=== PATIENT | female | born 1935 | race Caucasian/White ===

== ENCOUNTER 2016-11-30 02:16 | Emergency (ER) | payer MEDICARE, BC ==
--- NOTE | 2016-11-30 02:45 | ER Document Report ---
ED Extremity Problem, Lower - General Chief Complaint: Knee Pain Stated Complaint: KNEE PAIN Notes: The patient is an 81-year-old female, past medical history peripheral neuropathy , IDDM, osteoarthritis, DVT multiple years ago, presents with several days of bilateral lower leg cramping and pain. She did not fall. She says that she has chronic bilateral leg pain and neuropathy, but is worse over the past few days. She has not tried taking her home Flexeril, celecoxib or gabapentin. She denies shortness of breath, chest pain, fevers, open wounds, nausea, vomiting or abdominal pain. TRAVEL OUTSIDE OF THE [place] IN LAST 30 DAYS: No - Related Data Allergies/Adverse Reactions: quinine [Quinine] Allergy (Unknown, Verified 01/02/13 23:29) Sulfa (Sulfonamide Antibiotics) Allergy (Verified 12/09/12 17:20) acetaminophen [From Percocet] Adverse Reaction (Mild, Verified 01/03/13 18:38) Nausea oxycodone HCl [From Percocet] Adverse Reaction (Mild, Verified 01/03/13 18:38) Nausea Past Medical History - General Information source: Patient - Social History Smoking Status: Unknown if Ever Smoked Family History: Reviewed & Not Pertinent - Past Medical History Cardiac Medical History: Reports: Hx Atrial Fibrillation, Hx Coronary Artery Disease, Hx Hypercholesterolemia, Hx Hypertension Endocrine Medical History: Reports: Hx Diabetes Mellitus Type 2 Musculoskeltal Medical History: Reports Hx Musculoskeletal Trauma Past Surgical History: Reports: Hx Appendectomy, Hx Breast Surgery - R mastectomy, Hx Cholecystectomy - Immunizations Hx Pneumococcal Vaccination: 08/18/12 Review of Systems - Review of Systems Notes: REVIEW OF SYSTEMS: CONSTITUTIONAL: -fevers, -chills EENT: -eye pain, -difficulty swallowing, -nasal congestion CARDIOVASCULAR: -chest pain, -syncope. RESPIRATORY: -cough, -SOB GASTROINTESTINAL: -abdominal pain, -nausea, -vomiting, -diarrhea GENITOURINARY: -dysuria, -hematuria MUSCULOSKELETAL: -back pain, -neck pain, +B/L leg pain SKIN: -rash or skin lesions. HEMATOLOGIC: -easy bruising or bleeding. LYMPHATIC: -swollen, enlarged glands. NEUROLOGICAL: -altered mental status or loss of consciousness, -headache, +B/L leg neuropathy PSYCHIATRIC: -anxiety, -depression. ALL OTHER SYSTEMS REVIEWED AND NEGATIVE. Physical Exam - Notes Notes: PHYSICAL EXAMINATION: GENERAL: Well-appearing, well-nourished and in no acute distress. HEAD: Atraumatic, normocephalic. EYES: Pupils equal round and reactive to light, extraocular movements intact, sclera anicteric, conjunctiva are normal. ENT: nares patent, oropharynx clear without exudates. Moist mucous membranes. NECK: Normal range of motion, supple without lymphadenopathy LUNGS: Breath sounds clear to auscultation bilaterally and equal. No wheezes rales or rhonchi. HEART: Regular rate and rhythm without murmurs ABDOMEN: Soft, nontender, normoactive bowel sounds. No guarding, no rebound. No masses appreciated. EXTREMITIES: Strong distal pulses, B/L tenderness over entire leg NEUROLOGICAL: Cranial nerves grossly intact. Normal speech, normal gait. Normal sensory, motor, and reflex exams. PSYCH: Normal mood, normal affect. SKIN: Warm, Dry, normal turgor, no rashes or lesions noted. Course - Re-evaluation Re-evalutation: Bedside ultrasound does not show any evidence of DVT in bilateral extremities. Patient states that she has had this pain for several years and is taking celecoxib and Neurontin, but it did not help over the past 2 days. She has strong distal pulses and no other complaints. No signs of cellulitis. - Laboratory Result Diagrams: 11/30/16 02:42 11/30/16 02:42 Laboratory results interpreted by me: 11/30/16 11/30/16 02:42 02:42 Hct 35.8 L BUN 31 H Est GFR ( Amer) 51 L Est GFR (Non-Af Amer) 42 L Glucose 305 H - Diagnostic Test Radiology reviewed: Image reviewed, Reports reviewed Radiology results interpreted by me: B/L foot x-rays: NAD Procedures - Ultrasound/Bedside Ultrasound/Bedside Time completed: 03:32 - B/L LE DVT US Ultrasound: Normal - No DVTs seen., Other Discharge - Discharge Clinical Impression: Bilateral leg pain Chronic leg pain Qualifiers: Laterality: bilateral Qualified Code(s): M79.604 - Pain in right leg Condition: Stable Disposition: HOME, SELF-CARE Additional Instructions: If you continue to have worsening leg pain, follow-up with your primary care physician to have a repeat ultrasound in 2 weeks performed. Return to the ER if you notice worsening swelling, fevers or any other concerns. Myalagia (Muscle Pain) Myalgia is pain in the muscles. We use the word myalgia to describe muscle pain where there's no history of injury, no known muscle disease, and the muscles are normal to examination. Myalgias can be a symptom of an acute illness , such as influenza, hepatitis, or any viral illness, especially with fever. Sometimes the muscle pain comes before any other symptoms. Myalgia can also be an early symptom of inflammatory muscle disease, such as lupus. If myalgia is accompanied by an acute illness that explains the muscle pain , then no further testing needs to be done. When there's no clear reason for the pain, tests may be done to see if there's an inflammatory or other disease of the muscles. The usual treatment for myalgias is anti-inflammatory medication, such as ibuprofen. Muscle aches may be soothed with a heating pad or hot compress. If muscles remain painful for more than a few days, you'll need testing and followup. Return if a muscle becomes swollen, red, or severely painful. Neuropathy Your symptoms are due to neuropathy. Neuropathy is nerve damage. There are many causes, including diabetes, immune disease, alcohol, blood vessel disease, and vitamin deficiency. The usual symptoms are pain and numbness. Neuropathy can occur anywhere, but it's most likely in the "longest" nerves. That's why the feet are most often affected. Sometimes the nerve damage can heal. But if the symptoms have lasted more than a few months, the damage is permanent. To avoid further damage, treat your underlying health problems carefully. If you have diabetes, keep the blood sugar as normal as possible. Avoid alcohol. Treat high blood pressure and high cholesterol. Treating chronic pain can be a problem. Obviously, you don't want to become addicted to pain medicine. Work closely with your doctor on pain management. Your options include antiinflammatory medicine, anti seizure medicine, antidepressants, and pain clinic management. Contact the doctor if there is a significant change.
[2016-11-30 02:58] LABS: ABSOLUTE EOSINOPHILS # (AUTO) 0.3 10^3/uL (0.0-0.6); ABSOLUTE LYMPHOCYTES (AUTO) 1.5 10^3/uL (0.5-4.7); ABSOLUTE MONOCYTES (AUTO) 0.9 10^3/uL (0.1-1.4); ABSOLUTE NEUT (AUTO) 7.2 10^3/uL (1.7-8.2); BASOPHILS % (AUTO) 0.5 % (0-2); EOSINOPHILS % (AUTO) 2.7 % (0-6); HEMATOCRIT 35.8 % (36.0-47.0); HEMOGLOBIN 12.3 g/dL (12.0-15.5); HGB HCT DIFFERENCE 1.1; LYMPHOCYTES % (AUTO) 14.9 % (13-45); MEAN CORPUSCULAR HGB CONC 34.5 g/dL (32.0-36.0); MEAN CORPUSCULAR VOLUME 87 fl (80-97); MONOCYTES % (AUTO) 8.7 % (3-13); RED BLOOD COUNT 4.11 10^6/uL (3.72-5.28); RED CELL DISTRIBUTION WIDTH 13.1 % (11.5-14.0); SEGMENTED NEUTROPHILS % (AUTO) 73.2 % (42-78); WHITE BLOOD COUNT 9.8 10^3/uL (4.0-10.5)
[2016-11-30] MEDS ORDERED: KETOROLAC TROMETHAMINE INJ/PF 30 MG/1 ML SDV IV ONE (02:58)
[2016-11-30 03:14] LABS: ANION GAP 12 (5-19); BLOOD UREA NITROGEN 31 mg/dL (7-20); CALCIUM 9.5 mg/dL (8.4-10.2); CARBON DIOXIDE 28 mmol/L (22-30); CHLORIDE 100 mmol/L (98-107); CREATINE KINASE 70 U/L (30-135); CREATININE RESULT 1.23 mg/dL (0.52-1.25); GLUCOSE 305 mg/dL (75-110); POTASSIUM 3.7 mmol/L (3.6-5.0); SODIUM 139.5 mmol/L (137-145)
[2016-11-30 04:34] VITALS: BP 143/61
== END 2016-11-30 04:20 | disposition home or self-care (01) ==
LOC: ER 02:16
DX: M79.604 Pain in right leg (principal); M79.605 Pain in left leg; M25.561 Pain in right knee; M25.562 Pain in left knee; E11.9 Type 2 diabetes mellitus without complications; Z79.4 Long term (current) use of insulin
CPT/HCPCS: 99283; 96374; 36415; 82550; 85025; 80048; 83880; J1885

== ENCOUNTER 2017-08-27 19:46 | Inpatient (IN) | payer MEDICARE, BC ==
[2017-08-27] MEDS ORDERED: ASPIRIN 81 MG TABLET, CHEWABLE PO ONE ×2 (20:24→20:29)
--- NOTE | 2017-08-27 20:34 | RADIOLOGY REPORT (SQ) ---
EXAM DESCRIPTION: CHEST SINGLE VIEW COMPLETED DATE/TIME: 08/27/2017 8:27 pm REASON FOR STUDY: Vta COMPARISON: 01/01/2013. EXAM PARAMETERS: NUMBER OF VIEWS: One view. TECHNIQUE: Single frontal radiographic view of the chest acquired. RADIATION DOSE: NA LIMITATIONS: None. FINDINGS: LUNGS AND PLEURA: No opacities, masses or pneumothorax. No pleural effusion. MEDIASTINUM AND HILAR STRUCTURES: No masses. Contour normal. HEART AND VASCULAR STRUCTURES: Heart normal in size. Normal vasculature. BONES: No acute findings. HARDWARE: Surgical clips in the soft tissues on the right. OTHER: No other significant finding. IMPRESSION: NO ACUTE RADIOGRAPHIC FINDING IN THE CHEST. TECHNICAL DOCUMENTATION: JOB ID: [id number] [employer]- All Rights Reserved
--- NOTE | 2017-08-27 20:39 | ER Document Report ---
ED Cardiac - General Mode of Arrival: Medic Information source: Patient TRAVEL OUTSIDE OF THE [place] IN LAST 30 DAYS: No - HPI Patient complains to provider of: Chest pain Cardiac risk factors: Hypertension, Dyslipidemia Associated symptoms: Other - see notes above <TAYLOR VELASCO - Last Filed: 08/28/17 02:26> <ERICKA HAQ - Last Filed: 08/28/17 05:05> - General Chief Complaint: Chest Pain Stated Complaint: CHEST PAIN Time Seen by Provider: 08/27/17 20:16 Notes: 82 year old female with history of dyslipidemia, hypertension, and coronary artery disease presents to the ED via EMS complaining of left chest and neck pain that started this morning. Patient was having difficulty breathing when EMS arrived with pain shooting down her left arm. EMS reports the patient went into Vtach and was cardioverted to a sinus rhythm. Patient denies any chest pain , discomfort, nausea, or abdominal pain at bedside. Patient recently had the flu 1.5 weeks ago. (TAYLOR VELASCO) - Related Data Allergies/Adverse Reactions: quinine [Quinine] Allergy (Unknown, Verified 08/27/17 20:22) Sulfa (Sulfonamide Antibiotics) Allergy (Verified 08/27/17 20:22) oxycodone HCl [From Percocet] Adverse Reaction (Mild, Verified 08/27/17 20:22) Nausea Past Medical History - General Information source: Patient - Social History Smoking Status: Former Smoker Frequency of alcohol use: None Drug Abuse: None Family History: Reviewed & Not Pertinent Patient has suicidal ideation: No Patient has homicidal ideation: No - Past Medical History Cardiac Medical History: Reports: Hx Atrial Fibrillation, Hx Coronary Artery Disease, Hx Hypercholesterolemia, Hx Hypertension Endocrine Medical History: Reports: Hx Diabetes Mellitus Type 2 Renal/ Medical History: Denies: Hx Peritoneal Dialysis Musculoskeltal Medical History: Reports Hx Musculoskeletal Trauma Past Surgical History: Reports: Hx Appendectomy, Hx Breast Surgery - R mastectomy, Hx Cholecystectomy - Immunizations Hx Pneumococcal Vaccination: 08/18/12 <TAYLOR VELASCO - Last Filed: 08/28/17 02:26> Review of Systems - Review of Systems Constitutional: No symptoms reported EENT: No symptoms reported Cardiovascular: See HPI, Chest pain - radiating to left neck and arm Respiratory: See HPI, Short of breath Gastrointestinal: No symptoms reported. denies: Abdominal pain, Nausea Genitourinary: No symptoms reported Female Genitourinary: No symptoms reported Musculoskeletal: No symptoms reported Skin: No symptoms reported Hematologic/Lymphatic: No symptoms reported Neurological/Psychological: No symptoms reported -: Yes All other systems reviewed and negative <TAYLOR VELASCO - Last Filed: 08/28/17 02:26> Physical Exam - Vital signs Interpretation: Tachycardic - General General appearance: Alert In distress: None - HEENT Head: Normocephalic, Atraumatic Eyes: Normal Extraocular movements intact: Yes Pupils: PERRL - Respiratory Respiratory status: No respiratory distress Breath sounds: Normal - Cardiovascular Rhythm: Regular, Tachycardia Heart sounds: Normal auscultation - Abdominal Inspection: Normal - Back Back: Normal - Extremities General upper extremity: Normal inspection, Normal ROM General lower extremity: Normal inspection, Normal ROM - Neurological Neuro grossly intact: Yes Cognition: Normal Orientation: AAOx4 Kala Coma Scale Eye Opening: Spontaneous Una Coma Scale Verbal: Oriented Una Coma Scale Motor: Obeys Commands Kala Coma Scale Total: 15 Speech: Normal - Psychological Associated symptoms: Normal affect, Normal mood - Skin Skin Temperature: Warm Skin Moisture: Dry Skin Color: Normal <TAYLOR VELASCO - Last Filed: 08/28/17 02:26> - Vital signs Vitals: Resp Pulse Ox 18 100 08/27/17 19:51 08/27/17 19:51 Course - Laboratory Result Diagrams: 08/27/17 20:39 08/27/17 20:39 - Consults [facility]I Time consulted: 20:16 [facility] Transfer Line Time consulted: 20:25 Dr. Fernandez Time consulted: 22:42 Dr. Oliveira Time consulted: 23:38 <TAYLOR VELASCO - Last Filed: 08/28/17 02:26> - Laboratory Result Diagrams: 08/27/17 20:39 08/28/17 01:59 - Diagnostic Test Radiology reviewed: Reports reviewed - EKG Interpretation by Ak Hazelton/QRS: LBBB <ERICKA HAQ - Last Filed: 08/28/17 05:05> - Re-evaluation Re-evalutation: 08/27/17 23:38 Patient re-evaluated and informed that she will not be transferred to [facility] because there are no beds, but will be admitted to [facility] here at [facility]. (TAYLOR VELASCO) 08/28/17 Patient is an 82-year-old female who comes in after being cardioverted by EMS for chest pain and trouble breathing with ventricular tachycardia on monitor. Patient states that after she was cardioverted she did not have any further chest pain. She has not had any chest pain in the emergency department. Patient was initially going to be transferred to [facility] for evaluation of elevation of troponin, V. tach prior to arrival, a new left bundle branch block. Patient has been chest pain-free since she has been here and resting comfortably. She has had no complaints. Unfortunately, a more critical patient took the last ICU bed at [facility]. Patient was evaluated by cardiology here who recommended starting the patient on Lipitor, amiodarone load with drip, Ranexa, heparin drip with bolus. Patient 's EKG is now showing a sinus rhythm with no tachycardia and no evidence for left bundle branch block. Patient is agreeable to staying at this hospital and would actually prefer it. She has been discussed with the hospitalist service and will be admitted to the ICU. Stable at time of admission. (ERICKA HAQ) - Vital Signs Vital signs: Temp Pulse Resp BP Pulse Ox 98.5 F 116 H 12 143/72 H 95 08/27/17 21:12 08/27/17 20:05 08/27/17 21:01 08/27/17 21:01 08/27/17 21:01 - Laboratory Laboratory results interpreted by me: 08/27/17 08/27/17 20:39 20:39 WBC 10.6 H Hgb 11.6 L Hct 34.7 L Plt Count 498 H Seg Neutrophils % 79.9 H Lymphocytes % 9.0 L Absolute Neutrophils 8.5 H Sodium 147.5 H Potassium 3.3 L Chloride 108 H BUN 24 H Creatinine 0.46 L Glucose 119 H Creatine Kinase 21 L - Consults [facility] Reason for consultation: 08/27/17 20:16 Patient was discussed with the [facility] STEMI line regarding patient's new left bundle branch block. (TAYLOR VELASCO) [facility] Transfer Line Reason for consultation: 08/27/17 20:25 Patient was discussed with the transfer line and told the subway car repairer will call back. 08/27/17 20:33 Water Pump Installer returns call and says not to lytic the patient and to admit the patient to a hospitalist, unless she develops chest pain again. (TAYLOR VELASCO) Dr. Fernandez Reason for consultation: 08/27/17 22:[address] Fernandez who agrees to come into the ED and see the patient. 08/27/17 23:17 Dr. Fernandez saw the patient and states to admit the patient to IMCU under hospitalist care. (TAYLOR VELASCO) Dr. Oliveira Reason for consultation: 08/27/17 23:[address] Oliveira who agrees to admit the patient IMCU. (TAYLOR VELASOC) Critical Care Note - Critical Care Note Total time excluding time spent on procedures (mins): 60 - Evaluation and management after cardioversion, left bundle branch block, initiation of amiodarone, heparin, consultation with cardiology, consultation with tertiary care facility, coordination of admission to ICU, counseling of patient, multiple re-evaluations <ERICKA HAQ - Last Filed: 08/28/17 05:05> Discharge <TAYLOR VELASCO - Last Filed: 08/28/17 02:26> - Discharge Admitting Provider: Maxx OLIVEIRA Unit Admitted: ICU <ERICKA HAQ - Last Filed: 08/28/17 05:05> - Discharge Clinical Impression: V-tach, LBBB (left bundle branch block), NSTEMI (non-ST elevated myocardial infarction) Condition: Stable Disposition: ADMITTED INPATIENT Scribe Attestation: 08/28/17 05:05 I personally performed the services described in the documentation, reviewed and edited the documentation which was dictated to the scribe in my presence, and it accurately records my words and actions. (ERICKA HAQ) Scribe Documentation - Scribe Written by Nader:: Nader Mendez, 08/27/2017 [id number] acting as scribe for :: Quentin <TAYLOR VELASCO - Last Filed: 08/28/17 02:26>
[2017-08-27 20:58] LABS: ABSOLUTE BASOPHILS # (AUTO) 0.1 10^3/uL (0.0-0.2); ABSOLUTE EOSINOPHILS # (AUTO) 0.2 10^3/uL (0.0-0.6); ABSOLUTE MONOCYTES (AUTO) 0.9 10^3/uL (0.1-1.4); ABSOLUTE NEUT (AUTO) 8.5 10^3/uL (1.7-8.2); BASOPHILS % (AUTO) 0.7 % (0-2); EOSINOPHILS % (AUTO) 2.1 % (0-6); HEMATOCRIT 34.7 % (36.0-47.0); HEMOGLOBIN 11.6 g/dL (12.0-15.5); MEAN CORPUSCULAR HEMOGLOBIN 29.7 pg (27.0-33.4); MEAN CORPUSCULAR HGB CONC 33.4 g/dL (32.0-36.0); MEAN CORPUSCULAR VOLUME 89 fl (80-97); MONOCYTES % (AUTO) 8.3 % (3-13); PLATELET COUNT 498 10^3/uL (150-450); SEGMENTED NEUTROPHILS % (AUTO) 79.9 % (42-78); TOTAL CELLS COUNTED % (AUTO) 100 %; WHITE BLOOD COUNT 10.6 10^3/uL (4.0-10.5)
[2017-08-27 21:14] LABS: ALANINE AMINOTRANSFERASE 13 U/L (9-52); ALBUMIN 3.9 g/dL (3.5-5.0); ALKALINE PHOSPHATASE 66 U/L (38-126); ANION GAP 16 (5-19); ASPARTATE AMINO TRANSFERASE 31 U/L (14-36); BILIRUBIN,DIRECT 0.4 mg/dL (0.0-0.4); BILIRUBIN,TOTAL 0.4 mg/dL (0.2-1.3); BLOOD UREA NITROGEN 24 mg/dL (7-20); CALCIUM 9.4 mg/dL (8.4-10.2); CARBON DIOXIDE 24 mmol/L (22-30); CHLORIDE 108 mmol/L (98-107); CREATINE KINASE 21 U/L (30-135); GLUCOSE 119 mg/dL (75-110); POTASSIUM 3.3 mmol/L (3.6-5.0); SODIUM 147.5 mmol/L (137-145); TOTAL PROTEIN 6.6 g/dL (6.3-8.2)
[2017-08-27 21:46] LABS: CREATINE KINASE MB 3.58 ng/mL (<4.55)
[2017-08-27 21:56] LABS: TROPONIN I 0.366 ng/mL
[2017-08-27] MEDS ORDERED: AMIODARONE HCL 150 MG in DEXTROSE 5%-WATER 100 ML IV ONE (22:44)
[2017-08-27] MEDS ORDERED: RANOLAZINE 500 MG TAB.SR.12H PO ONE (23:00)
[2017-08-27] MEDS ORDERED: ATORVASTATIN CALCIUM 80 MG TABLET PO ONE ×2 (23:15)
[2017-08-27] MEDS ORDERED: ATORVASTATIN CALCIUM 80 MG TABLET PO SCH (23:15)
[2017-08-27] MEDS ORDERED: HEPARIN SOD (PORCINE) 1,000 UNIT/ML 10 ML VIAL IV ONE (23:16)
[2017-08-27] MEDS ORDERED: RANOLAZINE 500 MG TAB.SR.12H PO SCH (23:45)
--- NOTE | 2017-08-27 23:46 | PDOC CONSULTATION ---
Consultation Consult Date: 08/27/17 Attending physician:: RAVINDER HAGEN Consult reason:: Ventricular tachycardia status post cardioversion History of Present Illness Admission Date/PCP: 08/27/2017 Patient complains of: Chest pain and shortness of breath History of Present Illness: LEONARDO SHIN is a 82 year old female with past medical history of hypertension, insulin dependent diabetes mellitus, hyperlipidemia, GERD, peripheral neuropathy, and breast cancer who presents to the emergency department with complaints of chest pain. Patient reports that she laid down at 4 PM she got up later had eggs and a piece of toast. At which time she reports she developed chest pain that went up her neck into her arm. When EMS arrived, patient was found to be in V. tach and was hypotensive. Patient was cardioverted 1 and brought to the emergency department. Patient reports she has had no further chest pain since that time. Attempts were made to transfer this patient outside facilities, but they were unable to accommodate our request as they were full. Multiple institutions were called. Cardiology did see this patient and agreed to help comanage her here at this facility. This history was reviewed and confirmed. Subsequent to cardioversion, she denied any recurrence of chest pain, claims to be feeling well and agreed to stay in this hospital for medical management. Patient denied any prior history of myocardial infarction. Echocardiogram was ordered for risk assessment purposes with the understanding that if echocardiogram showed depressed LVEF, then patient will be shipped out to tertiary care however if echocardiogram showed well-preserved LV EF then we could try to manage her medically here. Patient did agree to this approach. Patient's medications are currently undergoing reconciliation. Current list is automatically generated by [employer] and does not reflect an accurate description of her medications. Due to the urgent/emergent nature of her condition, she is admitted without a full list. Past Medical History Cardiac Medical History: Reports: Atrial Fibrillation, Coronary Artery Disease, Hyperlipidema, Hypertension Endocrine Medical History: Reports: Diabetes Mellitus Type 2 Past Surgical History Past Surgical History: Reports: Appendectomy, Cholecystectomy Social History Information Source: Patient Smoking Status: Former Smoker - Advance Directive Resuscitation Status: Full Code Surrogate healthcare decision maker:: Patient's children at the surrogate decision-maker Family History Family History: Reviewed & Not Pertinent Parental Family History Reviewed: Yes Children Family History Reviewed: Yes Sibling(s) Family History Reviewed.: Yes - No significant family history noted Medication/Allergy Home Medications: Amlodipine Besylate [Norvasc 10 mg Tablet] 10 mg PO DAILY 08/28/17 Ascorbic Acid [Vitamin C with Felicitas Hips] 500 mg PO DAILY 08/28/17 Aspirin [Adult Low Dose Aspirin EC] 81 mg PO DAILY 08/28/17 Celecoxib [Celebrex 200 mg Capsule] 200 mg PO DAILY 08/28/17 Cholecalciferol (Vitamin D3) [Vitamin D3 400 Unit Tablet] 400 unit PO DAILY 07/05 Cyclobenzaprine HCl [Flexeril 10 mg Tablet] 10 mg PO BIDP PRN 08/28/17 Furosemide [Lasix 40 mg Tablet] 40 mg PO DAILY 08/28/17 Gabapentin [Neurontin 300 mg Capsule] 300 mg PO Q12 08/28/17 Insulin Degludec [Tresiba Flextouch U-200] 0 units SQ .PERSLIDINGSCALE 08/28/17 Insulin Degludec [Tresiba Flextouch U-200] 32 units SQ ACBRKFST 08/28/17 Insulin Lispro [Humalog Kwikpen U-100] 0 units SQ .PERSLIDINGSCALE 08/28/17 Levothyroxine Sodium [Synthroid] 175 mcg PO ACBRKFST 08/28/17 Metoprolol Succinate [Toprol Xl 25 mg Tab.sr] 25 mg PO DAILY 08/28/17 Multivit-Min/Iron/Folic/Lutein [Centrum Silver Women Tablet] 1 tab PO DAILY 07/05 Pramipexole Di-HCl [Mirapex 0.5 mg Tablet] 0.5 mg PO HSP PRN 08/28/17 Ranitidine HCl [Zantac 150 mg Tablet] 150 mg PO BID 08/28/17 Simvastatin 10 mg PO QHS 08/28/17 Allergies/Adverse Reactions: quinine [Quinine] Allergy (Unknown, Verified 08/27/17 20:22) Sulfa (Sulfonamide Antibiotics) Allergy (Verified 08/27/17 20:22) oxycodone HCl [From Percocet] Adverse Reaction (Mild, Verified 08/27/17 20:22) Nausea Review of Systems Review of Systems: Please see history of present illness and past medical history as wall. Constitutional: No fever or chills reported. Head : No recent chronic headaches, recent head injury. Eyes: No recent eye pain, diplopia, redness, discharge, acute visual changes. Ears: No recent chronic ear pain, acute hearing loss, ear discharge. Oral cavity: No recent ulcerations, bleeding, oral cavity discomfort. Neck: No recent acute neck pain reported. Hematologic: No recent easy bruising or bleeding or hematologic malignancy reported. Lymphatic: No recent lymphatic malignancy, chronic lymphadenopathy reported yet Cardiovascular system review: See history of present illness. Respiratory system review: No recent chronic cough, hemoptysis, blood clots in the lungs reported. Mild Shortness of breath on exertion Gastrointestinal system review: Negative for any recent acute or chronic abdominal pain, hematemesis, melena, recent change in bowel habits. Genitourinary system review: No recent acute or chronic hematuria, flank pain, UTI etc. reported. Skin system review: Negative for any recent abnormal bruising, no rash, no pruritus reported. Neurologic: No prior history of strokes, mini strokes, seizure disorder. Psychologic: No history of major psychosis or major depression reported. Musculoskeletal: Minor aches and pains reported. No acute joint swelling reported. Endocrine: No recent polyuria, polydipsia, recent heat or cold intolerance. Physical Exam Vital Signs: Temp Pulse Resp BP Pulse Ox 98.5 F 116 H 12 143/72 H 95 08/27/17 21:12 08/27/17 20:05 08/27/17 21:01 08/27/17 21:01 08/27/17 21:01 Intake & Output 08/26/17 08/27/17 08/28/17 06:59 06:59 06:59 Weight 107.2 kg Exam: GENERAL: well-nourished and in no acute distress. Alert and oriented x3 HEAD: Atraumatic, normocephalic. EYES: Pupils equal round and reactive to light, extraocular movements intact, sclera anicteric, conjunctiva are normal. ENT: TMs normal, nares patent, oropharynx clear without exudates. Moist mucous membranes. No oral ulcerations or bleeding gums noted NECK: supple without lymphadenopathy. Trachea is central. No cervical or axillary lymphadenopathy noted. Carotids are 2+, JVD WNL LUNGS: Respiration seems nonlabored, no significant accessory muscle action noted. Breath sounds clear to auscultation bilaterally and equal noted. No wheezes rales or rhonchi noted. No significant dullness noted on percussion. CHEST: Palpation of the chest wall shows no significant chest wall tenderness. No other significant abnormalities noted. 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 ABDOMEN: Soft, no significant tenderness appreciated, normoactive bowel sounds. No guarding, no rebound. No rigidity noted . No masses appreciated. EXTREMITIES: Pedal pulses are 1-2+, no calf tenderness noted. No clubbing or cyanosis.trace to 1+ pedal edema noted NEUROLOGICAL: Focused neurological exam showed no significant neurologic deficit. Normal speech, no focal weakness appreciated. PSYCH: Normal mood, normal affect. Judgment and insight within normal limits. SKIN: No significant ecchymosis, ulcerations or signs of pruritus noted. Mild chronic dermatitis changes noted both lower legs. MUSCULOSKELETAL EXAM: No significant joint swelling noted. Results Laboratory Results: 08/27/17 20:39 08/27/17 20:39 08/27/17 08/27/17 08/27/17 20:39 20:39 20:39 WBC 10.6 H RBC 3.90 Hgb 11.6 L Hct 34.7 L MCV 89 MCH 29.7 MCHC 33.4 RDW 13.0 Plt Count 498 H Seg Neutrophils % 79.9 H Lymphocytes % 9.0 L Monocytes % 8.3 Eosinophils % 2.1 Basophils % 0.7 Absolute Neutrophils 8.5 H Absolute Lymphocytes 1.0 Absolute Monocytes 0.9 Absolute Eosinophils 0.2 Absolute Basophils 0.1 Sodium 147.5 H Potassium 3.3 L Chloride 108 H Carbon Dioxide 24 Anion Gap 16 BUN 24 H Creatinine 0.46 L Est GFR ( Amer) > 60 Est GFR (Non-Af Amer) > 60 Glucose 119 H Calcium 9.4 Total Bilirubin 0.4 AST 31 ALT 13 Alkaline Phosphatase 66 Total Protein 6.6 Albumin 3.9 TSH 4.16 08/27/17 08/27/17 20:39 20:39 Creatine Kinase 21 L CK-MB (CK-2) 3.58 Troponin I 0.366 EKG Comments: Multiple EKGs were obtained. This showed sinus rhythm, no acute ST-T wave changes noted. There was one EKG performed outside by ENT which did show wide- complex tachycardia with left bundle branch block pattern most likely V. tach but could not rule out atrial flutter fibrillation with rapid ventricular response with aberrancy. Impressions: Chest X-Ray 08/27/17 20:03 IMPRESSION: NO ACUTE RADIOGRAPHIC FINDING IN THE CHEST. 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 Non-STEMI: Treat with heparin, aspirin for the time being along with beta- blockers, hypotensive statin. Recommend stat 2D echo. This can be performed first thing in the morning. Atrial fibrillation: Loading with amiodarone will help. Also start patient on Ranexa. Patient has other medical problems which are currently stable and are being addressed. Patient is on transfer list but unfortunately no beds are available. Subsequently decision was made to keep here. With medical management which was agreeable to the patient. - Time Time Spent: 30 to 50 Minutes - CODE STATUS was discussed, patient remains full code. Surrogate decision-maker children. Multiple medical problems were addressed. More than 50% of the time spent coordinating care, discussing management plans with involved caregivers. Management plans discussed with involved personnels. Medical decision making was of moderate to high complexity , patient's has multiple comorbidities. Medications reviewed and adjusted accordingly: Yes
[2017-08-27] MEDS ORDERED: MORPHINE SULFATE 10 MG/ML INJ IV PRN (23:59)
[2017-08-27] MEDS ORDERED: NITROGLYCERIN 0.4 MG/TAB 25 TAB/BOTTLE SL PRN (23:59)
[2017-08-28] MEDS ORDERED: DEXTROSE 40% GEL 15 GM TUBE PO PRN ×2 (00:12)
[2017-08-28] MEDS ORDERED: DEXTROSE 50%-WATER 25 GM/50 ML DISP.SYRIN IV PRN ×2 (00:12)
[2017-08-28] MEDS ORDERED: GLUCAGON,HUMAN RECOMB 1 MG INJ IM PRN (00:12)
[2017-08-28] MEDS ORDERED: AMIODARONE HCL INJ 150 MG/3 ML VIAL IV ONE ×2 (00:36→04:47)
[2017-08-28] MEDS: HEPARIN SODIUM,PORCINE/D5W 25,000 UNIT/250 ML RTUINJ IV PRN (01:10)
[2017-08-28 01:19] LABS: CREATINE KINASE MB 6.13 ng/mL (<4.55)
[2017-08-28 01:29] LABS: TROPONIN I 2.09 ng/mL
[2017-08-28 02:23] LABS: ANION GAP 8 (5-19); BLOOD UREA NITROGEN 23 mg/dL (7-20); CALCIUM 9.2 mg/dL (8.4-10.2); CARBON DIOXIDE 27 mmol/L (22-30); CHLORIDE 105 mmol/L (98-107); GLUCOSE 286 mg/dL (75-110); SODIUM 139.5 mmol/L (137-145)
[2017-08-28 02:35] LABS: POTASSIUM 4.4 mmol/L (3.6-5.0)
[2017-08-28] MEDS: DEXTROSE 5%-WATER 500 ML with AMIODARONE HCL 900 MG IV PRN ×4 (04:56→23:34)
[2017-08-28 06:26] LABS: CREATINE KINASE MB 5.5 ng/mL (<4.55); TROPONIN I 2.25 ng/mL
[2017-08-28 06:29] LABS: CHOLESTEROL 130.18 mg/dL (0-200); TRIGLYCERIDES 95 mg/dL (<150)
[2017-08-28 06:42] LABS: DIRECT LDL 67 mg/dL (<100)
[2017-08-28 07:54] LABS: APPEARANCE,URINE CLEAR; BILIRUBIN,URINE NEGATIVE (NEGATIVE); COLOR,URINE YELLOW; GLUCOSE, URINE >=500 mg/dL (NEGATIVE); KETONES,URINE NEGATIVE (NEGATIVE); LEUKOCYTE ESTERASE,URINE NEGATIVE (NEGATIVE); NITRITE,URINE NEGATIVE (NEGATIVE); PROTEIN,URINE 30 mg/dL (NEGATIVE); URINE SPECIFIC GRAVITY 1.017; UROBILINOGEN,URINE NEGATIVE mg/dL (<2.0)
--- NOTE | 2017-08-28 08:11 | EKG REPORT ---
SEVERITY:- ABNORMAL ECG - SINUS RHYTHM NONSPECIFIC INTRAVENTRICULAR CONDUCTION DELAY BORDERLINE R WAVE PROGRESSION, ANTERIOR LEADS : Confirmed by: Olman Wen MD 28-Aug-2017 08:09:41
--- NOTE | 2017-08-28 08:27 | PDOC H&P ---
History of Present Illness Admission Date/PCP: 08/27/17 23:42 History of Present Illness: LEONARDO SHIN is a 82 year old female with past medical history of hypertension, insulin dependent diabetes mellitus, hyperlipidemia, GERD, peripheral neuropathy, and breast cancer who presents to the emergency department with complaints of chest pain. Patient reports that she laid down at 4 PM she got up later had eggs and a piece of toast. At which time she reports she developed chest pain that went up her neck into her arm. When EMS arrived, patient was found to be in V. tach and was hypotensive. Patient was cardioverted 1 and brought to the emergency department. Patient reports she has had no further chest pain since that time. Attempts were made to transfer this patient outside facilities, but they were unable to accommodate our request as they were full. Multiple institutions were called. Cardiology did see this patient and agreed to help comanage her here at this facility. Patient's medications are currently undergoing reconciliation. Current list is automatically generated by [employer] and does not reflect an accurate description of her medications. Due to the urgent/emergent nature of her condition, she is admitted without a full list. Past Medical History Cardiac Medical History: Reports: Atrial Fibrillation, Coronary Artery Disease, Hyperlipidema, Hypertension Endocrine Medical History: Reports: Diabetes Mellitus Type 2, Obesity Malignancy Medical History: Reports: Breast Cancer GI Medical History: Reports: Gastroesophageal Reflux Disease Past Surgical History Past Surgical History: Reports: Appendectomy, Cholecystectomy, Mastectomy Social History Smoking Status: Former Smoker Frequency of Alcohol Use: None Hx Recreational Drug Use: No Hx Prescription Drug Abuse: No - Advance Directive Resuscitation Status: Do Not Resuscitate Surrogate healthcare decision maker:: Prieto Shin, natty Family History Family History: CAD, Malignancy Parental Family History Reviewed: Yes Children Family History Reviewed: Yes Sibling(s) Family History Reviewed.: Yes Medication/Allergy Allergies/Adverse Reactions: quinine [Quinine] Allergy (Unknown, Verified 08/27/17 20:22) Sulfa (Sulfonamide Antibiotics) Allergy (Verified 08/27/17 20:22) oxycodone HCl [From Percocet] Adverse Reaction (Mild, Verified 08/27/17 20:22) Nausea Review of Systems Constitutional: ABSENT: chills, fever(s), headache(s), weight gain, weight loss Eyes: ABSENT: visual disturbances Ears: ABSENT: hearing changes Cardiovascular: PRESENT: as per HPI, chest pain. ABSENT: dyspnea on exertion, edema, orthropnea, palpitations Respiratory: ABSENT: cough, hemoptysis Gastrointestinal: ABSENT: abdominal pain, constipation, diarrhea, hematemesis, hematochezia, nausea, vomiting Genitourinary: ABSENT: dysuria, hematuria Musculoskeletal: ABSENT: joint swelling Integumentary: ABSENT: rash, wounds Neurological: ABSENT: abnormal gait, abnormal speech, confusion, dizziness, focal weakness, syncope Psychiatric: ABSENT: anxiety, depression, homidical ideation, suicidal ideation Endocrine: ABSENT: cold intolerance, heat intolerance, polydipsia, polyuria Hematologic/Lymphatic: ABSENT: easy bleeding, easy bruising Physical Exam Vital Signs: Temp Pulse Resp BP Pulse Ox 98.5 F 116 H 12 143/72 H 95 08/27/17 21:12 08/27/17 20:05 08/27/17 21:01 08/27/17 21:01 08/27/17 21:01 General appearance: PRESENT: mild distress, obese, well-developed, well- nourished Head exam: PRESENT: atraumatic, normocephalic Eye exam: PRESENT: conjunctiva pink, EOMI, PERRLA. ABSENT: scleral icterus Ear exam: PRESENT: normal external ear exam Mouth exam: PRESENT: moist, tongue midline Neck exam: ABSENT: JVD, lymphadenopathy, thyromegaly, tracheal deviation Respiratory exam: PRESENT: clear to auscultation pinky, unlabored. ABSENT: accessory muscle use, rales, rhonchi, wheezes Cardiovascular exam: PRESENT: RRR, +S1, +S2. ABSENT: diastolic murmur, rubs, systolic murmur Pulses: PRESENT: normal dorsalis pedis pul Vascular exam: PRESENT: normal capillary refill GI/Abdominal exam: PRESENT: hypoactive bowel sounds, soft. ABSENT: distended, guarding, mass, organolmegaly, rebound, tenderness Rectal exam: PRESENT: deferred Extremities exam: PRESENT: full ROM, +2 edema - RLE>LLE. ABSENT: calf tenderness, clubbing Neurological exam: PRESENT: alert, awake, oriented to person, oriented to place , oriented to time, oriented to situation, CN II-XII grossly intact. ABSENT: motor sensory deficit Psychiatric exam: PRESENT: appropriate affect, normal mood. ABSENT: homicidal ideation, suicidal ideation Skin exam: PRESENT: dry, intact, warm, other - Evidence of chronic venous stasis in her lower extremities including hyperkeratosis, hyperpigmentation and mild erythema. ABSENT: cyanosis, rash Results Laboratory Results: 08/28/17 01:59 08/28/17 08/28/17 08/28/17 00:28 01:59 05:44 Sodium 139.5 Potassium 4.4 D Chloride 105 Carbon Dioxide 27 Anion Gap 8 BUN 23 H Creatinine 1.15 Est GFR ( Amer) 55 L Est GFR (Non-Af Amer) 45 L Glucose 286 H Calcium 9.2 Triglycerides 95 Cholesterol 130.18 LDL Cholesterol Direct 67 VLDL Cholesterol 19.0 HDL Cholesterol 48 TSH 6.49 H Urine Color Urine Appearance Urine pH Ur Specific Kila Urine Protein Urine Glucose (UA) Urine Ketones Urine Blood Urine Nitrite Ur Leukocyte Esterase Urine WBC (Auto) Urine RBC (Auto) 08/28/17 06:30 Sodium Potassium Chloride Carbon Dioxide Anion Gap BUN Creatinine Est GFR ( Amer) Est GFR (Non-Af Amer) Glucose Calcium Triglycerides Cholesterol LDL Cholesterol Direct VLDL Cholesterol HDL Cholesterol TSH Urine Color YELLOW Urine Appearance CLEAR Urine pH 6.0 Ur Specific Kila 1.017 Urine Protein 30 H Urine Glucose (UA) >=500 H Urine Ketones NEGATIVE Urine Blood NEGATIVE Urine Nitrite NEGATIVE Ur Leukocyte Esterase NEGATIVE Urine WBC (Auto) 2 Urine RBC (Auto) 1 08/28/17 08/28/17 00:28 05:44 CK-MB (CK-2) 6.13 H 5.50 H Troponin I 2.090 2.250 Impressions: Chest X-Ray 08/27/17 20:03 IMPRESSION: NO ACUTE RADIOGRAPHIC FINDING IN THE CHEST. Assessment & Plan - Diagnosis (1) NSTEMI (non-ST elevated myocardial infarction) Is this a current diagnosis for this admission?: Yes Plan: Have consulted cardiology Patient placed on heparin drip Patient on aspirin, heparin drip, metoprolol, lisinopril, Ranexa Continue to trend troponin (2) V-tach Is this a current diagnosis for this admission?: Yes Plan: Patient was cardioverted out of ventricular tachycardia. On amiodarone drip Continue telemetry monitoring Appreciate cardiology input (3) IDDM (insulin dependent diabetes mellitus) Is this a current diagnosis for this admission?: Yes Plan: Check patient's hemoglobin A1c Place her on sliding scale insulin (4) Hypertension Qualifiers: Hypertension type: essential hypertension Qualified Code(s): I10 - Essential (primary) hypertension Is this a current diagnosis for this admission?: Yes Plan: Patient placed on metoprolol, and lisinopril, (5) Neuropathy Is this a current diagnosis for this admission?: Yes Plan: Gabapentin 3 times daily (6) History of breast cancer Is this a current diagnosis for this admission?: Yes Plan: Arm restrict right-sided (7) Edema of right lower extremity Is this a current diagnosis for this admission?: Yes Plan: Obtain ultrasound of her lower extremities (8) Stasis dermatitis of both legs Is this a current diagnosis for this admission?: Yes (9) LBBB (left bundle branch block) Is this a current diagnosis for this admission?: Yes Plan: New after non-STEMI - Time Time Spent: 50 to 70 Minutes Critical Time spent with patient: 25-34 minutes Anticipated discharge: Home - Inpatient Certification Based on my medical assessment, after consideration of the patient's comorbidities, presenting symptoms, or acuity I expect that the services needed warrant INPATIENT care.: Yes I certify that my determination is in accordance with my understanding of Medicare's requirements for reasonable and necessary INPATIENT services [42 CFR 412.3e].: Yes Medical Necessity: Need For Continuous Telemetry Monitoring Post Hospital Care: D/C Business Change Manager Documentation
[2017-08-28] MEDS ORDERED: ASPIRIN 325 MG TABLET, ENT COATED PO SCH (10:00)
[2017-08-28] MEDS ORDERED: RANOLAZINE 500 MG TAB.SR.12H PO SCH (10:00)
[2017-08-28] MEDS: LISINOPRIL 5 MG TABLET PO SCH (12:14)
[2017-08-28] MEDS: DOCUSATE SODIUM 100 MG CAPSULE PO SCH ×2 (12:17→18:27)
[2017-08-28] MEDS: METOPROLOL SUCCINATE 25 MG TAB.SR.24H PO SCH ×2 (12:18→21:24)
[2017-08-28] MEDS: RANOLAZINE 500 MG TAB.SR.12H PO SCH ×2 (12:18→21:26)
[2017-08-28] MEDS: LANSOPRAZOLE 15 MG TAB.RAP.DR PO SCH (12:18)
[2017-08-28] MEDS: INSULIN LISPRO 100 UNIT/ML 3 ML VIAL SUBCUT PRN ×3 (12:32→21:51)
--- NOTE | 2017-08-28 12:54 | XCELERA REPORT ---
[address] [address] Lower Extremity Venous Evaluation Name: LEONARDO SHIN Age: 82 yrs Gender: Female : 1935 Patient Status: Inpatient Patient Location: [place] [address]^A Study Date: 08/28/2017 09:54 AM Procedure: Color flow and duplex imaging bilaterally of the veins of the lower extremities as well as the Common Femoral veins. Reason For Study: RLE edema greater than left Ordering Physician: RAVINDER HAGEN Performed By: Natalia Lucas Right Sided Venous Evaluation Normal vessel filling wall to wall, compression and augmentation as well as Colour flow down to the infrageniculate veins. Left Sided Venous Evaluation Normal vessel filling wall to wall, compression and augmentation as well as Colour flow down to the infrageniculate veins. Interpretation Summary No duplex evidence of DVT or obstruction in the bilateral lower extremities. : RAVINDER HAGEN [place]
[2017-08-28 13:27] LABS: CREATINE KINASE MB 3.62 ng/mL (<4.55); TROPONIN I 1.51 ng/mL
--- NOTE | 2017-08-28 18:19 | PROGRESS NOTE E ---
Progress Note NAME: LEONARDO SHIN : 1935 AGE: 82Y DATE: 08/28/2017 ROOM: ED60 SUBJECTIVE: The patient was seen earlier today on rounds. The patient is lying in bed. She states that she does feel better than when she came in. She denies any further chest pain. She denies any nausea, vomiting or diarrhea. She does admit to some shortness of breath. The patient does complain of nasal congestion and feels that this is the reason she is so sick, stating that if she could breathe out of her nose, she feels that she would be much better. The patient denies any dizziness. The patient denies any heart palpitations and does not voice any other concerns at this time. REVIEW OF SYSTEMS: Rest of review of systems is negative. MEDICATIONS: Medications have been reviewed. OBJECTIVE: GENERAL: The patient is an 82-year-old female who is awake and alert. She is oriented to person, place, time and situation. She is verbal and conversational, ambulatory and does not appear to be in any acute distress. VITAL SIGNS ARE FOLLOWS: Temperature is 98.5, pulse 77, respirations 17, blood pressure 165/70, oxygen saturation is 98% on room air. SKIN: Warm and dry. No rashes. She is not diaphoretic. HEENT: Pupils are equal, round, reactive to light and accommodation. Conjunctivae pink. There is no evidence of JVP. CVS: Heart is regular. There is no murmur or rub. CHEST: Clear, symmetrical and unlabored. ABDOMEN: Soft, nontender and nondistended. BACK: No CVA tenderness or sacral edema. EXTREMITIES: No clubbing, cyanosis or edema. PSYCHIATRIC: Appropriate affect, pleasant mood. DIAGNOSTIC DATA: Lab values are as follows: Hematology obtained on 08/27/2017: WBC is 10.6, hemoglobin 11.6, hematocrit 34.7, and platelet count is 498,000. Chemistry obtained on 08/28/2017: Glucose is 364, CK-MB is 3.62, troponin is 0.510, T4 is 1.73, triglycerides 95, cholesterol 130, LDL 67, VLDL 19, HDL 48. IMPRESSION AND PLAN: 1. VENTRICULAR TACHYCARDIA. The patient was cardioverted out of V-tach. She is currently in sinus rhythm. The patient is on amiodarone drip. Do appreciate cardiology input on this. 2. NON-ST ELEVATION [place]. Uncertain if this V-tach is the source of this or if this was a source of V-tach. Do appreciate cardiology's input on this. Will continue heparin drip as well as aspirin, metoprolol and lisinopril and will continue to trend troponin which is on a downward trend. 3. INSULIN-DEPENDENT DIABETES MELLITUS. The patient's blood sugars have been slightly elevated but will continue sliding-scale coverage. 4. HYPERTENSION. Continue the patient's home medications. 5. PERIPHERAL NEUROPATHY. Will continue gabapentin. 6. HISTORY OF BREAST CANCER. The patient's right arm is restricted. 7. RIGHT LOWER EXTREMITY EDEMA. The patient's Doppler is unremarkable. 8. STASIS DERMATITIS OF THE LOWER EXTREMITIES. The patient overall feels much improved. DISPOSITION: The patient is a DO NOT RESUSCITATE/DO NOT INTUBATE. Pending the patient's symptomatology and diagnostic findings, will reevaluate as needed. Do appreciate cardiology's input. TIME SPENT: On this followup including assessment, plan, physical examination, patient education, review of records and specialty collaboration is 25 minutes. DICTATING PHYSICIAN: RAN BLOCK NP [id number] PHY#: [id number] ID: [id number] JOB#: [id number] ACCT: [id number] cc: >
[2017-08-28] MEDS ORDERED: FLUTICASONE NASAL SPRAY 50 MCG/SPRY 120 SPRAY/16 GM NASL ONE (18:30)
--- NOTE | 2017-08-28 19:06 | EKG REPORT ---
SEVERITY:- ABNORMAL ECG - SINUS RHYTHM NONSPECIFIC INTRAVENTRICULAR CONDUCTION DELAY BORDERLINE R WAVE PROGRESSION, ANTERIOR LEADS : Confirmed by: Olman Wen MD 28-Aug-2017 19:05:50
--- NOTE | 2017-08-28 19:06 | EKG REPORT ---
SEVERITY:- ABNORMAL ECG - SINUS RHYTHM ABNRM R PROG, CONSIDER ASMI OR LEAD PLACEMENT BORDERLINE PROLONGED QT INTERVAL : Confirmed by: Olman Wen MD 28-Aug-2017 19:06:08
--- NOTE | 2017-08-28 20:22 | XCELERA REPORT ---
[address] [address] Transthoracic Echocardiogram Report Name: LEONARDO SHIN Age: 82 yrs Gender: Female : 1935 Patient Status: Inpatient Patient Location: [place] [address]^A Study Date: 08/28/2017 09:40 AM Height: 60 in Weight: 236 lb BSA: 2.0 m2 Procedure: A complete two-dimensional transthoracic echocardiogram was performed (2D, M-mode, spectral and color flow Doppler). The study was technically difficult with many images being suboptimal in quality. Reason For Study: vtach, stat, do in am Ordering Physician: ERICKA HAQ Performed By: Natalia Lucas Interpretation Summary The left ventricular ejection fraction is normal. There is mild concentric left ventricular hypertrophy. Doppler measurements suggest pseudonormalized left ventricular relaxation, which is associated with grade II/IV or mild to moderate diastolic dysfunction The left ventricle is grossly normal size. Regional wall motion abnormalities cannot be excluded due to limited visualization. The right ventricular systolic function is normal. The left atrial size is normal. The right atrium is normal in size There is a trace to mild amount of mitral regurgitation There is no mitral valve stenosis. There is a trace amount of aortic regurgitation There is no aortic valve stenosis There is a trace or physiologic amount of tricuspid regurgitation Tricuspid regurgitation jet envelope not well defined to measure RV systolic pressure accurately. The aortic root is not well visualized. The inferior vena cava appeared normal and decreased > 50% with respiration (RAP 5-10 mmHg) There is no pericardial effusion. MMode/2D Measurements & Calculations RVDd: 2.7 cm LVIDd: 4.8 cmFS: 38.5 % Ao root diam: 3.2 cm IVSd: 0.81 cm LVIDs: 2.9 cmEDV(Teich): 106.5 ml LVPWd: 1.1 cmESV(Teich): 33.3 ml Ao root area: 8.0 cm2 EF(Teich): 68.7 % LA dimension: 3.4 cm LVOT diam: 2.3 cm LVOT area: 4.0 cm2 Doppler Measurements & Calculations MV E max fadi: MV P1/2t max fadi: Ao V2 max: LV V1 max P.2 cm/sec 103.7 cm/sec 154.4 cm/sec 4.2 mmHg MV A max fadi: MV P1/2t: 60.8 msec Ao max PG: LV V1 max: 131.8 cm/sec MVA(P1/2t): 3.6 cm2 9.5 mmHg 102.7 cm/sec MV E/A: 0.78 MV dec slope: MARGO(V,D): 2.7 cm2 499.0 cm/sec2 PA V2 max: TR max fadi: 65.5 cm/sec 235.6 cm/sec PA max PG: TR max P.2 mmHg 1.7 mmHg Left Ventricle The left ventricle is grossly normal size. There is mild concentric left ventricular hypertrophy. The left ventricular ejection fraction is normal. Doppler measurements suggest pseudonormalized left ventricular relaxation, which is associated with grade II/IV or mild to moderate diastolic dysfunction. Regional wall motion abnormalities cannot be excluded due to limited visualization. Right Ventricle The right ventricle is grossly normal size. There is normal right ventricular wall thickness. The right ventricular systolic function is normal. Atria The right atrium is normal in size. The left atrial size is normal. Interarterial septum not well visualized and not well dopplered. Cannot comment on ASD/PFO presence. Mitral Valve There is mild to moderate mitral annular calcification. There is no mitral valve stenosis. There is a trace to mild amount of mitral regurgitation. Aortic Valve The aortic valve is not well visualized secondary to technical limitations. There is no aortic valve stenosis. There is a trace amount of aortic regurgitation. Tricuspid Valve The tricuspid valve is not well visualized secondary to technical limitations. There is no tricuspid stenosis. There is a trace or physiologic amount of tricuspid regurgitation. Tricuspid regurgitation jet envelope not well defined to measure RV systolic pressure accurately. Pulmonic Valve The pulmonic valve is not well visualized. Great Vessels The aortic root is not well visualized. The inferior vena cava appeared normal and decreased > 50% with respiration (RAP 5-10 mmHg). Effusions There is no pericardial effusion. : ERICKA HAQ > Be Fernandez
[2017-08-28] MEDS: ATORVASTATIN CALCIUM 80 MG TABLET PO SCH (21:24)
[2017-08-28] MEDS: INSULIN GLARGINE,HUM.REC.ANLOG 1,000 UNIT/10 ML UNIT SUBCUT SCH (21:24)
[2017-08-28] MEDS: DOXYCYCLINE HYCLATE 100 MG TABLET PO SCH (21:24)
[2017-08-28] MEDS: FLUTICASONE NASAL SPRAY 50 MCG/SPRY 120 SPRAY/16 GM NASL SCH (21:26)
[2017-08-28] MEDS ORDERED: ATORVASTATIN CALCIUM 80 MG TABLET PO SCH (22:00)
[2017-08-28] MEDS ORDERED: INSULIN GLARGINE,HUM.REC.ANLOG 1,000 UNIT/10 ML UNIT SUBCUT SCH (22:00)
[2017-08-29] MEDS ORDERED: DIPHENHYDRAMINE HCL 25 MG CAPSULE PO PRN (00:11)
[2017-08-29] MEDS: HEPARIN SODIUM,PORCINE/D5W 25,000 UNIT/250 ML RTUINJ IV PRN (01:28)
[2017-08-29 07:09] LABS: ABSOLUTE BASOPHILS # (AUTO) 0.1 10^3/uL (0.0-0.2); ABSOLUTE EOSINOPHILS # (AUTO) 0.5 10^3/uL (0.0-0.6); ABSOLUTE LYMPHOCYTES (AUTO) 1.4 10^3/uL (0.5-4.7); ABSOLUTE MONOCYTES (AUTO) 1.2 10^3/uL (0.1-1.4); ABSOLUTE NEUT (AUTO) 10.8 10^3/uL (1.7-8.2); BASOPHILS % (AUTO) 0.5 % (0-2); EOSINOPHILS % (AUTO) 3.3 % (0-6); HEMATOCRIT 35.6 % (36.0-47.0); HEMOGLOBIN 11.9 g/dL (12.0-15.5); LYMPHOCYTES % (AUTO) 10.1 % (13-45); MEAN CORPUSCULAR HEMOGLOBIN 29.4 pg (27.0-33.4); MEAN CORPUSCULAR HGB CONC 33.5 g/dL (32.0-36.0); MEAN CORPUSCULAR VOLUME 88 fl (80-97); MONOCYTES % (AUTO) 8.8 % (3-13); PLATELET COUNT 484 10^3/uL (150-450); RED BLOOD COUNT 4.05 10^6/uL (3.72-5.28); RED CELL DISTRIBUTION WIDTH 13.1 % (11.5-14.0); SEGMENTED NEUTROPHILS % (AUTO) 77.3 % (42-78); TOTAL CELLS COUNTED % (AUTO) 100 %; WHITE BLOOD COUNT 13.9 10^3/uL (4.0-10.5)
[2017-08-29 07:32] LABS: ANION GAP 9 (5-19); BLOOD UREA NITROGEN 20 mg/dL (7-20); CALCIUM 9.6 mg/dL (8.4-10.2); CARBON DIOXIDE 24 mmol/L (22-30); CHLORIDE 109 mmol/L (98-107); CREATINE KINASE 75 U/L (30-135); GLUCOSE 66 mg/dL (75-110); POTASSIUM 4.3 mmol/L (3.6-5.0); SODIUM 141.8 mmol/L (137-145)
[2017-08-29] MEDS ORDERED: CYCLOBENZAPRINE HCL 10 MG TABLET PO PRN (09:05)
[2017-08-29] MEDS ORDERED: (PENDING PHARMACY ID) (Levothyroxine Sodium [Synthroid] 175 MCG) PO SCH (09:15)
[2017-08-29] MEDS ORDERED: (PENDING PHARMACY ID) (Ranitidine Hcl [Zantac 150 Mg Tablet] 150 MG) PO SCH (10:00)
--- NOTE | 2017-08-29 10:03 | PROGRESS NOTE E ---
Progress Note NAME: LEONARDO SHIN : 1935 AGE: 82Y DATE: 08/29/2017 ROOM: ED60 SUBJECTIVE: The patient is currently lying on a stretcher. The patient has had no reported episodes of vomiting nor diarrhea. The patient states that she felt some heart flutters but denies any specific actual palpitations. The patient denies any nausea, vomiting, or diarrhea. No shortness of breath or dizziness. No fevers or chills. The patient has been afebrile. Her blood pressures have been slightly elevated. Heart rate has been sinus. The patient does not voice any other concerns at that this time. REVIEW OF SYSTEMS: Rest of the review of systems negative. MEDICATIONS: Have been reviewed. OBJECTIVE: GENERAL: The patient is an 82-year-old female who is awake, alert, and oriented to person, place, time, and situation. She is verbal, conversational, and does not appear to be in any acute distress. VITAL SIGNS: Temperature 97.5, pulse 63, respirations 16, blood pressure 147/60, oxygen saturation is 97% on 2 L nasal cannula. SKIN: Warm and dry. No rash. She is not diaphoretic. HEENT: Pupils equal, round, reactive to light and accommodation. Conjunctivae are pink. There is no evidence of JVP. CARDIOVASCULAR: Heart is regular. There is no rub. CHEST: Clear, symmetrical, unlabored. ABDOMEN: Soft, nontender, nondistended. BACK: No CVA tenderness or sacral edema. EXTREMITIES: No clubbing, cyanosis, or edema. PSYCHIATRIC: Appropriate affect. Pleasant mood. DIAGNOSTICS: Lab values are as follows: Hematology obtained on 08/29/2017: WBCs are 13.9, hemoglobin is 11.9, hematocrit is 35.6, and platelet count is 484,000. Chemistry obtained on 08/29/2017: Sodium is 141, potassium 4.3, chloride is 109, carbon dioxide is 24, BUN 20, creatinine is 1.13, glucose 77, calcium 9.6, CK 75. IMPRESSION AND PLAN: 1. VENTRICULAR TACHYCARDIA. The patient was cardioverted back to sinus. The patient remains on amiodarone drip. Do appreciate Cardiology's input with this. 2. NON-ST ELEVATION [place]. Uncertain if the V-tach is the source of this or if this was the source of the V-tach. Do appreciate Cardiology's input on this. Will continue heparin drip as well as aspirin, metoprolol and lisinopril and troponins are on a downward trend. 3. INSULIN DEPENDENT DIABETES MELLITUS TYPE 2. Blood sugars overall have been slightly on the low side. Will follow. 4. HYPERTENSION. Will continue home medications. 5. PERIPHERAL NEUROPATHY. Will continue gabapentin. 6. HISTORY OF BREAST CANCER. The patient's right arm is restricted. 7. RIGHT LOWER EXTREMITY EDEMA. Doppler was unremarkable. 8. STASIS DERMATITIS OF THE LOWER EXTREMITIES. Overall feels much improved. DISPOSITION: The patient is a DO NOT RESUSCITATE/DO NOT INTUBATE. Pending the patient's symptomatology and diagnostic findings, will reevaluate as needed. Patient can be downgraded to IMCU. Time spent on this followup including assessment, plan, physical examination, patient education, review of records is 35 minutes. DICTATING PHYSICIAN: RAN BLOCK NP [id number] PHY#: [id number] ID: [id number] JOB#: [id number] ACCT: [id number] cc: >
[2017-08-29] MEDS: DOXYCYCLINE HYCLATE 100 MG TABLET PO SCH (11:19)
[2017-08-29] MEDS: LISINOPRIL 5 MG TABLET PO SCH (11:19)
[2017-08-29] MEDS: DOCUSATE SODIUM 100 MG CAPSULE PO SCH ×2 (11:19→19:12)
[2017-08-29] MEDS: RANOLAZINE 500 MG TAB.SR.12H PO SCH (11:19)
[2017-08-29] MEDS: FLUTICASONE NASAL SPRAY 50 MCG/SPRY 120 SPRAY/16 GM NASL SCH (13:09)
[2017-08-29] MEDS: ASCORBIC ACID 500 MG TABLET PO SCH (13:11)
[2017-08-29] MEDS: METOPROLOL SUCCINATE 25 MG TAB.SR.24H PO SCH (13:12)
[2017-08-29] MEDS: CHOLECALCIFEROL (D3) 400 UNIT TABLET PO SCH (13:12)
[2017-08-29] MEDS: ASPIRIN 81 MG TABLET, ENT COATED PO SCH (13:12)
[2017-08-29] MEDS: LANSOPRAZOLE 15 MG TAB.RAP.DR PO SCH (13:14)
[2017-08-29] MEDS: AMIODARONE HCL 200 MG TABLET PO SCH ×2 (15:09→19:11)
[2017-08-29] MEDS ORDERED: HEPARIN SOD (PORCINE) 1,000 UNIT/ML 10 ML VIAL ONE (15:57)
[2017-08-29] MEDS ORDERED: HEPARIN SOD (PORCINE) 1,000 UNIT/ML 10 ML VIAL IV ONE (16:15)
--- NOTE | 2017-08-29 18:20 | EKG REPORT ---
SEVERITY:- ABNORMAL ECG - SINUS ARRHYTHMIA, RATE 61-83 NONSPECIFIC INTRAVENTRICULAR CONDUCTION DELAY BORDERLINE R WAVE PROGRESSION, ANTERIOR LEADS : Confirmed by: Olman Wen MD 29-Aug-2017 18:19:58
[2017-08-29] MEDS ORDERED: LANSOPRAZOLE 30 MG TAB.RAP.DR PO ONE (19:00)
[2017-08-29] MEDS: INSULIN LISPRO 100 UNIT/ML 3 ML VIAL SUBCUT PRN (19:10)
[2017-08-29] MEDS: GABAPENTIN 300 MG CAPSULE PO SCH (19:11)
[2017-08-29] MEDS: FAMOTIDINE 20 MG TABLET PO SCH (19:12)
[2017-08-29] MEDS ORDERED: SIMVASTATIN 10 MG TABLET PO SCH (22:00)
[2017-08-29] MEDS ORDERED: PRAMIPEXOLE DI-HCL 0.5 MG TABLET PO PRN (22:00)
[2017-08-29 23:28] LABS: INTERNATIONAL RATION (INR) 0.96; PROTHROMBIN TIME 13.5 SEC (11.4-15.4)
[2017-08-30] MEDS: HEPARIN SODIUM,PORCINE/D5W 25,000 UNIT/250 ML RTUINJ IV PRN (00:01)
[2017-08-30] MEDS: RANOLAZINE 500 MG TAB.SR.12H PO SCH ×2 (00:05→11:41)
[2017-08-30] MEDS: ATORVASTATIN CALCIUM 80 MG TABLET PO SCH (00:06)
[2017-08-30] MEDS: DOXYCYCLINE HYCLATE 100 MG TABLET PO SCH ×2 (00:06→11:45)
[2017-08-30] MEDS: INSULIN GLARGINE,HUM.REC.ANLOG 1,000 UNIT/10 ML UNIT SUBCUT SCH (00:09)
[2017-08-30] MEDS: FLUTICASONE NASAL SPRAY 50 MCG/SPRY 120 SPRAY/16 GM NASL SCH ×2 (00:09→11:43)
[2017-08-30 04:29] LABS: HEMATOCRIT 36.3 % (36.0-47.0); MEAN CORPUSCULAR HEMOGLOBIN 29.4 pg (27.0-33.4); MEAN CORPUSCULAR HGB CONC 33.1 g/dL (32.0-36.0); MEAN CORPUSCULAR VOLUME 89 fl (80-97); PLATELET COUNT 500 10^3/uL (150-450); RED BLOOD COUNT 4.08 10^6/uL (3.72-5.28); RED CELL DISTRIBUTION WIDTH 13.2 % (11.5-14.0); WHITE BLOOD COUNT 14.4 10^3/uL (4.0-10.5)
[2017-08-30 05:01] LABS: ANION GAP 12 (5-19); BLOOD UREA NITROGEN 19 mg/dL (7-20); CALCIUM 9.8 mg/dL (8.4-10.2); CARBON DIOXIDE 21 mmol/L (22-30); CHLORIDE 107 mmol/L (98-107); GLUCOSE 149 mg/dL (75-110); POTASSIUM 4.6 mmol/L (3.6-5.0); SODIUM 139.5 mmol/L (137-145)
[2017-08-30 05:46] LABS: INTERNATIONAL RATION (INR) 0.98; PROTHROMBIN TIME 13.7 SEC (11.4-15.4)
[2017-08-30 05:48] LABS: PARTIAL THROMBOPLASTIN TIME 87.3 SEC (23.5-35.8)
[2017-08-30] MEDS ORDERED: LANSOPRAZOLE 30 MG TAB.RAP.DR PO SCH (06:00)
[2017-08-30] MEDS ORDERED: LEVOTHYROXINE SODIUM 0.1 MG TABLET PO SCH ×2 (06:00)
[2017-08-30] MEDS ORDERED: LEVOTHYROXINE SODIUM 0.075 MG TABLET PO SCH (06:00)
[2017-08-30] MEDS: GABAPENTIN 300 MG CAPSULE PO SCH (06:56)
[2017-08-30] MEDS ORDERED: MULTIVITAMIN TABLET PO SCH (10:00)
[2017-08-30] MEDS: METOPROLOL SUCCINATE 25 MG TAB.SR.24H PO SCH (11:38)
[2017-08-30] MEDS: AMIODARONE HCL 200 MG TABLET PO SCH ×2 (11:39→14:35)
[2017-08-30] MEDS: CHOLECALCIFEROL (D3) 400 UNIT TABLET PO SCH (11:39)
[2017-08-30] MEDS: DOCUSATE SODIUM 100 MG CAPSULE PO SCH (11:40)
[2017-08-30] MEDS: ASPIRIN 81 MG TABLET, ENT COATED PO SCH (11:40)
[2017-08-30] MEDS: ASCORBIC ACID 500 MG TABLET PO SCH (11:41)
[2017-08-30] MEDS: FAMOTIDINE 20 MG TABLET PO SCH (11:41)
[2017-08-30] MEDS: LISINOPRIL 5 MG TABLET PO SCH (11:42)
[2017-08-30] MEDS ORDERED: AMINOPHYLLINE INJ/PF 250 MG/10 ML SDV IV ONE (12:17)
[2017-08-30] MEDS ORDERED: REGADENOSON INJ 0.4 MG/5 ML DISP.SYRIN IV ONE (12:17)
--- NOTE | 2017-08-30 12:46 | DRAGON STRESS TEST REPORT ---
INTRAVENOUS LEXISCAN CARDIOLITE STRESS TEST USING SINGLE PHOTON EMMISION COMPUTERIZED TOMOGRAPHIC. DATE OF PROCEDURE: August 30, 2017 INDICATION : Chest pain and V. tach CARDIAC RISK FACTORS: Diabetes, hypertension, dyslipidemia RESTING EKG: Sinus rhythm, no baseline ST segment changes noted. Minor nonspecific IVCD noted. STRESS EKG: No significant changes noted with LexiScan bolus REASON FOR TERMINATION: Protocol. PROCEDURE REPORT: Baseline heart rate 68 beats per minute with blood pressure of 130/58. Patient had no significant complaints. Heart rate at 2 minutes post bolus 75 with a blood pressure of 131/70. 3 minutes post bolus heart rate 71 with blood pressure of 110/34. No significant EKG changes were noted. Patient had no significant complaints during the procedure or postprocedure. Patient injected with Aminophyllin 75 mg at 3 minutes or later after Lexiscan bolus. CONCLUSIONS: Normal EKG and hemodynamic response to IV LexiScan. NUCLEAR DATA: At rest the patient was given 14.81 millicuries of technetium 99 sestamibi injected intravenously. As per protocol rest gated SPECT images were obtained. Subsequently the patient was given intravenous LexiScan at a dose of 0.4 mg in 5 mL intravenously, followed by flush with normal saline. Subsequently the stress dose of 43.1 millicuries of technetium 99 sestamibi was injected intravenously. As per protocol stress gated images were obtained. NUCLEAR INTERPRETATION: Both raw and processed data were used for interpretation. Visual, qualitative, computer-generated quantitative data was used. There was good myocardial uptake of technetium compound. Motion artifact and soft tissue attenuations were noted. Increased visceral uptake was noted. No definitive areas of transient perfusion defect noted, except for a small area of decreased uptake noted in the LV apex, however there were no corresponding regional wall motion abnormalities raising suspicion whether this is a true transient perfusion defect on not. No definitive areas of fixed perfusion defect or scars noted. EKG gated imaging showed LV EF at 64%, rest and stress gated EF similar visually. T. I D. ratio was 1.08. Lung heart ratio noted to be within normal limits 0.26. No significant extracardiac and abnormal radiotracer activities were noted. RV free wall uptake was noted to be WNL. IMPRESSION: Also refer to comments under nuclear interpretation. Also test results needs to be interpreted in the context of pretest probability. 1. Probable mild ischemia in a small part of the LV apex. There were however no corresponding wall motion normality is noted. 2. There is no definitive scintigraphic evidence of myocardial infarction/scar. 3. EKG gated imaging shows left ventricular ejection fraction of approximately 64%. 4. Clinical correlation requested as occasionally single vessel disease or balanced ischemia could be missed. In approximately 10% of the cases Lexiscan may not cause adequate vasodilatory stress. RECOMMENDATIONS: Aggressive risk factor modification, medical therapy. Due to history of V. tach , low threshold for heart catheterization. Clinical correlation with echocardiogram derived ejection fraction. Inability to exercise by itself can lead to increased cardiovascular event risks. Consider cardiology consultation and or follow-up if clinically indicated. I AM AVAILABLE FOR CARDIOLOGY CONSULTATION AND FOLLOWUP IF REQUESTED BY PMD Be Fernandez M.D., [employer] material distributor, Board certified in cardiovascular diseases, Nuclear cardiology, Echocardiography Cardiac CT and cardiac MRI Ph. [phone] [facility]am
[2017-08-30 13:02] VITALS: BP 136/52
--- NOTE | 2017-08-30 13:02 | PDOC PROGRESS REPORT ---
Subjective Progress Note for:: 08/28/17 Subjective:: Patient seems to be doing better with gradual improvement. Pt is denying any chest arm or neck discomfort. Patient denying any PND, orthopnea. Patient denied any sustained palpitations, dizziness, syncope, near syncope. Patient denying any fever chills. Patient denying any other significant discomfort. Patient is maintaining sinus rhythm. Review of systems: Rest review of systems negative. Medications: Medications have been reviewed. Reason For Visit: NSTEMI,V-TACH S/P CARDIOVERSION Physical Exam Vital Signs: Temp Pulse Resp BP Pulse Ox 98.5 F 116 H 16 149/60 H 96 08/27/17 21:12 08/27/17 20:05 08/28/17 20:01 08/28/17 20:01 08/28/17 20:01 Exam: GENERAL: well-nourished and in no acute distress. Alert and oriented x3 HEAD: Atraumatic, normocephalic. EYES: Pupils equal round and reactive to light, extraocular movements intact, sclera anicteric, conjunctiva are normal. ENT: TMs normal, nares patent, oropharynx clear without exudates. Moist mucous membranes. No oral ulcerations or bleeding gums noted NECK: supple without lymphadenopathy. Trachea is central. No cervical or axillary lymphadenopathy noted. Carotids are 2+, JVD WNL LUNGS: Respiration seems nonlabored, no significant accessory muscle action noted. Breath sounds clear to auscultation bilaterally and equal noted. No wheezes rales or rhonchi noted. No significant dullness noted on percussion. CHEST: Palpation of the chest wall shows no significant chest wall tenderness. No other significant abnormalities noted. 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 ABDOMEN: Soft, no significant tenderness appreciated, normoactive bowel sounds. No guarding, no rebound. No rigidity noted . No masses appreciated. EXTREMITIES: Pedal pulses are 1-2+, no calf tenderness noted. No clubbing or cyanosis.trace to 1+ pedal edema noted NEUROLOGICAL: Focused neurological exam showed no significant neurologic deficit. Normal speech, no focal weakness appreciated. PSYCH: Normal mood, normal affect. Judgment and insight within normal limits. SKIN: No significant ecchymosis, rash, ulcerations or signs of pruritus noted. MUSCULOSKELETAL EXAM: No significant joint swelling noted. Results Laboratory Results: 08/28/17 01:59 08/28/17 08/28/17 08/28/17 00:28 01:59 05:44 Sodium 139.5 Potassium 4.4 D Chloride 105 Carbon Dioxide 27 Anion Gap 8 BUN 23 H Creatinine 1.15 Est GFR ( Amer) 55 L Est GFR (Non-Af Amer) 45 L Glucose 286 H Calcium 9.2 Triglycerides 95 Cholesterol 130.18 LDL Cholesterol Direct 67 VLDL Cholesterol 19.0 HDL Cholesterol 48 TSH 6.49 H Free T4 Urine Color Urine Appearance Urine pH Ur Specific [place] Urine Protein Urine Glucose (UA) Urine Ketones Urine Blood Urine Nitrite Ur Leukocyte Esterase Urine WBC (Auto) Urine RBC (Auto) 08/28/17 08/28/17 05:44 06:30 Sodium Potassium Chloride Carbon Dioxide Anion Gap BUN Creatinine Est GFR ( Amer) Est GFR (Non-Af Amer) Glucose Calcium Triglycerides Cholesterol LDL Cholesterol Direct VLDL Cholesterol HDL Cholesterol TSH Free T4 1.73 Urine Color YELLOW Urine Appearance CLEAR Urine pH 6.0 Ur Specific [place] 1.017 Urine Protein 30 H Urine Glucose (UA) >=500 H Urine Ketones NEGATIVE Urine Blood NEGATIVE Urine Nitrite NEGATIVE Ur Leukocyte Esterase NEGATIVE Urine WBC (Auto) 2 Urine RBC (Auto) 1 08/28/17 08/28/17 08/28/17 00:28 05:44 12:37 CK-MB (CK-2) 6.13 H 5.50 H 3.62 Troponin I 2.090 2.250 1.510 EKG Comments: Showed sinus rhythm without any sustained tacky or bradycardia arrhythmias. Impressions: Chest X-Ray 08/27/17 20:03 IMPRESSION: NO ACUTE RADIOGRAPHIC FINDING IN THE CHEST. Assessment & Plan - Diagnosis (1) LBBB (left bundle branch block) Is this a current diagnosis for this admission?: Yes (2) NSTEMI (non-ST elevated myocardial infarction) Is this a current diagnosis for this admission?: Yes (3) V-tach Is this a current diagnosis for this admission?: Yes (4) Diabetes Qualifiers: Diabetes mellitus type: type 2 Diabetes mellitus complication status: with unspecified complications Diabetes mellitus terminal operations manager insulin use: unspecified chcf insulin use status Qualified Code(s): E11.8 - Type 2 diabetes mellitus with unspecified complications Is this a current diagnosis for this admission?: Yes (5) Hypertension Qualifiers: Hypertension type: essential hypertension Qualified Code(s): I10 - Essential (primary) hypertension Is this a current diagnosis for this admission?: Yes - Notes Notes: Patient initially was full code but subsequently agreed to as per her wishes, CODE STATUS was changed to DNR. Patient now prefers medical management. Left bundle branch block was transient and seems like most likely rate related rather than ischemia as no significant wall motion abnormalities were noted on echocardiogram. Non-STEMI: So far stable on medical management. Ventricular tachycardia: Continue with amiodarone load for another 24 hours and then switch to p.o. Diabetes: Currently stable and is being managed adequately by hospitalist. Hypertension: Reasonably well-controlled. Patient's medical regimen is reviewed and is noted to be satisfactory. Will add ZULY inhibitors and gradually increase beta-niles dose as tolerated. - Time Time with patient: Greater than 35 minutes - CODE STATUS : was discussed, patient remains DO NOT RESUSCITATE. Surrogate decision-maker unchanged. Multiple medical problems were addressed. More than 50% of the time spent coordinating care, discussing management plans with involved caregivers. Management plans discussed with involved personnels. Medical decision making was of moderate to high complexity, patient's has multiple comorbidities. Medications reviewed and adjusted accordingly: Yes
--- NOTE | 2017-08-30 13:07 | PDOC PROGRESS REPORT ---
Subjective Progress Note for:: 08/29/17 Subjective:: Patient was seen yesterday in the morning but somehow the note got missed. In the afternoon at around 2 PM, I was called by the nurse that patient had some chest pain. This happened after patient was given 400 mg of amiodarone p.o. with food. A subsequent cardiac enzymes were obtained and showed no continued downward trend. I had ordered the nurse to give her sublingual nitro and also increased the proton pump inhibitor dose. It seems subsequently had chest pain resolved quickly and there has been no further recurrences.. Patient denying any PND, orthopnea. Patient denied any sustained palpitations, dizziness, syncope, near syncope. Patient denying any fever chills. Patient denying any other significant discomfort. Patient is maintaining sinus rhythm. Review of systems: Rest review of systems negative. Medications: Medications have been reviewed. Reason For Visit: NSTEMI,V-TACH S/P CARDIOVERSION Physical Exam Vital Signs: Temp Pulse Resp BP Pulse Ox 98.2 F 67 18 136/52 H 99 08/30/17 12:15 08/30/17 12:15 08/30/17 12:15 08/30/17 12:15 08/30/17 12:15 Intake & Output 08/29/17 08/30/17 08/31/17 06:59 06:59 06:59 Intake Total 950 175 Output Total 1000 600 Balance -50 -425 Weight 106.6 kg 106.6 kg Exam: GENERAL: well-nourished and in no acute distress. Alert and oriented x3 HEAD: Atraumatic, normocephalic. EYES: Pupils equal round and reactive to light, extraocular movements intact, sclera anicteric, conjunctiva are normal. ENT: TMs normal, nares patent, oropharynx clear without exudates. Moist mucous membranes. No oral ulcerations or bleeding gums noted NECK: supple without lymphadenopathy. Trachea is central. No cervical or axillary lymphadenopathy noted. Carotids are 2+, JVD WNL LUNGS: Respiration seems nonlabored, no significant accessory muscle action noted. Breath sounds clear to auscultation bilaterally and equal noted. No wheezes rales or rhonchi noted. No significant dullness noted on percussion. CHEST: Palpation of the chest wall shows no significant chest wall tenderness. No other significant abnormalities noted. 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 ABDOMEN: Soft, no significant tenderness appreciated, normoactive bowel sounds. No guarding, no rebound. No rigidity noted . No masses appreciated. EXTREMITIES: Pedal pulses are 1-2+, no calf tenderness noted. No clubbing or cyanosis.trace to 1+ pedal edema noted NEUROLOGICAL: Focused neurological exam showed no significant neurologic deficit. Normal speech, no focal weakness appreciated. PSYCH: Normal mood, normal affect. Judgment and insight within normal limits. SKIN: No significant ecchymosis, rash, ulcerations or signs of pruritus noted. MUSCULOSKELETAL EXAM: No significant joint swelling noted. Results Laboratory Results: 08/30/17 04:05 08/30/17 04:05 08/30/17 08/30/17 04:05 04:05 WBC 14.4 H RBC 4.08 Hgb 12.0 Hct 36.3 MCV 89 MCH 29.4 MCHC 33.1 RDW 13.2 Plt Count 500 H Sodium 139.5 Potassium 4.6 Chloride 107 Carbon Dioxide 21 L Anion Gap 12 BUN 19 Creatinine 1.10 Est GFR ( Amer) 57 L Est GFR (Non-Af Amer) 47 L Glucose 149 H Calcium 9.8 Magnesium 2.0 08/28/17 08/28/17 08/28/17 00:28 05:44 12:37 Creatine Kinase CK-MB (CK-2) 6.13 H 5.50 H 3.62 Troponin I 2.090 2.250 1.510 08/29/17 08/29/17 06:53 15:07 Creatine Kinase 75 CK-MB (CK-2) Troponin I 0.615 EKG Comments: Telemetry strips shows sinus rhythm without any sustained tacky or bradycardia arrhythmias. Impressions: Chest X-Ray 08/27/17 20:03 IMPRESSION: NO ACUTE RADIOGRAPHIC FINDING IN THE CHEST. 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 The chest pain which was noted is probably GI related and could have been related to amiodarone. Anyway patient has been scheduled for a nuclear stress test. 2D echo results were reviewed with the patient. Patient's medical regimen was optimized with increasing proton pump inhibitor dose. Will also place patient on long-acting nitrates and escalate beta-niles dose as tolerated. Patient has multiple severe diagnosis and more than 35 minutes spent. - Time Time with patient: Greater than 35 minutes - CODE STATUS : was discussed, patient remains DO NOT RESUSCITATE. Surrogate decision-maker unchanged. Multiple medical problems were addressed. More than 50% of the time spent coordinating care, discussing management plans with involved caregivers. Management plans discussed with involved personnels. Medical decision making was of high complexity, patient's has multiple comorbidities. Medications reviewed and adjusted accordingly: Yes
--- NOTE | 2017-08-30 13:16 | PDOC PROGRESS REPORT ---
Subjective Progress Note for:: 08/30/17 Subjective:: Patient doing well without any recurrence of chest pain. She denied any other discomfort and looks comfortable. Patient denying any PND, orthopnea. Patient denied any sustained palpitations, dizziness, syncope, near syncope. Patient denying any fever chills. Patient denying any other significant discomfort. Patient is maintaining sinus rhythm. Nuclear stress test procedures were discussed. Risk benefit discussed. Patient in fact underwent nuclear stress test without any complications. Review of systems: Rest review of systems negative. Medications: Medications have been reviewed. Reason For Visit: NSTEMI,V-TACH S/P CARDIOVERSION Physical Exam Vital Signs: Temp Pulse Resp BP Pulse Ox 98.2 F 67 18 136/52 H 99 08/30/17 12:15 08/30/17 12:15 08/30/17 12:15 08/30/17 12:15 08/30/17 12:15 Intake & Output 08/29/17 08/30/17 08/31/17 06:59 06:59 06:59 Intake Total 950 175 Output Total 1000 600 Balance -50 -425 Weight 106.6 kg 106.6 kg Exam: GENERAL: well-nourished and in no acute distress. Alert and oriented x3 HEAD: Atraumatic, normocephalic. EYES: Pupils equal round and reactive to light, extraocular movements intact, sclera anicteric, conjunctiva are normal. ENT: TMs normal, nares patent, oropharynx clear without exudates. Moist mucous membranes. No oral ulcerations or bleeding gums noted NECK: supple without lymphadenopathy. Trachea is central. No cervical or axillary lymphadenopathy noted. Carotids are 2+, JVD WNL LUNGS: Respiration seems nonlabored, no significant accessory muscle action noted. Breath sounds clear to auscultation bilaterally and equal noted. No wheezes rales or rhonchi noted. No significant dullness noted on percussion. CHEST: Palpation of the chest wall shows no significant chest wall tenderness. No other significant abnormalities noted. 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 ABDOMEN: Soft, no significant tenderness appreciated, normoactive bowel sounds. No guarding, no rebound. No rigidity noted . No masses appreciated. EXTREMITIES: Pedal pulses are 1-2+, no calf tenderness noted. No clubbing or cyanosis.trace to 1+ pedal edema noted NEUROLOGICAL: Focused neurological exam showed no significant neurologic deficit. Normal speech, no focal weakness appreciated. PSYCH: Normal mood, normal affect. Judgment and insight within normal limits. SKIN: No significant ecchymosis, rash, ulcerations or signs of pruritus noted. MUSCULOSKELETAL EXAM: No significant joint swelling noted. Results Laboratory Results: 08/30/17 04:05 08/30/17 04:05 08/30/17 08/30/17 04:05 04:05 WBC 14.4 H RBC 4.08 Hgb 12.0 Hct 36.3 MCV 89 MCH 29.4 MCHC 33.1 RDW 13.2 Plt Count 500 H Sodium 139.5 Potassium 4.6 Chloride 107 Carbon Dioxide 21 L Anion Gap 12 BUN 19 Creatinine 1.10 Est GFR ( Amer) 57 L Est GFR (Non-Af Amer) 47 L Glucose 149 H Calcium 9.8 Magnesium 2.0 08/28/17 08/28/17 08/28/17 00:28 05:44 12:37 Creatine Kinase CK-MB (CK-2) 6.13 H 5.50 H 3.62 Troponin I 2.090 2.250 1.510 08/29/17 08/29/17 06:53 15:07 Creatine Kinase 75 CK-MB (CK-2) Troponin I 0.615 EKG Comments: Telemetry shows sinus rhythm without any sustained tachycardia or bradycardia arrhythmias. Impressions: Chest X-Ray 08/27/17 20:03 IMPRESSION: NO ACUTE RADIOGRAPHIC FINDING IN THE CHEST. 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 No definitive areas of significant ischemia noted except for a small area in the apex of possible borderline ischemia. There were no corresponding wall motion abnormalities. In view of patient's significant presentation with V. tach/A. fib with RVR, non-STEMI, have opted to optimize medical regimen further. In this regard patient was placed on metoprolol succinate 25 mg p.o. twice daily. Continue amiodarone but on discharge consider reducing dose of amiodarone to 200 mg p.o. twice daily. I believe that patient most likely had a atrial tachyarrhythmia with aberrant conduction rather than left bundle branch block pattern which is usually noted after large anterior WA and no such evidence was noted based on echocardiogram. Anyway patient has opted for medical management and currently continues with DNR status. Have also placed patient on Imdur 30 mg p.o. nightly. Recommend discontinuing heparin. Continue with aspirin and Plavix. Plavix would need to be continued at least for a month if not indefinitely. Patient will benefit from close cardiology follow-up. Patient probably should stay overnight and if doing well could be discharged home tomorrow thereafter. Patient other medical problems are relatively stable. 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 Surrogate decision-maker unchanged. Multiple medical problems were addressed. More than 50% of the time spent coordinating care, discussing management plans with involved caregivers. Management plans discussed with involved personnels. Medical decision making was of high complexity, patient's has multiple comorbidities. Medications reviewed and adjusted accordingly: Yes
[2017-08-30] MEDS ORDERED: METOPROLOL SUCCINATE 25 MG TAB.SR.24H PO SCH (22:00)
[2017-08-31] MEDS ORDERED: ISOSORBIDE MONONITRATE 30 MG TAB.ER.24H PO SCH (10:00)
--- NOTE | 2017-08-31 13:08 | DISCHARGE SUMMARY E ---
Discharge Summary NAME: LEONARDO SHIN : 1935 AGE: 82Y ADMITTED: 08/27/2017 DISCHARGED: 08/30/2017 CODE STATUS: Do not resuscitate/do not intubate. CONSULTING PIGMENT PUSHER: Dr. Fernandez. FINAL DIAGNOSES: 1. Ventricular tachycardia. 2. Btj-HN-tbefnihop [place]. 3. Insulin-dependent diabetes mellitus type 2. 4. Hypertension. 5. Peripheral neuropathy. 6. History of breast cancer. 7. Hypothyroidism. DISCHARGE MEDICATIONS: Include 1. Ranexa 500 mg p.o. q.12h. 2. Nitrostat 0.4 mg sublingually as directed. 3. Toprol XL 25 mg p.o. q.12h. 4. Lisinopril 5 mg p.o. daily. 5. Imdur 30 mg p.o. daily. 6. Flonase 2 sprays nasally q.12h. 7. Doxy 100 mg p.o. q.12h. 8. Lipitor 80 mg p.o. at bedtime. 9. Amiodarone 200 mg p.o. b.i.d. 10. Zantac 150 mg p.o. b.i.d. 11. Mirapex 0.5 mg p.o. at bedtime p.r.n. 12. Centrum Silver 1 tablet p.o. daily. 13. Synthroid 175 mcg p.o. daily. 14. Humalog with meals as directed. 15. Tresiba 32 units subcu with breakfast. 16. Neurontin 300 mg p.o. q.12h. 17. Lasix 40 mg p.o. daily. 18. Flexeril 10 mg p.o. b.i.d. p.r.n. 19. Vitamin D3 400 units p.o. daily. 20. Aspirin 81 mg p.o. daily. 21. Vitamin C 500 mg p.o. daily. DIET: Heart healthy. ACTIVITY: As tolerated. DIAGNOSTIC/LABORATORY VALUES: Hematology done 08/30/2017: WBC 14.4, hemoglobin 12.0, hematocrit 36.3, platelet count 500,000. Coagulation done on 08/30/2017: PT is 13.7, INR is 0.98. Chemistry obtained on 08/30/2017: Sodium is 139, potassium 4.6, chloride 107, carbon dioxide 21, BUN 19, creatinine 2.1, glucose 149, A1c is 11. Calcium is 9.8, magnesium is 2, troponin 0.615. Bilirubin 0.4. AST 31. ALT 13. Alk phos 66. CK 21. CK-MB 3.58. Total protein 6.6. Albumin 3.9. TSH is 4.16. Urinalysis obtained on 08/28/2017: Color yellow, appearance clear, pH is 6.0, specific gravity 1.017. Protein 30, glucose 400, ketones negative, occult blood negative, nitrate negative, bilirubin negative, urobilinogen negative, leukocyte esterase is negative. WBCs 2, RBCs 1. Casts for epithelial squamous cells less than 1. Mucous rare. Ascorbic acid is negative. Chest x-ray obtained on 08/27/2017: Reveals no acute radiographic finding of the chest. Venous Doppler obtained on 08/28/2017: Reveals no evidence of DVT or SVT in bilateral lower extremities. Cardiolite stress test obtained on 08/29/2017: Reveals probable mild ischemia but no corresponding wall motion abnormality. EKG obtained on 08/27/2017: Reveals sinus rhythm. EKG obtained on 08/29/2017: Reveals sinus arrhythmia. HISTORY OF PRESENT ILLNESS: The patient is an 82-year-old female with past medical history of hypertension and hyperlipidemia. The patient presented to the emergency department with a chief complaint of chest pain. The patient apparently lay down approximately 1600 on the day of presentation and later got up to have eggs and a piece of toast. The patient stated that she developed chest pain which went up to her neck and to her arm. When EMS arrived, the patient was found to be in VTach and was hypotensive. The patient was cardioverted x2 and was brought to the emergency department. The patient reports that she has had no further chest pain since that time. Attempts were made to transfer the patient to an outside facility, since it was clear the patient had a non-STEMI as well; however, it was unable to be accommodated due to, in spite of multiple institutions being called, due to overcrowding. Therefore, Cardiology on site agreed to see the patient and manage the patient within this facility. HOSPITAL COURSE: The patient was admitted to ICU. The patient was started on heparin drip as well as an amiodarone drip. The patient did remain in sinus rhythm. The patient's troponin peaked at 2.5, it trended down to 0.6. The patient had no further evidence of chest pain, did admit to some bronchial symptoms, did admit to some upper respiratory symptoms, and the patient got much relief with Flonase. The patient remained afebrile, blood pressure is at a steady rate. The patient was seen by Dr. Fernandez of Cardiology, and the patient underwent Cardiolite stress test. Findings were consistent of one area of ischemia. This was discussed with the patient, and the patient has elected to proceed with medical management, as she does not wish to pursue cardiac catheterization. The patient's medications were maximized for this and the patient had no recurrence of arrhythmia. The patient was quite eager for discharge. PHYSICAL EXAMINATION: GENERAL APPEARANCE: On examination, the patient is a well-developed, well nourished 82-year-old female, awake, alert, and oriented to person, place, time, situation. She is verbal, conversational, does not appear to be in any acute distress. VITAL SIGNS: Temperature is 98.2, pulse 67, respirations 18, blood pressure 136/89 oxygen saturation 99% on room air. SKIN: Warm and dry. No rash. She is not diaphoretic. HEENT: Pupils equal, round, reactive to light and accommodation. Conjunctivae was pink. There is no evidence of JVD. CARDIOVASCULAR SYSTEM: Heart is regular. There is no murmur or rub. CHEST: Clear, symmetrical, unlabored. ABDOMEN: Soft, nontender, nondistended. BACK: No CVA tenderness or sacral edema. EXTREMITIES: No clubbing, cyanosis, or edema. PSYCHIATRIC: Appropriate affect. Pleasant mood. DISCHARGE PLANNING: The patient is to followup with Dr. Fernandez of Cardiology within 2-4 weeks for hospital followup. Time spent on this discharge, including assessment, plan, physical examination, patient education, review of records is 35 minutes. DICTATING PHYSICIAN: RAN BLOCK NP [id number] PHY#: [id number] ID: [id number] JOB#: [id number] ACCT: [id number] cc:Zan LOJA NP > [facility]
== END 2017-08-30 15:53 | disposition home or self-care (01) | DRG 281 ==
LOC: ER 19:46 → EH 23:42 → 3W 08-29 21:31
PROVIDERS: ADMIT Family Medicine; ATTEND Family Medicine
DX: I21.4 Non-ST elevation (NSTEMI) myocardial infarction (principal); I47.2 Ventricular tachycardia; E11.9 Type 2 diabetes mellitus without complications; I10 Essential (primary) hypertension; K21.9 Gastro-esophageal reflux disease without esophagitis; I48.91 Unspecified atrial fibrillation; I25.10 Atherosclerotic heart disease of native coronary artery without angina pectoris; E78.5 Hyperlipidemia, unspecified; E03.9 Hypothyroidism, unspecified; G62.9 Polyneuropathy, unspecified; Z85.3 Personal history of malignant neoplasm of breast; Z79.82 Long term (current) use of aspirin; Z79.899 Other long term (current) drug therapy; Z90.49 Acquired absence of other specified parts of digestive tract; Z87.891 Personal history of nicotine dependence; Z88.2 Allergy status to sulfonamides; Z88.8 Allergy status to other drugs, medicaments and biological substances
CPT/HCPCS: 36415; 71045; 78452; 80048; 80053; 80061; 81001; 82550; 82553; 82962; 83036; 83735; 84439; 84443; 84484; 85025; 85027; 85610; 85730; 93005; 93010; 93017; 93306; 93970; 99291; A9500; J0280; J0282; J1644; J1815; J2785; J3490; J7060; Q9969

== ENCOUNTER 2017-11-26 17:00 | Inpatient (IN) | payer MEDICARE, BC ==
--- NOTE | 2017-11-26 17:31 | ER Document Report ---
ED General - General Chief Complaint: Altered Mental Status Stated Complaint: ALTERED MENTAL STATUS Time Seen by Provider: 11/26/17 17:30 Mode of Arrival: Medic Information source: Emergency Med Personnel Cannot obtain history due to: Altered mental status TRAVEL OUTSIDE OF THE [place] IN LAST 30 DAYS: No - HPI Onset: This morning Onset/Duration: Gradual Quality of pain: No pain - DENIES Associated symptoms: Other - URINARY INCONTINENCE, POOR APPETITE Similar symptoms previously: No Recently seen / treated by doctor: No - Related Data Allergies/Adverse Reactions: quinine [Quinine] Allergy (Unknown, Verified 08/27/17 20:22) Sulfa (Sulfonamide Antibiotics) Allergy (Verified 08/27/17 20:22) oxycodone HCl [From Percocet] Adverse Reaction (Mild, Verified 08/27/17 20:22) Nausea Past Medical History - General Information source: Patient, Relative, Emergency Med Personnel - Social History Smoking Status: Unknown if Ever Smoked Frequency of alcohol use: None Drug Abuse: None Lives with: Spouse/Significant other Family History: Reviewed & Not Pertinent Patient has suicidal ideation: No Patient has homicidal ideation: No - Past Medical History Cardiac Medical History: Reports: Hx Atrial Fibrillation, Hx Coronary Artery Disease, Hx Hypercholesterolemia, Hx Hypertension Pulmonary Medical History: Reports: None EENT Medical History: Reports: None Neurological Medical History: Reports: None Endocrine Medical History: Reports: Hx Diabetes Mellitus Type 2 Renal/ Medical History: Reports: None. Denies: Hx Peritoneal Dialysis Malignancy Medical History: Reports: Hx Breast Cancer GI Medical History: Reports: Hx Gastroesophageal Reflux Disease Musculoskeltal Medical History: Reports Hx Musculoskeletal Trauma Psychiatric Medical History: Reports: None Past Surgical History: Reports: Hx Appendectomy, Hx Breast Surgery - R mastectomy, Hx Cholecystectomy, Hx Mastectomy - Immunizations Hx Pneumococcal Vaccination: 05/18/17 Review of Systems - Review of Systems -: Yes ROS unobtainable due to patient's medical condition Physical Exam - Vital signs Vitals: Resp Pulse Ox 19 100 11/26/17 17:19 11/26/17 17:19 Interpretation: Tachycardic, Tachypneic. No: Hypotensive, Hypoxic, Febrile - General General appearance: Lethargic - EASILY AROUSABLE In distress: None - HEENT Head: Normocephalic Eyes: Normal Conjunctiva: Injected - MILD Ears: Normal Nasal: Normal Mouth/Lips: Normal Mucous membranes: Dry - Respiratory Respiratory status: No respiratory distress Breath sounds: Normal, Other - OCCASIONAL LOOSE COUGH - Cardiovascular Rhythm: Regular Heart sounds: Normal auscultation Murmur: No - Abdominal Inspection: Obese Distension: No distension Bowel sounds: Hypoactive Tenderness: Nontender - Extremities General upper extremity: Normal inspection General lower extremity: Normal inspection - Neurological Neuro grossly intact: No Cognition: Confused Orientation: Disoriented to place, Disoriented to time, Disoriented to events Speech: Dysarthria - Skin Skin Temperature: Warm Skin Moisture: Dry Skin Color: Normal Skin Turgor: Elastic Course - Vital Signs Vital signs: Temp Pulse Resp BP Pulse Ox 22 H 115/49 L 99 11/26/17 19:00 11/26/17 18:41 11/26/17 19:00 - Laboratory Result Diagrams: 11/26/17 18:03 11/26/17 18:03 Laboratory results interpreted by me: 11/26/17 11/26/17 11/26/17 17:36 17:36 18:03 WBC 13.6 H RDW 14.4 H Seg Neutrophils % 81.3 H Lymphocytes % 9.8 L Absolute Neutrophils 11.1 H BUN Est GFR ( Amer) Est GFR (Non-Af Amer) Glucose POC Glucose 377 H Lactic Acid Alkaline Phosphatase Urine Protein 30 H Urine Glucose (UA) >=500 H 11/26/17 11/26/17 11/26/17 18:03 18:03 21:04 WBC RDW Seg Neutrophils % Lymphocytes % Absolute Neutrophils BUN 42 H Est GFR ( Amer) 50 L Est GFR (Non-Af Amer) 42 L Glucose 425 H* POC Glucose 281 H Lactic Acid 2.4 H Alkaline Phosphatase 139 H Urine Protein Urine Glucose (UA) - Diagnostic Test Radiology reviewed: Image reviewed, Reports reviewed - EKG Interpretation by Me EKG shows normal: Sinus rhythm Rate: Normal Rhythm: NSR, PVC's - INTERCALATED?? [place]/QRS: IVCD - Consults DR. DONOVAN Time consulted: 21:10 Consulted provider: will come to ER Discharge - Discharge Clinical Impression: Hyperglycemia without ketosis Condition: Good Disposition: ADMITTED OBSERVATION Admitting Provider: Hospitalist Unit Admitted: Telemetry Forms: Return to School
[2017-11-26] MEDS ORDERED: INSULIN REG, HUMAN 100 UNIT/ML 3 ML VIAL (PYX) IV ONE (17:44)
[2017-11-26 17:58] LABS: APPEARANCE,URINE CLEAR; BILIRUBIN,URINE NEGATIVE (NEGATIVE); COLOR,URINE YELLOW; GLUCOSE, URINE >=500 mg/dL (NEGATIVE); KETONES,URINE NEGATIVE (NEGATIVE); LEUKOCYTE ESTERASE,URINE NEGATIVE (NEGATIVE); NITRITE,URINE NEGATIVE (NEGATIVE); PROTEIN,URINE 30 mg/dL (NEGATIVE); URINE SPECIFIC GRAVITY 1.024; UROBILINOGEN,URINE NEGATIVE mg/dL (<2.0)
[2017-11-26 18:27] LABS: ABSOLUTE EOSINOPHILS # (AUTO) 0.1 10^3/uL (0.0-0.6); ABSOLUTE LYMPHOCYTES (AUTO) 1.3 10^3/uL (0.5-4.7); ABSOLUTE MONOCYTES (AUTO) 1.1 10^3/uL (0.1-1.4); ABSOLUTE NEUT (AUTO) 11.1 10^3/uL (1.7-8.2); BASOPHILS % (AUTO) 0.3 % (0-2); EOSINOPHILS % (AUTO) 0.9 % (0-6); HEMATOCRIT 38.5 % (36.0-47.0); HEMOGLOBIN 12.8 g/dL (12.0-15.5); LYMPHOCYTES % (AUTO) 9.8 % (13-45); MEAN CORPUSCULAR HEMOGLOBIN 29.6 pg (27.0-33.4); MEAN CORPUSCULAR HGB CONC 33.2 g/dL (32.0-36.0); MEAN CORPUSCULAR VOLUME 89 fl (80-97); MONOCYTES % (AUTO) 7.7 % (3-13); PLATELET COUNT 448 10^3/uL (150-450); RED BLOOD COUNT 4.32 10^6/uL (3.72-5.28); RED CELL DISTRIBUTION WIDTH 14.4 % (11.5-14.0); SEGMENTED NEUTROPHILS % (AUTO) 81.3 % (42-78); TOTAL CELLS COUNTED % (AUTO) 100 %; WHITE BLOOD COUNT 13.6 10^3/uL (4.0-10.5)
[2017-11-26] MEDS ORDERED: NORMAL SALINE 1000 ML 1,000 ML IV PRN (18:29)
[2017-11-26 18:31] LABS: VENOUS BLOOD BASE EXCESS 0.3 mmol/L; VENOUS BLOOD HCO3 25.2 mmol/L (20-32); VENOUS BLOOD PCO2 41.8 mmHg (35-63); VENOUS BLOOD PH 7.4 (7.30-7.42)
[2017-11-26 18:45] LABS: ALANINE AMINOTRANSFERASE 33 U/L (9-52); ALKALINE PHOSPHATASE 139 U/L (38-126); ANION GAP 14 (5-19); ASPARTATE AMINO TRANSFERASE 20 U/L (14-36); BILIRUBIN,DIRECT 0.4 mg/dL (0.0-0.4); BILIRUBIN,TOTAL 0.5 mg/dL (0.2-1.3); BLOOD UREA NITROGEN 42 mg/dL (7-20); CALCIUM 10.1 mg/dL (8.4-10.2); CARBON DIOXIDE 24 mmol/L (22-30); CHLORIDE 100 mmol/L (98-107); POTASSIUM 4.8 mmol/L (3.6-5.0); SODIUM 138.1 mmol/L (137-145); TOTAL PROTEIN 7.1 g/dL (6.3-8.2)
--- NOTE | 2017-11-26 19:06 | RADIOLOGY REPORT (SQ) ---
EXAM DESCRIPTION: CHEST SINGLE VIEW COMPLETED DATE/TIME: 11/26/2017 6:56 pm REASON FOR STUDY: septic protocal COMPARISON: 08/27/2017 EXAM PARAMETERS: NUMBER OF VIEWS: One view. TECHNIQUE: Single frontal radiographic view of the chest acquired. RADIATION DOSE: NA LIMITATIONS: None. FINDINGS: LUNGS AND PLEURA: No opacities, masses or pneumothorax. No pleural effusion. MEDIASTINUM AND HILAR STRUCTURES: No masses. Contour normal. HEART AND VASCULAR STRUCTURES: Heart normal in size. Normal vasculature. BONES: No acute findings. HARDWARE: Axillary clips. OTHER: No other significant finding. IMPRESSION: NO ACUTE RADIOGRAPHIC FINDING IN THE CHEST. TECHNICAL DOCUMENTATION: JOB ID: [id number] [employer]- All Rights Reserved Reading location - IP/workstation name: [email or web address]
[2017-11-26 19:09] LABS: GLUCOSE 425 mg/dL (75-110)
[2017-11-26] MEDS ORDERED: NORMAL SALINE 100 ML with INSULIN REGULAR, HUMAN 100 UNIT IV PRN ×2 (19:22)
[2017-11-26] MEDS ORDERED: CEFTRIAXONE 1 GM/D5W RTU 1 GM/50 ML RTUPB IV ONE (19:24)
[2017-11-26 19:25] LABS: INTERNATIONAL RATION (INR) 0.92; PROTHROMBIN TIME 12.8 SEC (11.4-15.4)
[2017-11-26] MEDS ORDERED: CEFTRIAXONE SODIUM 1,000 MG in NORMAL SALINE 100 ML IV ONE (20:00)
[2017-11-26] MEDS ORDERED: INSULIN REG, HUMAN 100 UNIT/ML 3 ML VIAL (PYX) ONE (20:00)
[2017-11-26] MEDS ORDERED: ONDANSETRON HCL INJ/PF 4 MG/2 ML SDV IV PRN (21:56)
[2017-11-26] MEDS ORDERED: ACETAMINOPHEN 325 MG TABLET PO PRN (21:56)
[2017-11-26] MEDS ORDERED: IPRATROPIUM/ALBUTEROL 0.5-2.5 MG/3 ML AMPUL NEB PRN (21:56)
[2017-11-26] MEDS: METOPROLOL SUCCINATE 25 MG TAB.SR.24H PO SCH (22:00)
[2017-11-26] MEDS ORDERED: CIPROFLOXACIN 400 MG/D5W RTU 400 MG/200 ML RTUPB IV SCH (22:00)
[2017-11-26] MEDS: HEPARIN SOD (PORCINE) 5,000 UNIT/ML 1 ML SYRINGE SUBCUT SCH (22:00)
[2017-11-26] MEDS: METRONIDAZOLE 500 MG TABLET PO SCH (22:00)
[2017-11-26] MEDS ORDERED: DEXTROSE 40% GEL 15 GM TUBE PO PRN ×2 (22:01)
[2017-11-26] MEDS ORDERED: DEXTROSE 50%-WATER 25 GM/50 ML DISP.SYRIN IV PRN ×2 (22:01)
[2017-11-26] MEDS ORDERED: GLUCAGON,HUMAN RECOMB 1 MG INJ IM PRN (22:01)
[2017-11-26] MEDS ORDERED: MAGNESIUM HYDROXIDE SUSP 30 ML UDCUP PO ONE (22:30)
--- NOTE | 2017-11-26 22:55 | EKG REPORT ---
SEVERITY:- ABNORMAL ECG - SINUS RHYTHM NONSPECIFIC INTRAVENTRICULAR CONDUCTION DELAY BORDERLINE R WAVE PROGRESSION, ANTERIOR LEADS : Confirmed by: Olman Wen MD 26-Nov-2017 22:55:02
[2017-11-26] MEDS: NORMAL SALINE 1000 ML 1,000 ML IV SCH (23:03)
[2017-11-27] MEDS: NORMAL SALINE 1000 ML 1,000 ML IV SCH (02:00)
--- NOTE | 2017-11-27 02:18 | RADIOLOGY REPORT (SQ) ---
EXAM DESCRIPTION: CT ABD/PELVIS ORAL ONLY CLINICAL HISTORY: 82 years Female, LLQ pain Hx Divertic COMPARISON: None. TECHNIQUE: No IV contrast. Oral contrast only. Coronal and sagittal reformat. This exam was performed according to our departmental dose-optimization program, which includes automated exposure control, adjustment of the mA and/or kV according to patient size and/or use of iterative reconstruction technique. Limitation: Arm position. FINDINGS: No evidence of diverticulitis, as queried. Normal appendix. No free fluid. Bilateral total hip arthroplasty. 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 Cholecystectomy clips. Coronary arterial calcification. 2.6 cm likely benign right renal cyst and 1.3 cm likely benign left renal cyst not definitively characterized. Atherosclerosis. 1 cm umbilical fat only hernia. Orellana catheter with mild bladder wall tenting. Grade 1 L4 anterolisthesis, moderate bony demineralization, mild T12 anterior vertebral wedging, and moderate lumbar spondylosis. Unenhanced inferior chest, abdominopelvic structures, and musculoskeleton appear otherwise grossly unremarkable. IMPRESSION: 1. 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 2. No acute intra-abdominal findings.
[2017-11-27] MEDS: METRONIDAZOLE 500 MG TABLET PO SCH (03:45)
[2017-11-27] MEDS: HEPARIN SOD (PORCINE) 5,000 UNIT/ML 1 ML SYRINGE SUBCUT SCH ×3 (05:00→22:25)
--- NOTE | 2017-11-27 05:57 | PDOC H&P ---
History of Present Illness Admission Date/PCP: 11/26/17 23:13 SIMRAN HESS MD Patient complains of: Altered mental status History of Present Illness: LEONARDO SHIN is a 82 year old female with a past medical history of diabetes , obesity, chronic pain, GERD, hypertension, dyslipidemia and breast cancer. She presents with 12 hours of disorientation of time in place. She is a poor historian but her son at bedside is no better. She denies pain, fever, nausea or vomiting. Admits some urinary incontinence. Labs reveal prerenal azotemia and hyperglycemia. She receives an IV fluid challenge, insulin and empiric antibiotics and referred to the hospitalist for admission. Patient is interviewed and persistently confused doing no acute distress whatsoever. Her son states she is secretive about her medications the patient states she has run out of several medications but will not elaborate. Yet another son is contacted in an unsuccessful attempt to discover these medications. Past Medical History Cardiac Medical History: Reports: Atrial Fibrillation, Coronary Artery Disease, Hyperlipidema, Hypertension Pulmonary Medical History: Reports: None EENT Medical History: Reports: None Neurological Medical History: Reports: None Endocrine Medical History: Reports: Diabetes Mellitus Type 2 Renal/ Medical History: Reports: None Malignancy Medical History: Reports: Breast Cancer GI Medical History: Reports: Gastroesophageal Reflux Disease Psychiatric Medical History: Reports: None Past Surgical History Past Surgical History: Reports: Appendectomy, Cholecystectomy, Mastectomy Social History Information Source: Patient Lives with: Spouse/Significant other Smoking Status: Unknown if Ever Smoked Frequency of Alcohol Use: None Hx Recreational Drug Use: No Hx Prescription Drug Abuse: No - Advance Directive Resuscitation Status: Full Code Family History Family History: Reviewed & Not Pertinent Parental Family History Reviewed: Yes Children Family History Reviewed: Yes Sibling(s) Family History Reviewed.: Yes Medication/Allergy Home Medications: Aspirin [Adult Low Dose Aspirin EC] 81 mg PO DAILY 08/28/17 Cholecalciferol (Vitamin D3) [Vitamin D3 400 Unit Tablet] 400 unit PO DAILY 07/05 Furosemide [Lasix 40 mg Tablet] 40 mg PO DAILY 08/28/17 Gabapentin [Neurontin 300 mg Capsule] 300 mg PO Q12 08/28/17 Levothyroxine Sodium [Synthroid] 175 mcg PO ACBRKFST 08/28/17 Metoprolol Succinate [Toprol Xl 25 mg Tab.sr] 25 mg PO Q12 #60 tab.sr.24h Lisinopril [Prinivil 5 mg Tablet] 10 mg PO DAILY 11/27/17 Multivitamin [Multivitamins] 1 each PO DAILY 11/27/17 Ranitidine HCl [Acid Tin Plater] 150 mg PO QAMPM 11/27/17 Allergies/Adverse Reactions: quinine [Quinine] Allergy (Unknown, Verified 08/27/17 20:22) Sulfa (Sulfonamide Antibiotics) Allergy (Verified 08/27/17 20:22) oxycodone HCl [From Percocet] Adverse Reaction (Mild, Verified 08/27/17 20:22) Nausea Review of Systems ROS unobtainable: Due to mental status Physical Exam Vital Signs: Temp Pulse Resp BP Pulse Ox 18 115/49 L 95 11/27/17 03:00 11/26/17 18:41 11/27/17 03:00 Intake & Output 11/25/17 11/26/17 11/27/17 11:59 11:59 11:59 Output Total 50 Balance -50 General appearance: PRESENT: no acute distress, cooperative, obese. ABSENT: disheveled Head exam: PRESENT: atraumatic, normocephalic Ear exam: PRESENT: normal external ear exam Mouth exam: PRESENT: moist, tongue midline Neck exam: ABSENT: carotid bruit, JVD, lymphadenopathy, thyromegaly Respiratory exam: PRESENT: clear to auscultation pinky. ABSENT: rales, rhonchi, wheezes Cardiovascular exam: PRESENT: RRR. ABSENT: diastolic murmur, rubs, systolic murmur Pulses: PRESENT: normal dorsalis pedis pul Vascular exam: PRESENT: normal capillary refill GI/Abdominal exam: PRESENT: normal bowel sounds, tenderness - Left lower quadrant. ABSENT: ascites, diminished bowel sounds, distended, firm, guarding, hernia, hyperactive bowel sounds, hypoactive bowel sounds Rectal exam: PRESENT: deferred Extremities exam: PRESENT: full ROM. ABSENT: calf tenderness, clubbing, pedal edema Neurological exam: PRESENT: alert, awake, oriented to person, oriented to place , oriented to situation, CN II-XII grossly intact. ABSENT: motor sensory deficit Psychiatric exam: PRESENT: appropriate affect, normal mood. ABSENT: homicidal ideation, suicidal ideation Skin exam: PRESENT: dry, intact, warm. ABSENT: cyanosis, rash Results Impressions: Chest X-Ray 11/26/17 17:17 IMPRESSION: NO ACUTE RADIOGRAPHIC FINDING IN THE CHEST. Abdomen/Pelvis CT 11/27/17 00:00 IMPRESSION: 1. 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 2. No acute intra-abdominal findings. Assessment & Plan - Diagnosis (1) Encephalopathy acute Is this a current diagnosis for this admission?: Yes Plan: Unclear cause most likely hyperglycemia versus medication. Insulin and supportive care (2) Left lower quadrant pain Is this a current diagnosis for this admission?: Yes Plan: Evaluate CT given left lower quadrant pain and history of diverticulitis. Empiric Flagyl and Cipro initiated. (3) Hyperglycemia without ketosis Is this a current diagnosis for this admission?: Yes Plan: Unclear compliance with diabetic regiment. Evaluate A1c. 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
[2017-11-27 06:50] LABS: ABSOLUTE BASOPHILS # (AUTO) 0.1 10^3/uL (0.0-0.2); ABSOLUTE EOSINOPHILS # (AUTO) 0.3 10^3/uL (0.0-0.6); ABSOLUTE LYMPHOCYTES (AUTO) 1.4 10^3/uL (0.5-4.7); ABSOLUTE MONOCYTES (AUTO) 0.9 10^3/uL (0.1-1.4); ABSOLUTE NEUT (AUTO) 8.2 10^3/uL (1.7-8.2); BASOPHILS % (AUTO) 0.7 % (0-2); HEMATOCRIT 34.7 % (36.0-47.0); HEMOGLOBIN 11.7 g/dL (12.0-15.5); LYMPHOCYTES % (AUTO) 12.5 % (13-45); MEAN CORPUSCULAR HGB CONC 33.8 g/dL (32.0-36.0); MEAN CORPUSCULAR VOLUME 89 fl (80-97); MONOCYTES % (AUTO) 8.2 % (3-13); PLATELET COUNT 407 10^3/uL (150-450); RED BLOOD COUNT 3.91 10^6/uL (3.72-5.28); RED CELL DISTRIBUTION WIDTH 14.4 % (11.5-14.0); SEGMENTED NEUTROPHILS % (AUTO) 75.6 % (42-78); TOTAL CELLS COUNTED % (AUTO) 100 %; WHITE BLOOD COUNT 10.8 10^3/uL (4.0-10.5)
[2017-11-27 07:00] LABS: ANION GAP 9 (5-19); BLOOD UREA NITROGEN 38 mg/dL (7-20); CALCIUM 8.9 mg/dL (8.4-10.2); CARBON DIOXIDE 26 mmol/L (22-30); CHLORIDE 106 mmol/L (98-107); GLUCOSE 174 mg/dL (75-110); POTASSIUM 4.3 mmol/L (3.6-5.0); SODIUM 141.4 mmol/L (137-145)
[2017-11-27] MEDS: INSULIN LISPRO 100 UNIT/ML 3 ML VIAL SUBCUT PRN ×4 (10:08→23:42)
[2017-11-27] MEDS: METOPROLOL SUCCINATE 25 MG TAB.SR.24H PO SCH ×2 (10:08→22:25)
[2017-11-27] MEDS: ISOSORBIDE MONONITRATE 30 MG TAB.ER.24H PO SCH (10:09)
[2017-11-27] MEDS: DOCUSATE SODIUM 100 MG CAPSULE PO SCH ×2 (15:36→18:07)
[2017-11-27] MEDS ORDERED: INSULIN LISPRO 100 UNIT/ML 3 ML VIAL SUBCUT ONE (19:00)
[2017-11-27] MEDS ORDERED: NYSTATIN TOPICAL POWDER 15 GM TP PRN (19:49)
--- NOTE | 2017-11-27 19:56 | PDOC PROGRESS REPORT ---
Subjective Progress Note for:: 11/27/17 Subjective:: I seen patient resting in bed comfortably. She complains of itchiness of both eyes. Reason For Visit: ENCEPHALOPATHY, HYPERGLYCEMIA, LLQ PAIN, DM Physical Exam Vital Signs: Temp Pulse Resp BP Pulse Ox 98.4 F 75 19 142/74 H 99 11/27/17 16:22 11/27/17 16:22 11/27/17 16:22 11/27/17 16:22 11/27/17 16:22 Intake & Output 11/26/17 11/27/17 11/28/17 06:59 06:59 06:59 Intake Total 606 Balance 606 Weight 105.2 kg General appearance: PRESENT: no acute distress, well-developed, well-nourished Eye exam: PRESENT: conjunctival injection, other - gumming of the eye lids Cardiovascular exam: PRESENT: RRR. ABSENT: diastolic murmur, rubs, systolic murmur GI/Abdominal exam: PRESENT: other - Obese Neurological exam: PRESENT: alert, awake, other Results Impressions: Chest X-Ray 11/26/17 17:17 IMPRESSION: NO ACUTE RADIOGRAPHIC FINDING IN THE CHEST. Abdomen/Pelvis CT 11/27/17 00:00 IMPRESSION: 1. 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 2. No acute intra-abdominal findings. Assessment & Plan - Diagnosis (1) Encephalopathy acute Is this a current diagnosis for this admission?: Yes Plan: Probably patient has metabolic encephalopathy she is running also hyperglycemia for which she has been on sliding scale. (2) Hyperglycemia without ketosis Is this a current diagnosis for this admission?: Yes Plan: She has been on sliding scale and I will put her on Levemir 30 units subcu nightly (3) Left lower quadrant pain Is this a current diagnosis for this admission?: Yes Plan: Insert (4) Diabetes Qualifiers: Diabetes mellitus type: type 2 Diabetes mellitus jail insulin use: unspecified jail insulin use status Diabetes mellitus complication status : with unspecified complications Qualified Code(s): E11.8 - Type 2 diabetes mellitus with unspecified complications Is this a current diagnosis for this admission?: Yes Plan: Her diabetes is not well controlled and her latest hemoglobin A1c is 11.2. Element of medical noncompliance. - Time Time Spent with patient: 15-24 minutes - Inpatient Certification Medical Necessity: Need For IV Fluids
[2017-11-27] MEDS ORDERED: CIPROFLOXACIN-HC OTIC SUSP 10 ML AU SCH (22:00)
[2017-11-27] MEDS: AMIODARONE HCL 200 MG TABLET PO SCH (22:25)
[2017-11-27] MEDS ORDERED: CIPROFLOXACIN HCL 0.3% OPH SOLN 2.5 ML OU SCH (22:45)
[2017-11-28] MEDS: HEPARIN SOD (PORCINE) 5,000 UNIT/ML 1 ML SYRINGE SUBCUT SCH ×3 (06:12→23:01)
[2017-11-28] MEDS: DOCUSATE SODIUM 100 MG CAPSULE PO SCH ×2 (09:06→17:46)
[2017-11-28] MEDS: INSULIN LISPRO 100 UNIT/ML 3 ML VIAL SUBCUT PRN ×4 (09:08→23:30)
[2017-11-28] MEDS: AMIODARONE HCL 200 MG TABLET PO SCH ×2 (09:10→23:01)
[2017-11-28] MEDS: METOPROLOL SUCCINATE 25 MG TAB.SR.24H PO SCH ×2 (09:11→22:59)
[2017-11-28] MEDS: ISOSORBIDE MONONITRATE 30 MG TAB.ER.24H PO SCH (09:11)
[2017-11-28] MEDS: CIPROFLOXACIN HCL 0.3% OPH SOLN 2.5 ML OU SCH ×2 (09:12→22:59)
--- NOTE | 2017-11-28 14:44 | PDOC PROGRESS REPORT ---
Subjective Progress Note for:: 11/28/17 Subjective:: I seen patient resting in bed comfortably. She complains of itchiness of both eyes. She has been on ciprofloxacin ophthalmic solution. Reason For Visit: ENCEPHALOPATHY, HYPERGLYCEMIA, LLQ PAIN, DM Physical Exam Vital Signs: Temp Pulse Resp BP Pulse Ox 98.2 F 75 16 145/51 H 96 11/28/17 11:48 11/28/17 13:40 11/28/17 13:40 11/28/17 11:48 11/28/17 13:40 Intake & Output 11/27/17 11/28/17 11/29/17 06:59 06:59 06:59 Intake Total 926 Output Total 700 Balance 226 Weight 105 kg General appearance: PRESENT: no acute distress, well-developed, well-nourished Head exam: PRESENT: atraumatic, normocephalic Eye exam: PRESENT: conjunctival injection Respiratory exam: PRESENT: clear to auscultation pinky. ABSENT: rales, rhonchi, wheezes Cardiovascular exam: PRESENT: RRR. ABSENT: diastolic murmur, rubs, systolic murmur GI/Abdominal exam: PRESENT: other - Obese Results Impressions: Chest X-Ray 11/26/17 17:17 IMPRESSION: NO ACUTE RADIOGRAPHIC FINDING IN THE CHEST. Abdomen/Pelvis CT 11/27/17 00:00 IMPRESSION: 1. 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 2. No acute intra-abdominal findings. Assessment & Plan - Diagnosis (1) Encephalopathy acute Is this a current diagnosis for this admission?: Yes Plan: Probably patient has metabolic encephalopathy she is running also hyperglycemia for which she has been on sliding scale. Today need for her Lantus 15 units subcu nightly. Her encephalopathy is improving. 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 Element of medical noncompliance. Now she is on sliding scale and Lantus 15 units subcu nightly. (5) Morbid obesity Plan: Lifestyle modification as it - Time Time Spent with patient: 25-34 minutes - In the coming 1 or 2 days patient is a potential discharge.
[2017-11-28 15:14] LABS: HEMATOCRIT 35.9 % (36.0-47.0); HEMOGLOBIN 12.1 g/dL (12.0-15.5); MEAN CORPUSCULAR HEMOGLOBIN 30.2 pg (27.0-33.4); MEAN CORPUSCULAR HGB CONC 33.8 g/dL (32.0-36.0); MEAN CORPUSCULAR VOLUME 89 fl (80-97); PLATELET COUNT 400 10^3/uL (150-450); RED BLOOD COUNT 4.02 10^6/uL (3.72-5.28); RED CELL DISTRIBUTION WIDTH 14.2 % (11.5-14.0); WHITE BLOOD COUNT 10.5 10^3/uL (4.0-10.5)
[2017-11-28] MEDS ORDERED: INSULIN GLARGINE,HUM.REC.ANLOG 1,000 UNIT/10 ML UNIT SUBCUT SCH ×2 (18:00)
[2017-11-29 05:42] LABS: ABSOLUTE BASOPHILS # (AUTO) 0.1 10^3/uL (0.0-0.2); ABSOLUTE EOSINOPHILS # (AUTO) 0.2 10^3/uL (0.0-0.6); ABSOLUTE LYMPHOCYTES (AUTO) 1.3 10^3/uL (0.5-4.7); ABSOLUTE MONOCYTES (AUTO) 1.1 10^3/uL (0.1-1.4); ABSOLUTE NEUT (AUTO) 9.7 10^3/uL (1.7-8.2); BASOPHILS % (AUTO) 0.6 % (0-2); HEMATOCRIT 38.3 % (36.0-47.0); HEMOGLOBIN 12.8 g/dL (12.0-15.5); LYMPHOCYTES % (AUTO) 10.3 % (13-45); MEAN CORPUSCULAR HEMOGLOBIN 29.5 pg (27.0-33.4); MEAN CORPUSCULAR HGB CONC 33.3 g/dL (32.0-36.0); MEAN CORPUSCULAR VOLUME 89 fl (80-97); MONOCYTES % (AUTO) 9.1 % (3-13); PLATELET COUNT 408 10^3/uL (150-450); RED BLOOD COUNT 4.32 10^6/uL (3.72-5.28); RED CELL DISTRIBUTION WIDTH 14.6 % (11.5-14.0); TOTAL CELLS COUNTED % (AUTO) 100 %; WHITE BLOOD COUNT 12.4 10^3/uL (4.0-10.5)
[2017-11-29] MEDS: HEPARIN SOD (PORCINE) 5,000 UNIT/ML 1 ML SYRINGE SUBCUT SCH ×3 (05:47→22:42)
[2017-11-29 07:08] LABS: ANION GAP 9 (5-19); BLOOD UREA NITROGEN 19 mg/dL (7-20); CALCIUM 9.2 mg/dL (8.4-10.2); CARBON DIOXIDE 26 mmol/L (22-30); CHLORIDE 105 mmol/L (98-107); GLUCOSE 263 mg/dL (75-110); POTASSIUM 4.1 mmol/L (3.6-5.0); SODIUM 140.3 mmol/L (137-145)
[2017-11-29] MEDS: DOCUSATE SODIUM 100 MG CAPSULE PO SCH ×2 (11:24→18:25)
[2017-11-29] MEDS: ISOSORBIDE MONONITRATE 30 MG TAB.ER.24H PO SCH (11:25)
[2017-11-29] MEDS: AMIODARONE HCL 200 MG TABLET PO SCH ×2 (11:25→22:42)
[2017-11-29] MEDS: METOPROLOL SUCCINATE 25 MG TAB.SR.24H PO SCH ×2 (11:25→22:42)
[2017-11-29] MEDS: CIPROFLOXACIN HCL 0.3% OPH SOLN 2.5 ML OU SCH (11:26)
--- NOTE | 2017-11-29 12:57 | PDOC PROGRESS REPORT ---
Subjective Progress Note for:: 11/29/17 Subjective:: I seen patient resting in bed comfortably. Today patient's more awake alert and oriented. She asks if he can go home. Otherwise no significant change overnight. Reason For Visit: ENCEPHALOPATHY, HYPERGLYCEMIA, LLQ PAIN, DM Physical Exam Vital Signs: Temp Pulse Resp BP Pulse Ox 97.4 F 66 22 H 151/80 H 96 11/29/17 07:22 11/29/17 07:22 11/29/17 07:22 11/29/17 07:22 11/29/17 07:22 Intake & Output 11/28/17 11/29/17 11/30/17 06:59 06:59 06:59 Intake Total 926 1992 Output Total 700 1900 Balance 226 92 Weight 105 kg 105 kg General appearance: PRESENT: no acute distress, well-developed, well-nourished Respiratory exam: PRESENT: clear to auscultation pinky. ABSENT: rales, rhonchi, wheezes Cardiovascular exam: PRESENT: RRR. ABSENT: diastolic murmur, rubs, systolic murmur GI/Abdominal exam: PRESENT: other - Morbidly obese abdomen Results Laboratory Results: 11/29/17 04:20 11/29/17 06:30 11/28/17 11/29/17 11/29/17 15:00 04:20 04:20 WBC 10.5 12.4 H RBC 4.02 4.32 Hgb 12.1 12.8 Hct 35.9 L 38.3 MCV 89 89 MCH 30.2 29.5 MCHC 33.8 33.3 RDW 14.2 H 14.6 H Plt Count 400 408 Seg Neutrophils % 78.0 Lymphocytes % 10.3 L Monocytes % 9.1 Eosinophils % 2.0 Basophils % 0.6 Absolute Neutrophils 9.7 H Absolute Lymphocytes 1.3 Absolute Monocytes 1.1 Absolute Eosinophils 0.2 Absolute Basophils 0.1 Sodium Cancelled Potassium Cancelled Chloride Cancelled Carbon Dioxide Cancelled Anion Gap Cancelled BUN Cancelled Creatinine Cancelled Est GFR ( Amer) Cancelled Est GFR (Non-Af Amer) Cancelled Glucose Cancelled Calcium Cancelled 11/29/17 06:30 WBC RBC Hgb Hct MCV MCH MCHC RDW Plt Count Seg Neutrophils % Lymphocytes % Monocytes % Eosinophils % Basophils % Absolute Neutrophils Absolute Lymphocytes Absolute Monocytes Absolute Eosinophils Absolute Basophils Sodium 140.3 Potassium 4.1 Chloride 105 Carbon Dioxide 26 Anion Gap 9 BUN 19 Creatinine 0.96 Est GFR ( Amer) > 60 Est GFR (Non-Af Amer) 56 L Glucose 263 H Calcium 9.2 Impressions: Chest X-Ray 11/26/17 17:17 IMPRESSION: NO ACUTE RADIOGRAPHIC FINDING IN THE CHEST. Abdomen/Pelvis CT 11/27/17 00:00 IMPRESSION: 1. 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 2. No acute intra-abdominal findings. Assessment & Plan - Diagnosis (1) Encephalopathy acute Is this a current diagnosis for this admission?: Yes Plan: . Has been resolving (2) Hyperglycemia without ketosis Is this a current diagnosis for this admission?: Yes Plan: Still patient has intermittent hyperglycemia. I will increase her prandial Lantus to 20 units subcu nightly. (3) Left lower quadrant pain Is this a current diagnosis for this admission?: Yes Plan: Has resolved (4) Diabetes Qualifiers: Diabetes mellitus type: type 2 Diabetes mellitus patient care provider insulin use: unspecified patient care provider insulin use status Diabetes mellitus complication status : with unspecified complications Qualified Code(s): E11.8 - Type 2 diabetes mellitus with unspecified complications Is this a current diagnosis for this admission?: Yes Plan: Her diabetes is not well controlled and her latest hemoglobin A1c is 11.2. Element of medical noncompliance. Now she is on sliding scale and Lantus 15 units subcu nightly. (5) Morbid obesity Is this a current diagnosis for this admission?: Yes Plan: Lifestyle modification as it - Time Time Spent with patient: 25-34 minutes
[2017-11-29] MEDS: INSULIN LISPRO 100 UNIT/ML 3 ML VIAL SUBCUT PRN ×3 (14:31→23:18)
[2017-11-29] MEDS ORDERED: INSULIN GLARGINE,HUM.REC.ANLOG 1,000 UNIT/10 ML UNIT SUBCUT SCH (18:00)
[2017-11-29] MEDS ORDERED: CIPROFLOXACIN HCL 0.3% OPH SOLN 2.5 ML OU ONE (20:00)
[2017-11-30] MEDS: CIPROFLOXACIN HCL 0.3% OPH SOLN 2.5 ML OU SCH ×2 (00:22→06:39)
[2017-11-30] MEDS: HEPARIN SOD (PORCINE) 5,000 UNIT/ML 1 ML SYRINGE SUBCUT SCH (06:39)
[2017-11-30] MEDS: METOPROLOL SUCCINATE 25 MG TAB.SR.24H PO SCH (10:45)
[2017-11-30] MEDS: INSULIN LISPRO 100 UNIT/ML 3 ML VIAL SUBCUT PRN (10:45)
[2017-11-30] MEDS: AMIODARONE HCL 200 MG TABLET PO SCH (10:46)
[2017-11-30] MEDS: DOCUSATE SODIUM 100 MG CAPSULE PO SCH (10:46)
[2017-11-30] MEDS: ISOSORBIDE MONONITRATE 30 MG TAB.ER.24H PO SCH (10:46)
[2017-11-30 10:59] VITALS: BP 146/77
--- NOTE | 2017-11-30 10:59 | PDOC DISCHARGE SUMMARY ---
General - Admit/Disc Date/PCP Admission Date/Primary Care Provider: 11/27/17 14:01 SIMRAN HESS MD Discharge Date: 11/30/17 - Discharge Diagnosis (1) Encephalopathy acute Is this a current diagnosis for this admission?: Yes (2) Hyperglycemia without ketosis Is this a current diagnosis for this admission?: Yes (3) Left lower quadrant pain Is this a current diagnosis for this admission?: Yes (4) Diabetes Is this a current diagnosis for this admission?: Yes (5) Morbid obesity Is this a current diagnosis for this admission?: Yes (6) Conjunctivitis Is this a current diagnosis for this admission?: Yes - Additional Information Resuscitation Status: Full Code Discharge Activity: Other - wheel chair bound Home Medications: Aspirin [Adult Low Dose Aspirin EC] 81 mg PO DAILY 08/28/17 Cholecalciferol (Vitamin D3) [Vitamin D3 400 Unit Tablet] 400 unit PO DAILY 07/05 Furosemide [Lasix 40 mg Tablet] 40 mg PO DAILY 08/28/17 Gabapentin [Neurontin 300 mg Capsule] 300 mg PO Q12 08/28/17 Levothyroxine Sodium [Synthroid] 175 mcg PO ACBRKFST 08/28/17 Lisinopril [Prinivil 5 mg Tablet] 10 mg PO DAILY 11/27/17 Metoprolol Succinate [Toprol Xl 25 mg Tab.sr] 25 mg PO DAILY 11/27/17 Multivitamin [Multivitamins] 1 each PO DAILY 11/27/17 Ranitidine HCl [Acid Patrol Inspector] 150 mg PO QAMPM 11/27/17 History of Present Illness History of Present Illness: LEONARDO SHIN is a 82 year old female with a past medical history of diabetes, obesity, A. fib, CAD, chronic pain, GERD, hypertension, dyslipidemia and breast cancer. She presents with 12 hours of disorientation of time in place. She is a poor historian but her son at bedside is no better. She denies pain, fever, nausea or vomiting. Admits some urinary incontinence. Labs reveal prerenal azotemia and hyperglycemia. She receives an IV fluid challenge, insulin and empiric antibiotics and referred to the hospitalist for admission. Patient is interviewed and persistently confused doing no acute distress whatsoever. Her son states she is secretive about her medications the patient states she has run out of several medications but will not elaborate. Yet another son is contacted in an unsuccessful attempt to discover these medications. Hospital Course Hospital Course: Patient has been managed with IV fluids and with antibiotics empirically. She has had intermittent hyperglycemia and after I started her with Lantus 30 units subcu daily along with sliding scale her blood glucose is relatively controlled. Currently patient's at her baseline. Her metabolic encephalopathy is probably due to dehydration and hyperglycemia. Today on the day of discharge on physical examination patient is resting in bed comfortably and showing good sleep awakened her and she is alert oriented. Her vital signs are within normal limits and she is going to be discharged in stable condition. Physical Exam Vital Signs: Temp Pulse Resp BP Pulse Ox 97.8 F 69 16 185/70 H 99 11/30/17 08:09 11/30/17 08:09 11/30/17 08:09 11/30/17 08:09 11/30/17 08:09 Intake & Output 11/29/17 11/30/17 12/01/17 06:59 06:59 06:59 Intake Total 1992 598 Output Total 1900 1540 Balance 92 -942 Weight 105 kg 105 kg General appearance: PRESENT: no acute distress, well-developed, well-nourished Head exam: PRESENT: atraumatic, normocephalic Eye exam: PRESENT: conjunctiva pink, EOMI, PERRLA. ABSENT: scleral icterus Ear exam: PRESENT: normal external ear exam Mouth exam: PRESENT: moist, tongue midline Neck exam: ABSENT: carotid bruit, JVD, lymphadenopathy, thyromegaly Respiratory exam: PRESENT: clear to auscultation pinky. ABSENT: rales, rhonchi, wheezes Cardiovascular exam: PRESENT: RRR. ABSENT: diastolic murmur, rubs, systolic murmur Pulses: PRESENT: normal dorsalis pedis pul Vascular exam: PRESENT: normal capillary refill GI/Abdominal exam: PRESENT: normal bowel sounds, soft. ABSENT: distended, guarding, mass, organolmegaly, rebound, tenderness Rectal exam: PRESENT: deferred Extremities exam: PRESENT: full ROM. ABSENT: calf tenderness, clubbing, pedal edema Neurological exam: PRESENT: alert, awake, oriented to person, oriented to place , oriented to time, oriented to situation, CN II-XII grossly intact. ABSENT: motor sensory deficit Psychiatric exam: PRESENT: appropriate affect, normal mood. ABSENT: homicidal ideation, suicidal ideation Skin exam: PRESENT: dry, intact, warm. ABSENT: cyanosis, rash Results Laboratory Results: 11/29/17 04:20 11/29/17 06:30 Impressions: Chest X-Ray 11/26/17 17:17 IMPRESSION: NO ACUTE RADIOGRAPHIC FINDING IN THE CHEST. Abdomen/Pelvis CT 11/27/17 00:00 IMPRESSION: 1. 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 2. No acute intra-abdominal findings. Qualifiers - * PATEINT BEING DISCHARGED WITH ANY OF THE FOLLOWING DIAGNOSIS?: No
== END 2017-11-30 12:35 | disposition home or self-care (01) | DRG 637 ==
LOC: ER 17:00 → EH 23:13 → OBSVTOIN 11-27 14:01 → 4N 11-27 14:36
PROVIDERS: ADMIT Internal Medicine; ATTEND Internal Medicine
PROC: 3E0F73Z Introduction of Anti-inflammatory into Respiratory Tract, Via Natural or Artificial Opening (ICD-10-PCS; principal; 2017-11-27)
DX: E11.65 Type 2 diabetes mellitus with hyperglycemia (principal); G93.40 Encephalopathy, unspecified; E66.01 Morbid (severe) obesity due to excess calories; Z68.37 Body mass index [BMI] 37.0-37.9, adult; H10.9 Unspecified conjunctivitis; I48.91 Unspecified atrial fibrillation; I25.10 Atherosclerotic heart disease of native coronary artery without angina pectoris; K21.9 Gastro-esophageal reflux disease without esophagitis; I10 Essential (primary) hypertension; E78.00 Pure hypercholesterolemia, unspecified; G89.29 Other chronic pain; R10.32 Left lower quadrant pain; I49.3 Ventricular premature depolarization; Z85.3 Personal history of malignant neoplasm of breast; Z79.899 Other long term (current) drug therapy; Z90.49 Acquired absence of other specified parts of digestive tract; Z90.11 Acquired absence of right breast and nipple; Z88.6 Allergy status to analgesic agent; Z88.2 Allergy status to sulfonamides; Z88.8 Allergy status to other drugs, medicaments and biological substances; Z79.82 Long term (current) use of aspirin
CPT/HCPCS: 36415; 71045; 74176; 80048; 80053; 81001; 82803; 82962; 83036; 83605; 84443; 85025; 85027; 85610; 87040; 87077; 87086; 87186; 93005; 93010; 96361; 96365; 96372; 99285; G0378; J0696; J0744; J1644; J1815; J3490; J7030

== ENCOUNTER 2018-06-07 22:32 | Emergency (ER) | payer MEDICARE, BC ==
--- NOTE | 2018-06-07 23:42 | ER Document Report ---
ED General - General Chief Complaint: High Blood Pressure Stated Complaint: BLOOD PRESSURE PROBLEM Time Seen by Provider: 06/07/18 23:41 Notes: Patient is a pleasant 82-year-old female who presents with complaint of blood pressure. She says usually takes lisinopril in the morning. She forgot to take it this morning. She noticed that she was having some flushing and then felt slight chest pressure. She checked her blood pressure last it was high and then took her medication tonight a p.m. Since then those symptoms have resolved. She does have edema in her lower extremities. He said for last 3-4 months the right lower extremity is always a bit more edematous than the left. She said this is her baseline. She denies any history of DVT. No chest pain. No actual pain in her legs. She also missed her Lasix today. She says she does not want take the Lasix until tomorrow morning because she will be up all night going back and forth to the bathroom if she does take it tonight. She denies any difficulty breathing. No other complaints at this time. TRAVEL OUTSIDE OF THE [place] IN LAST 30 DAYS: No - Related Data Allergies/Adverse Reactions: quinine [Quinine] Allergy (Unknown, Verified 08/27/17 20:22) Sulfa (Sulfonamide Antibiotics) Allergy (Verified 08/27/17 20:22) oxycodone HCl [From Percocet] Adverse Reaction (Mild, Verified 08/27/17 20:22) Nausea Past Medical History - Social History Smoking Status: Former Smoker Chew tobacco use (# tins/day): No Frequency of alcohol use: None Drug Abuse: None Family History: Reviewed & Not Pertinent Patient has suicidal ideation: No Patient has homicidal ideation: No - Past Medical History Cardiac Medical History: Reports: Hx Atrial Fibrillation, Hx Coronary Artery Disease, Hx Hypercholesterolemia, Hx Hypertension Endocrine Medical History: Reports: Hx Diabetes Mellitus Type 2 Renal/ Medical History: Denies: Hx Peritoneal Dialysis Malignancy Medical History: Reports: Hx Breast Cancer GI Medical History: Reports: Hx Gastroesophageal Reflux Disease Musculoskeletal Medical History: Reports Hx Musculoskeletal Trauma Psychiatric Medical History: Denies: Hx Depression Past Surgical History: Reports: Hx Appendectomy, Hx Breast Surgery - R mastectomy, Hx Cholecystectomy, Hx Mastectomy - Immunizations Hx Pneumococcal Vaccination: 05/18/17 Review of Systems - Review of Systems Notes: My Normal Review Basic REVIEW OF SYSTEMS: CONSTITUTIONAL : Denies fever, chills, or sweats. Denies recent illness. Well-appearing. EENT: Denies eye, ear, throat, or mouth pain or symptoms. Denies nasal or sinus congestion. CARDIOVASCULAR: Brief episode of chest pressure which has resolved. RESPIRATORY: Denies cough, cold, or chest congestion. Denies shortness of breath, difficulty breathing, or wheezing. GASTROINTESTINAL: Denies abdominal pain. Denies nausea, vomiting, or diarrhea. GENITOURINARY: Denies difficulty urinating, painful urination, burning, frequency, or blood in urine. MUSCULOSKELETAL: Denies neck or back pain or joint pain or swelling. SKIN: Denies rash or skin lesions. HEMATOLOGIC : Denies easy bruising or bleeding. LYMPHATIC: Chronic leg edema. Right-sided mastectomy in the past causing edema into the right upper extremity. NEUROLOGICAL: Denies altered mental status or loss of consciousness. ALL OTHER SYSTEMS REVIEWED AND NEGATIVE. Physical Exam - Vital signs Vitals: Temp Pulse Resp BP Pulse Ox 98.3 F 84 17 156/86 H 99 06/07/18 22:53 06/07/18 22:53 06/07/18 22:53 06/07/18 22:53 06/07/18 22:53 - Notes Notes: General Appearance: Well nourished, alert, cooperative, no acute distress, no obvious discomfort. Well-appearing. Vitals: reviewed, See vital signs table. Eyes: PERRL, EOMI, Conjuctiva clear Mouth: No decreasd moisture Lungs: No wheezing, No rales, No rhonci, No accessory muscle use, good air exchange bilaterally. Heart: Normal rate, Regular rythm, No murmur, no rub Abdomen: Normal BS, soft, No rigidity, No abdominal tenderness, No guarding, no rebound, no abdominal masses, no organomegaly Extremities: strength 5/5 in all extremities, good pulses in all extremities, no swelling or tenderness in the extremities, 3+ bilateral lower extremity edema slightly worse than the right leg comparison to the left leg. Good pulses in both feet. Skin: warm, dry, appropriate color, no rash Neuro: speech clear, oriented x 3, normal affect, responds appropriately to questions. Course - Re-evaluation Re-evalutation: 06/08/18 05:56 Patient's blood pressure continues to improve. She looks well. She is asymptomatic. Her troponin is negative. I feel she is safe to be discharged home. I informed her she can start her normal regimen with medication starting at 10 AM tomorrow. I encouraged her return to ER if she has any recurrent symptoms or feels unwell. Patient agrees with plan will be discharged home. Dictation of this chart was performed using voice recognition software; therefore, there may be some unintended grammatical errors. - Vital Signs Vital signs: Temp Pulse Resp BP Pulse Ox 97.8 F 72 20 129/90 H 97 06/08/18 01:45 06/08/18 01:45 06/08/18 01:45 06/08/18 01:45 06/08/18 01:45 - EKG Interpretation by Me Additional EKG results interpreted by me: 06/07/18 23:41 EKG is reviewed and interpreted by me. EKG shows irregular sinus rhythm with a rate of [address] segment elevation or depression. No ischemic T wave inversions. Portable, QRS duration is within normal range. QT interval is borderline. Old EKG for comparison is from November 26, 2017. Discharge - Discharge Clinical Impression: Hypertension Qualifiers: Hypertension type: unspecified Qualified Code(s): I10 - Essential (primary) hypertension Condition: Good Disposition: HOME, SELF-CARE Additional Instructions: Please wait to take your blood pressure medication until around 10 AM tomorrow. Please return to the ER immediately if you have worsening swelling, recurrent chest pain, difficulty breathing, or recurrent elevation of your blood pressure.
[2018-06-07] MEDS ORDERED: HYDROCHLOROTHIAZIDE 12.5 MG TABLET PO ONE (23:53)
[2018-06-08 01:46] VITALS: BP 129/90
--- NOTE | 2018-06-08 06:15 | EKG REPORT ---
SEVERITY:- BORDERLINE ECG - SINUS RHYTHM BORDERLINE R WAVE PROGRESSION, ANTERIOR LEADS : Confirmed by: Olman Wen MD 08-Jun-2018 06:14:36
== END 2018-06-08 01:45 | disposition home or self-care (01) ==
LOC: ER 22:32
DX: I10 Essential (primary) hypertension (principal); R23.2 Flushing; R60.0 Localized edema; R07.9 Chest pain, unspecified; Z79.899 Other long term (current) drug therapy; Z87.891 Personal history of nicotine dependence; I25.10 Atherosclerotic heart disease of native coronary artery without angina pectoris; E11.9 Type 2 diabetes mellitus without complications
CPT/HCPCS: 93005; 99284; 36415; 84484; 93010; A9270

== ENCOUNTER 2018-08-20 23:53 | Emergency (ER) | payer MEDICARE, BC ==
[2018-08-21] MEDS ORDERED: ACETAMINOPHEN 325 MG TABLET PO ONE (00:48)
[2018-08-21] MEDS ORDERED: MORPHINE SULFATE IR 15 MG TABLET PO ONE (00:48)
--- NOTE | 2018-08-21 00:50 | ER Document Report ---
ED General - General Chief Complaint: Leg Pain Stated Complaint: LEG PAIN Time Seen by Provider: 08/21/18 00:03 Notes: Patient is an 83-year-old female who presents with 1 week of pain to her left mid thigh. The patient states that this pain started relatively abruptly when she was trying to get in bed 1 week ago. She states that the pain has been relatively constant since that time although was feeling somewhat better earlier today prompting her to get up and try to walk around in the leg. She states however tonight the pain has become much worse and is a constant, dull, throbbing, severe pain to her mid left thigh. She has not trying to improve the pain. Any attempt at bearing weight or moving worsens the pain. She has not seen her general physician regarding today's concerns. She denies associated fever, erythema or constitutional symptoms. TRAVEL OUTSIDE OF THE [place] IN LAST 30 DAYS: No - Related Data Allergies/Adverse Reactions: quinine [Quinine] Allergy (Unknown, Verified 08/27/17 20:22) Sulfa (Sulfonamide Antibiotics) Allergy (Verified 08/27/17 20:22) oxycodone HCl [From Percocet] Adverse Reaction (Mild, Verified 08/27/17 20:22) Nausea Past Medical History - General Information source: Patient - Social History Smoking Status: Never Smoker Frequency of alcohol use: None Drug Abuse: None Lives with: Family Family History: Reviewed & Not Pertinent Patient has suicidal ideation: No Patient has homicidal ideation: No - Past Medical History Cardiac Medical History: Reports: Hx Atrial Fibrillation, Hx Congestive Heart Failure, Hx Coronary Artery Disease, Hx Hypercholesterolemia, Hx Hypertension Pulmonary Medical History: Reports: Hx COPD Endocrine Medical History: Reports: Hx Diabetes Mellitus Type 2 Renal/ Medical History: Denies: Hx Peritoneal Dialysis Malignancy Medical History: Reports: Hx Breast Cancer GI Medical History: Reports: Hx Gastroesophageal Reflux Disease Musculoskeletal Medical History: Reports Hx Musculoskeletal Trauma Psychiatric Medical History: Denies: Hx Depression Past Surgical History: Reports: Hx Appendectomy, Hx Breast Surgery - R mastectomy, Hx Cholecystectomy, Hx Mastectomy - Immunizations Hx Pneumococcal Vaccination: 05/18/17 Review of Systems - Review of Systems Notes: Constitutional: Negative for fever. HENT: Negative for sore throat. Eyes: Negative for visual changes. Cardiovascular: Negative for chest pain. Respiratory: Negative for shortness of breath. Gastrointestinal: Negative for abdominal pain, vomiting or diarrhea. Genitourinary: Negative for dysuria. Musculoskeletal: Positive for left leg pain Skin: Negative for rash. Neurological: Negative for headaches, weakness or numbness. 10 point ROS negative except as marked above and in HPI. Physical Exam - Vital signs Vitals: Temp Pulse Resp BP Pulse Ox 97.6 F 80 18 126/64 H 97 08/20/18 23:58 08/20/18 23:58 08/20/18 23:58 08/20/18 23:58 08/20/18 23:58 Interpretation: Normal Notes: PHYSICAL EXAMINATION: GENERAL: Sleeping on initial assessment, appears in no significant distress HEAD: Atraumatic, normocephalic. EYES: Pupils equal round and reactive to light, extraocular movements intact, sclera anicteric, conjunctiva are normal. ENT: nares patent, oropharynx clear without exudates. Mild dry mucous membranes. NECK: Normal range of motion, supple without lymphadenopathy LUNGS: Breath sounds clear to auscultation bilaterally and equal. No wheezes rales or rhonchi. HEART: Regular rate and rhythm without murmurs, 2+ DP pulses bilaterally ABDOMEN: Soft, nontender, normoactive bowel sounds. No guarding, no rebound. No masses appreciated. EXTREMITIES: Exquisite pain on palpation of the left mid thigh although no appreciable swelling, erythema or deformity. No shortening of the left leg relative to the right. 3+ pitting edema in the bilateral lower extremities below the level of the knee that is equal and symmetric. NEUROLOGICAL: No focal neurological deficits. Moves all extremities spontaneously and on command. PSYCH: Normal mood, normal affect. SKIN: Warm, Dry, normal turgor, no rashes or lesions noted. Course - Re-evaluation Re-evalutation: 08/21/18 00:49 Patient presents with 1 week of left hip, femur and knee pain that has been ongoing since to try to get into bed and felt like something popped or pulled. Patient does have significant bilateral lower extremity is equal and symmetric and at his baseline. He does not however appear that this is the primary cause of the patient's pain. Concern for possible occult fracture, much less likely an acute DVT as patient does report the pain to be most focal to the mid thigh region. No pain of the popliteal fossa, no increased edema to the left leg versus the right. Will obtain x-rays and reassess 08/21/18 01:41 X-rays are completely unremarkable. Patient's pain is improved. I have advised outpatient follow-up including consideration of venous Doppler should pain not resolve although I do think the likelihood of an acute DVT causing the patient's pain is low at this point. At this time will discharge with return precautions and follow-up recommendations. Verbal discharge instructions given a the bedside and opportunity for questions given. Medication warnings reviewed. Patient is in agreement with this plan and has verbalized understanding of return precautions and the need for primary care follow-up in the next 24-72 hours. - Vital Signs Vital signs: Temp Pulse Resp BP Pulse Ox 97.6 F 80 18 126/64 H 97 08/20/18 23:58 08/20/18 23:58 08/20/18 23:58 08/20/18 23:58 08/20/18 23:58 - Diagnostic Test Radiology reviewed: Image reviewed, Reports reviewed Radiology results interpreted by me: 08/21/18 01:41 Left femur x-ray: No acute fracture or dislocation Left knee x-ray: No acute fracture or dislocation Discharge - Discharge Clinical Impression: Left leg pain, Stasis dermatitis of both legs, Bilateral lower extremity edema Condition: Good Disposition: HOME, SELF-CARE Additional Instructions: The exact cause of your left leg is uncertain although your x-rays are normal. It may be due to your neuropathy, possibly due to edema in the leg, much less likely due to DVT. I strongly advised that you follow-up with your primary care doctor within the next 24-48 hours particular if your pain does persist. Additional test that could be considered include an ultrasound of the leg to look for DVT. Please return if you have worsening of your pain, fever of greater than 101 F, increased swelling to the area, redness from the area or any other symptoms that are worrisome to you. Referrals: JM SANCHEZ MD [Primary Care Provider] - Follow up as needed
--- NOTE | 2018-08-21 01:30 | RADIOLOGY REPORT (SQ) ---
2 VIEWS OF LEFT HIP 2 VIEWS OF LEFT FEMUR 3 VIEWS OF LEFT KNEE HISTORY: Pain. COMPARISON: None. FINDINGS: Generalized osteopenia is present. There has been prior bilateral total hip arthroplasties without evidence of hardware loosening or periprosthetic fracture. There are mild tricompartmental degenerative changes of the knee joint. No knee joint effusion is seen. There is mild soft tissue swelling of the left lower extremity. Vascular calcifications are present. IMPRESSION: 1. Prior total left hip arthroplasty, which appears intact. 2. No acute fracture seen.
[2018-08-21 01:50] VITALS: BP 104/84
== END 2018-08-21 02:07 | disposition home or self-care (01) ==
LOC: ER 23:53
DX: M79.605 Pain in left leg (principal); I87.2 Venous insufficiency (chronic) (peripheral); R60.9 Edema, unspecified; I48.91 Unspecified atrial fibrillation; I50.9 Heart failure, unspecified; I25.10 Atherosclerotic heart disease of native coronary artery without angina pectoris; E78.00 Pure hypercholesterolemia, unspecified; I11.0 Hypertensive heart disease with heart failure; E11.9 Type 2 diabetes mellitus without complications; Z88.2 Allergy status to sulfonamides; Z88.6 Allergy status to analgesic agent; Z85.3 Personal history of malignant neoplasm of breast
CPT/HCPCS: 99283; 73552; 73502; 73562; A9270

== ENCOUNTER 2018-08-24 11:37 | Emergency (ER) | payer MEDICARE, BC ==
[2018-08-24] MEDS ORDERED: FENTANYL CITRATE INJ/PF 100 MCG/2 ML AMPUL IV ONE ×2 (13:20→17:29)
--- NOTE | 2018-08-24 13:23 | ER Document Report ---
ED General - General Chief Complaint: Hip Pain Stated Complaint: ABDOMINAL PAIN, LEG AND HIP PAIN Time Seen by Provider: 08/24/18 12:53 Mode of Arrival: Wheelchair Information source: Patient, Relative Notes: Patient reports a 10-day history of left hip and leg pain that has persisted. Patient reports left lower quadrant abdominal pain that started 4 days ago. Patient denies any fever, vomiting or diarrhea. Patient denies any urinary symptoms. Patient denies any problems with bowel movements. Patient states that she has difficulty getting up from sitting to standing but when she is standing she is able to bear weight normally TRAVEL OUTSIDE OF THE [place] IN LAST 30 DAYS: No - HPI Onset: Other - Leg pain times 10 days, abdominal pain times 4 days Onset/Duration: Persistent, Worse Quality of pain: Sharp Pain Level: 5 Associated symptoms: denies: Chest pain, Nonproductive cough, Productive cough, Fever, Nausea, Vomiting, Weakness Exacerbated by: Movement Relieved by: Denies Similar symptoms previously: No Recently seen / treated by doctor: Yes - Related Data Allergies/Adverse Reactions: quinine [Quinine] Allergy (Unknown, Verified 08/24/18 11:43) Sulfa (Sulfonamide Antibiotics) Allergy (Verified 08/24/18 11:43) oxycodone HCl [From Percocet] Adverse Reaction (Mild, Verified 08/24/18 11:43) Nausea Past Medical History - General Information source: Patient - Social History Smoking Status: Former Smoker Chew tobacco use (# tins/day): No Frequency of alcohol use: None Drug Abuse: None Lives with: Family Family History: Reviewed & Not Pertinent Patient has suicidal ideation: No Patient has homicidal ideation: No - Past Medical History Cardiac Medical History: Reports: Hx Atrial Fibrillation, Hx Congestive Heart Failure, Hx Coronary Artery Disease, Hx Hypercholesterolemia, Hx Hypertension Pulmonary Medical History: Reports: Hx COPD Endocrine Medical History: Reports: Hx Diabetes Mellitus Type 2 Renal/ Medical History: Denies: Hx Peritoneal Dialysis Malignancy Medical History: Reports: Hx Breast Cancer GI Medical History: Reports: Hx Gastroesophageal Reflux Disease Musculoskeletal Medical History: Reports Hx Musculoskeletal Trauma Psychiatric Medical History: Denies: Hx Depression Past Surgical History: Reports: Hx Appendectomy, Hx Breast Surgery - R mastectomy, Hx Cholecystectomy, Hx Mastectomy - Immunizations Hx Pneumococcal Vaccination: 05/18/17 Review of Systems - Review of Systems Constitutional: No symptoms reported. denies: Fever EENT: No symptoms reported Cardiovascular: No symptoms reported. denies: Chest pain, Palpitations Respiratory: No symptoms reported. denies: Cough Gastrointestinal: Abdominal pain. denies: Diarrhea, Nausea, Vomiting Genitourinary: No symptoms reported. denies: Dysuria, Flank pain Female Genitourinary: No symptoms reported Musculoskeletal: Joint pain - Left hip, left proximal thigh tenderness. denies: Back pain Skin: No symptoms reported Hematologic/Lymphatic: No symptoms reported Neurological/Psychological: No symptoms reported Physical Exam - Vital signs Vitals: Temp Pulse Resp BP Pulse Ox 98.1 F 72 18 143/49 H 97 08/24/18 11:46 08/24/18 11:46 08/24/18 11:46 08/24/18 11:46 08/24/18 11:46 - General General appearance: Appears well, Alert In distress: None - HEENT Head: Normocephalic, Atraumatic Eyes: Normal Nasal: Normal Mouth/Lips: Normal Mucous membranes: Normal Neck: Normal - Respiratory Respiratory status: No respiratory distress Chest status: Nontender Breath sounds: Normal. No: Rales, Rhonchi, Stridor Chest palpation: Normal - Cardiovascular Rhythm: Regular Heart sounds: S1 appreciated, S2 appreciated - Abdominal Inspection: Morbidly Obese Distension: No distension Bowel sounds: Hypoactive Tenderness: Tender - LLQ Organomegaly: No organomegaly - Back Back: Normal, Nontender. No: CVA tenderness, Vertebra tenderness - Extremities General upper extremity: Normal inspection, Normal strength General lower extremity: Tender - Left hip, L proximal thigh tenderness, Edema - bilat LE, Normal strength, Normal temperature Hip: Tender - Left hip, Pain with ROM. No: Deformity, Dislocation, Unable to bear weight Thigh: Tender - L proximal femure. No: Deformity, Dislocation, Ecchymosis Knee: Normal, Nontender Ankle: Nontender, Edema Foot: Nontender, Edema - Neurological Neuro grossly intact: Yes [place]ford Coma Scale Eye Opening: Spontaneous [place]ford Coma Scale Verbal: Oriented [place]ford Coma Scale Motor: Obeys Commands Sanford Coma Scale Total: 15 - Psychological Associated symptoms: Normal affect, Normal mood - Skin Skin Temperature: Warm Skin Moisture: Dry Skin Color: Normal Course - Re-evaluation Re-evalutation: 08/24/18 15:30 RN at bedside attempting blood draw. Patient's Doppler chest performed, no concern for DVT. 08/24/18 17:38 Patient reports pain is worsening and would like an additional dose of medication at this time. RN encouraged to obtain consent so that patient may go to CT for imaging. 08/24/18 19:[address] report reviewed, no concern for occult fracture to the hip or thigh. Patient without any acute findings noted on CT of the abdomen and pelvis. No concern for diverticulitis, bowel obstruction, or free air. No concern for obstructive uropathy. Patient with mild elevation of her BUN and creatinine although she has had elevations such as this in the past. Laboratory evaluation otherwise unremarkable. Review of patient's previous visits does demonstrate an admission last year with a complaint of left lower quadrant abdominal tenderness without any acute findings noted after her hospitalization. Patient does have pain medication at home and does have good follow-up. Patient will be advised to follow-up with her primary care provider for a reche ck of her renal function test as well as further evaluation of her hip and abdominal tenderness at this time. 08/24/18 19:[address] Fernandez who agrees with this plan of care. - Vital Signs Vital signs: Temp Pulse Resp BP Pulse Ox 98.1 F 72 20 141/67 H 94 08/24/18 11:46 08/24/18 11:46 08/24/18 17:53 08/24/18 17:53 08/24/18 17:53 - Laboratory Result Diagrams: 08/24/18 15:55 08/24/18 15:55 Laboratory results interpreted by me: 08/24/18 08/24/18 08/24/18 15:46 15:55 15:55 Hct 35.4 L Seg Neutrophils % 82.6 H Lymphocytes % 7.3 L Absolute Neutrophils 8.6 H BUN 41 H Creatinine 1.38 H Est GFR ( Amer) 44 L Est GFR (Non-Af Amer) 36 L Urine Protein 30 H Ur Leukocyte Esterase SMALL H Urine Ascorbic Acid 40 H Labs- Entire Visit 08/24/18 08/24/18 08/24/18 15:46 15:55 15:55 WBC 10.4 RBC 3.89 Hgb 12.0 Hct 35.4 L MCV 91 MCH 30.8 MCHC 33.9 RDW 13.8 Plt Count 381 Seg Neutrophils % 82.6 H Lymphocytes % 7.3 L Monocytes % 8.4 Eosinophils % 1.3 Basophils % 0.4 Absolute Neutrophils 8.6 H Absolute Lymphocytes 0.8 Absolute Monocytes 0.9 Absolute Eosinophils 0.1 Absolute Basophils 0.0 Sodium 144.5 Potassium 4.9 Chloride 107 Carbon Dioxide 28 Anion Gap 10 BUN 41 H Creatinine 1.38 H Est GFR ( Amer) 44 L Est GFR (Non-Af Amer) 36 L Glucose 75 Calcium 9.9 Total Bilirubin 0.6 Direct Bilirubin 0.3 Neonat Total Bilirubin Not Reportable Neonat Direct Bilirubin Not Reportable Neonat Indirect Bili Not Reportable AST 27 ALT 21 Alkaline Phosphatase 119 Total Protein 7.3 Albumin 4.1 Urine Color YELLOW Urine Appearance CLEAR Urine pH 8.0 Ur Specific [place] 1.012 Urine Protein 30 H Urine Glucose (UA) NEGATIVE Urine Ketones NEGATIVE Urine Blood NEGATIVE Urine Nitrite NEGATIVE Urine Bilirubin NEGATIVE Urine Urobilinogen NEGATIVE Ur Leukocyte Esterase SMALL H Urine WBC (Auto) 11 Urine RBC (Auto) 1 Squamous Epi Cells Auto <1 Urine Ascorbic Acid 40 H - Diagnostic Test Radiology reviewed: Image reviewed, Reports reviewed Discharge - Discharge Clinical Impression: Left leg pain, Bilateral lower extremity edema, Neuropathy Abdominal pain Qualifiers: Abdominal location: left lower quadrant Qualified Code(s): R10.32 - Left lower quadrant pain Condition: Stable Disposition: HOME, SELF-CARE Instructions: Abdominal Pain ([facility]), Arthritis ([facility]), Neuropathy ([facility]) Additional Instructions: Return immediately for any new or worsening symptoms Followup with your primary care provider, call tomorrow to make a followup appointment Referrals: SIMRAN HESS MD [NO LOCAL MD] - Follow up tomorrow
--- NOTE | 2018-08-24 15:10 | RADIOLOGY REPORT (SQ) ---
EXAM DESCRIPTION: VENOUS UNILATERAL LOWER COMPLETED DATE/TIME: 08/24/2018 2:58 pm REASON FOR STUDY: LLE pain COMPARISON: None. TECHNIQUE: Dynamic and static govea scale and color images acquired of the left leg venous system. Se lected spectral images acquired with additional compression and augmentation maneuvers. The contralat eral common femoral vein and saphenofemoral junction were also imaged. Images stored on PACS. LIMITATIONS: None. FINDINGS: COMMON FEMORAL: Normal phasicity, compression and augmentation. No visualized echogenic ma terial on govea scale. No defects on color images. FEMORAL: Normal compression and augmentation. No visualized echogenic material on govea scale. No defe cts on color images. POPLITEAL: Normal compression, augmentation. No visualized echogenic material on govea scale. No defec ts on color images. CALF VESSELS: Normal compression, augmentation. No visualized echogenic material on govea scale. No de fects on color images. Posterior tibial veins could not be seen. GSV and SSV: Normal compression, augmentation. No visualized echogenic material on govea scale. No def ects on color images. ANY DEEP VENOUS INSUFFICIENCY: Not evaluated. ANY EVIDENCE OF POPLITEAL CYST: No. OTHER: No other significant finding. CONTRALATERAL COMMON FEMORAL VEIN AND SAPHENOFEMORAL JUNCTION: Normal phasicity, compression and augmentation. No visualized echogenic material on govea scale. No de fects on color images. IMPRESSION: NO EVIDENCE OF DVT OR SVT IN THE LEFT LEG. TECHNICAL DOCUMENTATION: JOB ID: [id number] [employer]- All Rights Reserved Reading location - IP/workstation name: [email or web address]
[2018-08-24] MEDS ORDERED: FENTANYL CITRATE INJ/PF 100 MCG/2 ML AMPUL ONE (15:49)
[2018-08-24 16:10] LABS: ABSOLUTE EOSINOPHILS # (AUTO) 0.1 10^3/uL (0.0-0.6); ABSOLUTE LYMPHOCYTES (AUTO) 0.8 10^3/uL (0.5-4.7); ABSOLUTE MONOCYTES (AUTO) 0.9 10^3/uL (0.1-1.4); ABSOLUTE NEUT (AUTO) 8.6 10^3/uL (1.7-8.2); BASOPHILS % (AUTO) 0.4 % (0-2); EOSINOPHILS % (AUTO) 1.3 % (0-6); HEMATOCRIT 35.4 % (36.0-47.0); LYMPHOCYTES % (AUTO) 7.3 % (13-45); MEAN CORPUSCULAR HEMOGLOBIN 30.8 pg (27.0-33.4); MEAN CORPUSCULAR HGB CONC 33.9 g/dL (32.0-36.0); MEAN CORPUSCULAR VOLUME 91 fl (80-97); MONOCYTES % (AUTO) 8.4 % (3-13); PLATELET COUNT 381 10^3/uL (150-450); RED BLOOD COUNT 3.89 10^6/uL (3.72-5.28); RED CELL DISTRIBUTION WIDTH 13.8 % (11.5-14.0); SEGMENTED NEUTROPHILS % (AUTO) 82.6 % (42-78); TOTAL CELLS COUNTED % (AUTO) 100 %; WHITE BLOOD COUNT 10.4 10^3/uL (4.0-10.5)
[2018-08-24 16:12] LABS: APPEARANCE,URINE CLEAR; BILIRUBIN,URINE NEGATIVE (NEGATIVE); COLOR,URINE YELLOW; GLUCOSE, URINE NEGATIVE (NEGATIVE); KETONES,URINE NEGATIVE (NEGATIVE); LEUKOCYTE ESTERASE,URINE SMALL (NEGATIVE); NITRITE,URINE NEGATIVE (NEGATIVE); PROTEIN,URINE 30 mg/dL (NEGATIVE); URINE SPECIFIC GRAVITY 1.012; UROBILINOGEN,URINE NEGATIVE mg/dL (<2.0)
[2018-08-24 16:30] LABS: ALANINE AMINOTRANSFERASE 21 U/L (9-52); ALBUMIN 4.1 g/dL (3.5-5.0); ALKALINE PHOSPHATASE 119 U/L (38-126); ANION GAP 10 (5-19); ASPARTATE AMINO TRANSFERASE 27 U/L (14-36); BILIRUBIN,DIRECT 0.3 mg/dL (0.0-0.4); BILIRUBIN,TOTAL 0.6 mg/dL (0.2-1.3); BLOOD UREA NITROGEN 41 mg/dL (7-20); CALCIUM 9.9 mg/dL (8.4-10.2); CARBON DIOXIDE 28 mmol/L (22-30); CHLORIDE 107 mmol/L (98-107); GLUCOSE 75 mg/dL (75-110); POTASSIUM 4.9 mmol/L (3.6-5.0); SODIUM 144.5 mmol/L (137-145); TOTAL PROTEIN 7.3 g/dL (6.3-8.2)
[2018-08-24] MEDS ORDERED: NORMAL SALINE 250 ML IV ONE (17:27)
--- NOTE | 2018-08-24 18:57 | RADIOLOGY REPORT (SQ) ---
EXAM DESCRIPTION: CT LT LOWER EXTREMITY WITHOUT COMPLETED DATE/TIME: 08/24/2018 6:47 pm REASON FOR STUDY: L hip, L prox femur pain COMPARISON: None. TECHNIQUE: Axial imaging performed through the left femur with reformatted coronal and sagittal imag ing windowed for bone and soft tissues. Images saved to PACS. 3D IMAGING: Were 3D images as MIP, SSD, or volume rendering performed at the work station? No. All CT scanners at this facility use dose modulation, iterative reconstruction, and/or weight based d osing when appropriate to reduce radiation dose to as low as reasonably achievable (ALARA). [facility]: Dose Right [facility]: CareDose [facility]: Dose Right [facility]: Teradose 4D [facility]: [employer] LIMITATIONS: Metal artifact from hip arthroplasty. RADIATION DOSE: CT Rad equipment meets quality standard of care and radiation dose reduction techniq ues were employed. CTDIvol: 4.1 mGy. DLP: 225 mGy-cm. mGy. FINDINGS: SOFT TISSUES: No obvious swelling or foreign body. BONES: Limited evaluation. No fracture identified. MINERALIZATION: Normal. OTHER: No other significant finding. IMPRESSION: NO ACUTE OR SIGNIFICANT FINDING. TECHNICAL DOCUMENTATION: JOB ID: [id number] Quality ID # [id number]: Final reports with documentation of one or more dose reduction techniques (e.g., Au tomated exposure control, adjustment of the mA and/or kV according to patient size, use of iterative reconstruction technique) 2010 [employer]- All Rights Reserved Reading location - IP/workstation name: [email or web address]
--- NOTE | 2018-08-24 19:16 | RADIOLOGY REPORT (SQ) ---
EXAM DESCRIPTION: CT ABD/PELVIS WITH IV ONLY COMPLETED DATE/TIME: 08/24/2018 6:55 pm REASON FOR STUDY: LLQ pain COMPARISON: 11/27/2017 TECHNIQUE: CT scan of the abdomen and pelvis performed using helical scanning technique with dynamic intravenous contrast injection. No oral contrast. Images reviewed with lung, soft tissue, and bone windows. Reconstructed coronal and sagittal MPR images reviewed. Delayed images for evaluation of the urinary system also acquired. All images stored on PACS. All CT scanners at this facility use dose modulation, iterative reconstruction, and/or weight based d osing when appropriate to reduce radiation dose to as low as reasonably achievable (ALARA). [facility]: Dose Right [facility]: CareDose [facility]: Dose Right [facility]: Teradose 4D [facility]: [employer] CONTRAST TYPE AND DOSE: contrast/concentration: Isovue 350.00 mg/ml; Total Contrast Delivered: 99.0 ml; Total Saline Delivered: 62.0 ml RENAL FUNCTION: BUN 31 creatinine 1.4 RADIATION DOSE: CT Rad equipment meets quality standard of care and radiation dose reduction techniq ues were employed. CTDIvol: 21.1 - 29.1 mGy. DLP: 2686 mGy-cm.. LIMITATIONS: Artifact from bilateral hip arthroplasty. FINDINGS: LOWER CHEST: Nothing acute. LIVER: Normal size. No masses. No dilated ducts. SPLEEN: Normal size. No focal lesions. PANCREAS: No masses. No significant calcifications. No adjacent inflammation or peripancreatic fluid collections. Pancreatic duct not dilated. GALLBLADDER: Surgically absent. ADRENAL GLANDS: No significant masses or asymmetry. RIGHT KIDNEY AND URETER: No solid masses. No significant calcifications. No hydronephrosis or hyd roureter. LEFT KIDNEY AND URETER: Cysts. No solid masses. No significant calcifications. No hydronephrosis or hydroureter. AORTA AND VESSELS: No aneurysm. RETROPERITONEUM: No retroperitoneal adenopathy, hemorrhage or masses. BOWEL AND PERITONEAL CAVITY: Diffuse diverticulosis. No masses or inflammatory changes. No free flui d or peritoneal masses. APPENDIX: Not visualized. PELVIS: Evaluation due to metal artifact. ABDOMINAL WALL: Fat containing umbilical hernia. BONES: Nothing acute. OTHER: No other significant finding. IMPRESSION: No acute findings. TECHNICAL DOCUMENTATION: JOB ID: [id number] Quality ID # [id number]: Final reports with documentation of one or more dose reduction techniques (e.g., Au tomated exposure control, adjustment of the mA and/or kV according to patient size, use of iterative reconstruction technique) 2010 [employer]- All Rights Reserved Reading location - IP/workstation name: [email or web address]
[2018-08-24 20:24] VITALS: BP 131/45
== END 2018-08-24 20:25 | disposition home or self-care (01) ==
LOC: ER 11:37
DX: M25.552 Pain in left hip (principal); M79.605 Pain in left leg; R60.9 Edema, unspecified; E11.40 Type 2 diabetes mellitus with diabetic neuropathy, unspecified; R10.32 Left lower quadrant pain; I48.91 Unspecified atrial fibrillation; E66.01 Morbid (severe) obesity due to excess calories; I50.9 Heart failure, unspecified; I25.10 Atherosclerotic heart disease of native coronary artery without angina pectoris; E78.00 Pure hypercholesterolemia, unspecified; I11.0 Hypertensive heart disease with heart failure; J44.9 Chronic obstructive pulmonary disease, unspecified; Z85.3 Personal history of malignant neoplasm of breast; Z90.49 Acquired absence of other specified parts of digestive tract; Z88.2 Allergy status to sulfonamides; Z88.6 Allergy status to analgesic agent
CPT/HCPCS: 96376; 99284; 96374; 36415; 85025; 80053; 81001; 93971; 74177; 73700; J3010; J7050

== ENCOUNTER → 2020-02-10 | Outpatient (CLI) | payer MEDICARE, BC ==
--- NOTE | 2020-02-10 13:27 | RADIOLOGY REPORT (SQ) ---
EXAM DESCRIPTION: BARIUM SWALLOW ESOPHAGUS IMAGES COMPLETED DATE/TIME: 02/10/2020 10:03 am REASON FOR STUDY: DYSPHAGIA (R13.12) R13.12 DYSPHAGIA, OROPHARYNGEAL PHASE COMPARISON: None. TECHNIQUE: Under fluoroscopic guidance, patient ingested thin barium. Fluoroscopic spot images and r outine radiographic images acquired and stored on PACS. 12 MM BARIUM TABLET GIVEN: Yes. Slight delay in passage at the GE junction LIMITATIONS: None. FLUOROSCOPY TIME: 2.3 minutes of fluoroscopy was used. 10 images saved to PACS. FINDINGS: NEUROMUSCULAR COORDINATION OF SWALLOW: Normal. No aspiration. ESOPHAGEAL MOTILITY: Slow primary peristalsis with stasis of barium throughout the esophagus. Tertia ry contractions seen throughout. ESOPHAGEAL MUCOSA: Normal mucosa without masses or ulceration. Mild narrowing at the GE junction. GASTRO-ESOPHAGEAL JUNCTION: Small sliding hiatal hernia with early Schatzki's ring formation. Modera te free-flowing gastroesophageal reflux seen. There is delay in passage of the 12 mm barium tablet a t the GE junction for approximately 3 minutes. NON-GI TRACT STRUCTURES: No significant finding. OTHER: No other significant finding. IMPRESSION: 1. ESOPHAGEAL DYSMOTILITY WITH STASIS AND TERTIARY CONTRACTIONS. 2. MILD NARROWING OF THE GE JUNCTION BY A IN EARLY SCHATZKI'S RING FORMATION CAUSING 3 MINUTES DELAY IN PASSAGE OF THE 12 MM BARIUM TABLET. SMALL HIATAL HERNIA AND FREE-FLOWING GASTROESOPHAGEAL REFLUX NOTED COMMENT: Quality ID 145: Final reports for procedures using fluoroscopy that document radiation exp osure indices, or exposure time and number of fluorographic images (if radiation exposure indices are not available) TECHNICAL DOCUMENTATION: JOB ID: [id number] 2010 [employer]- All Rights Reserved Reading location - IP/workstation name: [email or web address]
== END ==
LOC: RAD 09:06
PROVIDERS: ATTEND Internal Medicine Gastroenterology
DX: R13.12 Dysphagia, oropharyngeal phase (principal)
CPT/HCPCS: 74220

== ENCOUNTER 2020-08-07 00:27 | Inpatient (IN) | payer MEDICARE, BC ==
[2020-08-07] MEDS ORDERED: FUROSEMIDE INJ/PF 40 MG/4 ML SDV ONE (00:30)
[2020-08-07] MEDS ORDERED: FUROSEMIDE INJ/PF 40 MG/4 ML SDV IV ONE (00:34)
--- NOTE | 2020-08-07 00:53 | ER Document Report ---
ED General - General Chief Complaint: Respiratory Distress Stated Complaint: RESPIRATORY DISTRESS Time Seen by Provider: 08/07/20 00:33 TRAVEL OUTSIDE OF THE [place] IN LAST 30 DAYS: No - HPI Context: Chief Complaint: [Acute respiratory failure] [85-year-old female with a history of congestive heart failure presents via EMS after the patient's son called stating the patient was having difficulty breathi ng. When EMS arrived at the scene, patient's O2 sats on room air were 40%. EMS placed the patient on CPAP with minimal improvement in the patient's oxygenation status. Patient continued to be in acute respiratory distress with hypoxia and was intubated using RSI technique with improvement of oxygen saturations into the 90s. EMS rapid Covid screen is positive. ] History obtained from [patient's son and EMS] Symptoms began:[Approximately an hour prior to arrival] Onset: [Sudden] Timing: [Sudden] Quality: [Severe per son's report] Intensity: [Severe per son's report] Location: [Respiratory] Radiation: [Unknown] [The pain does not migrate to a new location.] Aggravating factors: History of pulmonary disease Relieving factors: [none] Positive SOB [Denies] nausea [Denies] vomiting [Denies] sweats [Denies] fever [Denies] cough - Related Data Allergies/Adverse Reactions: quinine [Quinine] Allergy (Unknown, Verified 08/24/18 11:43) Sulfa (Sulfonamide Antibiotics) Allergy (Verified 08/24/18 11:43) oxycodone HCl [From Percocet] Adverse Reaction (Mild, Verified 08/24/18 11:43) Nausea Past Medical History - General Information source: Relative, Emergency Med Personnel - Social History Smoking Status: Unknown if Ever Smoked Lives with: Family Family History: Reviewed & Not Pertinent - Past Medical History Cardiac Medical History: Reports: Hx Atrial Fibrillation, Hx Congestive Heart Failure, Hx Coronary Artery Disease, Hx Hypercholesterolemia, Hx Hypertension Pulmonary Medical History: Reports: Hx COPD Endocrine Medical History: Reports: Hx Diabetes Mellitus Type 2 Renal/ Medical History: Denies: Hx Peritoneal Dialysis Malignancy Medical History: Reports: Hx Breast Cancer GI Medical History: Reports: Hx Gastroesophageal Reflux Disease Musculoskeletal Medical History: Reports Hx Musculoskeletal Trauma Psychiatric Medical History: Denies: Hx Depression Past Surgical History: Reports: Hx Appendectomy, Hx Breast Surgery - R mastectomy, Hx Cholecystectomy, Hx Mastectomy - Immunizations Hx Pneumococcal Vaccination: 05/18/17 Review of Systems - Review of Systems Notes: Review of systems obtained by EMS from patient's son who is reportedly a poor historian -: Yes ROS unobtainable due to patient's medical condition Constitutional: No symptoms reported EENT: No symptoms reported Cardiovascular: No symptoms reported Respiratory: Short of breath Gastrointestinal: No symptoms reported Genitourinary: No symptoms reported Female Genitourinary: No symptoms reported Musculoskeletal: No symptoms reported Skin: No symptoms reported Hematologic/Lymphatic: No symptoms reported Neurological/Psychological: No symptoms reported -: Yes All other systems reviewed and negative Physical Exam - Vital signs Vitals: Temp 97.4 F 08/07/20 00:28 - Notes Notes: CONSTITUTIONAL [Vital signs reviewed, patient is intubated and is being bagged. GCS is 3. Patient is morbidly obese HEAD [Atraumatic, Normocephalic.] EYES Eyes are closed. No discharge is noted ENT [External ears normal to inspection, Nose examination normal, Mouth normal to inspection.] NECK No jugular venous distention, No meningeal signs, ] RESPIRATORY CHEST [Chest is nontender, breath sounds are audible bilaterally on auscultation. No wheezing or crackles are appreciated CARDIOVASCULAR [RRR, No murmurs, Normal S1 S2, No rub, No gallop.] ABDOMEN [Abdomen is nontender, No pulsatile masses, No other masses, Bowel sounds normal, No distension, No peritoneal signs, No hernias.] UPPER EXTREMITY [Inspection normal, No cyanosis, No clubbing, No edema, LOWER EXTREMITY Lower extremities are significant for skin changes consistent with chronic venous stasis, there is also +1 pitting edema on bilateral lower extremities NEURO Patient is currently nonverbal, is showing no spontaneous movement and has no response to painful stimuli SKIN General pallor is present. Chronic skin changes in bilateral lower extremities as noted above] PSYCHIATRIC Patient is intubated with a GCS of 3. Unable to assess patient from a psychiatric standpoint] Course - Vital Signs Vital signs: Temp Pulse Resp BP Pulse Ox 97.4 F 18 192/66 H 99 08/07/20 00:28 08/07/20 03:31 08/07/20 03:31 08/07/20 03:31 - Laboratory Results Result Diagrams: 08/07/20 00:35 08/07/20 00:35 Laboratory Results Interpreted: 08/07/20 08/07/20 08/07/20 00:34 00:34 00:35 RBC 3.55 L Hgb 10.6 L Hct 32.5 L RDW 15.0 H Seg Neuts % (Manual) 83 H Lymphocytes % (Manual) 6 L Carbonic Acid ABG pH ABG pCO2 ABG pO2 ABG Total CO2 BUN Creatinine Est GFR ( Amer) Est GFR (MDRD) Non-Af Glucose POC Glucose 226 H Calcium Alkaline Phosphatase NT-Pro-B Natriuret Pep 2780 H Urine Protein Urine Blood Leukocyte Esterase Rfl 08/07/20 08/07/20 08/07/20 00:35 00:35 01:00 RBC Hgb Hct RDW Seg Neuts % (Manual) Lymphocytes % (Manual) Carbonic Acid 1.49 H ABG pH 7.30 L ABG pCO2 49.5 H ABG pO2 77.6 L ABG Total CO2 25.4 H BUN 45 H Creatinine 1.73 H Est GFR ( Amer) 34 L Est GFR (MDRD) Non-Af 28 L Glucose 219 H POC Glucose Calcium 8.2 L Alkaline Phosphatase 134 H NT-Pro-B Natriuret Pep Urine Protein 100 H Urine Blood SMALL H Leukocyte Esterase Rfl LARGE H Critical Laboratory Results Reviewed: Yes - Patient's laboratory findings significant for a ABG showing a pH of 7.3 a PCO2 of 49, PO2 of 77. Patient's chemistries are significant for BUN 45 creatinine of 1.73. Glucose is noted to be 219 patient's troponin is 0.390 and the patient's BNP is 2790. Patient's urine is positive for LE and WBCs Attending or Supervising Physician who Reviewed Labs: DANIEL SAUCEDA IV - Radiology Results Critical Radiology Results Reviewed: Yes - Patient's initial portable chest x- ray was significant for the ET tube being approximately 2 cm in the right mainstem. This MD instructed the RT to withdrawal the tube approximately 4 cm. Repeat chest x-ray shows the ET tube terminating about 2 cm above the janay Attending or Supervising Physician who Reviewed Radiology: DANIEL SAUCEDA IV - EKG Interpretation by Me Additional EKG results interpreted by me: 08/07/20 00:55 EKG obtained on 08/07/2020 at 00 29 hours was interpreted by this MD. Findings: Sinus rhythm, rate 66, DE interval appears to be within normal limits, P waves preceding QRS complexes left bundle branch block is present and is not seen on prior EKG dated 06/07/2018. QTC is 453. Impression sinus rhythm with left bundle branch block not seen on EKG from approximately 2 years ago. Age of left bundle branch block is unknown. Impression abnormal EKG - Consults KIM Waters, ordering box operator service Time consulted: 03:40 - agreed to admit pt to ICU Reason for consultation: 08/07/20 04:35 Intubated patient and respiratory failure with CHF exacerbation as well as Covid Critical Care Note - Critical Care Note Total time excluding time spent on procedures (mins): 120 - Management of intubated patient with acute respiratory failure, hypoxia, CHF, COVID-19 Discharge - Discharge Clinical Impression: Acute respiratory failure with hypoxia, COVID-19 virus detected, Left bundle branch block UTI (urinary tract infection) Qualifiers: Urinary tract infection type: site unspecified Hematuria presence: with hematuria Qualified Code(s): N39.0 - Urinary tract infection, site not spe cified; R31.9 - Hematuria, unspecified Condition: Critical Disposition: ADMITTED INPATIENT Admitting Provider: Shabbir (Cloth Covered Helmet Puller) Unit Admitted: ICU
[2020-08-07 01:06] LABS: HEMATOCRIT 32.5 % (36.0-47.0); HEMOGLOBIN 10.6 g/dL (12.0-15.5); MEAN CORPUSCULAR HEMOGLOBIN 29.8 pg (27.0-33.4); MEAN CORPUSCULAR HGB CONC 32.6 g/dL (32.0-36.0); MEAN CORPUSCULAR VOLUME 92 fl (80-97); PLATELET COUNT 226 10^3/uL (150-450); RED BLOOD COUNT 3.55 10^6/uL (3.72-5.28); WHITE BLOOD COUNT 7.9 10^3/uL (4.0-10.5)
[2020-08-07 01:19] LABS: INTERNATIONAL RATION (INR) 1.03; PROTHROMBIN TIME 13.7 SEC (11.4-15.4)
[2020-08-07 01:26] LABS: ALBUMIN 3.5 g/dL (3.5-5.0); ALKALINE PHOSPHATASE 134 U/L (38-126); ANION GAP 11 (5-19); ASPARTATE AMINO TRANSFERASE 26 U/L (14-36); BILIRUBIN,DIRECT 0.2 mg/dL (0.0-0.4); BILIRUBIN,TOTAL 0.4 mg/dL (0.2-1.3); BLOOD UREA NITROGEN 45 mg/dL (7-20); CALCIUM 8.2 mg/dL (8.4-10.2); CARBON DIOXIDE 24 mmol/L (22-30); CHLORIDE 105 mmol/L (98-107); GLUCOSE 219 mg/dL (75-110); POTASSIUM 4.9 mmol/L (3.6-5.0); TOTAL PROTEIN 6.4 g/dL (6.3-8.2)
--- NOTE | 2020-08-07 01:26 | RADIOLOGY REPORT (SQ) ---
CHEST X-RAY 1 VIEW on 08/07/2020 at 12:48 AM CLINICAL INDICATION: Intubated COMPARISON: 02/23/2019 FINDINGS: New ET tube tip is in the midthoracic trachea approximately 3.1 cm above the level of the janay. NG tube extends below the diaphragm and below the level of this film. Heart is within normal limits for size. There has been worsening of bilateral interstitial and airspace opacities consistent with edema and/or pneumonia and differential diagnosis would include viral infections. 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 Vascular calcification is noted in the aorta. IMPRESSION: Worsening bilateral opacities consistent with edema and/or pneumonia, differential diagnosis would include viral infections.
[2020-08-07 01:40] LABS: APPEARANCE,URINE SLIGHTLY-CLOUDY; BILIRUBIN,URINE NEGATIVE (NEGATIVE); COLOR,URINE STRAW; GLUCOSE, URINE NEGATIVE (NEGATIVE); KETONES,URINE NEGATIVE (NEGATIVE); PROTEIN,URINE 100 mg/dL (NEGATIVE); UROBILINOGEN,URINE NEGATIVE mg/dL (<2.0)
[2020-08-07 01:42] LABS: ABSOLUTE LYMPHOCYTES# (MANUAL) 0.5 10^3/uL (0.5-4.7); ABSOLUTE MONOCYTES # (MANUAL) 0.9 10^3/uL (0.1-1.4); BASOPHILS % (MANUAL) 0 % (0-2); EOSINOPHILS % (MANUAL) 0 % (0-6); LYMPHOCYTES % (MANUAL) 6 % (13-45); MONOCYTES % (MANUAL) 11 % (3-13); SEGMENTED NEUTROPHILS % (MAN) 83 % (42-78); TOTAL CELLS COUNTED 100
[2020-08-07 01:43] LABS: ANISOCYTOSIS SLIGHT; PLATELET COMMENT ADEQUATE
[2020-08-07 01:45] LABS: BURR CELLS SLIGHT; OVALOCYTES SLIGHT
[2020-08-07 01:48] LABS: ARTERIAL BLOOD BASE EXCESS -2.7 mmol/L; ARTERIAL BLOOD H2CO3 1.49 mmol/L (1.05-1.35); ARTERIAL BLOOD HCO3 23.9 mmol/L (20-24); ARTERIAL BLOOD O2 SATURATION 94.1 % (94-98); ARTERIAL BLOOD PCO2 49.5 mmHg (35-45); ARTERIAL BLOOD PO2 77.6 mmHg (80-100); ARTERIAL BLOOD TOTAL CO2 25.4 mmol/L (21-25)
[2020-08-07 01:49] LABS: ARTERIAL BLOOD FIO2 100%
[2020-08-07] MEDS: PROPOFOL 1,000 MG/100 ML INFUS..BTL IV PRN ×2 (03:23→13:15)
[2020-08-07] MEDS: NORMAL SALINE 1000 ML 1,000 ML IV PRN ×2 (04:21→18:23)
[2020-08-07] MEDS ORDERED: GLUCAGON,HUMAN RECOMB 1 MG INJ IM PRN (04:41)
[2020-08-07] MEDS ORDERED: DEXTROSE 50%-WATER 25 GM/50 ML DISP.SYRIN IV PRN ×2 (04:41)
[2020-08-07] MEDS ORDERED: DEXTROSE 40% GEL 15 GM TUBE PO PRN ×2 (04:41)
--- NOTE | 2020-08-07 04:41 | CRITICAL CARE ADMISSION REPORT ---
HPI Date:: 08/07/20 Time:: 04:25 Reason for ICU Reason:: Respiratory failure secondary to COVID-19 pneumonia. Admission Date/Time & PCP: Admission Date/Time: Primary Care Provider: MENDOZA MARRERO MD HPI: 85-year-old female history of CHF, COPD, DM 2 and remote history of breast cancer. Patient presented to the emergency department via EMS who was initiated by the patient's son due to shortness of breath. She was found to have an SPO2 in the 40s and was intubated in the field. EMS rapid Covid screen was positive. I was called to evaluate the patient in the emergency department for her COVID- 19 related respiratory failure. Patient was stable on ventilatory support. EKG in ED showed left bundle branch block. Patient to be transferred to the intensive care unit. History obtained from:: Medical record - Diagnosis/Plan (1) Acute respiratory failure with hypoxia Is this a current diagnosis for this admission?: Yes Plan: Respiratory failure secondary to Covid related pneumonia. Initiate vent settings: PRVC, VT: 500, RR: 16, FiO2 100%. Obtain ABG 30 minutes after arrival in the intensive care unit. Adjust respiratory rate according to CO2 and pH level. Titrate FiO2 to maintain SPO2 90 to 95%. Repeat CXR in AM. (2) COVID-19 virus detected Is this a current diagnosis for this admission?: Yes Plan: Start dexamethasone Continue ventilatory support Monitor for signs of DVT Follow D-dimer levels as well as C-reactive protein. (3) Diabetes Qualifiers: Diabetes mellitus type: type 2 Diabetes mellitus terminal system operator insulin use: unspecified terminal system operator insulin use status Diabetes mellitus complication status: with kidney complications Is this a current diagnosis for this admission?: Yes Plan: BUN and creatinine are elevated upon admission possibly secondary to diabetes. Follow renal panel and begin adequate hydration. Begin regular insulin sliding scale. Past Medical History Cardiac Medical History: Reports: Atrial Fibrillation, Congestive Heart Failure, Coronary Artery Disease, Hyperlipidema, Hypertension Pulmonary Medical History: Reports: Chronic Obstructive Pulmonary Disease (COPD) Endocrine Medical History: Reports: Diabetes Mellitus Type 2 Malignancy Medical History: Reports: Breast Cancer GI Medical History: Reports: Gastroesophageal Reflux Disease Psychiatric Medical History: Denies: Depression Past Surgical History Past Surgical History: Reports: Appendectomy, Cholecystectomy, Mastectomy Social/Family History - Social History Lives with: Family Smoking Status: Unknown if Ever Smoked Frequency of Alcohol Use: None Hx Recreational Drug Use: No Drugs: None Hx Prescription Drug Abuse: No - Medication/Allergies Home Medications: Aspirin [Adult Low Dose Aspirin EC] 81 mg PO DAILY 08/28/17 Cholecalciferol (Vitamin D3) [Vitamin D3 400 Unit Tablet] 400 unit PO DAILY 08/28/17 Furosemide [Lasix 40 mg Tablet] 40 mg PO DAILY 08/28/17 Gabapentin [Neurontin 300 mg Capsule] 300 mg PO Q12 08/28/17 Levothyroxine Sodium [Synthroid] 175 mcg PO [id number] 08/28/17 Lisinopril [Prinivil 5 mg Tablet] 10 mg PO DAILY 11/27/17 Metoprolol Succinate [Toprol Xl 25 mg Tab.sr] 25 mg PO DAILY 11/27/17 Multivitamin [Multivitamins] 1 each PO DAILY 11/27/17 Ranitidine HCl [Acid Engineering Operations Leader] 150 mg PO QAMPM 11/27/17 Allergies/Adverse Reactions: quinine [Quinine] Allergy (Unknown, Verified 08/24/18 11:43) Sulfa (Sulfonamide Antibiotics) Allergy (Verified 08/24/18 11:43) oxycodone HCl [From Percocet] Adverse Reaction (Mild, Verified 08/24/18 11:43) Nausea Review of Systems ROS unobtainable: Due to endotracheal tube Physical Exam Vital Signs: Temp Pulse Resp BP Pulse Ox 97.4 F 18 192/66 H 99 08/07/20 00:28 08/07/20 03:31 08/07/20 03:31 08/07/20 03:31 Intake & Output 08/05/20 08/06/20 08/07/20 06:59 06:59 06:59 Intake Total 4 Balance 4 Weight 129 kg Weight/Height Weight 129 kg Height 5 ft 7 in General appearance: PRESENT: morbidly obese Head exam: PRESENT: atraumatic, normocephalic Eye exam: PRESENT: EOMI, PERRLA Ear exam: PRESENT: normal external ear exam Mouth exam: PRESENT: moist Neck exam: PRESENT: full ROM. ABSENT: JVD Respiratory exam: PRESENT: decreased breath sounds, unlabored. ABSENT: wheezes Cardiovascular exam: PRESENT: irregular rhythm, +S1, +S2 Pulses: PRESENT: +1 pedal pulses bilateral Vascular exam: PRESENT: normal capillary refill GI/Abdominal exam: PRESENT: diminished bowel sounds Musculoskeletal exam: PRESENT: normal inspection Neurological exam: PRESENT: CN II-XII grossly intact, other - Sedated Skin exam: PRESENT: normal color Tubes/Lines: PRESENT: Endotracheal Tube Laboratory/Radiographs Laboratory Results: 08/07/20 00:35 08/07/20 00:35 08/07/20 08/07/20 12 00:35 00:35 00:35 WBC 7.9 RBC 3.55 L Hgb 10.6 L Hct 32.5 L MCV 92 MCH 29.8 MCHC 32.6 RDW 15.0 H Plt Count 226 Seg Neutrophils % Not Reportable Carbonic Acid HCO3/H2CO3 Ratio ABG pH ABG pCO2 ABG pO2 ABG HCO3 ABG O2 Saturation ABG Base Excess FiO2 Sodium 139.9 Potassium 4.9 Chloride 105 Carbon Dioxide 24 Anion Gap 11 BUN 45 H Creatinine 1.73 H Est GFR ( Amer) 34 L Glucose 219 H Lactic Acid 0.7 Calcium 8.2 L Total Bilirubin 0.4 AST 26 Alkaline Phosphatase 134 H Total Protein 6.4 Albumin 3.5 Urine Color Urine Appearance Urine pH Ur Specific [place] Urine Protein Urine Glucose (UA) Urine Ketones Urine Blood Urine RBC (Auto) 08/07/20 08/07/20 00:35 01:00 WBC RBC Hgb Hct MCV MCH MCHC RDW Plt Count Seg Neutrophils % Carbonic Acid 1.49 H HCO3/H2CO3 Ratio 16:1 ABG pH 7.30 L ABG pCO2 49.5 H ABG pO2 77.6 L ABG HCO3 23.9 ABG O2 Saturation 94.1 ABG Base Excess -2.7 FiO2 100% Sodium Potassium Chloride Carbon Dioxide Anion Gap BUN Creatinine Est GFR ( Amer) Glucose Lactic Acid Calcium Total Bilirubin AST Alkaline Phosphatase Total Protein Albumin Urine Color STRAW Urine Appearance SLIGHTLY-CLOUDY Urine pH 6.0 Ur Specific [place] 1.010 Urine Protein 100 H Urine Glucose (UA) NEGATIVE Urine Ketones NEGATIVE Urine Blood SMALL H Urine RBC (Auto) 1 08/07/20 08/07/20 00:34 00:35 Troponin I 0.390 NT-Pro-B Natriuret Pep 2780 H Impressions: Chest X-Ray 08/07/20 00:35 IMPRESSION: Worsening bilateral opacities consistent with edema and/or pneumonia, differential diagnosis would include viral infections. All labs, radiographs, diagnostic studies and EKGs were personally reviewed: Yes In addition, reports of radiographic and diagnostic studies were read: Yes Critical Time Critical Time (minutes): 65 -: The care of a critically ill patient is dynamic. This note represents a static moment in the admission process. Orders and treatments may be given simultaneously and urgently, and time is not customer relations representative of the treatment process. This patient requires Critical Care secondary to life threatening organ or limb dysfunction. Without Critical Care services, the patient is at risk for increased mortality and morbidity.
[2020-08-07 06:38] LABS: ARTERIAL BLOOD BASE EXCESS -2.7 mmol/L; ARTERIAL BLOOD H2CO3 1.07 mmol/L (1.05-1.35); ARTERIAL BLOOD HCO3 21.5 mmol/L (20-24); ARTERIAL BLOOD O2 SATURATION 98.6 % (94-98); ARTERIAL BLOOD PCO2 35.4 mmHg (35-45); ARTERIAL BLOOD PO2 129.8 mmHg (80-100); ARTERIAL BLOOD TOTAL CO2 22.6 mmol/L (21-25)
[2020-08-07 06:39] LABS: ARTERIAL BLOOD FIO2 80%
[2020-08-07 06:42] LABS: HEMATOCRIT 34.3 % (36.0-47.0); HEMOGLOBIN 11.4 g/dL (12.0-15.5); MEAN CORPUSCULAR HEMOGLOBIN 30.1 pg (27.0-33.4); MEAN CORPUSCULAR HGB CONC 33.3 g/dL (32.0-36.0); MEAN CORPUSCULAR VOLUME 90 fl (80-97); PLATELET COUNT 235 10^3/uL (150-450); RED CELL DISTRIBUTION WIDTH 14.6 % (11.5-14.0); WHITE BLOOD COUNT 6.7 10^3/uL (4.0-10.5)
[2020-08-07] MEDS: IPRATROPIUM/ALBUTEROL 0.5-2.5 MG/3 ML AMPUL NEB SCH ×5 (07:02→20:29)
[2020-08-07 07:07] LABS: ANION GAP 11 (5-19); BLOOD UREA NITROGEN 44 mg/dL (7-20); CALCIUM 8.8 mg/dL (8.4-10.2); CARBON DIOXIDE 23 mmol/L (22-30); CHLORIDE 104 mmol/L (98-107); GLUCOSE 198 mg/dL (75-110); POTASSIUM 4.7 mmol/L (3.6-5.0)
[2020-08-07] MEDS: INSULIN REG, HUMAN 100 UNIT/ML 3 ML VIAL (PYX) SUBCUT SCH ×3 (08:18→18:24)
[2020-08-07] MEDS: HEPARIN SOD (PORCINE) 5,000 UNIT/ML 1 ML VIAL SUBCUT SCH ×3 (08:18→21:38)
--- NOTE | 2020-08-07 09:35 | Progress Note ---
Provider Note Provider Note: Patient seen shortly after Wes Umana at about 8:30 AM. Pt is responded and comunicating. VS remain stable. No change in plan per Wes Umana.
[2020-08-07] MEDS: DEXAMETHASONE SOD PHOS INJ 10 MG/1 ML VIAL IV SCH (10:08)
[2020-08-07] MEDS: FAMOTIDINE INJ/PF 20 MG/2 ML SDV IV SCH (10:09)
[2020-08-07] MEDS: TORSEMIDE 20 MG TABLET PO SCH (18:26)
[2020-08-08] MEDS: INSULIN REG, HUMAN 100 UNIT/ML 3 ML VIAL (PYX) SUBCUT SCH ×5 (00:52→23:39)
[2020-08-08] MEDS: IPRATROPIUM/ALBUTEROL 0.5-2.5 MG/3 ML AMPUL NEB SCH ×6 (02:08→19:37)
[2020-08-08] MEDS: PROPOFOL 1,000 MG/100 ML INFUS..BTL IV PRN ×4 (03:00→21:33)
[2020-08-08 04:29] LABS: HEMATOCRIT 31.6 % (36.0-47.0); HEMOGLOBIN 10.5 g/dL (12.0-15.5); MEAN CORPUSCULAR HGB CONC 33.3 g/dL (32.0-36.0); MEAN CORPUSCULAR VOLUME 90 fl (80-97); PLATELET COUNT 231 10^3/uL (150-450); RED BLOOD COUNT 3.51 10^6/uL (3.72-5.28); RED CELL DISTRIBUTION WIDTH 14.4 % (11.5-14.0)
[2020-08-08 04:51] LABS: ANION GAP 12 (5-19); BLOOD UREA NITROGEN 40 mg/dL (7-20); C-REACTIVE PROTEIN 44.4 mg/L (<10.0); CALCIUM 8.8 mg/dL (8.4-10.2); CARBON DIOXIDE 19 mmol/L (22-30); CHLORIDE 106 mmol/L (98-107); GLUCOSE 373 mg/dL (75-110); POTASSIUM 4.5 mmol/L (3.6-5.0)
[2020-08-08] MEDS: HEPARIN SOD (PORCINE) 5,000 UNIT/ML 1 ML VIAL SUBCUT SCH ×2 (06:49→13:03)
[2020-08-08] MEDS: LEVOTHYROXINE SODIUM 0.15 MG TABLET PO SCH (06:50)
--- NOTE | 2020-08-08 08:44 | RADIOLOGY REPORT (SQ) ---
EXAM DESCRIPTION: CHEST SINGLE VIEW IMAGES COMPLETED DATE/TIME: 08/08/2020 6:22 am REASON FOR STUDY: Respiratory Failure COMPARISON: 08/07/2020. EXAM PARAMETERS: NUMBER OF VIEWS: One view. TECHNIQUE: Single frontal radiographic view of the chest acquired. RADIATION DOSE: NA LIMITATIONS: None. FINDINGS: LUNGS AND PLEURA: Diffuse airspace disease and pleural effusions unchanged. MEDIASTINUM AND HILAR STRUCTURES: No masses. Contour normal. HEART AND VASCULAR STRUCTURES: Heart normal in size. Normal vasculature. BONES: No acute findings. HARDWARE: Stable endotracheal tube and nasogastric tube. Surgical clips. OTHER: No other significant finding. IMPRESSION: NO SIGNIFICANT CHANGE IN APPEARANCE OF THE CHEST. TECHNICAL DOCUMENTATION: JOB ID: [id number] 2010 [employer]- All Rights Reserved Reading location - IP/workstation name: [email or web address]
[2020-08-08] MEDS: FAMOTIDINE INJ/PF 20 MG/2 ML SDV IV SCH (09:12)
[2020-08-08] MEDS: DEXAMETHASONE SOD PHOS INJ 10 MG/1 ML VIAL IV SCH (09:12)
[2020-08-08] MEDS ORDERED: INSULIN GLARGINE,HUM.REC.ANLOG 1,000 UNIT/10 ML VIAL SUBCUT SCH (10:00)
--- NOTE | 2020-08-08 12:49 | PDOC CRITICAL CARE PROG REPORT ---
General Date:: 08/08/20 ICU Day:: 2 Ventilator Day:: 2 Hospital Day:: 2 Resuscitation Status: Full Code Events in the past 12 to 24 Hours:: Still intubated and not able to make significant changes. Review of systems relevant to events:: Pulmonary. Reason for ICU Addmission:: Respiratory failure secondary to COVID-19 pneumonia. - Medications: Medications reviewed and adjusted accordingly: Yes Vasopressors:: None Sedation:: Propofol Physical Exam Vital Signs: Temp Pulse Resp BP Pulse Ox 99.5 F 86 18 150/55 H 98 08/08/20 10:00 08/08/20 08:55 08/08/20 12:00 08/08/20 11:33 08/08/20 12:00 Intake & Output 08/07/20 08/08/20 08/09/20 06:59 06:59 06:59 Intake Total 4 2077 Output Total 3820 475 Balance 4 -6575 -475 Weight 98.7 kg 122.5 kg Weight/Height Weight 122.5 kg Height 5 ft 7 in General appearance: PRESENT: no acute distress, morbidly obese Head exam: PRESENT: atraumatic, normocephalic Eye exam: PRESENT: conjunctiva pink, EOMI, PERRLA. ABSENT: scleral icterus Ear exam: PRESENT: normal external ear exam Mouth exam: PRESENT: moist, tongue midline Respiratory exam: PRESENT: clear to auscultation pinky. ABSENT: rales, rhonchi, wheezes Cardiovascular exam: PRESENT: RRR. ABSENT: diastolic murmur, rubs, systolic murmur GI/Abdominal exam: PRESENT: normal bowel sounds, soft. ABSENT: distended, guarding, mass, organolmegaly, rebound, tenderness Rectal exam: PRESENT: deferred Gentrourinary exam: PRESENT: indwelling catheter Extremities exam: PRESENT: full ROM, +1 edema. ABSENT: calf tenderness, clubbing, pedal edema Musculoskeletal exam: PRESENT: normal inspection Neurological exam: PRESENT: altered, other - Sedated. Skin exam: PRESENT: dry, intact, warm. ABSENT: cyanosis, rash Tubes/Lines: PRESENT: Endotracheal Tube, Nasogastic Tube Laboratory/Radiographs Laboratory Results: 08/08/20 04:03 08/08/20 04:03 08/08/20 08/08/20 04:03 04:03 WBC 7.0 RBC 3.51 L Hgb 10.5 L Hct 31.6 L MCV 90 MCH 30.0 MCHC 33.3 RDW 14.4 H Plt Count 231 Sodium 136.6 L Potassium 4.5 Chloride 106 Carbon Dioxide 19 L Anion Gap 12 BUN 40 H Creatinine 1.43 H Est GFR ( Amer) 42 L Glucose 373 H Calcium 8.8 Magnesium 1.8 C-Reactive Protein 44.4 H 08/07/20 08/07/20 08/07/20 00:34 00:35 06:31 Troponin I 0.390 NT-Pro-B Natriuret Pep 2780 H 3520 H 08/08/20 04:03 Troponin I NT-Pro-B Natriuret Pep 3740 H Impressions: Chest X-Ray 08/08/20 06:00 IMPRESSION: NO SIGNIFICANT CHANGE IN APPEARANCE OF THE CHEST. EKG: SR, LBBB. All labs, radiographs, diagnostic studies and EKGs were personally reviewed: Yes In addition, reports of radiographic and diagnostic studies were read: Yes Assessment and Plan - Diagnosis (1) Acute respiratory failure with hypoxia Is this a current diagnosis for this admission?: Yes Plan: Not able to make significant progress on vent. (2) COVID-19 virus detected Is this a current diagnosis for this admission?: Yes Plan: At the age of 85, this is a worrisome sign for mortality. (3) LBBB (left bundle branch block) Is this a current diagnosis for this admission?: Yes Plan: Not present in 2019. (4) Diabetes Qualifiers: Diabetes mellitus type: type 2 Diabetes mellitus care home insulin use: unspecified care home insulin use status Diabetes mellitus complication status: with kidney complications Is this a current diagnosis for this admission?: Yes Plan: Not well controlled. Increased lantus and will be starting tube feeds. (5) NSTEMI (non-ST elevated myocardial infarction) Is this a current diagnosis for this admission?: Yes Plan: Rechack troponin and echo. Plan Summary: Start TF, increase lantus, wean vent as tolerated. Check troponin and echoc ardiogram. Critical Time Critical Time (minutes): 40 Level of Care: ICU Anticipated discharge: SNF Anticipated DC Timeframe: Other -: 1. The care of a critical patient is a dynamic process. 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 The timeframe for treatments given in order is not necessarily the actual time these treatments may have been done. 2. This patient requires critical care secondary to ongoing requirements for therapy not offered or safe outside the critical care environment. Transfer to a lower level of care will result in altered life or limb morbidity and mortality. 3. Multidisciplinary rounds completed. 4. ABCDE bundle addressed.
--- NOTE | 2020-08-08 14:47 | RADIOLOGY REPORT (SQ) ---
EXAM DESCRIPTION: KUB/ABDOMEN (SINGLE VIEW) IMAGES COMPLETED DATE/TIME: 08/08/2020 1:51 pm REASON FOR STUDY: OGT Placed COMPARISON: 01/01/2013. NUMBER OF VIEWS: One view. TECHNIQUE: Supine radiographic image of the upper abdomen acquired. LIMITATIONS: None. FINDINGS: BOWEL GAS PATTERN: Normal bowel gas pattern. No dilated loops. CALCIFICATIONS: No suspicious calcifications. SOFT TISSUES: No gross mass or suggestion of organomegaly. HARDWARE: Nasogastric tube, tip in the stomach. Surgical clips. BONES: No acute fracture. No worrisome bone lesions. OTHER: No other significant finding. IMPRESSION: TIP OF THE NASOGASTRIC TUBE IS IN THE STOMACH. TECHNICAL DOCUMENTATION: JOB ID: [id number] 2010 [employer]- All Rights Reserved Reading location - IP/workstation name: [email or web address]
[2020-08-08] MEDS: TORSEMIDE 20 MG TABLET PO SCH (17:57)
[2020-08-08 21:15] LABS: HEMATOCRIT 33.3 % (36.0-47.0); HEMOGLOBIN 11.2 g/dL (12.0-15.5); MEAN CORPUSCULAR HEMOGLOBIN 29.7 pg (27.0-33.4); MEAN CORPUSCULAR HGB CONC 33.5 g/dL (32.0-36.0); MEAN CORPUSCULAR VOLUME 89 fl (80-97); PLATELET COUNT 261 10^3/uL (150-450); RED BLOOD COUNT 3.76 10^6/uL (3.72-5.28); RED CELL DISTRIBUTION WIDTH 14.6 % (11.5-14.0); WHITE BLOOD COUNT 9.6 10^3/uL (4.0-10.5)
[2020-08-08 21:29] LABS: INTERNATIONAL RATION (INR) 1.01; PROTHROMBIN TIME 13.5 SEC (11.4-15.4)
[2020-08-08 21:30] LABS: PARTIAL THROMBOPLASTIN TIME 29.6 SEC (23.5-35.8)
[2020-08-08 21:31] LABS: ABSOLUTE LYMPHOCYTES# (MANUAL) 0.2 10^3/uL (0.5-4.7); ABSOLUTE MONOCYTES # (MANUAL) 0.3 10^3/uL (0.1-1.4); BASOPHILS % (MANUAL) 0 % (0-2); EOSINOPHILS % (MANUAL) 0 % (0-6); LYMPHOCYTES % (MANUAL) 2 % (13-45); MONOCYTES % (MANUAL) 3 % (3-13); SEGMENTED NEUTROPHILS % (MAN) 95 % (42-78); TOTAL CELLS COUNTED 100
[2020-08-08] MEDS: INSULIN GLARGINE,HUM.REC.ANLOG 1,000 UNIT/10 ML VIAL SUBCUT SCH (21:33)
[2020-08-08 21:35] LABS: PLATELET COMMENT ADEQUATE
[2020-08-09] MEDS: IPRATROPIUM/ALBUTEROL 0.5-2.5 MG/3 ML AMPUL NEB SCH ×6 (00:40→20:24)
[2020-08-09 00:48] LABS: APPEARANCE,URINE CLEAR; BILIRUBIN,URINE NEGATIVE (NEGATIVE); COLOR,URINE STRAW; GLUCOSE, URINE NEGATIVE (NEGATIVE); KETONES,URINE NEGATIVE (NEGATIVE); LEUKOCYTE ESTERASE,URINE SMALL (NEGATIVE); NITRITE,URINE NEGATIVE (NEGATIVE); PROTEIN,URINE NEGATIVE (NEGATIVE); URINE SPECIFIC GRAVITY 1.008; UROBILINOGEN,URINE NEGATIVE mg/dL (<2.0)
[2020-08-09] MEDS: PROPOFOL 1,000 MG/100 ML INFUS..BTL IV PRN ×6 (02:17→21:18)
[2020-08-09 03:36] LABS: HEMOGLOBIN 10.9 g/dL (12.0-15.5); MEAN CORPUSCULAR HEMOGLOBIN 29.6 pg (27.0-33.4); MEAN CORPUSCULAR VOLUME 90 fl (80-97); PLATELET COUNT 230 10^3/uL (150-450); RED BLOOD COUNT 3.67 10^6/uL (3.72-5.28); RED CELL DISTRIBUTION WIDTH 14.8 % (11.5-14.0); WHITE BLOOD COUNT 9.8 10^3/uL (4.0-10.5)
[2020-08-09 03:50] LABS: ANION GAP 13 (5-19); BLOOD UREA NITROGEN 39 mg/dL (7-20); C-REACTIVE PROTEIN 37.5 mg/L (<10.0); CALCIUM 8.9 mg/dL (8.4-10.2); CARBON DIOXIDE 17 mmol/L (22-30); CHLORIDE 108 mmol/L (98-107); GLUCOSE 224 mg/dL (75-110)
[2020-08-09 03:56] LABS: ABSOLUTE MONOCYTES # (MANUAL) 0.6 10^3/uL (0.1-1.4); BASOPHILS % (MANUAL) 0 % (0-2); EOSINOPHILS % (MANUAL) 0 % (0-6); LYMPHOCYTES % (MANUAL) 0 % (13-45); MONOCYTES % (MANUAL) 6 % (3-13); SEGMENTED NEUTROPHILS % (MAN) 94 % (42-78); TOTAL CELLS COUNTED 100
[2020-08-09 03:57] LABS: ANISOCYTOSIS SLIGHT; OVALOCYTES SLIGHT; PLATELET COMMENT ADEQUATE; POIKILOCYTOSIS SLIGHT
[2020-08-09] MEDS: LEVOTHYROXINE SODIUM 0.15 MG TABLET PO SCH (05:21)
[2020-08-09] MEDS: INSULIN REG, HUMAN 100 UNIT/ML 3 ML VIAL (PYX) SUBCUT SCH ×3 (05:26→18:03)
[2020-08-09] MEDS: INSULIN GLARGINE,HUM.REC.ANLOG 1,000 UNIT/10 ML VIAL SUBCUT SCH ×2 (09:21→21:02)
[2020-08-09] MEDS: FAMOTIDINE INJ/PF 20 MG/2 ML SDV IV SCH (09:22)
[2020-08-09] MEDS: DEXAMETHASONE SOD PHOS INJ 10 MG/1 ML VIAL IV SCH (09:22)
--- NOTE | 2020-08-09 09:31 | XCELERA REPORT ---
[address] [address] Transthoracic Echocardiogram Report Name: LEONARDO SHIN Age: 85 yrs Gender: Female : 1935 Patient Status: Inpatient Patient Location: ICU^606^A Study Date: 08/08/2020 01:48 PM Height: 67 in Weight: 270 lb BSA: 2.3 m2 Procedure: A complete two-dimensional transthoracic echocardiogram was performed (2D, M-mode, spectral and color flow Doppler). The study was technically difficult with many images being suboptimal in quality. Reason For Study: Elevated troponin with LBBB, AMI Ordering Physician: HARSHIL MAYA Performed By: Evelyn Titus Interpretation Summary Technically limited study as the patient is intubated. The left ventricle is grossly normal size. Left ventricular systolic function is normal. The Ejection Fraction estimate is 55-60%. Doppler measurements suggest pseudonormalized left ventricular relaxation, which is associated with grade II/IV or mild to moderate diastolic dysfunction. Regional wall motion abnormalities cannot be excluded due to limited visualization. Valvular structures are not well visualized therefore cannot comment on structural abnormalities. Trace MR, mild TR. Small, posterior, hemodynamically insignificant pericardial effusion. MMode/2D Measurements & Calculations RVDd: 2.3 cm LVIDd: 5.3 cm FS: 27.2 % Ao root diam: IVSd: 1.1 cm LVIDs: 3.9 cm EDV(Teich): 2.6 cm 135.6 ml Ao root area: LVPWd: 1.1 cm ESV(Teich): 5.3 cm2 64.5 ml LA dimension: EF(Teich): 52.5 % 3.2 cm LVLd ap4: 8.0 cm SV(MOD-sp4): EDV(MOD-sp4): 88.0 ml 160.0 ml LVLs ap4: 6.5 cm ESV(MOD-sp4): 72.0 ml EF(MOD-sp4): 55.0 % Doppler Measurements & Calculations MV E max fadi: MV P1/2t max fadi: Ao V2 max: LV V1 max P.3 cm/sec 127.0 cm/sec 197.8 cm/sec 4.4 mmHg MV A max fadi: MV P1/2t: 64.9 msec Ao max PG: LV V1 mean P.2 cm/sec MVA(P1/2t): 3.4 cm2 15.6 mmHg 1.8 mmHg MV E/A: 0.67 MV dec slope: Ao V2 mean: LV V1 max: 142.5 cm/sec 104.9 cm/sec 572.9 cm/sec2 Ao mean PG: LV V1 mean: MV dec time: 0.16 sec 8.9 mmHg 58.3 cm/sec Ao V2 VTI: 47.7 cm LV V1 VTI: 22.8 cm PA V2 max: TR max fadi: MV P1/2t-pr_phl: 150.7 cm/sec 229.2 cm/sec 64.9 msec PA max P.1 mmHgTR max P.0 mmHg Left Ventricle The left ventricle is grossly normal size. Left ventricular systolic function is normal. The Ejection Fraction estimate is 55-60%. Doppler measurements suggest pseudonormalized left ventricular relaxation, which is associated with grade II/IV or mild to moderate diastolic dysfunction. Regional wall motion abnormalities cannot be excluded due to limited visualization. Right Ventricle The right ventricle is grossly normal size. The right ventricular systolic function is normal. Atria The right atrium is normal. The left atrial size is normal. Mitral Valve The mitral valve is not well visualized. There is no evidence of mitral valve prolapse. There is no mitral valve stenosis. There is a trace amount of mitral regurgitation. Aortic Valve The aortic valve is not well visualized secondary to technical limitations. The aortic valve is calcified. There is no aortic valve stenosis. No aortic regurgitation is present. Tricuspid Valve The tricuspid valve is not well visualized secondary to technical limitations. There is no tricuspid stenosis. There is a mild amount of tricuspid regurgitation. Pulmonic Valve The pulmonic valve is not well visualized. There is no vegetation on the pulmonic valve. There is no pulmonic valvular stenosis. There is no pulmonic valvular regurgitation. Great Vessels The aortic root is normal size. The inferior vena cava appeared normal. Effusions Small, posterior, hemodynamically insignificant pericardial effusion. : HARSHIL MAYA, Geraldo
[2020-08-09] MEDS: TORSEMIDE 20 MG TABLET PO SCH (18:04)
--- NOTE | 2020-08-09 19:37 | PDOC CRITICAL CARE PROG REPORT ---
General Date:: 08/09/20 ICU Day:: 3 Hospital Day:: 3 Resuscitation Status: Full Code Events in the past 12 to 24 Hours:: 08/08/2020: Still intubated and not able to make significant changes. 08/09/2020: No significant changes over the past 24 hours. Patient remains intubated. Starting tube feeds with Nepro today. Review of systems relevant to events:: Neuro: Propofol decreased today to facilitate vent weaning. Pulmonary: Patient began the day on PRVC 500, RR 18, PEEP 5, FiO2 45%. She was weaned to spontaneous mode and has been tolerating it well. Cardiovascular: Patient has been hemodynamically stable. Heme: H/H 10.9/33. No signs of bleeding. DVT prophylaxis: Continue subcu heparin. Renal: Significant metabolic acidosis seen on renal panel. Continue IV fluids. Creatinine remains elevated. Follow-up renal panel in a.m. Gastrointestinal: Start tube feeds with Nepro at [address] nutrition consult. Continue Pepcid for GI prophylaxis. ID: Covid positive. No other signs of systemic infection. Urine culture positive for Proteus. Barriers to discharge from ICU: Patient is requiring ventilatory support to maintain oxygenation. She is showing some improvement but will need at least a few more days with ventilatory support. We will continue daily weaning trials. Reason for ICU Addmission:: Respiratory failure secondary to COVID-19 pneumonia. - Medications: Medications reviewed and adjusted accordingly: Yes Physical Exam Vital Signs: Temp Pulse Resp BP Pulse Ox 99.3 F 85 21 H 180/167 H 92 08/09/20 18:00 08/09/20 18:00 08/09/20 18:33 08/09/20 18:00 08/09/20 18:33 Intake & Output 08/08/20 08/09/20 08/10/20 06:59 06:59 06:59 Intake Total 5498 426 300 Output Total 2509 9878 8767 Balance -4503 -2079 -825 Weight 122.5 kg 119.9 kg 119.9 kg Weight/Height Weight 119.9 kg Height 5 ft 7 in General appearance: PRESENT: no acute distress, obese Head exam: PRESENT: atraumatic, normocephalic Eye exam: PRESENT: EOMI, PERRLA Ear exam: PRESENT: normal external ear exam Mouth exam: PRESENT: neck supple Neck exam: PRESENT: full ROM. ABSENT: JVD Respiratory exam: PRESENT: decreased breath sounds, rhonchi. ABSENT: rales, wheezes Cardiovascular exam: PRESENT: RRR, +S1, +S2 Pulses: PRESENT: normal carotid pulses, normal radial pulses GI/Abdominal exam: PRESENT: normal bowel sounds, soft Extremities exam: PRESENT: full ROM Musculoskeletal exam: PRESENT: full ROM, normal inspection Neurological exam: PRESENT: CN II-XII grossly intact, other - Responsive to discomfort but not following commands. Skin exam: PRESENT: intact, pallor Tubes/Lines: PRESENT: Endotracheal Tube Laboratory/Radiographs Laboratory Results: 08/09/20 02:59 08/09/20 02:59 08/08/20 08/08/20 08/09/20 21:04 23:45 02:59 WBC 9.6 RBC 3.76 Hgb 11.2 L Hct 33.3 L MCV 89 MCH 29.7 MCHC 33.5 RDW 14.6 H Plt Count 261 Seg Neutrophils % Not Reportable Sodium 137.5 Potassium 4.0 Chloride 108 H Carbon Dioxide 17 L Anion Gap 13 BUN 39 H Creatinine 1.34 H Est GFR ( Amer) 45 L Glucose 224 H Calcium 8.9 C-Reactive Protein 37.5 H Urine Color STRAW Urine Appearance CLEAR Urine pH 6.0 Ur Specific [place] 1.008 Urine Protein NEGATIVE Urine Glucose (UA) NEGATIVE Urine Ketones NEGATIVE Urine Blood NEGATIVE Urine Nitrite NEGATIVE Ur Leukocyte Esterase SMALL H Urine WBC (Auto) 7 Urine RBC (Auto) 1 08/09/20 02:59 WBC 9.8 RBC 3.67 L Hgb 10.9 L Hct 33.0 L MCV 90 MCH 29.6 MCHC 33.0 RDW 14.8 H Plt Count 230 Seg Neutrophils % Not Reportable Sodium Potassium Chloride Carbon Dioxide Anion Gap BUN Creatinine Est GFR ( Amer) Glucose Calcium C-Reactive Protein Urine Color Urine Appearance Urine pH Ur Specific [place] Urine Protein Urine Glucose (UA) Urine Ketones Urine Blood Urine Nitrite Ur Leukocyte Esterase Urine WBC (Auto) Urine RBC (Auto) 08/07/20 01:00 Catheterized Urine Urine Culture - Final Proteus Mirabilis 08/07/20 08/07/20 08/07/20 00:34 00:35 06:31 Troponin I 0.390 NT-Pro-B Natriuret Pep 2780 H 3520 H 08/08/20 08/08/20 04:03 14:56 Troponin I 0.185 NT-Pro-B Natriuret Pep 3740 H Impressions: Chest X-Ray 08/08/20 06:00 IMPRESSION: NO SIGNIFICANT CHANGE IN APPEARANCE OF THE CHEST. KUB X-Ray 08/08/20 13:14 IMPRESSION: TIP OF THE NASOGASTRIC TUBE IS IN THE STOMACH. All labs, radiographs, diagnostic studies and EKGs were personally reviewed: Yes In addition, reports of radiographic and diagnostic studies were read: Yes Assessment and Plan - Diagnosis (1) Acute respiratory failure with hypoxia Is this a current diagnosis for this admission?: Yes Plan: Able to tolerate several hours on spontaneous mode today. Continue attempts to wean pressure support. Follow-up CXR in AM. (2) COVID-19 virus detected Is this a current diagnosis for this admission?: Yes Plan: Continue dexamethasone. Continue mechanical ventilation and supportive care. 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 Blood glucose expected to be elevated due to both infection as well as dexamethasone administration. Critical Time Critical Time (minutes): 60 Level of Care: ICU Anticipated discharge: Acute Rehab Anticipated DC Timeframe: within 72 hours -: 1. The care of a critical patient is a dynamic process. This note is a sales donor recruitment representative synopsis but static in nature. The timeframe for treatments given in order is not necessarily the actual time these treatments may have been done. 2. This patient requires critical care secondary to ongoing requirements for therapy not offered or safe outside the critical care environment. Transfer to a lower level of care will result in altered life or limb morbidity and mortality. 3. Multidisciplinary rounds completed. 4. ABCDE bundle addressed.
[2020-08-10] MEDS: INSULIN REG, HUMAN 100 UNIT/ML 3 ML VIAL (PYX) SUBCUT SCH ×4 (00:13→17:41)
[2020-08-10] MEDS: IPRATROPIUM/ALBUTEROL 0.5-2.5 MG/3 ML AMPUL NEB SCH ×6 (00:23→22:05)
[2020-08-10] MEDS: PROPOFOL 1,000 MG/100 ML INFUS..BTL IV PRN ×5 (01:30→16:10)
[2020-08-10 04:30] LABS: HEMATOCRIT 32.6 % (36.0-47.0); HEMOGLOBIN 10.9 g/dL (12.0-15.5); MEAN CORPUSCULAR HEMOGLOBIN 29.5 pg (27.0-33.4); MEAN CORPUSCULAR HGB CONC 33.5 g/dL (32.0-36.0); MEAN CORPUSCULAR VOLUME 88 fl (80-97); PLATELET COUNT 259 10^3/uL (150-450); WHITE BLOOD COUNT 12.5 10^3/uL (4.0-10.5)
[2020-08-10 04:43] LABS: ANION GAP 8 (5-19); BLOOD UREA NITROGEN 37 mg/dL (7-20); CALCIUM 8.5 mg/dL (8.4-10.2); CARBON DIOXIDE 25 mmol/L (22-30); CHLORIDE 106 mmol/L (98-107); GLUCOSE 191 mg/dL (75-110); POTASSIUM 3.9 mmol/L (3.6-5.0)
[2020-08-10 04:58] LABS: ABSOLUTE LYMPHOCYTES# (MANUAL) 0.3 10^3/uL (0.5-4.7); ABSOLUTE MONOCYTES # (MANUAL) 0.4 10^3/uL (0.1-1.4); BASOPHILS % (MANUAL) 0 % (0-2); EOSINOPHILS % (MANUAL) 0 % (0-6); LYMPHOCYTES % (MANUAL) 2 % (13-45); MONOCYTES % (MANUAL) 3 % (3-13); SEGMENTED NEUTROPHILS % (MAN) 95 % (42-78); TOTAL CELLS COUNTED 100
[2020-08-10 04:59] LABS: ANISOCYTOSIS SLIGHT; OVALOCYTES SLIGHT; PLATELET COMMENT ADEQUATE; POIKILOCYTOSIS SLIGHT; TEAR DROP CELLS SLIGHT; TOXIC GRANULATION 1+
[2020-08-10] MEDS: LEVOTHYROXINE SODIUM 0.15 MG TABLET PO SCH (05:50)
--- NOTE | 2020-08-10 09:23 | RADIOLOGY REPORT (SQ) ---
EXAM DESCRIPTION: CHEST SINGLE VIEW IMAGES COMPLETED DATE/TIME: 08/10/2020 6:00 am REASON FOR STUDY: Respiratory Failure COMPARISON: 08/08/2020 EXAM PARAMETERS: NUMBER OF VIEWS: One view. TECHNIQUE: Single frontal radiographic view of the chest acquired. RADIATION DOSE: NA LIMITATIONS: None. FINDINGS: LUNGS AND PLEURA: Low lung volumes with resultant bronchovascular crowding. Apparent dimi nished volume of a right-sided pleural effusion. Persistent left-sided pleural effusion. Stable pul monary exam demonstrating diffuse airspace opacities. MEDIASTINUM AND HILAR STRUCTURES: No masses. Contour normal. HEART AND VASCULAR STRUCTURES: Heart normal in size. Normal vasculature. BONES: No acute findings. HARDWARE: Endotracheal and enteric tubes are stable in position. Right axillary surgical clips. OTHER: No other significant finding. IMPRESSION: The appearance of diminished right-sided pleural effusion may be due in part to patient positioning. Otherwise stable radiographic appearance of the chest. TECHNICAL DOCUMENTATION: JOB ID: [id number] 2010 [employer]- All Rights Reserved Reading location - IP/workstation name: [email or web address]
[2020-08-10] MEDS: INSULIN GLARGINE,HUM.REC.ANLOG 1,000 UNIT/10 ML VIAL SUBCUT SCH ×2 (10:03→22:08)
[2020-08-10] MEDS: FAMOTIDINE INJ/PF 20 MG/2 ML SDV IV SCH (10:04)
[2020-08-10] MEDS: DEXAMETHASONE SOD PHOS INJ 10 MG/1 ML VIAL IV SCH (10:06)
[2020-08-10] MEDS: NORMAL SALINE 1000 ML 1,000 ML IV PRN (11:16)
[2020-08-10] MEDS: HEPARIN SODIUM,PORCINE/D5W 25,000 UNIT/250 ML RTUINJ IV PRN (12:35)
[2020-08-10 14:06] LABS: ARTERIAL BLOOD BASE EXCESS -0.4 mmol/L; ARTERIAL BLOOD O2 SATURATION 90.3 % (94-98); ARTERIAL BLOOD PCO2 33.3 mmHg (35-45); ARTERIAL BLOOD PH 7.46 (7.35-7.45); ARTERIAL BLOOD PO2 54.6 mmHg (80-100)
[2020-08-10 14:08] LABS: ARTERIAL BLOOD FIO2 40%
--- NOTE | 2020-08-10 17:58 | PDOC CRITICAL CARE PROG REPORT ---
General Date:: 08/10/20 ICU Day:: 4 Ventilator Day:: 4 Hospital Day:: 4 Resuscitation Status: Full Code Events in the past 12 to 24 Hours:: 08/08/2020: Still intubated and not able to make significant changes. 08/09/2020: No significant changes over the past 24 hours. Patient remains intubated. Starting tube feeds with Nepro today. 08/10/2020: Patient remains intubated. No significant changes today. Review of systems relevant to events:: Neuro: Propofol was at 40 this morning. It is being weaned to facilitate vent weaning. Pulmonary: Patient tenuous to tolerate spontaneous mode well. PSV: 16, PEEP: 5, FiO2 is 45%. SPO2 95%. Cardiovascular: Patient has been hemodynamically stable. Heme: H/H 10.9/33. No signs of bleeding. DVT prophylaxis: Continue subcu heparin. Renal: Metabolic acidosis is improving. She continues on IV fluids. BUN and creatinine levels remain elevated. proBNP levels are elevated today. We will obtain a proBNP in the a.m. and follow chest x-rays as well as renal panel to assess fluid status. Gastrointestinal: Nepro tube feeds increased to 30 mL an hour today. No significant residuals. Place nutrition consult. Continue Pepcid for GI prophylaxis. ID: Covid positive. No other signs of systemic infection. Urine culture positive for Proteus. Barriers to discharge from ICU: Patient is requiring ventilatory support to maintain oxygenation. She is showing some improvement and I am hopeful that we will be able to extubate her in the next 24 to 48 hours. We will continue daily weaning trials. Reason for ICU Addmission:: Respiratory failure secondary to COVID-19 pneumonia. - Medications: Medications reviewed and adjusted accordingly: Yes Physical Exam Vital Signs: Temp Pulse Resp BP Pulse Ox 99.0 F 86 28 H 147/50 H 96 08/10/20 10:00 08/10/20 15:37 08/10/20 16:34 08/10/20 16:34 08/10/20 16:34 Intake & Output 08/09/20 08/10/20 08/11/20 06:59 06:59 06:59 Intake Total 426 598 300 Output Total 2505 3200 415 Balance -8274 -9504 -338 Weight 119.9 kg 116.3 kg Weight/Height Weight 116.3 kg Height 5 ft 7 in General appearance: PRESENT: no acute distress Head exam: PRESENT: atraumatic, normocephalic Eye exam: PRESENT: EOMI, PERRLA Ear exam: PRESENT: normal external ear exam Mouth exam: PRESENT: dry mucosa Neck exam: PRESENT: full ROM. ABSENT: JVD, lymphadenopathy Respiratory exam: PRESENT: clear to auscultation pinky, symmetrical. ABSENT: accessory muscle use, rhonchi, wheezes Cardiovascular exam: PRESENT: RRR, +S1, +S2 Pulses: PRESENT: normal carotid pulses, normal radial pulses Vascular exam: PRESENT: normal capillary refill GI/Abdominal exam: PRESENT: soft. ABSENT: distended, tenderness Extremities exam: PRESENT: full ROM, +1 edema Musculoskeletal exam: PRESENT: normal inspection Neurological exam: PRESENT: CN II-XII grossly intact Skin exam: PRESENT: normal color Tubes/Lines: PRESENT: Endotracheal Tube Laboratory/Radiographs Laboratory Results: 08/10/20 04:08 08/10/20 04:08 08/10/20 08/10/20 08/10/20 04:08 04:08 13:50 WBC 12.5 H RBC 3.70 L Hgb 10.9 L Hct 32.6 L MCV 88 MCH 29.5 MCHC 33.5 RDW 15.0 H Plt Count 259 Seg Neutrophils % Not Reportable Carbonic Acid 1.00 L HCO3/H2CO3 Ratio 23:1 ABG pH 7.46 H ABG pCO2 33.3 L ABG pO2 54.6 L ABG HCO3 23.0 ABG O2 Saturation 90.3 L ABG Base Excess -0.4 FiO2 40% Sodium 138.7 Potassium 3.9 Chloride 106 Carbon Dioxide 25 Anion Gap 8 BUN 37 H Creatinine 1.26 H Est GFR ( Amer) 49 L Glucose 191 H Calcium 8.5 08/07/20 08/07/20 08/07/20 00:34 00:35 06:31 Troponin I 0.390 NT-Pro-B Natriuret Pep 2780 H 3520 H 08/08/20 08/08/20 08/10/20 04:03 14:56 04:08 Troponin I 0.185 NT-Pro-B Natriuret Pep 3740 H 4510 H Impressions: KUB X-Ray 08/08/20 13:14 IMPRESSION: TIP OF THE NASOGASTRIC TUBE IS IN THE STOMACH. Chest X-Ray 08/10/20 06:00 IMPRESSION: The appearance of diminished right-sided pleural effusion may be due in part to patient positioning. Otherwise stable radiographic appearance of the chest. All labs, radiographs, diagnostic studies and EKGs were personally reviewed: Yes In addition, reports of radiographic and diagnostic studies were read: Yes Assessment and Plan - Diagnosis (1) Acute respiratory failure with hypoxia Is this a current diagnosis for this admission?: Yes Plan: Overall progressing well on ventilator support.. Continue attempts to wean. I am hopeful that we could extubate in the next 24 to 48 hours. Follow-up CXR in AM. (2) COVID-19 virus detected Is this a current diagnosis for this admission?: Yes Plan: Continue dexamethasone. Continue mechanical ventilation and supportive care. 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 Blood glucose expected to be elevated due to both infection as well as dexamethasone administration. We have started Lantus which has shown some improvement. We will continue to titrate dose over the next day. Critical Time Critical Time (minutes): 65 Level of Care: ICU Anticipated discharge: Home with Homehealth Anticipated DC Timeframe: within 72 hours -: 1. The care of a critical patient is a dynamic process. This note is a specialty sales representative synopsis but static in nature. The timeframe for treatments given in order is not necessarily the actual time these treatments may have been done. 2. This patient requires critical care secondary to ongoing requirements for therapy not offered or safe outside the critical care environment. Transfer to a lower level of care will result in altered life or limb morbidity and mortality. 3. Multidisciplinary rounds completed. 4. ABCDE bundle addressed.
[2020-08-10] MEDS: TORSEMIDE 20 MG TABLET PO SCH (18:55)
[2020-08-11] MEDS: INSULIN REG, HUMAN 100 UNIT/ML 3 ML VIAL (PYX) SUBCUT SCH ×4 (00:30→18:00)
[2020-08-11] MEDS: PROPOFOL 1,000 MG/100 ML INFUS..BTL IV PRN ×4 (00:36→18:05)
[2020-08-11] MEDS: NORMAL SALINE 1000 ML 1,000 ML IV PRN ×2 (00:40→12:59)
[2020-08-11] MEDS: IPRATROPIUM/ALBUTEROL 0.5-2.5 MG/3 ML AMPUL NEB SCH ×6 (00:53→20:54)
[2020-08-11] MEDS: HEPARIN SODIUM,PORCINE/D5W 25,000 UNIT/250 ML RTUINJ IV PRN ×2 (02:00→22:50)
--- NOTE | 2020-08-11 02:51 | RADIOLOGY REPORT (SQ) ---
EXAM DESCRIPTION: XR CHEST 1 VIEW COMPLETED DATE/TME: 08/11/2020 02:23 CLINICAL HISTORY: 85 years, Female, NGT placement COMPARISON: 08/10/2020 chest NUMBER OF VIEWS: 1 TECHNIQUE: Portable chest LIMITATIONS: None. FINDINGS: Lung apices not entirely included on the exam. Endotracheal and enteric tubes are in place. Heart size is stable. Surgical clips right axilla. Osteopenia. Bibasilar interstitial and airspace opacities IMPRESSION: Allowing for differences in technique, little interval change copyright 2011 [employer]- All Rights Reserved
[2020-08-11] MEDS: ACETAMINOPHEN SOLN 325 MG/10.15 ML UDCUP NG PRN ×2 (02:53→10:05)
[2020-08-11] MEDS: LEVOTHYROXINE SODIUM 0.15 MG TABLET PO SCH (06:20)
[2020-08-11 07:24] LABS: RED CELL DISTRIBUTION WIDTH 14.8 % (11.5-14.0)
[2020-08-11 07:26] LABS: HEMATOCRIT 36.1 % (36.0-47.0); MEAN CORPUSCULAR HGB CONC 33.2 g/dL (32.0-36.0); MEAN CORPUSCULAR VOLUME 88 fl (80-97); PLATELET COUNT 283 10^3/uL (150-450); RED BLOOD COUNT 4.13 10^6/uL (3.72-5.28); WHITE BLOOD COUNT 16.6 10^3/uL (4.0-10.5)
[2020-08-11 07:42] LABS: ABSOLUTE LYMPHOCYTES# (MANUAL) 0.5 10^3/uL (0.5-4.7); ABSOLUTE MONOCYTES # (MANUAL) 1.2 10^3/uL (0.1-1.4); ANISOCYTOSIS SLIGHT; BASOPHILS % (MANUAL) 0 % (0-2); EOSINOPHILS % (MANUAL) 0 % (0-6); LYMPHOCYTES % (MANUAL) 3 % (13-45); MONOCYTES % (MANUAL) 7 % (3-13); OVALOCYTES 1+; PLATELET COMMENT ADEQUATE; POIKILOCYTOSIS 1+; SEGMENTED NEUTROPHILS % (MAN) 90 % (42-78); TEAR DROP CELLS 1+; TOTAL CELLS COUNTED 100
[2020-08-11 07:58] LABS: ANION GAP 8 (5-19); BLOOD UREA NITROGEN 40 mg/dL (7-20); CALCIUM 8.4 mg/dL (8.4-10.2); CARBON DIOXIDE 25 mmol/L (22-30); CHLORIDE 106 mmol/L (98-107); GLUCOSE 274 mg/dL (75-110); POTASSIUM 3.7 mmol/L (3.6-5.0)
[2020-08-11] MEDS: INSULIN GLARGINE,HUM.REC.ANLOG 1,000 UNIT/10 ML VIAL SUBCUT SCH (09:11)
[2020-08-11] MEDS: DEXAMETHASONE SOD PHOS INJ 10 MG/1 ML VIAL IV SCH (10:03)
[2020-08-11] MEDS: FAMOTIDINE INJ/PF 20 MG/2 ML SDV IV SCH (10:04)
--- NOTE | 2020-08-11 12:00 | PDOC CRITICAL CARE PROG REPORT ---
General Date:: 08/11/20 ICU Day:: 5 Ventilator Day:: 5 Hospital Day:: 5 Resuscitation Status: Full Code Events in the past 12 to 24 Hours:: 08/08/2020: Still intubated and not able to make significant changes. 08/09/2020: No significant changes over the past 24 hours. Patient remains intubated. Starting tube feeds with Nepro today. 08/10/2020: Patient remains intubated. No significant changes today. 08/11/2020: Patient remains intubated. Her pressure support remains at 16. We are actively weaning her sedation and ventilator. Review of systems relevant to events:: Neuro: Patient continues to be sedated. We are actively weaning her propofol to allow for vent weaning. Pulmonary: PSV: 16, PEEP: 5, FiO2 is 40%. SPO2 95%. We will begin more aggressive weaning today as she wakes up from her sedation. Cardiovascular: Patient has been hemodynamically stable. Heme: H/H . This slight increase likely reflects hemoconcentration. DVT prophylaxis: Continue subcu heparin. Renal: Metabolic acidosis is improving. She continues on IV fluids. BUN and creatinine levels remain elevated. proBNP levels are elevated yesterday. We will need to be very conservative with our volume resuscitation given her level of CHF and poor oxygenation. We will obtain a proBNP in the a.m. and follow chest x-rays as well as renal panel to assess fluid status. Gastrointestinal: Nepro tube feeds increased to 30 mL an hour. No significant residuals. Place nutrition consult. Continue Pepcid for GI prophylaxis. ID: Covid positive. No other signs of systemic infection. Urine culture positive for Proteus. Barriers to discharge from ICU: Patient is requiring ventilatory support to [facility]. She is showing some improvement and I am hopeful that we will be able to extubate her in the next 24 to 48 hours. We will continue daily weaning trials. Reason for ICU Addmission:: Respiratory failure secondary to COVID-19 pneumonia. - Medications: Medications reviewed and adjusted accordingly: Yes Physical Exam Vital Signs: Temp Pulse Resp BP Pulse Ox 101.5 F H 79 24 H 133/55 H 92 08/11/20 08:00 08/11/20 10:00 08/11/20 10:00 08/11/20 10:00 08/11/20 10:00 Intake & Output 08/10/20 08/11/20 08/12/20 06:59 06:59 06:59 Intake Total 598 2389 77 Output Total 8590 0371 230 Balance -2602 444 -153 Weight 116.3 kg 117.2 kg Weight/Height Weight 117.2 kg Height 5 ft 7 in General appearance: PRESENT: no acute distress, obese Head exam: PRESENT: atraumatic, normocephalic Eye exam: PRESENT: EOMI, PERRLA Ear exam: PRESENT: normal external ear exam Mouth exam: PRESENT: moist Neck exam: PRESENT: full ROM. ABSENT: JVD, lymphadenopathy Respiratory exam: PRESENT: decreased breath sounds Cardiovascular exam: PRESENT: RRR, +S1, +S2 Pulses: PRESENT: normal carotid pulses, normal radial pulses Vascular exam: PRESENT: normal capillary refill GI/Abdominal exam: PRESENT: normal bowel sounds Musculoskeletal exam: PRESENT: full ROM, normal inspection Neurological exam: PRESENT: altered, CN II-XII grossly intact, other - Sedated Skin exam: PRESENT: normal color Tubes/Lines: PRESENT: Endotracheal Tube, Central Line Laboratory/Radiographs Laboratory Results: 08/11/20 06:49 08/11/20 06:49 08/10/20 08/11/20 08/11/20 13:50 06:49 06:49 WBC 16.6 H RBC 4.13 Hgb 12.0 Hct 36.1 MCV 88 MCH 29.0 MCHC 33.2 RDW 14.8 H Plt Count 283 Seg Neutrophils % Not Reportable Carbonic Acid 1.00 L HCO3/H2CO3 Ratio 23:1 ABG pH 7.46 H ABG pCO2 33.3 L ABG pO2 54.6 L ABG HCO3 23.0 ABG O2 Saturation 90.3 L ABG Base Excess -0.4 FiO2 40% Sodium 139.4 Potassium 3.7 Chloride 106 Carbon Dioxide 25 Anion Gap 8 BUN 40 H Creatinine 1.38 H Est GFR ( Amer) 44 L Glucose 274 H Calcium 8.4 Triglycerides 08/11/20 06:49 WBC RBC Hgb Hct MCV MCH MCHC RDW Plt Count Seg Neutrophils % Carbonic Acid HCO3/H2CO3 Ratio ABG pH ABG pCO2 ABG pO2 ABG HCO3 ABG O2 Saturation ABG Base Excess FiO2 Sodium Potassium Chloride Carbon Dioxide Anion Gap BUN Creatinine Est GFR ( Amer) Glucose Calcium Triglycerides 170 H 08/07/20 08/07/20 08/07/20 00:34 00:35 06:31 Troponin I 0.390 NT-Pro-B Natriuret Pep 2780 H 3520 H 08/08/20 08/08/20 08/10/20 04:03 14:56 04:08 Troponin I 0.185 NT-Pro-B Natriuret Pep 3740 H 4510 H Impressions: KUB X-Ray 08/08/20 13:14 IMPRESSION: TIP OF THE NASOGASTRIC TUBE IS IN THE STOMACH. Chest X-Ray 08/11/20 01:50 IMPRESSION: Allowing for differences in technique, little interval change copyright 2011 [employer]- All Rights Reserved All labs, radiographs, diagnostic studies and EKGs were personally reviewed: Yes In addition, reports of radiographic and diagnostic studies were read: Yes Assessment and Plan - Diagnosis (1) Acute respiratory failure with hypoxia Is this a current diagnosis for this admission?: Yes Plan: Overall progressing well on ventilator support.. Continue attempts to wean. I am hopeful that we could extubate in the next 24 to 48 hours. Follow-up CXR in AM. (2) COVID-19 virus detected Is this a current diagnosis for this admission?: Yes Plan: Continue dexamethasone. Continue mechanical ventilation and supportive care. 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 Blood glucose expected to be elevated due to both infection as well as dexamethasone administration. Continue Lantus. Critical Time Critical Time (minutes): 45 Level of Care: ICU Anticipated discharge: Acute Rehab Anticipated DC Timeframe: within 72 hours -: 1. The care of a critical patient is a dynamic process. This note is a computer help desk representative synopsis but static in nature. The timeframe for treatments given in order is not necessarily the actual time these treatments may have been done. 2. This patient requires critical care secondary to ongoing requirements for therapy not offered or safe outside the critical care environment. Transfer to a lower level of care will result in altered life or limb morbidity and mortality. 3. Multidisciplinary rounds completed. 4. ABCDE bundle addressed.
[2020-08-11] MEDS: POTASSI CL 20 MEQ/50 ML RIDER 20 MEQ/50 ML RTUPB IV SCH ×2 (12:56→15:23)
[2020-08-11] MEDS: TORSEMIDE 20 MG TABLET PO SCH (18:00)
[2020-08-12] MEDS: INSULIN REG, HUMAN 100 UNIT/ML 3 ML VIAL (PYX) SUBCUT SCH ×5 (00:04→23:30)
[2020-08-12] MEDS: INSULIN GLARGINE,HUM.REC.ANLOG 1,000 UNIT/10 ML VIAL SUBCUT SCH ×3 (00:04→22:33)
[2020-08-12] MEDS: IPRATROPIUM/ALBUTEROL 0.5-2.5 MG/3 ML AMPUL NEB SCH ×6 (00:34→19:58)
[2020-08-12] MEDS: LEVOTHYROXINE SODIUM 0.15 MG TABLET PO SCH (06:17)
[2020-08-12] MEDS: NORMAL SALINE 1000 ML 1,000 ML IV PRN (08:57)
[2020-08-12] MEDS: FAMOTIDINE INJ/PF 20 MG/2 ML SDV IV SCH (09:00)
[2020-08-12] MEDS: DEXAMETHASONE SOD PHOS INJ 10 MG/1 ML VIAL IV SCH (09:00)
[2020-08-12] MEDS ORDERED: RINGERS SOLUTION,LACTATED 1,000 ML IV ONE (10:45)
--- NOTE | 2020-08-12 14:38 | RADIOLOGY REPORT (SQ) ---
EXAM DESCRIPTION: CHEST SINGLE VIEW IMAGES COMPLETED DATE/TIME: 08/12/2020 12:57 pm REASON FOR STUDY: Respiratory failure COMPARISON: 08/11/2020 EXAM PARAMETERS: NUMBER OF VIEWS: One view. TECHNIQUE: Single frontal radiographic view of the chest acquired. RADIATION DOSE: NA LIMITATIONS: None. FINDINGS: LUNGS AND PLEURA: Increasing bilateral basilar opacities. Probable small left effusion. MEDIASTINUM AND HILAR STRUCTURES: No masses. Contour normal. HEART AND VASCULAR STRUCTURES: Heart normal in size. Normal vasculature. BONES: No acute findings. HARDWARE: Endotracheal tube and esophagogastric tube remain in place. OTHER: No other significant finding. IMPRESSION: Increasing consolidation at the left lung base suspicious for increasing pneumonia. TECHNICAL DOCUMENTATION: JOB ID: [id number] 2010 [employer]- All Rights Reserved Reading location - IP/workstation name: [email or web address]
[2020-08-12] MEDS: HEPARIN SOD (PORCINE) 1,000 UNIT/ML 10 ML VIAL ONE ×2 (14:48→15:06)
[2020-08-12 14:55] LABS: HEMATOCRIT 33.9 % (36.0-47.0); HEMOGLOBIN 11.3 g/dL (12.0-15.5); MEAN CORPUSCULAR HEMOGLOBIN 29.5 pg (27.0-33.4); MEAN CORPUSCULAR HGB CONC 33.4 g/dL (32.0-36.0); MEAN CORPUSCULAR VOLUME 88 fl (80-97); PLATELET COUNT 289 10^3/uL (150-450); RED BLOOD COUNT 3.84 10^6/uL (3.72-5.28); RED CELL DISTRIBUTION WIDTH 14.8 % (11.5-14.0); WHITE BLOOD COUNT 15.4 10^3/uL (4.0-10.5)
[2020-08-12 15:17] LABS: ANION GAP 5 (5-19); BLOOD UREA NITROGEN 43 mg/dL (7-20); CALCIUM 8.3 mg/dL (8.4-10.2); CARBON DIOXIDE 23 mmol/L (22-30); CHLORIDE 109 mmol/L (98-107); GLUCOSE 192 mg/dL (75-110); POTASSIUM 4.1 mmol/L (3.6-5.0)
[2020-08-12] MEDS: TORSEMIDE 20 MG TABLET PO SCH (18:04)
[2020-08-12] MEDS: HEPARIN SODIUM,PORCINE/D5W 25,000 UNIT/250 ML RTUINJ IV PRN ×2 (18:05→22:44)
--- NOTE | 2020-08-12 19:17 | PDOC CRITICAL CARE PROG REPORT ---
General Date:: 08/12/20 ICU Day:: 6 Ventilator Day:: 6 Hospital Day:: 6 Resuscitation Status: Full Code Events in the past 12 to 24 Hours:: 08/08/2020: Still intubated and not able to make significant changes. 08/09/2020: No significant changes over the past 24 hours. Patient remains intubated. Starting tube feeds with Nepro today. 08/10/2020: Patient remains intubated. No significant changes today. 08/11/2020: Patient remains intubated. Her pressure support remains at 16. We are actively weaning her sedation and ventilator. 08/12/2020: Pressure support was weaned down to 12 today. Attempt to do this ye was unsuccessful. I am hopeful that we will be able to continue progress of the next 24 hours. Review of systems relevant to events:: Neuro: Propofol was weaned off today in order to facilitate vent weaning. Pulmonary: PSV: 12, PEEP: 5, FiO2 is 40%. SPO2 95%. Plan is to continue weaning over the next 24 to 48 hours.. Cardiovascular: Patient has been hemodynamically stable. Heme: H/H 11.3/33.9. DVT prophylaxis: Continue subcu heparin. Renal: Bicarbonate level has returned to baseline. She continues on IV fluids. BUN and creatinine levels remain mildly elevated. We will need to be very conservative with our volume resuscitation given her level of CHF, poor oxygenation and elevated proBNP levels. Follow chest x-rays as well as renal panel to assess fluid status. Gastrointestinal: Nepro tube feeds increased to 30 mL an hour. No significant residuals. Place nutrition consult. Continue Pepcid for GI prophylaxis. ID: Covid positive. No other signs of systemic infection. Urine culture positive for Proteus. Barriers to discharge from ICU: Patient is requiring ventilatory support to maintain oxygenation. She is showing some improvement and I am hopeful that we will be able to extubate her in the next 24 to 48 hours. We will continue daily weaning trials. Reason for ICU Addmission:: Respiratory failure secondary to COVID-19 pneumonia. - Medications: Medications reviewed and adjusted accordingly: Yes Physical Exam Vital Signs: Temp Pulse Resp BP Pulse Ox 99.9 F 93 29 H 124/49 L 92 08/12/20 16:00 08/12/20 16:00 08/12/20 16:00 08/12/20 16:00 08/12/20 16:00 Intake & Output 08/11/20 08/12/20 08/13/20 06:59 06:59 06:59 Intake Total 8738 5600 6193 Output Total 8286 35539 875 Balance 296 -03126 331 Weight 117.2 kg 118.4 kg Weight/Height Weight 118.4 kg Height 5 ft 7 in General appearance: PRESENT: no acute distress, morbidly obese Head exam: PRESENT: atraumatic, normocephalic Eye exam: PRESENT: EOMI, PERRLA Ear exam: PRESENT: normal external ear exam Mouth exam: PRESENT: moist Neck exam: PRESENT: full ROM. ABSENT: JVD Respiratory exam: PRESENT: decreased breath sounds, rhonchi Cardiovascular exam: PRESENT: RRR Pulses: PRESENT: normal carotid pulses, normal radial pulses GI/Abdominal exam: PRESENT: normal bowel sounds Extremities exam: PRESENT: joint swelling Musculoskeletal exam: PRESENT: full ROM, normal inspection Neurological exam: PRESENT: alert, awake, CN II-XII grossly intact Psychiatric exam: PRESENT: appropriate affect Skin exam: PRESENT: normal color, warm Tubes/Lines: PRESENT: Endotracheal Tube, Central Line Laboratory/Radiographs Laboratory Results: 08/12/20 14:30 08/12/20 14:30 08/12/20 08/12/20 14:30 14:30 WBC 15.4 H RBC 3.84 Hgb 11.3 L Hct 33.9 L MCV 88 MCH 29.5 MCHC 33.4 RDW 14.8 H Plt Count 289 Sodium 136.5 L Potassium 4.1 Chloride 109 H Carbon Dioxide 23 Anion Gap 5 BUN 43 H Creatinine 1.32 H Est GFR ( Amer) 46 L Glucose 192 H Calcium 8.3 L 08/07/20 01:42 Blood Blood Culture - Final NO GROWTH IN 5 DAYS 08/07/20 00:35 Blood Blood Culture - Final NO GROWTH IN 5 DAYS 08/07/20 08/07/20 08/07/20 00:34 00:35 06:31 Troponin I 0.390 NT-Pro-B Natriuret Pep 2780 H 3520 H 08/08/20 08/08/20 08/10/20 04:03 14:56 04:08 Troponin I 0.185 NT-Pro-B Natriuret Pep 3740 H 4510 H Impressions: KUB X-Ray 08/08/20 13:14 IMPRESSION: TIP OF THE NASOGASTRIC TUBE IS IN THE STOMACH. Chest X-Ray 08/12/20 00:00 IMPRESSION: Increasing consolidation at the left lung base suspicious for increasing pneumonia. All labs, radiographs, diagnostic studies and EKGs were personally reviewed: Yes In addition, reports of radiographic and diagnostic studies were read: Yes Assessment and Plan - Diagnosis (1) Acute respiratory failure with hypoxia Is this a current diagnosis for this admission?: Yes Plan: Overall progressing well on ventilator support.. Continue attempts to wean. I am hopeful that we could extubate in the next 24 to 48 hours. Follow-up CXR in AM. (2) COVID-19 virus detected Is this a current diagnosis for this admission?: Yes Plan: Continue dexamethasone. Continue mechanical ventilation and supportive care. 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 Blood glucose expected to be elevated due to both infection as well as dexamethasone administration. Continue Lantus. Critical Time Critical Time (minutes): 55 Level of Care: ICU Anticipated discharge: Acute Rehab Anticipated DC Timeframe: within 72 hours -: 1. The care of a critical patient is a dynamic process. This note is a inbound sales representative synopsis but static in nature. The timeframe for treatments given in order is not necessarily the actual time these treatments may have been done. 2. This patient requires critical care secondary to ongoing requirements for therapy not offered or safe outside the critical care environment. Transfer to a lower level of care will result in altered life or limb morbidity and mortality. 3. Multidisciplinary rounds completed. 4. ABCDE bundle addressed.
[2020-08-12] MEDS ORDERED: HEPARIN SOD (PORCINE) 5,000 UNIT/ML 1 ML VIAL IV ONE (22:30)
[2020-08-12] MEDS: CEFTRIAXONE SODIUM 1,500 MG in DEXTROSE 5%-WATER 100 ML IV SCH (22:34)
[2020-08-12] MEDS ORDERED: HEPARIN SOD (PORCINE) 1,000 UNIT/ML 10 ML VIAL ONE (22:39)
[2020-08-13] MEDS: IPRATROPIUM/ALBUTEROL 0.5-2.5 MG/3 ML AMPUL NEB SCH ×6 (00:13→20:24)
[2020-08-13] MEDS ORDERED: METOPROLOL TARTRATE PF/INJ 5 MG/5 ML SDV IV PRN (02:23)
[2020-08-13] MEDS: ACETAMINOPHEN SOLN 325 MG/10.15 ML UDCUP NG PRN ×3 (03:20→12:45)
[2020-08-13] MEDS: INSULIN REG, HUMAN 100 UNIT/ML 3 ML VIAL (PYX) SUBCUT SCH ×3 (05:40→17:44)
[2020-08-13] MEDS: LEVOTHYROXINE SODIUM 0.15 MG TABLET PO SCH (05:41)
[2020-08-13] MEDS: METOPROLOL TARTRATE PF/INJ 5 MG/5 ML SDV IV PRN ×3 (07:48→18:56)
[2020-08-13] MEDS: DEXAMETHASONE SOD PHOS INJ 10 MG/1 ML VIAL IV SCH (09:39)
[2020-08-13] MEDS: INSULIN GLARGINE,HUM.REC.ANLOG 1,000 UNIT/10 ML VIAL SUBCUT SCH ×2 (09:39→22:56)
[2020-08-13] MEDS: FAMOTIDINE INJ/PF 20 MG/2 ML SDV IV SCH (09:39)
[2020-08-13] MEDS: HEPARIN SODIUM,PORCINE/D5W 25,000 UNIT/250 ML RTUINJ IV PRN (11:31)
[2020-08-13] MEDS: TORSEMIDE 20 MG TABLET PO SCH (17:44)
[2020-08-13] MEDS: CEFTRIAXONE SODIUM 1,500 MG in DEXTROSE 5%-WATER 100 ML IV SCH (22:57)
[2020-08-14] MEDS: IPRATROPIUM/ALBUTEROL 0.5-2.5 MG/3 ML AMPUL NEB SCH ×6 (00:13→20:12)
[2020-08-14] MEDS: INSULIN REG, HUMAN 100 UNIT/ML 3 ML VIAL (PYX) SUBCUT SCH ×5 (00:35→18:12)
[2020-08-14] MEDS: HEPARIN SODIUM,PORCINE/D5W 25,000 UNIT/250 ML RTUINJ IV PRN ×2 (01:33→17:30)
[2020-08-14] MEDS: METOPROLOL TARTRATE PF/INJ 5 MG/5 ML SDV IV PRN ×3 (01:40→14:41)
[2020-08-14] MEDS: LEVOTHYROXINE SODIUM 0.15 MG TABLET PO SCH (06:35)
[2020-08-14] MEDS: FAMOTIDINE INJ/PF 20 MG/2 ML SDV IV SCH (10:04)
[2020-08-14] MEDS: DEXAMETHASONE SOD PHOS INJ 10 MG/1 ML VIAL IV SCH (10:05)
[2020-08-14] MEDS: INSULIN GLARGINE,HUM.REC.ANLOG 1,000 UNIT/10 ML VIAL SUBCUT SCH ×2 (10:24→21:57)
--- NOTE | 2020-08-14 11:56 | PDOC CRITICAL CARE PROG REPORT ---
General Date:: 08/14/20 ICU Day:: 7 Ventilator Day:: 7 Hospital Day:: 7 Resuscitation Status: Full Code Events in the past 12 to 24 Hours:: 08/14: Able to tolerate PSV on 45%. Now weaning PS from 20. Review of systems relevant to events:: Pulmonary Reason for ICU Addmission:: Respiratory failure secondary to COVID-19 pneumonia. - Medications: Medications reviewed and adjusted accordingly: Yes Vasopressors:: None Sedation:: Propofol Physical Exam Vital Signs: Temp Pulse Resp BP Pulse Ox 99.9 F 89 25 H 154/71 H 94 08/14/20 10:00 08/14/20 08:20 08/14/20 10:23 08/14/20 10:23 08/14/20 10:23 Intake & Output 08/13/20 08/14/20 08/15/20 06:59 06:59 06:59 Intake Total 1560 1600 Output Total 4075 2650 395 Balance -2515 -1050 -395 Weight 119.6 kg 118.2 kg Weight/Height Weight 118.2 kg Height 5 ft 7 in General appearance: PRESENT: no acute distress, morbidly obese Head exam: PRESENT: atraumatic, normocephalic Eye exam: PRESENT: conjunctiva pink, EOMI, PERRLA. ABSENT: scleral icterus Ear exam: PRESENT: normal external ear exam Mouth exam: PRESENT: moist, tongue midline Respiratory exam: PRESENT: clear to auscultation pinky, rhonchi - Slight. ABSENT: rales, wheezes Cardiovascular exam: PRESENT: RRR. ABSENT: diastolic murmur, rubs, systolic murmur GI/Abdominal exam: PRESENT: normal bowel sounds, soft. ABSENT: distended, guarding, mass, organolmegaly, rebound, tenderness Rectal exam: PRESENT: deferred Gentrourinary exam: PRESENT: indwelling catheter Extremities exam: PRESENT: full ROM, +1 edema. ABSENT: calf tenderness, clubbing, pedal edema Musculoskeletal exam: PRESENT: normal inspection Neurological exam: PRESENT: alert, altered, awake, CN II-XII grossly intact Psychiatric exam: PRESENT: agitated - At times. Skin exam: PRESENT: dry, intact, warm. ABSENT: cyanosis, rash Tubes/Lines: PRESENT: Endotracheal Tube, Nasogastic Tube Laboratory/Radiographs Laboratory Results: 08/12/20 14:30 08/12/20 14:30 08/12/20 13:20 Tracheal Aspirate Gram Stain - Final 08/12/20 13:20 Tracheal Aspirate Sputum Culture - Final Mrsa (Meth Resis Staph Aureus) Normal Mei Absent 08/07/20 08/07/20 08/07/20 00:34 00:35 06:31 Troponin I 0.390 NT-Pro-B Natriuret Pep 2780 H 3520 H 08/08/20 08/08/20 08/10/20 04:03 14:56 04:08 Troponin I 0.185 NT-Pro-B Natriuret Pep 3740 H 4510 H Impressions: KUB X-Ray 08/08/20 13:14 IMPRESSION: TIP OF THE NASOGASTRIC TUBE IS IN THE STOMACH. Chest X-Ray 08/12/20 00:00 IMPRESSION: Increasing consolidation at the left lung base suspicious for increasing pneumonia. All labs, radiographs, diagnostic studies and EKGs were personally reviewed: Yes In addition, reports of radiographic and diagnostic studies were read: Yes Assessment and Plan - Diagnosis (1) COVID-19 virus detected Is this a current diagnosis for this admission?: Yes Plan: The cause of her acute hypoxic respiratory failure. Risk of is high at her age. Nonetheless she is on PSV which we are starting to wean from 20. (2) LBBB (left bundle branch block) Is this a current diagnosis for this admission?: Yes Plan: No sequelae, does not seem to be AMI. (3) Diabetes Qualifiers: Diabetes mellitus type: type 2 Diabetes mellitus correction insulin use: unspecified correction insulin use status Diabetes mellitus complication st atus: with kidney complications Is this a current diagnosis for this admission?: Yes Plan: Needs better insulin control. (4) NSTEMI (non-ST elevated myocardial infarction) Is this a current diagnosis for this admission?: Yes Plan: Troponins downtrending. Echo shows no wall motion abnormalities that are obvious. Plan Summary: Better control of sugar. Wean PSV as tolerated. Critical Time Critical Time (minutes): 35 Level of Care: ICU Anticipated discharge: SNF Anticipated DC Timeframe: Other -: 1. The care of a critical patient is a dynamic process. This note is a account development representative synopsis but static in nature. The timeframe for treatments given in order is not necessarily the actual time these treatments may have been done. 2. This patient requires critical care secondary to ongoing requirements for therapy not offered or safe outside the critical care environment. Transfer to a lower level of care will result in altered life or limb morbidity and mortality. 3. Multidisciplinary rounds completed. 4. ABCDE bundle addressed.
--- NOTE | 2020-08-14 12:16 | PDOC CRITICAL CARE PROG REPORT ---
General Date:: 08/13/20 ICU Day:: 6 Ventilator Day:: 6 Hospital Day:: 6 Resuscitation Status: Full Code Events in the past 12 to 24 Hours:: Not able to make meaningful changes to vent. Awake. Review of systems relevant to events:: Pulmonary Reason for ICU Addmission:: Respiratory failure secondary to COVID-19 pneumonia. - Medications: Medications reviewed and adjusted accordingly: Yes Vasopressors:: None Sedation:: Diprivan. Physical Exam Vital Signs: Temp Pulse Resp BP Pulse Ox 99.9 F 89 25 H 154/71 H 94 08/14/20 10:00 08/14/20 08:20 08/14/20 10:23 08/14/20 10:23 08/14/20 10:23 Intake & Output 08/13/20 08/14/20 08/15/20 06:59 06:59 06:59 Intake Total 1560 1600 Output Total 4075 2650 395 Balance -2515 -1050 -395 Weight 119.6 kg 118.2 kg Weight/Height Weight 118.2 kg Height 5 ft 7 in General appearance: PRESENT: no acute distress Head exam: PRESENT: atraumatic, normocephalic Eye exam: PRESENT: conjunctiva pink, EOMI, PERRLA. ABSENT: scleral icterus Ear exam: PRESENT: normal external ear exam Mouth exam: PRESENT: moist, tongue midline Respiratory exam: PRESENT: clear to auscultation pinky, decreased breath sounds. ABSENT: rales, rhonchi, wheezes Cardiovascular exam: PRESENT: RRR. ABSENT: diastolic murmur, rubs, systolic murmur GI/Abdominal exam: PRESENT: normal bowel sounds, soft. ABSENT: distended, guarding, mass, organolmegaly, rebound, tenderness Rectal exam: PRESENT: deferred Gentrourinary exam: PRESENT: indwelling catheter Extremities exam: PRESENT: full ROM. ABSENT: calf tenderness, clubbing, pedal edema Musculoskeletal exam: PRESENT: normal inspection Neurological exam: PRESENT: alert, altered, awake, CN II-XII grossly intact Skin exam: PRESENT: dry, intact, warm. ABSENT: cyanosis, rash Tubes/Lines: PRESENT: Endotracheal Tube, Nasogastic Tube Laboratory/Radiographs Laboratory Results: 08/12/20 14:30 08/12/20 14:30 08/12/20 13:20 Tracheal Aspirate Gram Stain - Final 08/12/20 13:20 Tracheal Aspirate Sputum Culture - Final Mrsa (Meth Resis Staph Aureus) Normal Mei Absent 08/07/20 08/07/20 08/07/20 00:34 00:35 06:31 Troponin I 0.390 NT-Pro-B Natriuret Pep 2780 H 3520 H 08/08/20 08/08/20 08/10/20 04:03 14:56 04:08 Troponin I 0.185 NT-Pro-B Natriuret Pep 3740 H 4510 H Impressions: KUB X-Ray 08/08/20 13:14 IMPRESSION: TIP OF THE NASOGASTRIC TUBE IS IN THE STOMACH. Chest X-Ray 08/12/20 00:00 IMPRESSION: Increasing consolidation at the left lung base suspicious for increasing pneumonia. All labs, radiographs, diagnostic studies and EKGs were personally reviewed: Yes In addition, reports of radiographic and diagnostic studies were read: Yes Assessment and Plan - Diagnosis (1) COVID-19 virus detected Is this a current diagnosis for this admission?: Yes Plan: She is still vented and unable to come of just yet. Able to make some decrease in FIO2. (2) LBBB (left bundle branch block) Is this a current diagnosis for this admission?: Yes Plan: Question age and new AMI. Echo shows no wall motion abnormalities. 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 (4) NSTEMI (non-ST elevated myocardial infarction) Is this a current diagnosis for this admission?: Yes Plan: No sign on echo. Probably type two troponin leak. Plan Summary: Make vent changes as her condition allows. Foresee a prolonged vent coarse. Critical Time Critical Time (minutes): 35 Level of Care: ICU Anticipated discharge: SNF Anticipated DC Timeframe: Other -: 1. The care of a critical patient is a dynamic process. This note is a entry level sales representative synopsis but static in nature. The timeframe for treatments given in order is not necessarily the actual time these treatments may have been done. 2. This patient requires critical care secondary to ongoing requirements for therapy not offered or safe outside the critical care environment. Transfer to a lower level of care will result in altered life or limb morbidity and mortality. 3. Multidisciplinary rounds completed. 4. ABCDE bundle addressed.
[2020-08-14] MEDS: LINEZOLID 600 MG/300 ML RTUPB IV SCH ×2 (14:26→21:57)
[2020-08-14] MEDS: TORSEMIDE 20 MG TABLET PO SCH (18:02)
[2020-08-14] MEDS ORDERED: LORAZEPAM INJ 2 MG/1 ML VIAL ONE (22:19)
[2020-08-14] MEDS ORDERED: LORAZEPAM INJ 2 MG/1 ML VIAL IV ONE (22:45)
[2020-08-15] MEDS: INSULIN REG, HUMAN 100 UNIT/ML 3 ML VIAL (PYX) SUBCUT SCH ×4 (00:35→19:05)
[2020-08-15] MEDS: IPRATROPIUM/ALBUTEROL 0.5-2.5 MG/3 ML AMPUL NEB SCH ×6 (03:52→20:57)
[2020-08-15] MEDS: LEVOTHYROXINE SODIUM 0.15 MG TABLET PO SCH (06:36)
[2020-08-15] MEDS: INSULIN GLARGINE,HUM.REC.ANLOG 1,000 UNIT/10 ML VIAL SUBCUT SCH ×2 (10:25→22:12)
[2020-08-15] MEDS: HEPARIN SODIUM,PORCINE/D5W 25,000 UNIT/250 ML RTUINJ IV PRN (10:25)
[2020-08-15] MEDS: LINEZOLID 600 MG/300 ML RTUPB IV SCH ×2 (10:25→22:13)
[2020-08-15] MEDS: FAMOTIDINE INJ/PF 20 MG/2 ML SDV IV SCH (11:41)
[2020-08-15] MEDS: DEXAMETHASONE SOD PHOS INJ 10 MG/1 ML VIAL IV SCH (11:43)
[2020-08-15] MEDS: TORSEMIDE 20 MG TABLET PO SCH (19:03)
[2020-08-15] MEDS ORDERED: INSULIN REG, HUMAN 100 UNIT/ML 3 ML VIAL (PYX) SUBCUT SCH (22:00)
[2020-08-16] MEDS: IPRATROPIUM/ALBUTEROL 0.5-2.5 MG/3 ML AMPUL NEB SCH ×6 (00:14→20:07)
[2020-08-16] MEDS: INSULIN REG, HUMAN 100 UNIT/ML 3 ML VIAL (PYX) SUBCUT SCH ×5 (01:07→23:46)
[2020-08-16 04:07] LABS: HEMATOCRIT 29.1 % (36.0-47.0); HEMOGLOBIN 9.7 g/dL (12.0-15.5); MEAN CORPUSCULAR HEMOGLOBIN 29.1 pg (27.0-33.4); MEAN CORPUSCULAR HGB CONC 33.4 g/dL (32.0-36.0); MEAN CORPUSCULAR VOLUME 87 fl (80-97); PLATELET COUNT 419 10^3/uL (150-450); RED BLOOD COUNT 3.33 10^6/uL (3.72-5.28); RED CELL DISTRIBUTION WIDTH 14.6 % (11.5-14.0); WHITE BLOOD COUNT 25.5 10^3/uL (4.0-10.5)
[2020-08-16 04:36] LABS: ANION GAP 11 (5-19); BLOOD UREA NITROGEN 71 mg/dL (7-20); CARBON DIOXIDE 24 mmol/L (22-30); CHLORIDE 103 mmol/L (98-107); POTASSIUM 3.7 mmol/L (3.6-5.0)
[2020-08-16 04:41] LABS: ABSOLUTE LYMPHOCYTES# (MANUAL) 0.3 10^3/uL (0.5-4.7); BAND NEUTROPHILS % (MANUAL) 8 % (3-5); BASOPHILS % (MANUAL) 0 % (0-2); EOSINOPHILS % (MANUAL) 0 % (0-6); LYMPHOCYTES % (MANUAL) 1 % (13-45); METAMYELOCYTES % (MANUAL) 1 % (0-1); MONOCYTES % (MANUAL) 4 % (3-13); SEGMENTED NEUTROPHILS % (MAN) 86 % (42-78); TOTAL CELLS COUNTED 100
[2020-08-16 04:43] LABS: ANISOCYTOSIS SLIGHT; PLATELET COMMENT ADEQUATE; TOXIC GRANULATION 1+
[2020-08-16 04:45] LABS: GLUCOSE 428 mg/dL (75-110)
[2020-08-16] MEDS: HEPARIN SODIUM,PORCINE/D5W 25,000 UNIT/250 ML RTUINJ IV PRN ×2 (05:34→20:36)
[2020-08-16] MEDS: LEVOTHYROXINE SODIUM 0.15 MG TABLET PO SCH (05:34)
[2020-08-16] MEDS: METOPROLOL TARTRATE PF/INJ 5 MG/5 ML SDV IV PRN ×3 (05:34→14:50)
[2020-08-16] MEDS: FAMOTIDINE INJ/PF 20 MG/2 ML SDV IV SCH (10:12)
[2020-08-16] MEDS: DEXAMETHASONE SOD PHOS INJ 10 MG/1 ML VIAL IV SCH (10:12)
[2020-08-16] MEDS: INSULIN GLARGINE,HUM.REC.ANLOG 1,000 UNIT/10 ML VIAL SUBCUT SCH ×2 (10:12→22:35)
[2020-08-16] MEDS: LINEZOLID 600 MG/300 ML RTUPB IV SCH ×2 (10:15→22:35)
--- NOTE | 2020-08-16 12:03 | PDOC CRITICAL CARE PROG REPORT ---
General Date:: 08/15/20 ICU Day:: 8 Ventilator Day:: 8 Hospital Day:: 8 Resuscitation Status: Full Code Events in the past 12 to 24 Hours:: Not able to make meaningful changes to vent. Awake. 08/15: Not quite ready to extubate. Review of systems relevant to events:: Pulmonary Reason for ICU Addmission:: Respiratory failure secondary to COVID-19 pneumonia. Intubated. - Medications: Medications reviewed and adjusted accordingly: Yes Vasopressors:: None Sedation:: Propofol Physical Exam Vital Signs: Temp Pulse Resp BP Pulse Ox 98.8 F 79 28 H 141/55 H 95 08/15/20 06:00 08/15/20 16:40 08/15/20 16:40 08/15/20 16:40 08/15/20 16:40 Intake & Output 08/14/20 08/15/20 08/16/20 06:59 06:59 06:59 Intake Total 1600 1236 498 Output Total 2650 1880 410 Balance -1050 -644 88 Weight 118.2 kg 117.1 kg 117.1 kg Weight/Height Weight 117.1 kg Height 5 ft 7 in General appearance: PRESENT: no acute distress, morbidly obese Eye exam: PRESENT: conjunctival injection Ear exam: PRESENT: normal external ear exam Mouth exam: PRESENT: moist, tongue midline Respiratory exam: PRESENT: clear to auscultation pinky, rhonchi. ABSENT: rales, wheezes Cardiovascular exam: PRESENT: RRR. ABSENT: diastolic murmur, rubs, systolic murmur GI/Abdominal exam: PRESENT: normal bowel sounds, soft. ABSENT: distended, guarding, mass, organolmegaly, rebound, tenderness Rectal exam: PRESENT: deferred Gentrourinary exam: PRESENT: indwelling catheter Extremities exam: PRESENT: full ROM, +1 edema. ABSENT: calf tenderness, clubbing, pedal edema Musculoskeletal exam: PRESENT: normal inspection Neurological exam: PRESENT: other - Sedated. Skin exam: PRESENT: dry, intact, warm. ABSENT: cyanosis, rash Tubes/Lines: PRESENT: Endotracheal Tube, Nasogastic Tube Laboratory/Radiographs Laboratory Results: 08/12/20 14:30 08/12/20 14:30 08/12/20 13:20 Tracheal Aspirate Gram Stain - Final 08/12/20 13:20 Tracheal Aspirate Sputum Culture - Final Mrsa (Meth Resis Staph Aureus) Normal Mei Absent 08/07/20 08/07/20 08/07/20 00:34 00:35 06:31 Troponin I 0.390 NT-Pro-B Natriuret Pep 2780 H 3520 H 08/08/20 08/08/20 08/10/20 04:03 14:56 04:08 Troponin I 0.185 NT-Pro-B Natriuret Pep 3740 H 4510 H Impressions: KUB X-Ray 08/08/20 13:14 IMPRESSION: TIP OF THE NASOGASTRIC TUBE IS IN THE STOMACH. Chest X-Ray 08/12/20 00:00 IMPRESSION: Increasing consolidation at the left lung base suspicious for increasing pneumonia. All labs, radiographs, diagnostic studies and EKGs were personally reviewed: Yes In addition, reports of radiographic and diagnostic studies were read: Yes Assessment and Plan - Diagnosis (1) COVID-19 virus detected Is this a current diagnosis for this admission?: Yes Plan: At her age this is a serious diagnosis with a high risk of mortality. (2) Diabetes Qualifiers: Diabetes mellitus type: type 2 Diabetes mellitus fci insulin use: unspecified termite treater helper insulin use status Diabetes mellitus complication status: with kidney complications Is this a current diagnosis for this admission?: Yes Plan: Not controlled, needs more insulin (3) NSTEMI (non-ST elevated myocardial infarction) Is this a current diagnosis for this admission?: Yes Plan: Not active. Plan Summary: Keep intubated at least one more day. Critical Time Critical Time (minutes): 35 Level of Care: ICU Anticipated discharge: SNF Anticipated DC Timeframe: Other -: 1. The care of a critical patient is a dynamic process. This note is a leasing representative synopsis but static in nature. The timeframe for treatments given in order is not necessarily the actual time these treatments may have been done. 2. This patient requires critical care secondary to ongoing requirements for therapy not offered or safe outside the critical care environment. Transfer to a lower level of care will result in altered life or limb morbidity and mortality. 3. Multidisciplinary rounds completed. 4. ABCDE bundle addressed.
--- NOTE | 2020-08-16 12:24 | PDOC CRITICAL CARE PROG REPORT ---
General Date:: 08/16/20 Resuscitation Status: Full Code Events in the past 12 to 24 Hours:: Not able to make meaningful changes to vent. Awake. 08/15: Not quite ready to extubate. 08/16: Pt extubated this AM. Review of systems relevant to events:: Pulmonary. Reason for ICU Addmission:: Respiratory failure secondary to COVID-19 pneumonia. Extubated - Medications: Medications reviewed and adjusted accordingly: Yes Vasopressors:: None Sedation:: None Physical Exam Vital Signs: Temp Pulse Resp BP Pulse Ox 98.8 F 90 35 H 176/70 H 95 08/16/20 10:00 08/16/20 11:35 08/16/20 11:35 08/16/20 10:41 08/16/20 11:35 Intake & Output 08/15/20 08/16/20 08/17/20 06:59 06:59 06:59 Intake Total 1236 1118 Output Total 1880 1595 350 Balance -644 -477 -350 Weight 117.1 kg 119 kg Weight/Height Weight 119 kg Height 5 ft 7 in General appearance: PRESENT: no acute distress, cooperative, morbidly obese Head exam: PRESENT: atraumatic, normocephalic Eye exam: PRESENT: conjunctiva pink, EOMI, PERRLA. ABSENT: scleral icterus Ear exam: PRESENT: normal external ear exam Mouth exam: PRESENT: moist, tongue midline Respiratory exam: PRESENT: clear to auscultation pinky. ABSENT: rales, rhonchi, wheezes GI/Abdominal exam: PRESENT: normal bowel sounds, soft. ABSENT: distended, guarding, mass, organolmegaly, rebound, tenderness Rectal exam: PRESENT: deferred Gentrourinary exam: PRESENT: indwelling catheter Extremities exam: PRESENT: full ROM. ABSENT: calf tenderness, clubbing, pedal edema Musculoskeletal exam: PRESENT: normal inspection Neurological exam: PRESENT: alert, awake Skin exam: PRESENT: dry, intact, warm. ABSENT: cyanosis, rash Laboratory/Radiographs Laboratory Results: 08/16/20 03:48 08/16/20 03:48 08/16/20 08/16/20 03:48 03:48 WBC 25.5 H RBC 3.33 L Hgb 9.7 L Hct 29.1 L MCV 87 MCH 29.1 MCHC 33.4 RDW 14.6 H Plt Count 419 Seg Neutrophils % Not Reportable Sodium 138.1 Potassium 3.7 Chloride 103 Carbon Dioxide 24 Anion Gap 11 BUN 71 H Creatinine 1.44 H Est GFR ( Amer) 42 L Glucose 428 H* Calcium 9.0 08/07/20 08/07/20 08/07/20 00:34 00:35 06:31 Troponin I 0.390 NT-Pro-B Natriuret Pep 2780 H 3520 H 08/08/20 08/08/20 08/10/20 04:03 14:56 04:08 Troponin I 0.185 NT-Pro-B Natriuret Pep 3740 H 4510 H Impressions: KUB X-Ray 08/08/20 13:14 IMPRESSION: TIP OF THE NASOGASTRIC TUBE IS IN THE STOMACH. Chest X-Ray 08/12/20 00:00 IMPRESSION: Increasing consolidation at the left lung base suspicious for increasing pneumonia. All labs, radiographs, diagnostic studies and EKGs were personally reviewed: Yes In addition, reports of radiographic and diagnostic studies were read: Yes Assessment and Plan - Diagnosis (1) COVID-19 virus detected Is this a current diagnosis for this admission?: Yes Plan: Extubated this AM. So far doing well. At her age with COVID she will still need the ICU for high risk of reintubation. 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 (3) NSTEMI (non-ST elevated myocardial infarction) Is this a current diagnosis for this admission?: Yes Plan: No sequelae thus far. Plan Summary: Keep in ICU and observe while extubated. Critical Time Critical Time (minutes): 35 Level of Care: ICU Anticipated discharge: SNF Anticipated DC Timeframe: Other -: 1. The care of a critical patient is a dynamic process. This note is a sales representative door to door synopsis but static in nature. The timeframe for treatments given in order is not necessarily the actual time these treatments may have been done. 2. This patient requires critical care secondary to ongoing requirements for therapy not offered or safe outside the critical care environment. Transfer to a lower level of care will result in altered life or limb morbidity and mortality. 3. Multidisciplinary rounds completed. 4. ABCDE bundle addressed.
[2020-08-16] MEDS: METOPROLOL TARTRATE 50 MG TABLET PO SCH ×2 (12:40→22:35)
[2020-08-16] MEDS ORDERED: RACEPINEPHRINE HCL 2.25% NEB 0.5 ML AMPUL NEB ONE (17:00)
[2020-08-16] MEDS: TORSEMIDE 20 MG TABLET PO SCH (18:12)
[2020-08-16] MEDS ORDERED: LABETALOL HCL INJ 20 MG/4 ML DISP.SYRIN IV ONE (21:45)
[2020-08-16] MEDS: AMLODIPINE BESYLATE 5 MG TABLET PO SCH (22:35)
[2020-08-17] MEDS: IPRATROPIUM/ALBUTEROL 0.5-2.5 MG/3 ML AMPUL NEB SCH ×6 (00:28→20:50)
[2020-08-17] MEDS ORDERED: ROCURONIUM BROMIDE INJ 50 MG/5 ML VIAL IV ONE (00:41)
[2020-08-17] MEDS ORDERED: ETOMIDATE INJ/PF 20 MG/10 ML SDV IV ONE ×2 (00:41)
[2020-08-17] MEDS ORDERED: MIDAZOLAM HCL 50 MG/100 ML RTUINJ ONE (01:08)
[2020-08-17] MEDS: MIDAZOLAM HCL 50 MG/100 ML RTUINJ IV PRN ×2 (01:30→14:08)
--- NOTE | 2020-08-17 03:28 | RADIOLOGY REPORT (SQ) ---
CHEST X-RAY 1 VIEW on 08/17/2020 at 2:28 AM CLINICAL INDICATION: ET tube placement COMPARISON: 08/12/2020 FINDINGS: ET tube tip is in the mid to lower thoracic trachea approximately 1.9 cm above the level of the janay. NG tube is curled in the upper stomach in good position. A few wires are noted projecting over the chest. Heart is within normal limits for size. There are continued bilateral interstitial and airspace opacities consistent with edema and/or pneumonia and differential diagnosis would include viral infections. This does appear improved in the lower lungs however somewhat worsened in the right upper lung. IMPRESSION: Continued bilateral edema and/or pneumonia and differential diagnosis would include viral infections.
[2020-08-17] MEDS: LEVOTHYROXINE SODIUM 0.15 MG TABLET PO SCH (06:08)
[2020-08-17] MEDS: INSULIN REG, HUMAN 100 UNIT/ML 3 ML VIAL (PYX) SUBCUT SCH ×3 (06:09→18:00)
[2020-08-17] MEDS: METOPROLOL TARTRATE 50 MG TABLET PO SCH ×2 (09:59→21:49)
[2020-08-17] MEDS: INSULIN GLARGINE,HUM.REC.ANLOG 1,000 UNIT/10 ML VIAL SUBCUT SCH ×2 (09:59→21:48)
[2020-08-17] MEDS: FAMOTIDINE INJ/PF 20 MG/2 ML SDV IV SCH (10:00)
[2020-08-17] MEDS: AMLODIPINE BESYLATE 5 MG TABLET PO SCH ×2 (10:00→21:49)
[2020-08-17] MEDS: DEXAMETHASONE SOD PHOS INJ 10 MG/1 ML VIAL IV SCH (10:00)
[2020-08-17] MEDS: LINEZOLID 600 MG/300 ML RTUPB IV SCH ×2 (10:00→21:49)
[2020-08-17] MEDS: RINGERS SOLUTION,LACTATED 1,000 ML IV PRN ×2 (14:05→20:20)
[2020-08-17] MEDS: HEPARIN SODIUM,PORCINE/D5W 25,000 UNIT/250 ML RTUINJ IV PRN (15:33)
[2020-08-17] MEDS: ALBUMIN HUMAN 12.5 GM/50 ML RTUINJ IV SCH ×2 (17:57→20:25)
[2020-08-17] MEDS: TORSEMIDE 20 MG TABLET PO SCH (17:58)
[2020-08-17] MEDS ORDERED: DEXTROSE 5%-WATER 250 ML with NOREPINEPHRINE BITARTRATE 4 MG IV PRN ×2 (18:38)
[2020-08-17] MEDS ORDERED: NOREPINEPHRINE BITARTRATE INJ/PF 4 MG/4 ML SDV IV ONE (18:50)
[2020-08-18] MEDS: INSULIN REG, HUMAN 100 UNIT/ML 3 ML VIAL (PYX) SUBCUT SCH ×4 (00:37→19:47)
[2020-08-18] MEDS: IPRATROPIUM/ALBUTEROL 0.5-2.5 MG/3 ML AMPUL NEB SCH ×6 (00:44→20:27)
[2020-08-18] MEDS: LEVOTHYROXINE SODIUM 0.15 MG TABLET PO SCH (05:42)
[2020-08-18] MEDS: MIDAZOLAM HCL 50 MG/100 ML RTUINJ IV PRN (05:55)
[2020-08-18] MEDS: RINGERS SOLUTION,LACTATED 1,000 ML IV PRN ×2 (06:24→23:10)
[2020-08-18] MEDS: INSULIN GLARGINE,HUM.REC.ANLOG 1,000 UNIT/10 ML VIAL SUBCUT SCH ×2 (09:13→21:39)
[2020-08-18] MEDS: FAMOTIDINE INJ/PF 20 MG/2 ML SDV IV SCH (09:14)
[2020-08-18] MEDS: DEXAMETHASONE SOD PHOS INJ 10 MG/1 ML VIAL IV SCH (09:14)
[2020-08-18] MEDS: AMLODIPINE BESYLATE 5 MG TABLET PO SCH ×2 (09:16→21:06)
[2020-08-18] MEDS: METOPROLOL TARTRATE 50 MG TABLET PO SCH ×2 (09:16→21:06)
[2020-08-18 10:24] LABS: ARTERIAL BLOOD BASE EXCESS 0.6 mmol/L; ARTERIAL BLOOD H2CO3 1.02 mmol/L (1.05-1.35); ARTERIAL BLOOD HCO3 24.1 mmol/L (20-24); ARTERIAL BLOOD O2 SATURATION 91.9 % (94-98); ARTERIAL BLOOD PH 7.47 (7.35-7.45); ARTERIAL BLOOD PO2 57.7 mmHg (80-100); ARTERIAL BLOOD TOTAL CO2 25.2 mmol/L (21-25)
[2020-08-18] MEDS: HEPARIN SODIUM,PORCINE/D5W 25,000 UNIT/250 ML RTUINJ IV PRN (10:54)
[2020-08-18] MEDS: LINEZOLID 600 MG/300 ML RTUPB IV SCH ×2 (15:00→21:07)
--- NOTE | 2020-08-18 18:42 | PDOC CRITICAL CARE PROG REPORT ---
General Date:: 08/18/20 ICU Day:: 11 Ventilator Day:: 11 Hospital Day:: 11 Resuscitation Status: Full Code Events in the past 12 to 24 Hours:: Not able to make meaningful changes to vent. Awake. 08/15: Not quite ready to extubate. 08/16: Pt extubated this AM. 08/18: Not able to wean much today. Review of systems relevant to events:: Pulmonary Reason for ICU Addmission:: Respiratory failure secondary to COVID-19 pneumonia. Extubated - Medications: Medications reviewed and adjusted accordingly: Yes Vasopressors:: Levophed Sedation:: Versed Physical Exam Vital Signs: Temp Pulse Resp BP Pulse Ox 98.6 F 78 19 138/50 H 97 08/18/20 16:00 08/18/20 16:02 08/18/20 18:17 08/18/20 18:17 08/18/20 18:17 Intake & Output 08/17/20 08/18/20 08/19/20 06:59 06:59 06:59 Intake Total 935 3063 283 Output Total 1985 670 620 Balance -1050 2393 -337 Weight 117.5 kg 117.1 kg Weight/Height Weight 117.1 kg Height 5 ft 7 in General appearance: PRESENT: no acute distress, morbidly obese Head exam: PRESENT: atraumatic, normocephalic Eye exam: PRESENT: conjunctiva pink, EOMI, PERRLA. ABSENT: scleral icterus Ear exam: PRESENT: normal external ear exam Mouth exam: PRESENT: moist, tongue midline Respiratory exam: PRESENT: clear to auscultation pinky, decreased breath sounds. ABSENT: rales, rhonchi, wheezes Cardiovascular exam: PRESENT: RRR. ABSENT: diastolic murmur, rubs, systolic murmur GI/Abdominal exam: PRESENT: normal bowel sounds, soft. ABSENT: distended, guarding, mass, organolmegaly, rebound, tenderness Rectal exam: PRESENT: deferred Gentrourinary exam: PRESENT: indwelling catheter Extremities exam: PRESENT: full ROM. ABSENT: calf tenderness, clubbing, pedal edema Musculoskeletal exam: PRESENT: normal inspection Neurological exam: PRESENT: altered, other - Sedated Skin exam: PRESENT: dry, intact, warm. ABSENT: cyanosis, rash Tubes/Lines: PRESENT: Endotracheal Tube, Nasogastic Tube Laboratory/Radiographs Laboratory Results: 08/16/20 03:48 08/16/20 03:48 08/18/20 09:57 Carbonic Acid 1.02 L HCO3/H2CO3 Ratio 23:1 ABG pH 7.47 H ABG pCO2 34.0 L ABG pO2 57.7 L ABG HCO3 24.1 H ABG O2 Saturation 91.9 L ABG Base Excess 0.6 FiO2 55% 08/07/20 08/07/20 08/07/20 00:34 00:35 06:31 Troponin I 0.390 NT-Pro-B Natriuret Pep 2780 H 3520 H 08/08/20 08/08/20 08/10/20 04:03 14:56 04:08 Troponin I 0.185 NT-Pro-B Natriuret Pep 3740 H 4510 H Impressions: KUB X-Ray 08/08/20 13:14 IMPRESSION: TIP OF THE NASOGASTRIC TUBE IS IN THE STOMACH. Chest X-Ray 08/17/20 00:00 IMPRESSION: Continued bilateral edema and/or pneumonia and differential diagnosis would include viral infections. All labs, radiographs, diagnostic studies and EKGs were personally reviewed: Yes In addition, reports of radiographic and diagnostic studies were read: Yes Assessment and Plan - Diagnosis (1) COVID-19 virus detected Is this a current diagnosis for this admission?: Yes Plan: Still effecting her ability to wean and stay extubated (2) Diabetes Qualifiers: Diabetes mellitus type: type 2 Diabetes mellitus chcf insulin use: unspecified chcf insulin use status Diabetes mellitus complication status: with kidney complications Is this a current diagnosis for this admission?: Yes Plan: Under better control (3) NSTEMI (non-ST elevated myocardial infarction) Is this a current diagnosis for this admission?: Yes (4) Leukocytosis Is this a current diagnosis for this admission?: Yes Plan: WBC is 25. MRSA in sputum. On linezolid. Plan Summary: Recheck labs in AM. Try again to wean vent Critical Time Critical Time (minutes): 35 Level of Care: ICU Anticipated discharge: SNF Anticipated DC Timeframe: Other -: 1. The care of a critical patient is a dynamic process. This note is a sales representative facility services synopsis but static in nature. The timeframe for treatments given in order is not necessarily the actual time these treatments may have been done. 2. This patient requires critical care secondary to ongoing requirements for therapy not offered or safe outside the critical care environment. Transfer to a lower level of care will result in altered life or limb morbidity and mortality. 3. Multidisciplinary rounds completed. 4. ABCDE bundle addressed.
[2020-08-19] MEDS: INSULIN REG, HUMAN 100 UNIT/ML 3 ML VIAL (PYX) SUBCUT SCH ×4 (00:28→17:43)
[2020-08-19 00:35] LABS: ANION GAP 5 (5-19); BLOOD UREA NITROGEN 92 mg/dL (7-20); CALCIUM 8.2 mg/dL (8.4-10.2); CARBON DIOXIDE 29 mmol/L (22-30); CHLORIDE 97 mmol/L (98-107); GLUCOSE 239 mg/dL (75-110); PHOSPHORUS 4.6 mg/dL (2.5-4.5); POTASSIUM 4.1 mmol/L (3.6-5.0)
[2020-08-19] MEDS: IPRATROPIUM/ALBUTEROL 0.5-2.5 MG/3 ML AMPUL NEB SCH ×7 (00:36→23:27)
[2020-08-19] MEDS: MIDAZOLAM HCL 50 MG/100 ML RTUINJ IV PRN (00:36)
[2020-08-19] MEDS: TORSEMIDE 20 MG TABLET PO SCH (01:06)
[2020-08-19 05:06] LABS: HEMATOCRIT 20.8 % (36.0-47.0); MEAN CORPUSCULAR HEMOGLOBIN 28.7 pg (27.0-33.4); MEAN CORPUSCULAR HGB CONC 33.3 g/dL (32.0-36.0); MEAN CORPUSCULAR VOLUME 86 fl (80-97); PLATELET COUNT 400 10^3/uL (150-450); RED BLOOD COUNT 2.41 10^6/uL (3.72-5.28); RED CELL DISTRIBUTION WIDTH 14.8 % (11.5-14.0); WHITE BLOOD COUNT 24.6 10^3/uL (4.0-10.5)
[2020-08-19 05:11] LABS: ANION GAP 8 (5-19); BLOOD UREA NITROGEN 91 mg/dL (7-20); CALCIUM 8.3 mg/dL (8.4-10.2); CARBON DIOXIDE 27 mmol/L (22-30); CHLORIDE 99 mmol/L (98-107); GLUCOSE 229 mg/dL (75-110); POTASSIUM 3.6 mmol/L (3.6-5.0)
[2020-08-19 05:30] LABS: ABSOLUTE LYMPHOCYTES# (MANUAL) 0.7 10^3/uL (0.5-4.7); ABSOLUTE MONOCYTES # (MANUAL) 1.7 10^3/uL (0.1-1.4); BASOPHILS % (MANUAL) 0 % (0-2); EOSINOPHILS % (MANUAL) 0 % (0-6); LYMPHOCYTES % (MANUAL) 3 % (13-45); MONOCYTES % (MANUAL) 7 % (3-13); SEGMENTED NEUTROPHILS % (MAN) 90 % (42-78); TOTAL CELLS COUNTED 100
[2020-08-19 05:31] LABS: ANISOCYTOSIS SLIGHT; OVALOCYTES SLIGHT; PLATELET COMMENT ADEQUATE; POIKILOCYTOSIS SLIGHT; TEAR DROP CELLS SLIGHT; TOXIC GRANULATION SLIGHT
[2020-08-19 05:36] LABS: HEMOGLOBIN 6.9 g/dL (12.0-15.5)
[2020-08-19] MEDS: RINGERS SOLUTION,LACTATED 1,000 ML IV PRN ×3 (05:39→17:58)
[2020-08-19] MEDS: HEPARIN SODIUM,PORCINE/D5W 25,000 UNIT/250 ML RTUINJ IV PRN (05:49)
[2020-08-19] MEDS: LEVOTHYROXINE SODIUM 0.15 MG TABLET PO SCH (07:23)
--- NOTE | 2020-08-19 08:30 | RADIOLOGY REPORT (SQ) ---
EXAM DESCRIPTION: CHEST SINGLE VIEW IMAGES COMPLETED DATE/TIME: 08/19/2020 6:43 am REASON FOR STUDY: resp failure; f/u infiltrates ETT position COMPARISON: 08/17/2020 NUMBER OF VIEWS: One view. TECHNIQUE: Single frontal radiographic image of the chest acquired. LIMITATIONS: None. FINDINGS: LUNGS AND PLEURA: Bilateral airspace disease, left greater than right not significantly ch anged. No pneumothorax. MEDIASTINUM AND HEART: Stable heart size and mediastinal structures. SUPPORT DEVICES: Appropriate location without change. BONY STRUCTURES: No acute findings. HARDWARE: None. OTHER: No other significant finding. IMPRESSION: STABLE APPEARANCE OF THE CHEST. SUPPORT DEVICES UNCHANGED. Reading location - IP/workstation name: [email or web address]
[2020-08-19] MEDS: DEXAMETHASONE SOD PHOS INJ 10 MG/1 ML VIAL IV SCH (11:36)
[2020-08-19] MEDS: LINEZOLID 600 MG/300 ML RTUPB IV SCH ×2 (11:36→21:24)
[2020-08-19] MEDS: FAMOTIDINE INJ/PF 20 MG/2 ML SDV IV SCH (11:36)
[2020-08-19] MEDS: INSULIN GLARGINE,HUM.REC.ANLOG 1,000 UNIT/10 ML VIAL SUBCUT SCH ×2 (11:37→21:24)
[2020-08-19] MEDS: METOPROLOL TARTRATE 50 MG TABLET PO SCH ×2 (11:37→21:24)
--- NOTE | 2020-08-19 15:46 | PDOC CRITICAL CARE PROG REPORT ---
General Date:: 08/19/20 ICU Day:: 12 Ventilator Day:: 12 Hospital Day:: 12 Resuscitation Status: Full Code Events in the past 12 to 24 Hours:: Not able to make meaningful changes to vent. Awake. 08/15: Not quite ready to extubate. 08/16: Pt extubated this AM. 08/18: Not able to wean much today. 08/19: Lowering sedation and changing to precedex. Hgb 6.8 no sign of bleeding needs blood. Review of systems relevant to events:: Pulmonary, CV. Reason for ICU Addmission:: Respiratory failure secondary to COVID-19 pneumonia, reintubated. - Medications: Medications reviewed and adjusted accordingly: Yes Vasopressors:: None Sedation:: Versed soon to be precedex Physical Exam Vital Signs: Temp Pulse Resp BP Pulse Ox 98.2 F 71 18 126/54 H 96 08/19/20 14:00 08/19/20 14:00 08/19/20 14:44 08/19/20 14:44 08/19/20 14:44 Intake & Output 08/18/20 08/19/20 08/20/20 06:59 06:59 06:59 Intake Total 3063 3673 1279 Output Total 670 1335 400 Balance 2393 2338 879 Weight 117.1 kg 122.7 kg Weight/Height Weight 122.7 kg Height 5 ft 7 in General appearance: PRESENT: no acute distress, morbidly obese Head exam: PRESENT: atraumatic, normocephalic Eye exam: PRESENT: conjunctiva pink, EOMI, PERRLA. ABSENT: scleral icterus Ear exam: PRESENT: normal external ear exam Mouth exam: PRESENT: moist, tongue midline Respiratory exam: PRESENT: clear to auscultation pinky, decreased breath sounds. ABSENT: rales, rhonchi, wheezes Cardiovascular exam: PRESENT: RRR. ABSENT: diastolic murmur, rubs, systolic murmur GI/Abdominal exam: PRESENT: normal bowel sounds, soft. ABSENT: distended, guarding, mass, organolmegaly, rebound, tenderness Rectal exam: PRESENT: deferred Gentrourinary exam: PRESENT: indwelling catheter Extremities exam: PRESENT: +2 edema Musculoskeletal exam: PRESENT: normal inspection Neurological exam: PRESENT: altered, other - Sedated Skin exam: PRESENT: dry, intact, warm. ABSENT: cyanosis, rash Tubes/Lines: PRESENT: Endotracheal Tube, Nasogastic Tube Laboratory/Radiographs Laboratory Results: 08/19/20 04:33 08/19/20 04:33 08/18/20 08/19/20 08/19/20 23:49 04:33 04:33 WBC 24.6 H RBC 2.41 L Hgb 6.9 L Hct 20.8 L MCV 86 MCH 28.7 MCHC 33.3 RDW 14.8 H Plt Count 400 Seg Neutrophils % Not Reportable Sodium 130.9 L 134.1 L Potassium 4.1 3.6 Chloride 97 L 99 Carbon Dioxide 29 27 Anion Gap 5 8 BUN 92 H 91 H Creatinine 1.90 H 1.99 H Est GFR ( Amer) 30 L 29 L Glucose 239 H 229 H Calcium 8.2 L 8.3 L Phosphorus 4.6 H Magnesium 2.0 08/07/20 08/07/20 08/07/20 00:34 00:35 06:31 Troponin I 0.390 NT-Pro-B Natriuret Pep 2780 H 3520 H 08/08/20 08/08/20 08/10/20 04:03 14:56 04:08 Troponin I 0.185 NT-Pro-B Natriuret Pep 3740 H 4510 H Impressions: KUB X-Ray 08/08/20 13:14 IMPRESSION: TIP OF THE NASOGASTRIC TUBE IS IN THE STOMACH. Chest X-Ray 08/19/20 06:00 IMPRESSION: STABLE APPEARANCE OF THE CHEST. SUPPORT DEVICES UNCHANGED. All labs, radiographs, diagnostic studies and EKGs were personally reviewed: Yes In addition, reports of radiographic and diagnostic studies were read: Yes Assessment and Plan - Diagnosis (1) COVID-19 virus detected Is this a current diagnosis for this admission?: Yes Plan: She is not doing badly for an 85 yo with Covid and I would like to extubate if possible in a day or so. 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 (3) NSTEMI (non-ST elevated myocardial infarction) Is this a current diagnosis for this admission?: Yes Plan: Inactive. (4) Leukocytosis Is this a current diagnosis for this admission?: Yes Plan: Slightly lower, no obvious signs of infection. Plan Summary: Hope to extubate in a day or two. Needs blood. Hgb 6.9. No sign of bleeding Critical Time Critical Time (minutes): 35 Level of Care: ICU Anticipated discharge: SNF Anticipated DC Timeframe: Other -: 1. The care of a critical patient is a dynamic process. This note is a customer contact representative synopsis but static in nature. The timeframe for treatments given in order is not necessarily the actual time these treatments may have been done. 2. This patient requires critical care secondary to ongoing requirements for th erapy not offered or safe outside the critical care environment. Transfer to a lower level of care will result in altered life or limb morbidity and mortality. 3. Multidisciplinary rounds completed. 4. ABCDE bundle addressed.
[2020-08-19] MEDS ORDERED: NORMAL SALINE 250 ML IV PRN ×2 (16:41)
[2020-08-19] MEDS ORDERED: FUROSEMIDE INJ/PF 40 MG/4 ML SDV IV ONE (16:42)
[2020-08-19] MEDS: DEXMEDETOMIDINE IN 0.9 % NACL 400 MCG/100 ML RTUPB IV PRN (17:00)
[2020-08-20] MEDS: INSULIN REG, HUMAN 100 UNIT/ML 3 ML VIAL (PYX) SUBCUT SCH ×5 (00:16→17:47)
[2020-08-20] MEDS: HEPARIN SODIUM,PORCINE/D5W 25,000 UNIT/250 ML RTUINJ IV PRN ×2 (00:20→18:28)
[2020-08-20] MEDS: RINGERS SOLUTION,LACTATED 1,000 ML IV PRN ×3 (00:20→18:10)
[2020-08-20] MEDS: DEXMEDETOMIDINE IN 0.9 % NACL 400 MCG/100 ML RTUPB IV PRN ×2 (01:01→06:55)
[2020-08-20] MEDS: IPRATROPIUM/ALBUTEROL 0.5-2.5 MG/3 ML AMPUL NEB SCH ×6 (03:48→23:56)
[2020-08-20 04:27] LABS: HEMATOCRIT 29.9 % (36.0-47.0); MEAN CORPUSCULAR HEMOGLOBIN 29.3 pg (27.0-33.4); MEAN CORPUSCULAR HGB CONC 33.7 g/dL (32.0-36.0); MEAN CORPUSCULAR VOLUME 87 fl (80-97); PLATELET COUNT 398 10^3/uL (150-450); RED BLOOD COUNT 3.44 10^6/uL (3.72-5.28); RED CELL DISTRIBUTION WIDTH 14.2 % (11.5-14.0); WHITE BLOOD COUNT 24.1 10^3/uL (4.0-10.5)
[2020-08-20 04:52] LABS: HEMOGLOBIN 10.1 g/dL (12.0-15.5)
[2020-08-20 04:55] LABS: ABSOLUTE LYMPHOCYTES# (MANUAL) 0.5 10^3/uL (0.5-4.7); ABSOLUTE MONOCYTES # (MANUAL) 0.7 10^3/uL (0.1-1.4); BAND NEUTROPHILS % (MANUAL) 2 % (3-5); BASOPHILS % (MANUAL) 0 % (0-2); EOSINOPHILS % (MANUAL) 0 % (0-6); LYMPHOCYTES % (MANUAL) 2 % (13-45); MONOCYTES % (MANUAL) 3 % (3-13); SEGMENTED NEUTROPHILS % (MAN) 93 % (42-78); TOTAL CELLS COUNTED 100
[2020-08-20 04:56] LABS: ANISOCYTOSIS SLIGHT; PLATELET COMMENT ADEQUATE
[2020-08-20 04:58] LABS: BURR CELLS SLIGHT; OVALOCYTES SLIGHT; SCHISTOCYTES SLIGHT; TEAR DROP CELLS SLIGHT
[2020-08-20 05:00] LABS: TOXIC VACUOLATION PRESENT
[2020-08-20] MEDS: LEVOTHYROXINE SODIUM 0.15 MG TABLET PO SCH (05:09)
[2020-08-20] MEDS ORDERED: HEPARIN SOD (PORCINE) 1,000 UNIT/ML 10 ML VIAL ONE (05:30)
[2020-08-20] MEDS: METOPROLOL TARTRATE PF/INJ 5 MG/5 ML SDV IV PRN (06:13)
[2020-08-20] MEDS: FAMOTIDINE INJ/PF 20 MG/2 ML SDV IV SCH (09:20)
[2020-08-20] MEDS: METOPROLOL TARTRATE 50 MG TABLET PO SCH ×2 (09:20→21:41)
[2020-08-20] MEDS: DEXAMETHASONE SOD PHOS INJ 10 MG/1 ML VIAL IV SCH (09:20)
[2020-08-20] MEDS: LINEZOLID 600 MG/300 ML RTUPB IV SCH ×2 (09:21→21:42)
[2020-08-20] MEDS: INSULIN GLARGINE,HUM.REC.ANLOG 1,000 UNIT/10 ML VIAL SUBCUT SCH ×2 (09:21→21:41)
[2020-08-20 12:08] LABS: ANION GAP 10 (5-19); BLOOD UREA NITROGEN 85 mg/dL (7-20); CALCIUM 8.9 mg/dL (8.4-10.2); CARBON DIOXIDE 22 mmol/L (22-30); CHLORIDE 100 mmol/L (98-107); GLUCOSE 316 mg/dL (75-110); POTASSIUM 4.3 mmol/L (3.6-5.0)
--- NOTE | 2020-08-20 13:09 | PDOC CRITICAL CARE PROG REPORT ---
General Date:: 08/20/20 ICU Day:: 14 Ventilator Day:: 14 Hospital Day:: 14 Resuscitation Status: Full Code Events in the past 12 to 24 Hours:: Not able to make meaningful changes to vent. Awake. 08/15: Not quite ready to extubate. 08/16: Pt extubated this AM. 08/18: Not able to wean much today. 08/19: Lowering sedation and changing to precedex. Hgb 6.8 no sign of bleeding needs blood. 08/20: Transfusions given. Hgb 10. Too sleepy to extubate. Review of systems relevant to events:: CV, pulmonary. renal. Reason for ICU Addmission:: Respiratory failure secondary to COVID-19 pneumonia, reintubated. - Medications: Medications reviewed and adjusted accordingly: Yes Vasopressors:: Levophed. Sedation:: Precedex. Physical Exam Vital Signs: Temp Pulse Resp BP Pulse Ox 97.9 F 69 21 H 149/51 H 96 08/20/20 10:00 08/20/20 10:00 08/20/20 10:00 08/20/20 10:00 08/20/20 10:00 Intake & Output 08/19/20 08/20/20 08/21/20 06:59 06:59 06:59 Intake Total 3673 5615 1300 Output Total 1335 3625 400 Balance 2338 1990 900 Weight 122.7 kg 125 kg Weight/Height Weight 125 kg Height 5 ft 7 in General appearance: PRESENT: no acute distress, morbidly obese Head exam: PRESENT: atraumatic, normocephalic Eye exam: PRESENT: conjunctiva pink, EOMI, PERRLA. ABSENT: scleral icterus Ear exam: PRESENT: normal external ear exam Mouth exam: PRESENT: moist, tongue midline Respiratory exam: PRESENT: clear to auscultation pinky. ABSENT: rales, rhonchi, wheezes Cardiovascular exam: PRESENT: RRR. ABSENT: diastolic murmur, rubs, systolic murmur GI/Abdominal exam: PRESENT: normal bowel sounds, soft. ABSENT: distended, guarding, mass, organolmegaly, rebound, tenderness Rectal exam: PRESENT: deferred Gentrourinary exam: PRESENT: indwelling catheter Extremities exam: PRESENT: +1 edema Musculoskeletal exam: PRESENT: normal inspection Neurological exam: PRESENT: altered, other - Sedated Skin exam: PRESENT: dry, intact, warm. ABSENT: cyanosis, rash Tubes/Lines: PRESENT: Endotracheal Tube, Nasogastic Tube Laboratory/Radiographs Laboratory Results: 08/20/20 04:08 08/19/20 08/20/20 08/20/20 17:24 04:08 04:08 WBC 24.1 H RBC 3.44 L Hgb 10.1 L D Hct 29.9 L MCV 87 MCH 29.3 MCHC 33.7 RDW 14.2 H Plt Count 398 Seg Neutrophils % Not Reportable Sodium Cancelled Potassium Cancelled Chloride Cancelled Carbon Dioxide Cancelled Anion Gap Cancelled BUN Cancelled Creatinine Cancelled Est GFR ( Amer) Cancelled Est GFR (Non-Af Amer) Cancelled Glucose Cancelled Calcium Cancelled Blood Type O POSITIVE Antibody Screen NEGATIVE 08/20/20 07:56 WBC RBC Hgb Hct MCV MCH MCHC RDW Plt Count Seg Neutrophils % Sodium Cancelled Potassium Cancelled Chloride Cancelled Carbon Dioxide Cancelled Anion Gap Cancelled BUN Cancelled Creatinine Cancelled Est GFR ( Amer) Cancelled Est GFR (Non-Af Amer) Cancelled Glucose Cancelled Calcium Cancelled Blood Type Antibody Screen 08/07/20 08/07/20 08/07/20 00:34 00:35 06:31 Troponin I 0.390 NT-Pro-B Natriuret Pep 2780 H 3520 H 08/08/20 08/08/20 08/10/20 04:03 14:56 04:08 Troponin I 0.185 NT-Pro-B Natriuret Pep 3740 H 4510 H Impressions: KUB X-Ray 08/08/20 13:14 IMPRESSION: TIP OF THE NASOGASTRIC TUBE IS IN THE STOMACH. Chest X-Ray 08/19/20 06:00 IMPRESSION: STABLE APPEARANCE OF THE CHEST. SUPPORT DEVICES UNCHANGED. All labs, radiographs, diagnostic studies and EKGs were personally reviewed: Yes In addition, reports of radiographic and diagnostic studies were read: Yes Assessment and Plan - Diagnosis (1) COVID-19 virus detected Is this a current diagnosis for this admission?: Yes Plan: She has jen doing better from a pulmonary standpoint and if more awake will try weaning and possibly extbation. (2) Diabetes Qualifiers: Diabetes mellitus type: type 2 Diabetes mellitus manager intermediate insulin use: unspecified fpc insulin use status Diabetes mellitus complication st atus: with kidney complications Is this a current diagnosis for this admission?: Yes Plan: Not well controlled. (3) NSTEMI (non-ST elevated myocardial infarction) Is this a current diagnosis for this admission?: Yes Plan: No residual, no change on echo (4) Leukocytosis Is this a current diagnosis for this admission?: Yes Plan: About the same Plan Summary: Plan to lighten sedation and attempt extubation. Critical Time Critical Time (minutes): 35 Level of Care: ICU Anticipated discharge: SNF Anticipated DC Timeframe: Other -: 1. The care of a critical patient is a dynamic process. This note is a metals sales representative synopsis but static in nature. The timeframe for treatments given in order is not necessarily the actual time these treatments may have been done. 2. This patient requires critical care secondary to ongoing requirements for therapy not offered or safe outside the critical care environment. Transfer to a lower level of care will result in altered life or limb morbidity and mortality. 3. Multidisciplinary rounds completed. 4. ABCDE bundle addressed.
[2020-08-21] MEDS: INSULIN REG, HUMAN 100 UNIT/ML 3 ML VIAL (PYX) SUBCUT SCH ×5 (00:09→23:22)
[2020-08-21] MEDS: METOPROLOL TARTRATE PF/INJ 5 MG/5 ML SDV IV PRN (00:10)
[2020-08-21] MEDS: IPRATROPIUM/ALBUTEROL 0.5-2.5 MG/3 ML AMPUL NEB SCH ×3 (04:11→12:26)
[2020-08-21] MEDS: LEVOTHYROXINE SODIUM 0.15 MG TABLET PO SCH (05:40)
[2020-08-21] MEDS: RINGERS SOLUTION,LACTATED 1,000 ML IV PRN ×2 (05:43→05:44)
[2020-08-21] MEDS: ACETAMINOPHEN SOLN 325 MG/10.15 ML UDCUP NG PRN ×2 (08:10→15:24)
[2020-08-21] MEDS: HEPARIN SODIUM,PORCINE/D5W 25,000 UNIT/250 ML RTUINJ IV PRN ×2 (08:25→23:05)
[2020-08-21] MEDS: DEXAMETHASONE SOD PHOS INJ 10 MG/1 ML VIAL IV SCH (12:12)
[2020-08-21] MEDS: METOPROLOL TARTRATE 50 MG TABLET PO SCH ×2 (12:12→21:51)
[2020-08-21] MEDS: INSULIN GLARGINE,HUM.REC.ANLOG 1,000 UNIT/10 ML VIAL SUBCUT SCH ×2 (12:12→21:53)
[2020-08-21] MEDS: FAMOTIDINE INJ/PF 20 MG/2 ML SDV IV SCH (12:12)
[2020-08-21] MEDS: LINEZOLID 600 MG/300 ML RTUPB IV SCH (12:13)
[2020-08-21] MEDS: CHOLECALCIFEROL (D3) 1,000 UNIT (25 MCG) TABLET PO SCH (15:42)
[2020-08-21] MEDS: ASCORBIC ACID 500 MG TABLET NG SCH ×2 (15:42→21:52)
--- NOTE | 2020-08-21 19:24 | PDOC CRITICAL CARE PROG REPORT ---
General Date:: 08/21/20 ICU Day:: 15 Ventilator Day:: 15 Hospital Day:: 15 Resuscitation Status: Full Code Events in the past 12 to 24 Hours:: Not able to make meaningful changes to vent. Awake. 08/15: Not quite ready to extubate. 08/16: Pt extubated this AM. 08/18: Not able to wean much today. 08/19: Lowering sedation and changing to precedex. Hgb 6.8 no sign of bleeding needs blood. 08/20: Transfusions given. Hgb 10. Too sleepy to extubate. 08/21: apparently failed SBT yesterday. Overnight, switched from PSV to PRVC, unclear why. Off sedation. Awake, follows commands, but sluggishly. On PRVC 15/450/35/5, RR 24. Review of systems relevant to events:: CV, pulmonary. renal. Reason for ICU Addmission:: Respiratory failure secondary to COVID-19 pneumonia, reintubated. - Medications: Medications reviewed and adjusted accordingly: Yes Vasopressors:: None Physical Exam Vital Signs: Temp Pulse Resp BP Pulse Ox 98.1 F 90 26 H 154/60 H 95 08/20/20 22:00 08/21/20 07:00 08/21/20 07:50 08/21/20 07:50 08/21/20 07:50 Intake & Output 08/20/20 08/21/20 08/22/20 06:59 06:59 06:59 Intake Total 5615 4095 209 Output Total 3625 2415 Balance 1989 1680 209 Weight 125 kg 126 kg Weight/Height Weight 126 kg Height 1.7 m General appearance: PRESENT: no acute distress, morbidly obese, well-developed, well-nourished Head exam: PRESENT: atraumatic, normocephalic Eye exam: PRESENT: conjunctiva pink, EOMI, PERRLA. ABSENT: scleral icterus Respiratory exam: PRESENT: rales - inspiratory squeaks, tachypnea. ABSENT: rhonchi, wheezes Cardiovascular exam: PRESENT: RRR. ABSENT: diastolic murmur, rubs, systolic murmur Pulses: PRESENT: normal dorsalis pedis pul GI/Abdominal exam: PRESENT: normal bowel sounds, soft. ABSENT: distended, guarding, mass, organolmegaly, rebound, tenderness Gentrourinary exam: PRESENT: indwelling catheter Neurological exam: PRESENT: awake, reflexes normal, CN II-XII grossly intact. ABSENT: motor sensory deficit Psychiatric exam: ABSENT: agitated, anxious Tubes/Lines: PRESENT: Endotracheal Tube Laboratory/Radiographs Laboratory Results: 08/20/20 04:08 08/20/20 11:38 08/20/20 11:38 Sodium 132.2 L Potassium 4.3 Chloride 100 Carbon Dioxide 22 Anion Gap 10 BUN 85 H Creatinine 1.24 Est GFR ( Amer) 50 L Glucose 316 H Calcium 8.9 08/07/20 08/07/20 08/07/20 00:34 00:35 06:31 Troponin I 0.390 NT-Pro-B Natriuret Pep 2780 H 3520 H 08/08/20 08/08/20 08/10/20 04:03 14:56 04:08 Troponin I 0.185 NT-Pro-B Natriuret Pep 3740 H 4510 H Impressions: KUB X-Ray 08/08/20 13:14 IMPRESSION: TIP OF THE NASOGASTRIC TUBE IS IN THE STOMACH. Chest X-Ray 08/19/20 06:00 IMPRESSION: STABLE APPEARANCE OF THE CHEST. SUPPORT DEVICES UNCHANGED. All labs, radiographs, diagnostic studies and EKGs were personally reviewed: Yes In addition, reports of radiographic and diagnostic studies were read: Yes Assessment and Plan - Diagnosis (1) Acute hypoxemic respiratory failure Is this a current diagnosis for this admission?: Yes Plan: * Titrate vent settings based on ABG results. (2) Acute respiratory failure due to COVID-19 Is this a current diagnosis for this admission?: Yes Plan: * Start vitamin C, vitamin D3 and zinc sulfate. (3) Leukocytosis Is this a current diagnosis for this admission?: Yes (4) Normocytic anemia Is this a current diagnosis for this admission?: Yes Plan: * Stable after transfusion 2 units (08/19/2020). * Monitor hemoglobin. (5) History of breast cancer Is this a current diagnosis for this admission?: Yes (6) IDDM (insulin dependent diabetes mellitus) Is this a current diagnosis for this admission?: Yes Plan: * Change Nepro to Glucerna * Stop LR. * Free water 125 mL every 4 hours. (7) Morbid obesity Is this a current diagnosis for this admission?: Yes Critical Time Critical Time (minutes): 45 Level of Care: ICU -: 1. The care of a critical patient is a dynamic process. This note is a inside account representative synopsis but static in nature. The timeframe for treatments given in order is not necessarily the actual time these treatments may have been done. 2. This patient requires critical care secondary to ongoing requirements for therapy not offered or safe outside the critical care environment. Transfer to a lower level of care will result in altered life or limb morbidity and mortality. 3. Multidisciplinary rounds completed. 4. ABCDE bundle addressed.
[2020-08-21] MEDS: BUDESONIDE NEB 0.25 MG/2 ML AMPUL NEB SCH (19:59)
[2020-08-21] MEDS: ALBUTEROL SULFATE 0.083% NEB 2.5 MG/3 ML AMPUL NEB SCH (19:59)
[2020-08-22] MEDS: ALBUTEROL SULFATE 0.083% NEB 2.5 MG/3 ML AMPUL NEB SCH ×4 (01:38→20:57)
[2020-08-22] MEDS: INSULIN REG, HUMAN 100 UNIT/ML 3 ML VIAL (PYX) SUBCUT SCH ×3 (05:29→17:56)
[2020-08-22] MEDS: LEVOTHYROXINE SODIUM 0.15 MG TABLET PO SCH (05:29)
[2020-08-22] MEDS: ASCORBIC ACID 500 MG TABLET NG SCH ×2 (05:32→14:36)
[2020-08-22 06:02] LABS: ARTERIAL BLOOD H2CO3 0.94 mmol/L (1.05-1.35); ARTERIAL BLOOD HCO3 25.5 mmol/L (20-24); ARTERIAL BLOOD PCO2 31.3 mmHg (35-45); ARTERIAL BLOOD PH 7.53 (7.35-7.45); ARTERIAL BLOOD PO2 57.6 mmHg (80-100); ARTERIAL BLOOD TOTAL CO2 26.5 mmol/L (21-25)
[2020-08-22 06:04] LABS: ARTERIAL BLOOD FIO2 35%
[2020-08-22 06:56] LABS: BLOOD UREA NITROGEN 71 mg/dL (7-20); CALCIUM 8.9 mg/dL (8.4-10.2); GLUCOSE 170 mg/dL (75-110); PHOSPHORUS 3.6 mg/dL (2.5-4.5); POTASSIUM 4.9 mmol/L (3.6-5.0)
[2020-08-22 07:01] LABS: ANION GAP 5 (5-19); CARBON DIOXIDE 26 mmol/L (22-30); CHLORIDE 102 mmol/L (98-107)
[2020-08-22 07:04] LABS: HEMATOCRIT 28.7 % (36.0-47.0); HEMOGLOBIN 9.6 g/dL (12.0-15.5); MEAN CORPUSCULAR HEMOGLOBIN 29.4 pg (27.0-33.4); MEAN CORPUSCULAR HGB CONC 33.4 g/dL (32.0-36.0); MEAN CORPUSCULAR VOLUME 88 fl (80-97); PLATELET COUNT 465 10^3/uL (150-450); RED BLOOD COUNT 3.26 10^6/uL (3.72-5.28); RED CELL DISTRIBUTION WIDTH 14.6 % (11.5-14.0)
[2020-08-22] MEDS: BUDESONIDE NEB 0.25 MG/2 ML AMPUL NEB SCH ×2 (07:58→20:57)
[2020-08-22 07:59] LABS: ABSOLUTE LYMPHOCYTES# (MANUAL) 1.1 10^3/uL (0.5-4.7); ABSOLUTE MONOCYTES # (MANUAL) 1.6 10^3/uL (0.1-1.4); BAND NEUTROPHILS % (MANUAL) 2 % (3-5); BASOPHILS % (MANUAL) 0 % (0-2); EOSINOPHILS % (MANUAL) 2 % (0-6); LYMPHOCYTES % (MANUAL) 4 % (13-45); MONOCYTES % (MANUAL) 6 % (3-13); SEGMENTED NEUTROPHILS % (MAN) 86 % (42-78); TOTAL CELLS COUNTED 100
[2020-08-22 08:00] LABS: ANISOCYTOSIS SLIGHT; PLATELET COMMENT INCREASED; TOXIC GRANULATION SLIGHT; TOXIC VACUOLATION PRESENT
--- NOTE | 2020-08-22 08:22 | RADIOLOGY REPORT (SQ) ---
EXAM DESCRIPTION: CHEST SINGLE VIEW IMAGES COMPLETED DATE/TIME: 08/22/2020 7:15 am REASON FOR STUDY: ETT tube COMPARISON: 08/19/2020. EXAM PARAMETERS: NUMBER OF VIEWS: One view. TECHNIQUE: Single frontal radiographic view of the chest acquired. RADIATION DOSE: NA LIMITATIONS: None. FINDINGS: LUNGS AND PLEURA: Bilateral airspace disease, unchanged. MEDIASTINUM AND HILAR STRUCTURES: No masses. Contour normal. HEART AND VASCULAR STRUCTURES: Heart normal in size. Normal vasculature. BONES: No acute findings. HARDWARE: Stable endotracheal tube and nasogastric tube. Surgical clips in the soft tissues. OTHER: No other significant finding. IMPRESSION: NO SIGNIFICANT INTERVAL CHANGE. TECHNICAL DOCUMENTATION: JOB ID: [id number] 2010 [employer]- All Rights Reserved Reading location - IP/workstation name: [email or web address]
[2020-08-22] MEDS: METOPROLOL TARTRATE 50 MG TABLET PO SCH (09:29)
[2020-08-22] MEDS: CHOLECALCIFEROL (D3) 1,000 UNIT (25 MCG) TABLET PO SCH (09:29)
[2020-08-22] MEDS: ACETAMINOPHEN SOLN 325 MG/10.15 ML UDCUP NG PRN (09:30)
[2020-08-22] MEDS: DEXAMETHASONE SOD PHOS INJ 10 MG/1 ML VIAL IV SCH (09:30)
[2020-08-22] MEDS: INSULIN GLARGINE,HUM.REC.ANLOG 1,000 UNIT/10 ML VIAL SUBCUT SCH (09:31)
[2020-08-22] MEDS: FAMOTIDINE INJ/PF 20 MG/2 ML SDV IV SCH (09:31)
[2020-08-22] MEDS: ZINC SULFATE 220 MG CAPSULE PO SCH (12:14)
[2020-08-22] MEDS: HEPARIN SODIUM,PORCINE/D5W 25,000 UNIT/250 ML RTUINJ IV PRN (14:22)
[2020-08-22] MEDS ORDERED: NORMAL SALINE 10 ML SDV (AFTER EACH USE) IV PRN (14:30)
--- NOTE | 2020-08-22 15:07 | RADIOLOGY REPORT (SQ) ---
EXAM DESCRIPTION: PICC INSERTION IMAGES COMPLETED DATE/TIME: 08/22/2020 2:45 pm REASON FOR STUDY: PICC insertion need for IV access, COVID positive COMPARISON: None. FLUOROSCOPY TIME: None. Performed at bedside 2 portable chest images saved to PACS. TECHNIQUE: Ultrasound guided PICC placement, performed at bedside. LIMITATIONS: None. PROCEDURE: After written consent and assessment were obtained, Ultrasound evaluation of potential ac cess sites were performed. After successfully identifying a patent left basilic vein, the left arm wa s prepped and draped in a sterile fashion along with the ultrasound probe. The entry site was anesthe tized with 1% lidocaine. A 21 gauge 7 cm needle was advanced through the skin and into the basilic ve in under live ultrasound guidance. An ultrasound image was saved to PACS confirming access site. A .018 guide wire was then inserted through the needle and into the venous system. The needle was then removed and an 11 blade scalpel was used to make a 1cm skin incision. A 5 fr peel-away sheath was ad vanced over the wire and into the venous system. A measurement was then made using the existing wire. The wire was then removed and the catheter trimmed. The PICC was advanced through the peel-away casillas th and into the venous system. The peel-away sheath was removed and the catheter was adhered to the p atients arm with a stat lock. The catheter was then aspirated and flushed and a sterile bandage was p laced over the access site. Portable chest image was saved to PACS confirming the catheter tip withi n the superior vena cava. IMPRESSION: SUCCESSFUL PLACEMENT OF A 5 FR DUAL LUMEN 50 CM PICC IN THE LEFT BASILIC VEIN. COMMENT: Patient medication list reviewed: Yes- Quality ID# [id number]:Eligible professional attests to doc umenting in the medical record they obtained, updated, or reviewed the patient's current medications. . Quality ID 145: Final reports for procedures using fluoroscopy that document radiation exposure michael zeus, or exposure time and number of fluorographic images (if radiation exposure indices are not avail able) Quality ID #76: The patient was prepped and draped using maximum sterile barrier technique including cap, mask, sterile gown, sterile gloves, a large sterile sheet, hand hygiene, and 2% Chlorhexidine fo r cutaneous antisepsis. When ultrasound is used, sterile ultrasound techniques are followed requiring sterile gel and sterile probes. TECHNICAL DOCUMENTATION: JOB ID: [id number] 2010 [employer]- All Rights Reserved rev-01/02 Reading location - IP/workstation name: [email or web address]
--- NOTE | 2020-08-22 17:36 | PDOC CRITICAL CARE PROG REPORT ---
General Date:: 08/22/20 ICU Day:: 16 Ventilator Day:: 16 Hospital Day:: 16 Resuscitation Status: Full Code Events in the past 12 to 24 Hours:: Not able to make meaningful changes to vent. Awake. 08/15: Not quite ready to extubate. 08/16: Pt extubated this AM. 08/18: Not able to wean much today. 08/19: Lowering sedation and changing to precedex. Hgb 6.8 no sign of bleeding needs blood. 08/20: Transfusions given. Hgb 10. Too sleepy to extubate. 08/21: apparently failed SBT yesterday. Overnight, switched from PSV to PRVC, unclear why. Off sedation. Awake, follows commands, but sluggishly. On PRVC 15/450/35/5, RR 24. 1/5: remains on PSV 14/5. awake but still slow to follow commands. off sedation x 2 days. developed fever yesterday (T-max 100.6 F). finished course of Zyvox yesterday. WBC 24.1> 27. Platelets 465. On heparin gtt. on TF and water flushes. Review of systems relevant to events:: CV, pulmonary. renal. Reason for ICU Addmission:: Respiratory failure secondary to COVID-19 pneumonia, reintubated. - Medications: Medications reviewed and adjusted accordingly: Yes Vasopressors:: None Physical Exam Vital Signs: Temp Pulse Resp BP Pulse Ox 101.5 F H 91 30 H 168/57 H 96 08/22/20 10:33 08/22/20 08:00 08/22/20 10:00 08/22/20 09:50 08/22/20 10:00 Intake & Output 08/21/20 08/22/20 08/23/20 06:59 06:59 06:59 Intake Total 4395 3182 Output Total 2415 1930 275 Balance 1979 1252 -275 Weight 126 kg 123 kg Weight/Height Weight 123 kg Height 1.7 m General appearance: PRESENT: no acute distress, morbidly obese, well-developed, well-nourished Head exam: PRESENT: atraumatic, normocephalic Eye exam: PRESENT: conjunctiva pink, EOMI, PERRLA. ABSENT: scleral icterus Mouth exam: PRESENT: moist, tongue midline Respiratory exam: PRESENT: clear to auscultation pinky. ABSENT: rales, rhonchi, wheezes Cardiovascular exam: PRESENT: RRR. ABSENT: diastolic murmur, rubs, systolic murmur GI/Abdominal exam: PRESENT: normal bowel sounds, soft. ABSENT: distended, guarding, mass, organolmegaly, rebound, tenderness Gentrourinary exam: PRESENT: indwelling catheter Extremities exam: PRESENT: full ROM, pedal edema. ABSENT: calf tenderness, c lubbing Musculoskeletal exam: PRESENT: normal inspection. ABSENT: deformity Neurological exam: PRESENT: awake, CN II-XII grossly intact, motor sensory deficit. ABSENT: reflexes normal Psychiatric exam: ABSENT: agitated, anxious Skin exam: PRESENT: dry, intact, rash - intertriginous, warm. ABSENT: cyanosis Tubes/Lines: PRESENT: Endotracheal Tube, Nasogastic Tube Laboratory/Radiographs Laboratory Results: 08/22/20 06:28 08/22/20 06:28 08/21/20 08/22/20 08/22/20 15:32 05:20 06:28 WBC RBC Hgb Hct MCV MCH MCHC RDW Plt Count Seg Neutrophils % Carbonic Acid 0.94 L HCO3/H2CO3 Ratio 27:1 ABG pH 7.53 H ABG pCO2 31.3 L ABG pO2 57.6 L ABG HCO3 25.5 H ABG O2 Saturation 93.0 L ABG Base Excess 3.0 FiO2 35% Sodium 132.5 L Potassium 4.9 Chloride 102 Carbon Dioxide 26 Anion Gap 5 BUN 71 H Creatinine 1.14 Est GFR ( Amer) 55 L Glucose 170 H Calcium 8.9 Phosphorus 3.6 Magnesium 2.1 C-Reactive Protein 32.9 H 08/22/20 06:28 WBC 27.0 H RBC 3.26 L Hgb 9.6 L Hct 28.7 L MCV 88 MCH 29.4 MCHC 33.4 RDW 14.6 H Plt Count 465 H Seg Neutrophils % Not Reportable Carbonic Acid HCO3/H2CO3 Ratio ABG pH ABG pCO2 ABG pO2 ABG HCO3 ABG O2 Saturation ABG Base Excess FiO2 Sodium Potassium Chloride Carbon Dioxide Anion Gap BUN Creatinine Est GFR ( Amer) Glucose Calcium Phosphorus Magnesium C-Reactive Protein 08/07/20 08/07/20 08/07/20 00:34 00:35 06:31 Troponin I 0.390 NT-Pro-B Natriuret Pep 2780 H 3520 H 08/08/20 08/08/20 08/10/20 04:03 14:56 04:08 Troponin I 0.185 NT-Pro-B Natriuret Pep 3740 H 4510 H Impressions: KUB X-Ray 08/08/20 13:14 IMPRESSION: TIP OF THE NASOGASTRIC TUBE IS IN THE STOMACH. Chest X-Ray 08/22/20 05:00 IMPRESSION: NO SIGNIFICANT INTERVAL CHANGE. All labs, radiographs, diagnostic studies and EKGs were personally reviewed: Yes In addition, reports of radiographic and diagnostic studies were read: Yes Assessment and Plan - Diagnosis (1) Acute hypoxemic respiratory failure Is this a current diagnosis for this admission?: Yes Plan: * Continue pressure support. * Wean pressure support as tolerated. * At this point, basically awaiting improvement in neurologic status to attempt liberation from mechanical ventilatory support. (2) Acute respiratory failure due to COVID-19 Is this a current diagnosis for this admission?: Yes Plan: * Continue vitamin C, vitamin D3 and zinc sulfate. * Continue Decadron. (3) Leukocytosis Is this a current diagnosis for this admission?: Yes (4) Normocytic anemia Is this a current diagnosis for this admission?: Yes (5) History of breast cancer Is this a current diagnosis for this admission?: Yes (6) IDDM (insulin dependent diabetes mellitus) Is this a current diagnosis for this admission?: Yes Plan: * Continue Glucerna * Stop LR. * Free water 50 mL every 4 hours. (7) Morbid obesity Is this a current diagnosis for this admission?: Yes (8) Hyponatremia Is this a current diagnosis for this admission?: Yes Plan: * decrease free water Critical Time Critical Time (minutes): 45 Level of Care: ICU -: 1. The care of a critical patient is a dynamic process. This note is a outside industrial sales representative synopsis but static in nature. The timeframe for treatments given in order is not necessarily the actual time these treatments may have been done. 2. This patient requires critical care secondary to ongoing requirements for therapy not offered or safe outside the critical care environment. Transfer to a lower level of care will result in altered life or limb morbidity and mortality. 3. Multidisciplinary rounds completed. 4. ABCDE bundle addressed.
[2020-08-23] MEDS: INSULIN GLARGINE,HUM.REC.ANLOG 1,000 UNIT/10 ML VIAL SUBCUT SCH ×3 (01:14→23:19)
[2020-08-23] MEDS: NORMAL SALINE 10 ML SDV (SCHEDULED) IV SCH ×2 (01:15→09:30)
[2020-08-23] MEDS: ASCORBIC ACID 500 MG TABLET NG SCH ×4 (01:15→22:00)
[2020-08-23] MEDS: METOPROLOL TARTRATE 50 MG TABLET PO SCH ×3 (01:15→22:02)
[2020-08-23] MEDS: INSULIN REG, HUMAN 100 UNIT/ML 3 ML VIAL (PYX) SUBCUT SCH ×4 (01:16→18:19)
[2020-08-23] MEDS: HEPARIN SODIUM,PORCINE/D5W 25,000 UNIT/250 ML RTUINJ IV PRN ×2 (01:25→15:22)
[2020-08-23] MEDS: ALBUTEROL SULFATE 0.083% NEB 2.5 MG/3 ML AMPUL NEB SCH ×4 (02:11→20:42)
[2020-08-23 04:55] LABS: ARTERIAL BLOOD BASE EXCESS 0.4 mmol/L; ARTERIAL BLOOD H2CO3 0.95 mmol/L (1.05-1.35); ARTERIAL BLOOD HCO3 23.1 mmol/L (20-24); ARTERIAL BLOOD O2 SATURATION 94.6 % (94-98); ARTERIAL BLOOD PCO2 31.6 mmHg (35-45); ARTERIAL BLOOD PH 7.48 (7.35-7.45); ARTERIAL BLOOD PO2 66.1 mmHg (80-100); ARTERIAL BLOOD TOTAL CO2 24.1 mmol/L (21-25)
[2020-08-23 04:56] LABS: ARTERIAL BLOOD FIO2 35%
[2020-08-23 05:05] LABS: HEMATOCRIT 26.5 % (36.0-47.0); HEMOGLOBIN 8.9 g/dL (12.0-15.5); MEAN CORPUSCULAR HEMOGLOBIN 29.7 pg (27.0-33.4); MEAN CORPUSCULAR HGB CONC 33.7 g/dL (32.0-36.0); MEAN CORPUSCULAR VOLUME 88 fl (80-97); PLATELET COUNT 430 10^3/uL (150-450); RED BLOOD COUNT 3.01 10^6/uL (3.72-5.28); RED CELL DISTRIBUTION WIDTH 14.5 % (11.5-14.0); WHITE BLOOD COUNT 29.1 10^3/uL (4.0-10.5)
[2020-08-23 06:07] LABS: C-REACTIVE PROTEIN 18.6 mg/L (<10.0)
[2020-08-23] MEDS: LEVOTHYROXINE SODIUM 0.15 MG TABLET PO SCH (06:16)
[2020-08-23] MEDS: BUDESONIDE NEB 0.25 MG/2 ML AMPUL NEB SCH ×2 (08:50→20:42)
[2020-08-23 08:52] LABS: ANION GAP 6 (5-19); BLOOD UREA NITROGEN 69 mg/dL (7-20); CALCIUM 8.9 mg/dL (8.4-10.2); CARBON DIOXIDE 26 mmol/L (22-30); CHLORIDE 102 mmol/L (98-107); GLUCOSE 233 mg/dL (75-110); POTASSIUM 4.7 mmol/L (3.6-5.0)
[2020-08-23] MEDS: DEXAMETHASONE SOD PHOS INJ 10 MG/1 ML VIAL IV SCH (09:29)
[2020-08-23] MEDS: CHOLECALCIFEROL (D3) 1,000 UNIT (25 MCG) TABLET PO SCH (09:29)
[2020-08-23] MEDS: ZINC SULFATE 220 MG CAPSULE PO SCH (09:30)
[2020-08-23] MEDS: FAMOTIDINE INJ/PF 20 MG/2 ML SDV IV SCH (09:30)
[2020-08-23] MEDS ORDERED: VANCOMYCIN HCL 0 MG in DEXTROSE 5%-WATER 250 ML IV NR (15:15)
[2020-08-23] MEDS ORDERED: VANCOMYCIN HCL 1,500 MG in DEXTROSE 5%-WATER 250 ML IV ONE (16:00)
--- NOTE | 2020-08-23 19:30 | PDOC CRITICAL CARE PROG REPORT ---
General Date:: 08/23/20 ICU Day:: 17 Ventilator Day:: 17 Hospital Day:: 17 Resuscitation Status: Full Code Events in the past 12 to 24 Hours:: Not able to make meaningful changes to vent. Awake. 08/15: Not quite ready to extubate. 08/16: Pt extubated this AM. 08/18: Not able to wean much today. 08/19: Lowering sedation and changing to precedex. Hgb 6.8 no sign of bleeding needs blood. 08/20: Transfusions given. Hgb 10. Too sleepy to extubate. 08/21: apparently failed SBT yesterday. Overnight, switched from PSV to PRVC, unclear why. Off sedation. Awake, follows commands, but sluggishly. On PRVC 15/450/35/5, RR 24. 08/22: remains on PSV 14/5. awake but still slow to follow commands. off sedation x 2 days. developed fever yesterday (T-max 100.6 F). finished course of Zyvox yesterday. WBC 24.1> 27. Platelets 465. On heparin gtt. on TF and water flushes. 08/23: on PSV /. Temp 101.5 F. Trach aspirate isolating Gram positive cocci in clusters. Winces to pain. slow to follow commands. off sedation x 2 days. ABG this am: 7.45/32/66. WBC 27-->29.1. On heparin. Review of systems relevant to events:: CV, pulmonary. renal. Reason for ICU Addmission:: Respiratory failure secondary to COVID-19 pneumonia, reintubated. - Medications: Medications reviewed and adjusted accordingly: Yes Vasopressors:: None Physical Exam Vital Signs: Temp Pulse Resp BP Pulse Ox 101.5 F H 66 24 H 128/54 H 93 08/23/20 10:00 08/23/20 14:00 08/23/20 14:00 08/23/20 13:10 08/23/20 14:00 Intake & Output 08/22/20 08/23/20 08/24/20 06:59 06:59 06:59 Intake Total 3182 1593 102 Output Total 3274 1748 630 Balance 1252 -967 -963 Weight 123 kg 126.2 kg Weight/Height Weight 126.2 kg Height 1.7 m General appearance: PRESENT: no acute distress, morbidly obese, well-developed, well-nourished Head exam: PRESENT: atraumatic, normocephalic Eye exam: PRESENT: conjunctiva pink, EOMI, PERRLA. ABSENT: scleral icterus Respiratory exam: PRESENT: clear to auscultation pinky, symmetrical. ABSENT: rales, rhonchi, wheezes Cardiovascular exam: PRESENT: RRR. ABSENT: diastolic murmur, rubs, systolic murmur Pulses: PRESENT: normal dorsalis pedis pul Extremities exam: PRESENT: full ROM, pedal edema, +1 edema. ABSENT: calf tenderness, clubbing Musculoskeletal exam: PRESENT: normal inspection. ABSENT: deformity Neurological exam: PRESENT: altered. ABSENT: reflexes normal Psychiatric exam: ABSENT: agitated, anxious Tubes/Lines: PRESENT: Endotracheal Tube, Central Line - PICC line, Nasogastic Tube Laboratory/Radiographs Laboratory Results: 08/23/20 04:55 08/23/20 04:55 08/23/20 08/23/20 08/23/20 04:25 04:55 04:55 WBC 29.1 H RBC 3.01 L Hgb 8.9 L Hct 26.5 L MCV 88 MCH 29.7 MCHC 33.7 RDW 14.5 H Plt Count 430 Carbonic Acid 0.95 L HCO3/H2CO3 Ratio 24:1 ABG pH 7.48 H ABG pCO2 31.6 L ABG pO2 66.1 L ABG HCO3 23.1 ABG O2 Saturation 94.6 ABG Base Excess 0.4 FiO2 35% Sodium Potassium Chloride Carbon Dioxide Anion Gap BUN Creatinine Est GFR ( Amer) Glucose Calcium Magnesium 2.5 H C-Reactive Protein 18.6 H 08/23/20 04:55 WBC RBC Hgb Hct MCV MCH MCHC RDW Plt Count Carbonic Acid HCO3/H2CO3 Ratio ABG pH ABG pCO2 ABG pO2 ABG HCO3 ABG O2 Saturation ABG Base Excess FiO2 Sodium 134.4 L Potassium 4.7 Chloride 102 Carbon Dioxide 26 Anion Gap 6 BUN 69 H Creatinine 1.23 Est GFR ( Amer) 50 L Glucose 233 H Calcium 8.9 Magnesium C-Reactive Protein 08/07/20 08/07/20 08/07/20 00:34 00:35 06:31 Troponin I 0.390 NT-Pro-B Natriuret Pep 2780 H 3520 H 08/08/20 08/08/20 08/10/20 04:03 14:56 04:08 Troponin I 0.185 NT-Pro-B Natriuret Pep 3740 H 4510 H Impressions: KUB X-Ray 08/08/20 13:14 IMPRESSION: TIP OF THE NASOGASTRIC TUBE IS IN THE STOMACH. PICC Line Insertion 08/22/20 00:00 IMPRESSION: SUCCESSFUL PLACEMENT OF A 5 FR DUAL LUMEN 50 CM PICC IN THE LEFT BASILIC VEIN. Chest X-Ray 08/22/20 05:00 IMPRESSION: NO SIGNIFICANT INTERVAL CHANGE. All labs, radiographs, diagnostic studies and EKGs were personally reviewed: Yes In addition, reports of radiographic and diagnostic studies were read: Yes Assessment and Plan - Diagnosis (1) Acute hypoxemic respiratory failure Is this a current diagnosis for this admission?: Yes Plan: * Continue pressure support. * Wean pressure support as tolerated. * At this point, basically awaiting improvement in neurologic status to attempt liberation from mechanical ventilatory support. * This patient may benefit most from a "therapeutic" or "prophylactic" tra cheostomy. (2) Acute respiratory failure due to COVID-19 Is this a current diagnosis for this admission?: Yes Plan: * Continue vitamin C, vitamin D3 and zinc sulfate. * Continue Decadron. (3) Pneumonia due to gram-positive bacteria Is this a current diagnosis for this admission?: Yes Plan: * Start vancomycin. (4) Leukocytosis Is this a current diagnosis for this admission?: Yes (5) Normocytic anemia Is this a current diagnosis for this admission?: Yes (6) History of breast cancer Is this a current diagnosis for this admission?: Yes (7) IDDM (insulin dependent diabetes mellitus) Is this a current diagnosis for this admission?: Yes (8) Morbid obesity Is this a current diagnosis for this admission?: Yes (9) Hyponatremia Is this a current diagnosis for this admission?: Yes (10) Healthcare-associated pneumonia Is this a current diagnosis for this admission?: Yes Critical Time Critical Time (minutes): 45 Level of Care: ICU -: 1. The care of a critical patient is a dynamic process. This note is a resources representative synopsis but static in nature. The timeframe for treatments given in order is not necessarily the actual time these treatments may have been done. 2. This patient requires critical care secondary to ongoing requirements for therapy not offered or safe outside the critical care environment. Transfer to a lower level of care will result in altered life or limb morbidity and mortality. 3. Multidisciplinary rounds completed. 4. ABCDE bundle addressed.
[2020-08-24] MEDS: NORMAL SALINE 10 ML SDV (SCHEDULED) IV SCH ×3 (00:29→22:43)
[2020-08-24] MEDS: INSULIN REG, HUMAN 100 UNIT/ML 3 ML VIAL (PYX) SUBCUT SCH ×4 (00:29→18:49)
[2020-08-24] MEDS: ALBUTEROL SULFATE 0.083% NEB 2.5 MG/3 ML AMPUL NEB SCH ×4 (02:25→20:55)
[2020-08-24 04:36] LABS: ARTERIAL BLOOD BASE EXCESS 0.9 mmol/L; ARTERIAL BLOOD H2CO3 1.02 mmol/L (1.05-1.35); ARTERIAL BLOOD HCO3 24.2 mmol/L (20-24); ARTERIAL BLOOD O2 SATURATION 93.9 % (94-98); ARTERIAL BLOOD PCO2 33.9 mmHg (35-45); ARTERIAL BLOOD PH 7.47 (7.35-7.45); ARTERIAL BLOOD PO2 64.1 mmHg (80-100); ARTERIAL BLOOD TOTAL CO2 25.2 mmol/L (21-25)
[2020-08-24 04:38] LABS: ARTERIAL BLOOD FIO2 35%
[2020-08-24 04:40] LABS: HEMATOCRIT 25.9 % (36.0-47.0); HEMOGLOBIN 8.5 g/dL (12.0-15.5); MEAN CORPUSCULAR HEMOGLOBIN 29.2 pg (27.0-33.4); MEAN CORPUSCULAR HGB CONC 32.7 g/dL (32.0-36.0); MEAN CORPUSCULAR VOLUME 89 fl (80-97); PLATELET COUNT 414 10^3/uL (150-450); RED CELL DISTRIBUTION WIDTH 14.6 % (11.5-14.0)
[2020-08-24] MEDS: LEVOTHYROXINE SODIUM 0.15 MG TABLET PO SCH (06:17)
[2020-08-24] MEDS: ASCORBIC ACID 500 MG TABLET NG SCH ×3 (06:18→22:42)
[2020-08-24] MEDS: BUDESONIDE NEB 0.25 MG/2 ML AMPUL NEB SCH ×2 (08:18→20:55)
[2020-08-24] MEDS: METOPROLOL TARTRATE 50 MG TABLET PO SCH ×2 (10:15→22:43)
[2020-08-24] MEDS: DEXAMETHASONE SOD PHOS INJ 10 MG/1 ML VIAL IV SCH (10:16)
[2020-08-24] MEDS: ZINC SULFATE 220 MG CAPSULE PO SCH (10:17)
[2020-08-24] MEDS: INSULIN GLARGINE,HUM.REC.ANLOG 1,000 UNIT/10 ML VIAL SUBCUT SCH ×2 (12:07→22:42)
[2020-08-24] MEDS: VANCOMYCIN HCL 1,250 MG in DEXTROSE 5%-WATER 250 ML IV SCH (12:08)
[2020-08-24] MEDS: CHOLECALCIFEROL (D3) 1,000 UNIT (25 MCG) TABLET PO SCH (12:08)
[2020-08-24] MEDS: FAMOTIDINE INJ/PF 20 MG/2 ML SDV IV SCH (12:09)
[2020-08-24] MEDS ORDERED: FUROSEMIDE INJ/PF 40 MG/4 ML SDV ONE (15:13)
[2020-08-24] MEDS: HEPARIN SODIUM,PORCINE/D5W 25,000 UNIT/250 ML RTUINJ IV PRN (16:07)
--- NOTE | 2020-08-24 20:24 | PDOC CRITICAL CARE PROG REPORT ---
General Date:: 08/24/20 ICU Day:: 18 Ventilator Day:: 18 Hospital Day:: 18 Resuscitation Status: Full Code Events in the past 12 to 24 Hours:: Not able to make meaningful changes to vent. Awake. 08/15: Not quite ready to extubate. 08/16: Pt extubated this AM. 08/18: Not able to wean much today. 08/19: Lowering sedation and changing to precedex. Hgb 6.8 no sign of bleeding needs blood. 08/20: Transfusions given. Hgb 10. Too sleepy to extubate. 08/21: apparently failed SBT yesterday. Overnight, switched from PSV to PRVC, unclear why. Off sedation. Awake, follows commands, but sluggishly. On PRVC 15/450/35/5, RR 24. 08/22: remains on PSV 14/5. awake but still slow to follow commands. off sedation x 2 days. developed fever yesterday (T-max 100.6 F). finished course of Zyvox yesterday. WBC 24.1> 27. Platelets 465. On heparin gtt. on TF and water flushes. 08/23: on PSV 12/5. Temp 101.5 F. Trach aspirate isolating Gram positive cocci in clusters. Winces to pain. slow to follow commands. off sedation x 2 days. ABG this am: 7.45/32/66. WBC 27-->29.1. On heparin. 08/24: On PSV 10/5, FIO2 35%. SPO2 97-99%. RR 18/24. Lethargic. Arousable to noxious stimuli. Moves all 4 extremities but not to command. Currently afebrile. T-max (24) 101.5 F. Started on vancomycin for trach aspirate isolat ing gram-positive cocci in clusters. WBC 29.1>28. Review of systems relevant to events:: CV, pulmonary. renal. Reason for ICU Addmission:: Respiratory failure secondary to COVID-19 pneumonia, reintubated. - Medications: Medications reviewed and adjusted accordingly: Yes Vasopressors:: None Physical Exam Vital Signs: Temp Pulse Resp BP Pulse Ox 99.9 F 75 28 H 133/52 H 99 08/24/20 09:03 08/24/20 08:18 08/24/20 08:18 08/24/20 08:00 08/24/20 08:18 Intake & Output 08/23/20 08/24/20 08/25/20 06:59 06:59 06:59 Intake Total 1593 1408 Output Total 2199 2009 110 Balance -607 -602 -110 Weight 126.2 kg 125.6 kg Weight/Height Weight 125.6 kg Height 1.7 m General appearance: PRESENT: no acute distress, morbidly obese, well-developed, well-nourished Head exam: PRESENT: atraumatic, normocephalic Eye exam: PRESENT: conjunctiva pink, EOMI, PERRLA. ABSENT: scleral icterus Neck exam: ABSENT: carotid bruit, JVD, lymphadenopathy, thyromegaly Respiratory exam: PRESENT: rales - L inspiratory squeaks. ABSENT: rhonchi, wheezes Cardiovascular exam: PRESENT: irregular rhythm - sinus arrhythmia on the monitor. ABSENT: diastolic murmur, rubs, systolic murmur Pulses: PRESENT: normal dorsalis pedis pul GI/Abdominal exam: PRESENT: normal bowel sounds, soft. ABSENT: distended, guarding, mass, organolmegaly, rebound, tenderness Gentrourinary exam: PRESENT: indwelling catheter Extremities exam: PRESENT: full ROM, pedal edema, +2 edema. ABSENT: calf tenderness, clubbing Musculoskeletal exam: PRESENT: normal inspection. ABSENT: deformity Neurological exam: PRESENT: altered, reflexes normal, CN II-XII grossly intact. ABSENT: motor sensory deficit Psychiatric exam: ABSENT: agitated, anxious Tubes/Lines: PRESENT: Endotracheal Tube, Central Line - L PICC, Nasogastic Tube Laboratory/Radiographs Laboratory Results: 08/24/20 04:19 08/23/20 04:55 08/24/20 08/24/20 04:19 04:19 WBC 28.0 H RBC 2.90 L Hgb 8.5 L Hct 25.9 L MCV 89 MCH 29.2 MCHC 32.7 RDW 14.6 H Plt Count 414 Carbonic Acid 1.02 L HCO3/H2CO3 Ratio 23:1 ABG pH 7.47 H ABG pCO2 33.9 L ABG pO2 64.1 L ABG HCO3 24.2 H ABG O2 Saturation 93.9 L ABG Base Excess 0.9 FiO2 35% 1208/07/20 08/07/20 00:34 00:35 06:31 Troponin I 0.390 NT-Pro-B Natriuret Pep 2780 H 3520 H 08/08/20 08/08/20 08/10/20 04:03 14:56 04:08 Troponin I 0.185 NT-Pro-B Natriuret Pep 3740 H 4510 H Impressions: KUB X-Ray 08/08/20 13:14 IMPRESSION: TIP OF THE NASOGASTRIC TUBE IS IN THE STOMACH. PICC Line Insertion 08/22/20 00:00 IMPRESSION: SUCCESSFUL PLACEMENT OF A 5 FR DUAL LUMEN 50 CM PICC IN THE LEFT BASILIC VEIN. Chest X-Ray 08/22/20 05:00 IMPRESSION: NO SIGNIFICANT INTERVAL CHANGE. All labs, radiographs, diagnostic studies and EKGs were personally reviewed: Yes In addition, reports of radiographic and diagnostic studies were read: Yes Assessment and Plan - Diagnosis (1) Acute hypoxemic respiratory failure Is this a current diagnosis for this admission?: Yes Plan: * Continue pressure support. * Wean pressure support as tolerated. * At this point, basically awaiting improvement in neurologic status to attempt liberation from mechanical ventilatory support. * This patient may benefit most from a "therapeutic" or "prophylactic" t racheostomy. (2) Acute respiratory failure due to COVID-19 Is this a current diagnosis for this admission?: Yes (3) Anoxic encephalopathy Is this a current diagnosis for this admission?: Yes (4) MRSA pneumonia Qualifiers: Laterality: bilateral Lung location: unspecified part of lung Qualified Code(s): J15.212 - Pneumonia due to Methicillin resistant Staphylococcus aureus Is this a current diagnosis for this admission?: Yes Plan: On vancomycin. (5) Normocytic anemia Is this a current diagnosis for this admission?: Yes (6) History of breast cancer Is this a current diagnosis for this admission?: Yes (7) IDDM (insulin dependent diabetes mellitus) Is this a current diagnosis for this admission?: Yes (8) Morbid obesity Is this a current diagnosis for this admission?: Yes (9) Hyponatremia Is this a current diagnosis for this admission?: Yes Critical Time Critical Time (minutes): 60 Level of Care: ICU -: 1. The care of a critical patient is a dynamic process. This note is a advertising account representative synopsis but static in nature. The timeframe for treatments given in order is not necessarily the actual time these treatments may have been done. 2. This patient requires critical care secondary to ongoing requirements for therapy not offered or safe outside the critical care environment. Transfer to a lower level of care will result in altered life or limb morbidity and mortality. 3. Multidisciplinary rounds completed. 4. ABCDE bundle addressed.
[2020-08-25] MEDS: INSULIN REG, HUMAN 100 UNIT/ML 3 ML VIAL (PYX) SUBCUT SCH ×5 (01:34→23:26)
[2020-08-25] MEDS: ALBUTEROL SULFATE 0.083% NEB 2.5 MG/3 ML AMPUL NEB SCH ×4 (02:39→21:21)
[2020-08-25 04:20] LABS: HEMATOCRIT 26.7 % (36.0-47.0); MEAN CORPUSCULAR HEMOGLOBIN 29.9 pg (27.0-33.4); MEAN CORPUSCULAR HGB CONC 33.8 g/dL (32.0-36.0); MEAN CORPUSCULAR VOLUME 88 fl (80-97); PLATELET COUNT 414 10^3/uL (150-450); RED BLOOD COUNT 3.02 10^6/uL (3.72-5.28); RED CELL DISTRIBUTION WIDTH 14.5 % (11.5-14.0); WHITE BLOOD COUNT 27.8 10^3/uL (4.0-10.5)
[2020-08-25 04:27] LABS: PARTIAL THROMBOPLASTIN TIME 57.2 SEC (23.5-35.8)
[2020-08-25 04:28] LABS: D-DIMER 1.85 ug/mL (0.00-0.50)
[2020-08-25] MEDS: ASCORBIC ACID 500 MG TABLET NG SCH ×3 (06:32→21:21)
[2020-08-25] MEDS: LEVOTHYROXINE SODIUM 0.15 MG TABLET PO SCH (06:32)
[2020-08-25] MEDS: HEPARIN SODIUM,PORCINE/D5W 25,000 UNIT/250 ML RTUINJ IV PRN (06:56)
[2020-08-25] MEDS: BUDESONIDE NEB 0.25 MG/2 ML AMPUL NEB SCH ×2 (08:09→21:21)
[2020-08-25] MEDS: FAMOTIDINE INJ/PF 20 MG/2 ML SDV IV SCH (09:45)
[2020-08-25] MEDS: INSULIN GLARGINE,HUM.REC.ANLOG 1,000 UNIT/10 ML VIAL SUBCUT SCH ×2 (09:45→21:22)
[2020-08-25] MEDS: METOPROLOL TARTRATE 50 MG TABLET PO SCH ×2 (09:47→21:21)
[2020-08-25] MEDS: CHOLECALCIFEROL (D3) 1,000 UNIT (25 MCG) TABLET PO SCH (09:47)
[2020-08-25] MEDS: DEXAMETHASONE SOD PHOS INJ 10 MG/1 ML VIAL IV SCH (09:47)
[2020-08-25] MEDS: ZINC SULFATE 220 MG CAPSULE PO SCH (09:48)
[2020-08-25] MEDS: NORMAL SALINE 10 ML SDV (SCHEDULED) IV SCH ×2 (09:48→21:23)
--- NOTE | 2020-08-25 12:14 | PDOC CRITICAL CARE PROG REPORT ---
General Date:: 08/25/20 ICU Day:: 18 Ventilator Day:: 18 Hospital Day:: 18 Resuscitation Status: Full Code Events in the past 12 to 24 Hours:: Not able to make meaningful changes to vent. Awake. 08/15: Not quite ready to extubate. 08/16: Pt extubated this AM. 08/18: Not able to wean much today. 08/19: Lowering sedation and changing to precedex. Hgb 6.8 no sign of bleeding needs blood. 08/20: Transfusions given. Hgb 10. Too sleepy to extubate. 08/21: apparently failed SBT yesterday. Overnight, switched from PSV to PRVC, unclear why. Off sedation. Awake, follows commands, but sluggishly. On PRVC 15/450/35/5, RR 24. 08/22: remains on PSV 14/5. awake but still slow to follow commands. off sedation x 2 days. developed fever yesterday (T-max 100.6 F). finished course of Zyvox yesterday. WBC 24.1> 27. Platelets 465. On heparin gtt. on TF and water flushes. 08/23: on PSV 12/5. Temp 101.5 F. Trach aspirate isolating Gram positive cocci in clusters. Winces to pain. slow to follow commands. off sedation x 2 days. ABG this am: 7.45/32/66. WBC 27-->29.1. On heparin. 08/24: On PSV 10/5, FIO2 35%. SPO2 97-99%. RR 18/24. Lethargic. Arousable to noxious stimuli. Moves all 4 extremities but not to command. Currently afebrile. T-max (24) 101.5 F. Started on vancomycin for trach aspirate isolat ing gram-positive cocci in clusters. WBC 29.1>28. 08/25: Mental status the same. Arouses to voice but does not fully commands. Review of systems relevant to events:: Pulmonary, neurologic. Reason for ICU Addmission:: Respiratory failure secondary to COVID-19 pneumonia, reintubated. - Medications: Medications reviewed and adjusted accordingly: Yes Vasopressors:: None Sedation:: Precedex. Physical Exam Vital Signs: Temp Pulse Resp BP Pulse Ox 99.1 F 66 22 H 163/57 H 97 08/25/20 10:00 08/25/20 10:00 08/25/20 10:00 08/25/20 10:00 08/25/20 10:00 Intake & Output 08/24/20 08/25/20 08/26/20 06:59 06:59 06:59 Intake Total 1408 1362 60 Output Total 2009 3675 570 Balance -602 -2313 -510 Weight 125.6 kg 123.5 kg Weight/Height Weight 123.5 kg Height 5 ft 7 in General appearance: PRESENT: no acute distress, morbidly obese Head exam: PRESENT: atraumatic, normocephalic Eye exam: PRESENT: conjunctiva pink, EOMI, PERRLA. ABSENT: scleral icterus Ear exam: PRESENT: normal external ear exam Mouth exam: PRESENT: moist, tongue midline Respiratory exam: PRESENT: clear to auscultation pinky. ABSENT: rales, rhonchi, wheezes Cardiovascular exam: PRESENT: RRR. ABSENT: diastolic murmur, rubs, systolic murmur GI/Abdominal exam: PRESENT: normal bowel sounds, soft. ABSENT: distended, guarding, mass, organolmegaly, rebound, tenderness Rectal exam: PRESENT: deferred Gentrourinary exam: PRESENT: indwelling catheter Extremities exam: PRESENT: full ROM, +1 edema. ABSENT: calf tenderness, clubbing, pedal edema Musculoskeletal exam: PRESENT: normal inspection Neurological exam: PRESENT: altered, CN II-XII grossly intact Skin exam: PRESENT: dry, intact, warm. ABSENT: cyanosis, rash Tubes/Lines: PRESENT: Endotracheal Tube, Central Line, Nasogastic Tube Laboratory/Radiographs Laboratory Results: 08/25/20 04:06 08/23/20 04:55 08/25/20 08/25/20 04:06 04:06 WBC 27.8 H RBC 3.02 L Hgb 9.0 L Hct 26.7 L MCV 88 MCH 29.9 MCHC 33.8 RDW 14.5 H Plt Count 414 C-Reactive Protein 15.8 H 08/22/20 10:57 Catheterized Urine Urine Culture - Final Yeast, Not Sofya Albicans 08/22/20 10:57 Tracheal Aspirate Gram Stain - Final 08/22/20 10:57 Tracheal Aspirate Sputum Culture - Final Mrsa (Meth Resis Staph Aureus) Normal Mei Absent 08/07/20 08/07/20 08/07/20 00:34 00:35 06:31 Troponin I 0.390 NT-Pro-B Natriuret Pep 2780 H 3520 H 08/08/20 08/08/20 08/10/20 04:03 14:56 04:08 Troponin I 0.185 NT-Pro-B Natriuret Pep 3740 H 4510 H Impressions: KUB X-Ray 08/08/20 13:14 IMPRESSION: TIP OF THE NASOGASTRIC TUBE IS IN THE STOMACH. PICC Line Insertion 08/22/20 00:00 IMPRESSION: SUCCESSFUL PLACEMENT OF A 5 FR DUAL LUMEN 50 CM PICC IN THE LEFT BASILIC VEIN. Chest X-Ray 08/22/20 05:00 IMPRESSION: NO SIGNIFICANT INTERVAL CHANGE. All labs, radiographs, diagnostic studies and EKGs were personally reviewed: Yes In addition, reports of radiographic and diagnostic studies were read: Yes Assessment and Plan - Diagnosis (1) COVID-19 virus detected Is this a current diagnosis for this admission?: Yes Plan: Plan to retest. She will likely need a tracheostomy soon. 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 On vancomycin for MRSA in sputum. Plan Summary: Less responsive. May be MRSA in sputum. Plan to retest. Trach soon. Critical Time Critical Time (minutes): 35 Level of Care: ICU Anticipated discharge: SNF Anticipated DC Timeframe: Other -: 1. The care of a critical patient is a dynamic process. This note is a community representative synopsis but static in nature. The timeframe for treatments given in order is not necessarily the actual time these treatments may have been done. 2. This patient requires critical care secondary to ongoing requirements for therapy not offered or safe outside the critical care environment. Transfer to a lower level of care will result in altered life or limb morbidity and mortality. 3. Multidisciplinary rounds completed. 4. ABCDE bundle addressed.
[2020-08-25] MEDS: VANCOMYCIN HCL 1,250 MG in DEXTROSE 5%-WATER 250 ML IV SCH (14:42)
[2020-08-25] MEDS: METOPROLOL TARTRATE PF/INJ 5 MG/5 ML SDV IV PRN ×2 (16:41→18:45)
[2020-08-25] MEDS: NYSTATIN TOPICAL POWDER 15 GM TP SCH (17:14)
[2020-08-25] MEDS: HYDRALAZINE HCL 25 MG TABLET PO SCH ×2 (19:40→23:27)
[2020-08-25] MEDS: ACETAMINOPHEN SOLN 325 MG/10.15 ML UDCUP NG PRN (21:24)
[2020-08-26] MEDS: ALBUTEROL SULFATE 0.083% NEB 2.5 MG/3 ML AMPUL NEB SCH ×4 (01:40→20:36)
[2020-08-26] MEDS: HEPARIN SODIUM,PORCINE/D5W 25,000 UNIT/250 ML RTUINJ IV PRN ×2 (03:46→21:11)
[2020-08-26] MEDS: LEVOTHYROXINE SODIUM 0.15 MG TABLET PO SCH (05:30)
[2020-08-26] MEDS: HYDRALAZINE HCL 25 MG TABLET PO SCH ×4 (05:30→23:11)
[2020-08-26] MEDS: INSULIN REG, HUMAN 100 UNIT/ML 3 ML VIAL (PYX) SUBCUT SCH ×4 (05:32→23:36)
[2020-08-26 06:13] LABS: HEMATOCRIT 25.3 % (36.0-47.0); HEMOGLOBIN 8.3 g/dL (12.0-15.5); MEAN CORPUSCULAR HEMOGLOBIN 29.3 pg (27.0-33.4); MEAN CORPUSCULAR HGB CONC 32.8 g/dL (32.0-36.0); MEAN CORPUSCULAR VOLUME 89 fl (80-97); PLATELET COUNT 393 10^3/uL (150-450); RED BLOOD COUNT 2.83 10^6/uL (3.72-5.28); RED CELL DISTRIBUTION WIDTH 14.8 % (11.5-14.0); WHITE BLOOD COUNT 24.5 10^3/uL (4.0-10.5)
[2020-08-26 06:39] LABS: BLOOD UREA NITROGEN 61 mg/dL (7-20); CALCIUM 8.7 mg/dL (8.4-10.2); CARBON DIOXIDE 27 mmol/L (22-30); CHLORIDE 97 mmol/L (98-107); GLUCOSE 142 mg/dL (75-110); POTASSIUM 5.2 mmol/L (3.6-5.0)
[2020-08-26 06:40] LABS: ANION GAP 4 (5-19)
[2020-08-26 07:14] LABS: ABSOLUTE LYMPHOCYTES# (MANUAL) 0.2 10^3/uL (0.5-4.7); ABSOLUTE MONOCYTES # (MANUAL) 2.2 10^3/uL (0.1-1.4); BASOPHILS % (MANUAL) 0 % (0-2); EOSINOPHILS % (MANUAL) 0 % (0-6); LYMPHOCYTES % (MANUAL) 1 % (13-45); MONOCYTES % (MANUAL) 9 % (3-13); SEGMENTED NEUTROPHILS % (MAN) 90 % (42-78); TOTAL CELLS COUNTED 100
[2020-08-26 07:15] LABS: ANISOCYTOSIS SLIGHT; POIKILOCYTOSIS SLIGHT; TOXIC GRANULATION 1+; TOXIC VACUOLATION PRESENT
[2020-08-26 07:16] LABS: BURR CELLS SLIGHT; OVALOCYTES 1+; PLATELET COMMENT ADEQUATE
[2020-08-26] MEDS: BUDESONIDE NEB 0.25 MG/2 ML AMPUL NEB SCH ×2 (08:08→20:36)
[2020-08-26] MEDS: ASCORBIC ACID 500 MG TABLET NG SCH ×3 (08:48→21:06)
[2020-08-26] MEDS: FAMOTIDINE INJ/PF 20 MG/2 ML SDV IV SCH (10:03)
[2020-08-26] MEDS: DEXAMETHASONE SOD PHOS INJ 10 MG/1 ML VIAL IV SCH (10:03)
[2020-08-26] MEDS: METOPROLOL TARTRATE 50 MG TABLET PO SCH ×2 (10:04→21:07)
[2020-08-26] MEDS: NYSTATIN TOPICAL POWDER 15 GM TP SCH ×2 (10:04→18:07)
[2020-08-26] MEDS: CHOLECALCIFEROL (D3) 1,000 UNIT (25 MCG) TABLET PO SCH (10:04)
[2020-08-26] MEDS: ZINC SULFATE 220 MG CAPSULE PO SCH (10:05)
[2020-08-26] MEDS: INSULIN GLARGINE,HUM.REC.ANLOG 1,000 UNIT/10 ML VIAL SUBCUT SCH ×2 (10:05→21:34)
[2020-08-26] MEDS: NORMAL SALINE 10 ML SDV (SCHEDULED) IV SCH ×2 (10:45→21:07)
[2020-08-26] MEDS: VANCOMYCIN HCL 1,250 MG in DEXTROSE 5%-WATER 250 ML IV SCH (12:25)
--- NOTE | 2020-08-26 17:12 | PDOC CRITICAL CARE PROG REPORT ---
General Date:: 08/26/20 ICU Day:: Ventilator Day:: Hospital Day:: Resuscitation Status: Full Code Events in the past 12 to 24 Hours:: Not able to make meaningful changes to vent. Awake. 08/15: Not quite ready to extubate. 08/16: Pt extubated this AM. 08/18: Not able to wean much today. 08/19: Lowering sedation and changing to precedex. Hgb 6.8 no sign of bleeding needs blood. 08/20: Transfusions given. Hgb 10. Too sleepy to extubate. 08/21: apparently failed SBT yesterday. Overnight, switched from PSV to PRVC, unclear why. Off sedation. Awake, follows commands, but sluggishly. On PRVC 15/450/35/5, RR 24. 08/22: remains on PSV 14/5. awake but still slow to follow commands. off sedation x 2 days. developed fever yesterday (T-max 100.6 F). finished course of Zyvox yesterday. WBC 24.1> 27. Platelets 465. On heparin gtt. on TF and water flushes. 08/23: on PSV 12/5. Temp 101.5 F. Trach aspirate isolating Gram positive cocci in clusters. Winces to pain. slow to follow commands. off sedation x 2 days. ABG this am: 7.45/32/66. WBC 27-->29.1. On heparin. 08/24: On PSV 10/5, FIO2 35%. SPO2 97-99%. RR 18/24. Lethargic. Arousable to noxious stimuli. Moves all 4 extremities but not to command. Currently afebrile. T-max (24) 101.5 F. Started on vancomycin for trach aspirate isolat ing gram-positive cocci in clusters. WBC 29.1>28. 08/25: Mental status the same. Arouses to voice but does not fully commands. 08/26:Arousable. Not following commands. Review of systems relevant to events:: Pulmonary, CV. Reason for ICU Addmission:: Respiratory failure secondary to COVID-19 pneumonia, reintubated. - Medications: Medications reviewed and adjusted accordingly: Yes Vasopressors:: None Sedation:: Precedex. Physical Exam Vital Signs: Temp Pulse Resp BP Pulse Ox 99.0 F 69 22 H 189/51 H 99 08/26/20 12:00 08/26/20 14:04 08/26/20 14:04 08/26/20 14:00 08/26/20 15:33 Intake & Output 08/25/20 08/26/20 08/27/20 06:59 06:59 06:59 Intake Total 1612 2066 250 Output Total 3677 2645 820 Balance -2063 -579 -570 Weight 123.5 kg 126 kg Weight/Height Weight 126 kg Height 5 ft 7 in General appearance: PRESENT: no acute distress Head exam: PRESENT: atraumatic, normocephalic Eye exam: PRESENT: conjunctiva pink, EOMI, PERRLA. ABSENT: scleral icterus Ear exam: PRESENT: normal external ear exam Mouth exam: PRESENT: moist, tongue midline Respiratory exam: PRESENT: clear to auscultation pinky. ABSENT: rales, rhonchi, wheezes Cardiovascular exam: PRESENT: RRR. ABSENT: diastolic murmur, rubs, systolic murmur GI/Abdominal exam: PRESENT: normal bowel sounds, soft. ABSENT: distended, guarding, mass, organolmegaly, rebound, tenderness Rectal exam: PRESENT: deferred Gentrourinary exam: PRESENT: indwelling catheter Extremities exam: PRESENT: +1 edema Musculoskeletal exam: PRESENT: normal inspection Neurological exam: PRESENT: altered, other - Sedated Skin exam: PRESENT: dry, intact, warm. ABSENT: cyanosis, rash Tubes/Lines: PRESENT: Endotracheal Tube, Nasogastic Tube Laboratory/Radiographs Laboratory Results: 08/26/20 05:20 08/26/20 05:20 08/26/20 08/26/20 05:20 05:20 WBC 24.5 H RBC 2.83 L Hgb 8.3 L Hct 25.3 L MCV 89 MCH 29.3 MCHC 32.8 RDW 14.8 H Plt Count 393 Seg Neutrophils % Not Reportable Sodium 128.3 L Potassium 5.2 H Chloride 97 L Carbon Dioxide 27 Anion Gap 4 L BUN 61 H Creatinine 1.14 Est GFR ( Amer) 55 L Glucose 142 H Calcium 8.7 08/07/20 08/07/20 08/07/20 00:34 00:35 06:31 Troponin I 0.390 NT-Pro-B Natriuret Pep 2780 H 3520 H 08/08/20 08/08/20 08/10/20 04:03 14:56 04:08 Troponin I 0.185 NT-Pro-B Natriuret Pep 3740 H 4510 H Impressions: KUB X-Ray 08/08/20 13:14 IMPRESSION: TIP OF THE NASOGASTRIC TUBE IS IN THE STOMACH. PICC Line Insertion 08/22/20 00:00 IMPRESSION: SUCCESSFUL PLACEMENT OF A 5 FR DUAL LUMEN 50 CM PICC IN THE LEFT BASILIC VEIN. Chest X-Ray 08/22/20 05:00 IMPRESSION: NO SIGNIFICANT INTERVAL CHANGE. All labs, radiographs, diagnostic studies and EKGs were personally reviewed: Yes In addition, reports of radiographic and diagnostic studies were read: Yes Assessment and Plan - Diagnosis (1) COVID-19 virus detected Is this a current diagnosis for this admission?: Yes Plan: Still suffering the pulmonary effects.Not able to make significant changes on vent. 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 (3) Leukocytosis Is this a current diagnosis for this admission?: Yes Plan: Level 24K, coming down slowly. (4) Hyponatremia Is this a current diagnosis for this admission?: Yes Plan: Renal function improving. Continue fluid restriction. (5) MRSA pneumonia Qualifiers: Laterality: bilateral Lung location: unspecified part of lung Qualified Code(s): J15.212 - Pneumonia due to Methicillin resistant Staphylococcus aureus Is this a current diagnosis for this admission?: Yes Plan: Continuing Vaqncomycin. Plan Summary: Plan to lighten sedation some, continue fluid restriction. Spoke to son today regarding need for trach soon. Critical Time Critical Time (minutes): 35 Level of Care: ICU Anticipated discharge: SNF Anticipated DC Timeframe: Other -: 1. The care of a critical patient is a dynamic process. This note is a personal service representative synopsis but static in nature. The timeframe for treatments given in order is not necessarily the actual time these treatments may have been done. 2. This patient requires critical care secondary to ongoing requirements for therapy not offered or safe outside the critical care environment. Transfer to a lower level of care will result in altered life or limb morbidity and mortality. 3. Multidisciplinary rounds completed. 4. ABCDE bundle addressed.
[2020-08-27] MEDS: ALBUTEROL SULFATE 0.083% NEB 2.5 MG/3 ML AMPUL NEB SCH ×4 (02:04→20:10)
[2020-08-27 04:11] LABS: HEMATOCRIT 25.5 % (36.0-47.0); HEMOGLOBIN 8.5 g/dL (12.0-15.5); MEAN CORPUSCULAR HEMOGLOBIN 29.7 pg (27.0-33.4); MEAN CORPUSCULAR HGB CONC 33.1 g/dL (32.0-36.0); MEAN CORPUSCULAR VOLUME 90 fl (80-97); PLATELET COUNT 433 10^3/uL (150-450); RED BLOOD COUNT 2.85 10^6/uL (3.72-5.28); RED CELL DISTRIBUTION WIDTH 15.2 % (11.5-14.0); WHITE BLOOD COUNT 29.4 10^3/uL (4.0-10.5)
[2020-08-27 04:43] LABS: ABSOLUTE LYMPHOCYTES# (MANUAL) 0.6 10^3/uL (0.5-4.7); ABSOLUTE MONOCYTES # (MANUAL) 1.5 10^3/uL (0.1-1.4); BAND NEUTROPHILS % (MANUAL) 1 % (3-5); BASOPHILS % (MANUAL) 0 % (0-2); EOSINOPHILS % (MANUAL) 0 % (0-6); LYMPHOCYTES % (MANUAL) 2 % (13-45); MONOCYTES % (MANUAL) 5 % (3-13); SEGMENTED NEUTROPHILS % (MAN) 92 % (42-78); TOTAL CELLS COUNTED 100
[2020-08-27 04:44] LABS: ANISOCYTOSIS SLIGHT; PLATELET CLUMPS PRESENT; PLATELET COMMENT ADEQUATE
[2020-08-27 04:46] LABS: BURR CELLS SLIGHT; OVALOCYTES SLIGHT; POLYCHROMASIA SLIGHT
[2020-08-27 05:00] LABS: ANION GAP 6 (5-19); BLOOD UREA NITROGEN 60 mg/dL (7-20); CARBON DIOXIDE 25 mmol/L (22-30); CHLORIDE 98 mmol/L (98-107); GLUCOSE 227 mg/dL (75-110); POTASSIUM 5.8 mmol/L (3.6-5.0)
[2020-08-27] MEDS ORDERED: FUROSEMIDE INJ/PF 40 MG/4 ML SDV IV ONE (05:27)
[2020-08-27] MEDS: HYDRALAZINE HCL 25 MG TABLET PO SCH ×3 (05:53→18:24)
[2020-08-27] MEDS: ASCORBIC ACID 500 MG TABLET NG SCH ×3 (05:53→22:38)
[2020-08-27] MEDS: INSULIN REG, HUMAN 100 UNIT/ML 3 ML VIAL (PYX) SUBCUT SCH ×4 (05:53→23:41)
[2020-08-27] MEDS: LEVOTHYROXINE SODIUM 0.15 MG TABLET PO SCH (05:54)
[2020-08-27] MEDS: BUDESONIDE NEB 0.25 MG/2 ML AMPUL NEB SCH ×2 (08:02→20:10)
[2020-08-27] MEDS ORDERED: SUCCINYLCHOLINE CHLORIDE INJ 200 MG/10 ML VIAL ONE (09:11)
[2020-08-27] MEDS ORDERED: ETOMIDATE INJ/PF 20 MG/10 ML SDV IV ONE ×2 (10:02→16:00)
--- NOTE | 2020-08-27 10:51 | PDOC CRITICAL CARE PROG REPORT ---
General Date:: 08/27/20 ICU Day:: 20 Ventilator Day:: 20 Hospital Day:: 20 Resuscitation Status: Full Code Events in the past 12 to 24 Hours:: Not able to make meaningful changes to vent. Awake. 08/15: Not quite ready to extubate. 08/16: Pt extubated this AM. 08/18: Not able to wean much today. 08/19: Lowering sedation and changing to precedex. Hgb 6.8 no sign of bleeding needs blood. 08/20: Transfusions given. Hgb 10. Too sleepy to extubate. 08/21: apparently failed SBT yesterday. Overnight, switched from PSV to PRVC, unclear why. Off sedation. Awake, follows commands, but sluggishly. On PRVC 15/450/35/5, RR 24. 08/22: remains on PSV 14/5. awake but still slow to follow commands. off sedation x 2 days. developed fever yesterday (T-max 100.6 F). finished course of Zyvox yesterday. WBC 24.1> 27. Platelets 465. On heparin gtt. on TF and water flushes. 08/23: on PSV 12/5. Temp 101.5 F. Trach aspirate isolating Gram positive cocci in clusters. Winces to pain. slow to follow commands. off sedation x 2 days. ABG this am: 7.45/32/66. WBC 27-->29.1. On heparin. 08/24: On PSV 10/5, FIO2 35%. SPO2 97-99%. RR 18/24. Lethargic. Arousable to noxious stimuli. Moves all 4 extremities but not to command. Currently afebrile. T-max (24) 101.5 F. Started on vancomycin for trach aspirate isolat ing gram-positive cocci in clusters. WBC 29.1>28. 08/25: Mental status the same. Arouses to voice but does not fully commands. 08/26:Arousable. Not following commands. 08/27: Less responsive, higher WBC. New firmness in LUQ of abd. CT pending. Review of systems relevant to events:: Pulmonary, neurological. Possibly GI. Reason for ICU Addmission:: Respiratory failure secondary to COVID-19 pneumonia, reintubated. - Medications: Medications reviewed and adjusted accordingly: Yes Vasopressors:: None Sedation:: None Physical Exam Vital Signs: Temp Pulse Resp BP Pulse Ox 99.7 F 80 24 H 115/77 100 08/27/20 08:00 08/27/20 08:00 08/27/20 10:16 08/27/20 10:16 08/27/20 10:16 Intake & Output 08/26/20 08/27/20 08/28/20 06:59 06:59 06:59 Intake Total 2066 1049 Output Total 2645 2170 1275 Balance -579 -1121 -1275 Weight 126 kg 122.6 kg Weight/Height Weight 122.6 kg Height 5 ft 7 in General appearance: PRESENT: no acute distress, obese Head exam: PRESENT: atraumatic, normocephalic Eye exam: PRESENT: conjunctiva pink, EOMI, PERRLA. ABSENT: scleral icterus Ear exam: PRESENT: normal external ear exam Mouth exam: PRESENT: moist, tongue midline Respiratory exam: PRESENT: clear to auscultation pinky. ABSENT: rales, rhonchi, wheezes Cardiovascular exam: PRESENT: RRR. ABSENT: diastolic murmur, rubs, systolic murmur GI/Abdominal exam: PRESENT: normal bowel sounds, soft, other - Firm mass in LUQ. Does not appear superficial as a lovenox hematoma and is painful. No peritoneal signs.. ABSENT: distended, guarding, mass, organolmegaly, rebound, tenderness Rectal exam: PRESENT: deferred Gentrourinary exam: PRESENT: indwelling catheter Extremities exam: PRESENT: full ROM, +1 edema. ABSENT: calf tenderness, clubbing, pedal edema Musculoskeletal exam: PRESENT: normal inspection Neurological exam: PRESENT: altered, other - Responds to pain but not purposeful. No response to voice. Skin exam: PRESENT: dry, intact, warm. ABSENT: cyanosis, rash Tubes/Lines: PRESENT: Endotracheal Tube, Nasogastic Tube Laboratory/Radiographs Laboratory Results: 08/27/20 03:40 08/27/20 03:40 08/27/20 08/27/20 03:40 03:40 WBC 29.4 H RBC 2.85 L Hgb 8.5 L Hct 25.5 L MCV 90 MCH 29.7 MCHC 33.1 RDW 15.2 H Plt Count 433 Seg Neutrophils % Not Reportable Sodium 128.6 L Potassium 5.8 H Chloride 98 Carbon Dioxide 25 Anion Gap 6 BUN 60 H Creatinine 1.11 Est GFR ( Amer) 56 L Glucose 227 H Calcium 9.0 08/07/20 08/07/20 08/07/20 00:34 00:35 06:31 Troponin I 0.390 NT-Pro-B Natriuret Pep 2780 H 3520 H 08/08/20 08/08/20 08/10/20 04:03 14:56 04:08 Troponin I 0.185 NT-Pro-B Natriuret Pep 3740 H 4510 H Impressions: KUB X-Ray 08/08/20 13:14 IMPRESSION: TIP OF THE NASOGASTRIC TUBE IS IN THE STOMACH. PICC Line Insertion 08/22/20 00:00 IMPRESSION: SUCCESSFUL PLACEMENT OF A 5 FR DUAL LUMEN 50 CM PICC IN THE LEFT BASILIC VEIN. All labs, radiographs, diagnostic studies and EKGs were personally reviewed: Yes In addition, reports of radiographic and diagnostic studies were read: Yes Assessment and Plan - Diagnosis (1) COVID-19 virus detected Is this a current diagnosis for this admission?: Yes Plan: This is the origin of her critical illness. She is on PSV but at 22cm and PEEP 10. 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 (3) Leukocytosis Is this a current diagnosis for this admission?: Yes Plan: Level higher at 24K. No obvious infection source (4) Hyponatremia Is this a current diagnosis for this admission?: Yes Plan: Level 129 stable thus far. (5) MRSA pneumonia Qualifiers: Laterality: bilateral Lung location: unspecified part of lung Qualified Code(s): J15.212 - Pneumonia due to Methicillin resistant Staphylococcus aureus Is this a current diagnosis for this admission?: Yes Plan: On day 3 of vancomycin. Plan Summary: Obtain CT of abd to assess new mass. WBC is likely related to MRSA in sputum. Critical Time Critical Time (minutes): 35 Level of Care: ICU Anticipated discharge: SNF Anticipated DC Timeframe: Other -: 1. The care of a critical patient is a dynamic process. This note is a guest experience representative synopsis but static in nature. The timeframe for treatments given in order is not necessarily the actual time these treatments may have been done. 2. This patient requires critical care secondary to ongoing requirements for therapy not offered or safe outside the critical care environment. Transfer to a lower level of care will result in altered life or limb morbidity and mortality. 3. Multidisciplinary rounds completed. 4. ABCDE bundle addressed.
[2020-08-27] MEDS: DEXAMETHASONE SOD PHOS INJ 10 MG/1 ML VIAL IV SCH (11:02)
[2020-08-27] MEDS: FAMOTIDINE INJ/PF 20 MG/2 ML SDV IV SCH (11:03)
[2020-08-27] MEDS: INSULIN GLARGINE,HUM.REC.ANLOG 1,000 UNIT/10 ML VIAL SUBCUT SCH ×2 (11:03→22:38)
[2020-08-27] MEDS: METOPROLOL TARTRATE 50 MG TABLET PO SCH ×2 (11:04→22:38)
[2020-08-27] MEDS: NORMAL SALINE 10 ML SDV (SCHEDULED) IV SCH ×2 (11:04→22:38)
[2020-08-27] MEDS: ZINC SULFATE 220 MG CAPSULE PO SCH (11:05)
[2020-08-27] MEDS: CHOLECALCIFEROL (D3) 1,000 UNIT (25 MCG) TABLET PO SCH (11:05)
[2020-08-27] MEDS: NYSTATIN TOPICAL POWDER 15 GM TP SCH ×2 (11:05→18:25)
--- NOTE | 2020-08-27 11:35 | RADIOLOGY REPORT (SQ) ---
EXAM DESCRIPTION: CHEST SINGLE VIEW IMAGES COMPLETED DATE/TIME: 08/27/2020 11:17 am REASON FOR STUDY: ET TUBE PLACEMENT COMPARISON: 08/22/2020 EXAM PARAMETERS: NUMBER OF VIEWS: One view TECHNIQUE: Single frontal radiograph of the chest. RADIATION DOSE: N/A LIMITATIONS: None. FINDINGS: TEMPORARY SUPPORT DEVICES:ETT in expected location. NG tube courses below the tran-diaphr agm in to the stomach. PICC catheter from left peripheral approach is in expected location. LUNGS AND PLEURA: Basilar opacities with improved aeration since the previous study. No pneumothorax . MEDIASTINUM AND HILAR STRUCTURES: No masses. Contour normal. HEART AND VASCULAR STRUCTURES: Heart size normal. Normal vascularity. Aorta normal for age BONES: No acute findings. OTHER: No other significant finding. IMPRESSION: Improved aeration of the lungs. SUPPORT DEVICE(S) IN EXPECTED LOCATIONS. TECHNICAL DOCUMENTATION: JOB ID: [id number] 2010 [email or web address]- All Rights Reserved Reading location - IP/workstation name: [email or web address]
[2020-08-27 12:05] LABS: VANCOMYCIN,TROUGH 17.3 ug/mL (5.0-20.0)
[2020-08-27] MEDS: VANCOMYCIN HCL 1,250 MG in DEXTROSE 5%-WATER 250 ML IV SCH (12:23)
--- NOTE | 2020-08-27 12:41 | RADIOLOGY REPORT (SQ) ---
EXAM DESCRIPTION: CHEST SINGLE VIEW IMAGES COMPLETED DATE/TIME: 08/27/2020 11:06 am REASON FOR STUDY: ET TUBE PLACEMENT COMPARISON: Chest radiograph at 1029 hours. EXAM PARAMETERS: NUMBER OF VIEWS: One view. TECHNIQUE: Single frontal radiographic view of the chest acquired. RADIATION DOSE: NA LIMITATIONS: None. FINDINGS: LUNGS AND PLEURA: Patchy ill-defined opacities bilateral lungs not significantly changed. No pleural effusion or pneumothorax. MEDIASTINUM AND HILAR STRUCTURES: No masses. Contour normal. HEART AND VASCULAR STRUCTURES: Moderate cardiomegaly. Mild pulmonary vascular congestion. BONES: No acute findings. HARDWARE: The endotracheal tube has been advanced with tip now in the right mainstem bronchus. Recom mend retracting 4 cm. The left PICC tip is coiled at the right para mediastinum probably in the righ t brachiocephalic/SVC confluence. Esophagogastric tube tip and side-hole are below the diaphragm wit hin the stomach. OTHER: No other significant finding. IMPRESSION: Endotracheal tube has been advanced with tip now in the right mainstem bronchus. Recomm end retracting 4 cm. COMMENT: Findings were communicated with the APPLE Rashid taking care of the patient on 08/27/2020 at 1 235 hours Eastern time TECHNICAL DOCUMENTATION: JOB ID: [id number] 2010 [employer]- All Rights Reserved Reading location - IP/workstation name: [email or web address]
--- NOTE | 2020-08-27 13:18 | RADIOLOGY REPORT (SQ) ---
EXAM DESCRIPTION: CHEST SINGLE VIEW IMAGES COMPLETED DATE/TIME: 08/27/2020 1:05 pm REASON FOR STUDY: ET TUBE PLACEMENT COMPARISON: 08/27/2019 1143 hours EXAM PARAMETERS: NUMBER OF VIEWS: One view. TECHNIQUE: Single frontal radiographic view of the chest acquired. RADIATION DOSE: NA LIMITATIONS: None. FINDINGS: LUNGS AND PLEURA: Stable parenchymal opacities. MEDIASTINUM AND HILAR STRUCTURES: No masses. Contour normal. HEART AND VASCULAR STRUCTURES: Heart normal in size. Normal vasculature. BONES: No acute findings. HARDWARE: ETT remains in the mainstem bronchus. Retract 4 cm. NG tube in venous access catheter unc hanged. OTHER: No other significant finding. IMPRESSION: ET tube remains in the right mainstem bronchus. Retract 4 cm. TECHNICAL DOCUMENTATION: JOB ID: [id number] 2010 [employer]- All Rights Reserved Reading location - IP/workstation name: [email or web address]
[2020-08-27] MEDS: HEPARIN SODIUM,PORCINE/D5W 25,000 UNIT/250 ML RTUINJ IV PRN (16:00)
--- NOTE | 2020-08-27 18:01 | RADIOLOGY REPORT (SQ) ---
EXAM DESCRIPTION: CT ABD/PELVIS ORAL ONLY IMAGES COMPLETED DATE/TIME: 08/27/2020 1:28 pm REASON FOR STUDY: Painful hard mass in LUQ, not superficial. COMPARISON: 08/24/2018 TECHNIQUE: CT scan of the abdomen and pelvis performed without intravenous or oral contrast. Images reviewed with lung, soft tissue, and bone windows. Reconstructed coronal and sagittal MPR images revi ewed. All images stored on PACS. All CT scanners at this facility use dose modulation, iterative reconstruction, and/or weight based d osing when appropriate to reduce radiation dose to as low as reasonably achievable (ALARA). [facility]: Dose Right [facility]: CareDose [facility]: Dose Right [facility]: Teradose 4D [facility]: Smart Contour Innovations RADIATION DOSE: CT Rad equipment meets quality standard of care and radiation dose reduction techniq ues were employed. CTDIvol: 19.2 mGy. DLP: 948 mGy-cm.mGy. LIMITATIONS: Extreme beam hardening artifact secondary to patient body habitus and inability to rais e arms. FINDINGS: LOWER CHEST: Patchy ground-glass opacities at the lung bases consistent with multifocal pn eumonia. Small left effusion. NON-CONTRASTED LIVER, SPLEEN, ADRENALS: Evaluation limited by lack of IV contrast. No identified sign ificant masses. PANCREAS: No masses. No peripancreatic inflammatory changes. GALLBLADDER: No identified stones by CT criteria. No inflammatory changes to suggest cholecystitis. RIGHT KIDNEY AND URETER: New mild right hydronephrosis and hydroureter with transition point in the m id ureter. No significant calcifications. No perinephric fluid. LEFT KIDNEY AND URETER: No suspicious masses. Assessment limited by lack of IV contrast. No signifi cant calcifications. No hydronephrosis or hydroureter. AORTA AND RETROPERITONEUM: No aneurysm. No retroperitoneal masses or adenopathy. BOWEL AND PERITONEAL CAVITY: No obvious masses or inflammatory changes. No free fluid. APPENDIX: Not visualized. PELVIS, BLADDER, AND ABDOMINAL WALL:There is high attenuation ascites in the pelvis, possibly represe nting ascites mixed with hemorrhage. There is a large left rectus sheath hematoma measuring 8.2 x 9. 3 cm. Evaluation of the pelvic organs is limited due to beam hardening artifact from bilateral hip a rthroplasties. BONES: Bilateral hip arthroplasties partially visualized. Multilevel spondylosis and degenerative di sc disease. OTHER: No other significant finding. IMPRESSION: 1. Large left rectus sheath hematoma. Hyperdense ascites in the pelvis may represent mix of fluid an d hematoma. 2. Bibasilar multifocal pneumonia. Finding is consistent with history of coated pneumonia. Small le ft effusion. COMMENT: Findings communicated with the ordering provider Dr. Campbell on 08/27/2020 at 1745 hours [place]. Quality ID # [id number]: Final reports with documentation of one or more dose reduction techniques (e.g., Au tomated exposure control, adjustment of the mA and/or kV according to patient size, use of iterative reconstruction technique) TECHNICAL DOCUMENTATION: JOB ID: [id number] 2010 [employer]- All Rights Reserved Reading location - IP/workstation name: [email or web address]
[2020-08-27] MEDS ORDERED: DEXTROSE 40% GEL 15 GM TUBE PO PRN ×2 (18:53)
[2020-08-27] MEDS ORDERED: GLUCAGON,HUMAN RECOMB 1 MG INJ SUBCUT PRN (18:53)
[2020-08-27] MEDS ORDERED: DEXTROSE 50%-WATER 25 GM/50 ML DISP.SYRIN IV PRN ×2 (18:53)
--- NOTE | 2020-08-27 18:53 | PDOC CONSULTATION ---
Consultation Consult Date: 08/27/20 Provider Consulted: COLLEEN PARKS Consult reason:: Need for tracheostomy History of Present Illness Admission Date/PCP: 08/07/20 04:29 MENDOZA MARRERO MD History of Present Illness: LEONARDO SHIN is a 85 year old female, with severe bilateral Covid pneumonia, intubated on August 15, 2020, currently oxygen dependent and ventilator dependent, unable to be extubated. Her most recent white blood cell count is 29.400, with elevated BUN and creatinine of 61/1.18, respectively and hyperkalemia 5.8; her most recent blood gases demonstrated pH 7.4, PCO2 33, PO2 64.1 on an FiO2 of 35%. The patient is currently on IV heparin with PTT of 52. A CT scan abdomen/pelvis done today reveals a large left rectus sheath hematoma. Past Medical History Cardiac Medical History: Reports: Atrial Fibrillation, Congestive Heart Failure, Coronary Artery Disease, Hyperlipidema, Hypertension Pulmonary Medical History: Reports: Chronic Obstructive Pulmonary Disease (COPD) Endocrine Medical History: Reports: Diabetes Mellitus Type 2 Malignancy Medical History: Reports: Breast Cancer GI Medical History: Reports: Gastroesophageal Reflux Disease Psychiatric Medical History: Denies: Depression Past Surgical History Past Surgical History: Reports: Appendectomy, Cholecystectomy, Mastectomy Social History Lives with: Family Smoking Status: Unknown if Ever Smoked Frequency of Alcohol Use: None Hx Recreational Drug Use: No Drugs: None Hx Prescription Drug Abuse: No - Advance Directive Resuscitation Status: Full Code Family History Family History: Reviewed & Not Pertinent Parental Family History Reviewed: No Children Family History Reviewed: No Sibling(s) Family History Reviewed.: No Medication/Allergy Home Medications: Gabapentin [Neurontin 300 mg Capsule] 300 mg PO Q12 08/28/17 Metoprolol Succinate [Toprol Xl 25 mg Tab.sr] 25 mg PO DAILY 11/27/17 Amlodipine Besylate [Norvasc 5 mg Tablet] 5 mg PO DAILY 08/07/20 Atorvastatin Calcium [Lipitor 80 mg Tablet] 80 mg PO DAILY 08/07/20 Levothyroxine Sodium [Synthroid 0.15 mg Tablet] 0.15 mg PO DAILY 08/07/20 Lisinopril [Zestril] 40 mg PO QAM 08/07/20 Nitroglycerin [Nitrostat 0.4 mg (1/150 Gr) Tabs 25/Bottle] 1 tab SL Q5MP PRN 08/07/20 Omeprazole 20 mg PO DAILY 08/07/20 Ondansetron [Zofran Odt 4 mg Tablet] 4 mg PO TID 08/07/20 Torsemide [Demadex 20 mg Tablet] 40 mg PO QPM 08/07/20 Allergies/Adverse Reactions: quinine [Quinine] Allergy (Unknown, Verified 08/24/18 11:43) Sulfa (Sulfonamide Antibiotics) Allergy (Verified 08/24/18 11:43) oxycodone HCl [From Percocet] Adverse Reaction (Mild, Verified 08/24/18 11:43) Nausea Physical Exam Vital Signs: Temp Pulse Resp BP Pulse Ox 99.7 F 86 28 H 156/59 H 97 08/27/20 10:00 08/27/20 13:54 08/27/20 18:00 08/27/20 17:38 08/27/20 18:00 Intake & Output 08/26/20 08/27/20 08/28/20 06:59 06:59 06:59 Intake Total 2064 1049 383 Output Total 5939 0375 1700 Balance -579 -1121 -1317 Weight 126 kg 122.6 kg General appearance: PRESENT: no acute distress, obese, other - Endotracheally intubated, sedated, nonresponsive Head exam: PRESENT: atraumatic, normocephalic Mouth exam: PRESENT: dry mucosa, neck supple Teeth exam: PRESENT: poor dentation Neck exam: PRESENT: other - Endotracheal intubation Respiratory exam: PRESENT: clear to auscultation pinky Cardiovascular exam: PRESENT: RRR Results Laboratory Results: 08/27/20 03:40 08/27/20 11:00 08/27/20 08/27/20 08/27/20 03:40 03:40 11:00 WBC 29.4 H RBC 2.85 L Hgb 8.5 L Hct 25.5 L MCV 90 MCH 29.7 MCHC 33.1 RDW 15.2 H Plt Count 433 Seg Neutrophils % Not Reportable Sodium 128.6 L Potassium 5.8 H Chloride 98 Carbon Dioxide 25 Anion Gap 6 BUN 60 H Creatinine 1.11 1.18 Est GFR ( Amer) 56 L 53 L Glucose 227 H Calcium 9.0 08/22/20 11:46 Blood Blood Culture - Final NO GROWTH IN 5 DAYS 08/22/20 10:57 Blood Blood Culture - Final NO GROWTH IN 5 DAYS 08/07/20 08/07/20 08/07/20 00:34 00:35 06:31 Troponin I 0.390 NT-Pro-B Natriuret Pep 2780 H 3520 H 08/08/20 08/08/20 08/10/20 04:03 14:56 04:08 Troponin I 0.185 NT-Pro-B Natriuret Pep 3740 H 4510 H Impressions: KUB X-Ray 08/08/20 13:14 IMPRESSION: TIP OF THE NASOGASTRIC TUBE IS IN THE STOMACH. PICC Line Insertion 08/22/20 00:00 IMPRESSION: SUCCESSFUL PLACEMENT OF A 5 FR DUAL LUMEN 50 CM PICC IN THE LEFT BASILIC VEIN. Chest X-Ray 08/27/20 00:00 IMPRESSION: ET tube remains in the right mainstem bronchus. Retract 4 cm. Abdomen/Pelvis CT 08/27/20 13:45 IMPRESSION: 1. Large left rectus sheath hematoma. Hyperdense ascites in the pelvis may represent mix of fluid and hematoma. 2. Bibasilar multifocal pneumonia. Finding is consistent with history of coated pneumonia. Small left effusion. Assessment & Plan - Diagnosis (1) Acute hypoxemic respiratory failure Is this a current diagnosis for this admission?: Yes (2) Rectus sheath hematoma Is this a current diagnosis for this admission?: Yes - Plan Summary Plan Summary: Assessment: 85-year-old female with bilateral COVID-19 pneumonia Patient currently endotracheally intubated, oxygen dependent, ventilator dependent, and unable to be extubated Blood gases pH 7.4, PCO2 33, PO2 64.1 on 35% FiO2 Blood cell count 29.4 with H&H 8.5 25.5, respectively 12 potassium as well as 5.0 lites 5.8 with BUN of 60 and 1.1 Recent Sputum Culture Significant for MRSA Treated with Vancomycin CT Scan Abdomen Pelvis Done Today August 27, 2020 Reveals Multiple Bilateral Pneumonia As Well As Large Left Rectus Sheath Hematoma Patient currently being fed through nasogastric tube Plan: Percutaneous possible open tracheostomy tomorrow Procedure, risk, benefits, complications, to be discussed with the family N.p.o. after midnight IV fluids Doxycycline 100 mg IV piggyback as surgery prophylaxis the morning Stop heparin infusion at about 6 AM, obtain PTT 2 hours after Correct hyperkalemia to a potassium level of 5 or less
[2020-08-27 20:57] LABS: BLOOD UREA NITROGEN 65 mg/dL (7-20); CALCIUM 8.9 mg/dL (8.4-10.2); CARBON DIOXIDE 24 mmol/L (22-30); CHLORIDE 93 mmol/L (98-107); GLUCOSE 208 mg/dL (75-110)
[2020-08-27 21:03] LABS: ANION GAP 4 (5-19); POTASSIUM 6.7 mmol/L (3.6-5.0)
--- NOTE | 2020-08-27 22:42 | EKG REPORT ---
SEVERITY:- ABNORMAL ECG - SINUS RHYTHM LEFT BUNDLE BRANCH BLOCK : Confirmed by: Be Fernandez 27-Aug-2020 22:41:49
[2020-08-27] MEDS ORDERED: INSULIN REG, HUMAN 100 UNIT/ML 3 ML VIAL (PYX) IV ONE (23:30)
[2020-08-27] MEDS ORDERED: ALBUTEROL SULFATE 0.083% NEB 2.5 MG/3 ML AMPUL NEB ONE (23:30)
[2020-08-27] MEDS ORDERED: DEXTROSE 50%-WATER 25 GM/50 ML DISP.SYRIN IV ONE (23:30)
[2020-08-27] MEDS ORDERED: SODIUM POLYSTYRENE SULFONATE 15 GM/60 ML PO ONE (23:59)
[2020-08-28] MEDS: HYDRALAZINE HCL 25 MG TABLET PO SCH ×4 (00:24→12:45)
[2020-08-28] MEDS: ALBUTEROL SULFATE 0.083% NEB 2.5 MG/3 ML AMPUL NEB SCH ×4 (02:23→20:11)
[2020-08-28] MEDS: ASCORBIC ACID 500 MG TABLET NG SCH ×3 (06:06→21:52)
[2020-08-28] MEDS: LEVOTHYROXINE SODIUM 0.15 MG TABLET PO SCH (06:06)
[2020-08-28] MEDS: INSULIN REG, HUMAN 100 UNIT/ML 3 ML VIAL (PYX) SUBCUT SCH ×3 (06:06→18:37)
[2020-08-28] MEDS: NORMAL SALINE 1000 ML 1,000 ML IV PRN ×2 (06:30→16:20)
[2020-08-28 07:01] LABS: ANION GAP 7 (5-19); BLOOD UREA NITROGEN 75 mg/dL (7-20); CALCIUM 8.6 mg/dL (8.4-10.2); CARBON DIOXIDE 23 mmol/L (22-30); CHLORIDE 92 mmol/L (98-107); GLUCOSE 267 mg/dL (75-110)
[2020-08-28 07:02] LABS: POTASSIUM 6.5 mmol/L (3.6-5.0)
[2020-08-28] MEDS ORDERED: DEXTROSE 50%-WATER 25 GM/50 ML DISP.SYRIN IV PRN ×2 (07:05)
[2020-08-28] MEDS ORDERED: DEXTROSE 40% GEL 15 GM TUBE PO PRN ×2 (07:05)
[2020-08-28] MEDS ORDERED: GLUCAGON,HUMAN RECOMB 1 MG INJ IM PRN (07:05)
[2020-08-28] MEDS ORDERED: INSULIN REG, HUMAN 100 UNIT/ML 3 ML VIAL (PYX) SUBCUT ONE (07:45)
[2020-08-28] MEDS: BUDESONIDE NEB 0.25 MG/2 ML AMPUL NEB SCH ×2 (07:56→20:11)
[2020-08-28 07:58] LABS: HEMATOCRIT 22.1 % (36.0-47.0); MEAN CORPUSCULAR HEMOGLOBIN 29.1 pg (27.0-33.4); MEAN CORPUSCULAR HGB CONC 32.2 g/dL (32.0-36.0); MEAN CORPUSCULAR VOLUME 90 fl (80-97); PLATELET COUNT 413 10^3/uL (150-450); RED BLOOD COUNT 2.44 10^6/uL (3.72-5.28); RED CELL DISTRIBUTION WIDTH 15.8 % (11.5-14.0); WHITE BLOOD COUNT 28.5 10^3/uL (4.0-10.5)
[2020-08-28] MEDS ORDERED: DOXYCYCLINE HYCLATE 100 MG in DEXTROSE 5%-WATER 250 ML IV ONE (08:00)
[2020-08-28 08:26] LABS: ABSOLUTE LYMPHOCYTES# (MANUAL) 0.6 10^3/uL (0.5-4.7); ABSOLUTE MONOCYTES # (MANUAL) 0.3 10^3/uL (0.1-1.4); BASOPHILS % (MANUAL) 0 % (0-2); EOSINOPHILS % (MANUAL) 0 % (0-6); LYMPHOCYTES % (MANUAL) 2 % (13-45); METAMYELOCYTES % (MANUAL) 1 % (0-1); MONOCYTES % (MANUAL) 1 % (3-13); SEGMENTED NEUTROPHILS % (MAN) 96 % (42-78); TOTAL CELLS COUNTED 100
[2020-08-28 08:27] LABS: ANISOCYTOSIS SLIGHT; OVALOCYTES 1+; PLATELET CLUMPS PRESENT; PLATELET COMMENT ADEQUATE; POIKILOCYTOSIS 1+; POLYCHROMASIA 1+
[2020-08-28 08:28] LABS: TEAR DROP CELLS SLIGHT
[2020-08-28] MEDS: SODIUM POLYSTYRENE SULFONATE 15 GM/60 ML PO SCH ×2 (08:31→21:54)
[2020-08-28] MEDS ORDERED: DOXYCYCLINE HYCLATE INJ 100 MG VIAL IV ONE (09:00)
[2020-08-28] MEDS ORDERED: NORMAL SALINE 250 ML IV PRN ×2 (09:18)
--- NOTE | 2020-08-28 09:22 | PDOC CRITICAL CARE PROG REPORT ---
General Date:: 08/28/20 ICU Day:: Ventilator Day:: Hospital Day:: Resuscitation Status: Full Code Events in the past 12 to 24 Hours:: Not able to make meaningful changes to vent. Awake. 08/15: Not quite ready to extubate. 08/16: Pt extubated this AM. 08/18: Not able to wean much today. 08/19: Lowering sedation and changing to precedex. Hgb 6.8 no sign of bleeding needs blood. 08/20: Transfusions given. Hgb 10. Too sleepy to extubate. 08/21: apparently failed SBT yesterday. Overnight, switched from PSV to PRVC, unclear why. Off sedation. Awake, follows commands, but sluggishly. On PRVC 15/450/35/5, RR 24. 08/22: remains on PSV 14/5. awake but still slow to follow commands. off sedation x 2 days. developed fever yesterday (T-max 100.6 F). finished course of Zyvox yesterday. WBC 24.1> 27. Platelets 465. On heparin gtt. on TF and water flushes. 08/23: on PSV 12/5. Temp 101.5 F. Trach aspirate isolating Gram positive cocci in clusters. Winces to pain. slow to follow commands. off sedation x 2 days. ABG this am: 7.45/32/66. WBC 27-->29.1. On heparin. 08/24: On PSV 10/5, FIO2 35%. SPO2 97-99%. RR 18/24. Lethargic. Arousable to noxious stimuli. Moves all 4 extremities but not to command. Currently afebrile. T-max (24) 101.5 F. Started on vancomycin for trach aspirate isolat ing gram-positive cocci in clusters. WBC 29.1>28. 08/25: Mental status the same. Arouses to voice but does not fully commands. 08/26:Arousable. Not following commands. 08/27: Less responsive, higher WBC. New firmness in LUQ of abd. CT pending. 08/28: Has rectus sheath hematoma with no evidence of further bleeding. Less responsive, in ARF may be uremic. Dr. Haro consulted. Review of systems relevant to events:: Renal, pulmonary. Reason for ICU Addmission:: Respiratory failure secondary to COVID-19 pneumonia, reintubated. - Medications: Medications reviewed and adjusted accordingly: Yes Vasopressors:: None Sedation:: Precedex Physical Exam Vital Signs: Temp Pulse Resp BP Pulse Ox 100.8 F H 74 30 H 125/48 L 97 08/28/20 04:00 08/28/20 02:23 08/28/20 06:38 08/28/20 06:38 08/28/20 06:38 Intake & Output 08/27/20 08/28/20 08/29/20 06:59 06:59 06:59 Intake Total 1049 533 Output Total 2170 1790 Balance -1121 -1257 Weight 122.6 kg 124.1 kg Weight/Height Weight 124.1 kg Height 5 ft 7 in General appearance: PRESENT: no acute distress, obese Head exam: PRESENT: atraumatic, normocephalic Eye exam: PRESENT: conjunctiva pink, EOMI, PERRLA. ABSENT: scleral icterus Ear exam: PRESENT: normal external ear exam Mouth exam: PRESENT: moist, tongue midline Respiratory exam: PRESENT: clear to auscultation pinky. ABSENT: rales, rhonchi, wheezes Cardiovascular exam: PRESENT: RRR. ABSENT: diastolic murmur, rubs, systolic murmur Rectal exam: PRESENT: deferred Gentrourinary exam: PRESENT: indwelling catheter Extremities exam: PRESENT: +1 edema Musculoskeletal exam: PRESENT: normal inspection Neurological exam: PRESENT: altered, other - Not well responsive today. Skin exam: PRESENT: dry, intact, warm. ABSENT: cyanosis, rash Tubes/Lines: PRESENT: Endotracheal Tube, Nasogastic Tube Laboratory/Radiographs Laboratory Results: 08/28/20 05:37 08/28/20 06:00 08/27/20 08/27/20 08/28/20 11:00 19:55 05:37 WBC RBC Hgb Hct MCV MCH MCHC RDW Plt Count Seg Neutrophils % Sodium 121.3 L Potassium 6.7 H* Chloride 93 L Carbon Dioxide 24 Anion Gap 4 L BUN 65 H Creatinine 1.18 1.30 H Est GFR ( Amer) 53 L 47 L Glucose 208 H Calcium 8.9 C-Reactive Protein 149.5 H 08/28/20 08/28/20 05:37 06:00 WBC 28.5 H RBC 2.44 L Hgb 7.1 L Hct 22.1 L MCV 90 MCH 29.1 MCHC 32.2 RDW 15.8 H Plt Count 413 Seg Neutrophils % Not Reportable Sodium 122.3 L Potassium 6.5 H* Chloride 92 L Carbon Dioxide 23 Anion Gap 7 BUN 75 H Creatinine 1.80 H Est GFR ( Amer) 32 L Glucose 267 H Calcium 8.6 C-Reactive Protein 08/22/20 11:46 Blood Blood Culture - Final NO GROWTH IN 5 DAYS 08/22/20 10:57 Blood Blood Culture - Final NO GROWTH IN 5 DAYS 08/07/20 08/07/20 08/07/20 00:34 00:35 06:31 Troponin I 0.390 NT-Pro-B Natriuret Pep 2780 H 3520 H 08/08/20 08/08/20 08/10/20 04:03 14:56 04:08 Troponin I 0.185 NT-Pro-B Natriuret Pep 3740 H 4510 H Impressions: KUB X-Ray 08/08/20 13:14 IMPRESSION: TIP OF THE NASOGASTRIC TUBE IS IN THE STOMACH. PICC Line Insertion 08/22/20 00:00 IMPRESSION: SUCCESSFUL PLACEMENT OF A 5 FR DUAL LUMEN 50 CM PICC IN THE LEFT BASILIC VEIN. Chest X-Ray 08/27/20 00:00 IMPRESSION: ET tube remains in the right mainstem bronchus. Retract 4 cm. Abdomen/Pelvis CT 08/27/20 13:45 IMPRESSION: 1. Large left rectus sheath hematoma. Hyperdense ascites in the pelvis may represent mix of fluid and hematoma. 2. Bibasilar multifocal pneumonia. Finding is consistent with history of coated pneumonia. Small left effusion. All labs, radiographs, diagnostic studies and EKGs were personally reviewed: Yes In addition, reports of radiographic and diagnostic studies were read: Yes Assessment and Plan - Diagnosis (1) COVID-19 virus detected Is this a current diagnosis for this admission?: Yes Plan: She is still testing positive for virus. Still running low grade fever at 100.4. Age is a major risk factor for Covid mortality. 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 Should help potassium. (3) Leukocytosis Is this a current diagnosis for this admission?: Yes Plan: Level 28.4 slightly down but essentially unchanged (4) Hyponatremia Is this a current diagnosis for this admission?: Yes Plan: Level 122. Will consider 3% NS if this goes lower. (5) MRSA pneumonia Qualifiers: Laterality: bilateral Lung location: unspecified part of lung Qualified Code(s): J15.212 - Pneumonia due to Methicillin resistant Staphylococcus aureus Is this a current diagnosis for this admission?: Yes Plan: On day 4 of vancomycin. (6) Hyperkalemia Is this a current diagnosis for this admission?: Yes Plan: Kayexalate given and insulin for higher BG. Repeat later today. (7) Rectus sheath hematoma Qualifiers: Encounter type: initial encounter Qualified Code(s): S30.1XXA - Contusion of abdominal wall, initial encounter Is this a current diagnosis for this admission?: Yes Plan: She will likely need blood. No further signs of bleeding. Plan Summary: Kayexalate and insulin for potassium. Transfuse blood 2 units. May receive trach today. Dr. Haro consulted. SonPrieto, informed and agrees. Critical Time Critical Time (minutes): 35 Level of Care: ICU Anticipated discharge: SNF Anticipated DC Timeframe: Other -: 1. The care of a critical patient is a dynamic process. This note is a employee representative synopsis but static in nature. The timeframe for treatments given in order is not necessarily the actual time these treatments may have been done. 2. This patient requires critical care secondary to ongoing requirements for therapy not offered or safe outside the critical care environment. Transfer to a lower level of care will result in altered life or limb morbidity and mortality. 3. Multidisciplinary rounds completed. 4. ABCDE bundle addressed.
[2020-08-28 09:35] LABS: HEMOGLOBIN 7.1 g/dL (12.0-15.5)
[2020-08-28] MEDS: CHOLECALCIFEROL (D3) 1,000 UNIT (25 MCG) TABLET PO SCH (09:53)
[2020-08-28] MEDS: ZINC SULFATE 220 MG CAPSULE PO SCH (09:54)
[2020-08-28] MEDS: FAMOTIDINE INJ/PF 20 MG/2 ML SDV IV SCH (09:54)
[2020-08-28] MEDS: METOPROLOL TARTRATE 50 MG TABLET PO SCH ×2 (09:54→21:53)
[2020-08-28] MEDS: NORMAL SALINE 10 ML SDV (SCHEDULED) IV SCH ×2 (09:55→22:10)
[2020-08-28] MEDS: NYSTATIN TOPICAL POWDER 15 GM TP SCH ×2 (09:55→18:36)
[2020-08-28] MEDS: DEXAMETHASONE SOD PHOSPHATE INJ 4 MG/1 ML VIAL IV SCH (10:34)
[2020-08-28] MEDS: VANCOMYCIN HCL 1,250 MG in DEXTROSE 5%-WATER 250 ML IV SCH (12:37)
[2020-08-28] MEDS: INSULIN GLARGINE,HUM.REC.ANLOG 1,000 UNIT/10 ML VIAL SUBCUT SCH ×2 (12:39→22:09)
--- NOTE | 2020-08-28 14:33 | PDOC CONSULTATION ---
Consultation Consult Date: 08/28/20 Provider Consulted: Ursula ALVARES Consult reason:: BRODIE, hyperkalemia, hyponatremia. History of Present Illness Admission Date/PCP: 08/07/20 04:29 MENDOZA MARRERO MD History of Present Illness: LEONARDO SHIN is a 85 year old female with a history of CHF, COPD, DM 2 and remote history of breast cancer. Patient seen today in the ICU and remains intubated and sedated. Therefore chart review was done and discussions with the treating nurse and the watch repairer apprentice. Patient presented to the emergency department via EMS who was initiated by the patient's son due to shortness of breath. She was found to have an SPO2 in the 40s and was intubated in the field. EMS rapid Covid screen was positive. Patient remains intubated since admission on 07 August. She is currently being evaluated towards tracheotomy. Incidentally she was found to have a rectus sheath hematoma today and the tracheotomy is now on hold. She was found to be hyperkalemic with potassium 6.5 today which was treated with appropriate antihyperkalemic measures including Kayexalate. Repeat labs pending.Initial labs on admission on the showed a creatinine of 1.7 and trended normalized and was about 1.1 on the following which it began to rise and today was 1.8. It correlates to the time she was begun on vancomycin. She has been making close to 2+ liters of urine over the st many days. Past Medical History Cardiac Medical History: Reports: Atrial Fibrillation, Coronary Artery Disease, Hyperlipidemia, Hypertension-primary Pulmonary Medical History: Reports: Chronic Obstructive Pulmonary Disease (COPD) Endocrine Medical History: Reports: Diabetes Mellitus Type 2 Renal/ Medical History: Reports: Chronic Kidney Disease Stage III Malignancy Medical History: Reports: Breast Cancer GI Medical History: Reports: Gastroesophageal Reflux Disease Psychiatric Medical History: Denies: Depression Past Surgical History Past Surgical History: Reports: Appendectomy, Cholecystectomy, Mastectomy Social History Lives with: Family Smoking Status: Unknown if Ever Smoked Frequency of Alcohol Use: None Hx Recreational Drug Use: No Drugs: None Hx Prescription Drug Abuse: No - Advance Directive Resuscitation Status: Full Code Family History Parental Family History Reviewed: No - Patient intubated and sedated. Children Family History Reviewed: No Sibling(s) Family History Reviewed.: No Medication/Allergy Home Medications: Gabapentin [Neurontin 300 mg Capsule] 300 mg PO Q12 08/28/17 Metoprolol Succinate [Toprol Xl 25 mg Tab.sr] 25 mg PO DAILY 11/27/17 Amlodipine Besylate [Norvasc 5 mg Tablet] 5 mg PO DAILY 08/07/20 Atorvastatin Calcium [Lipitor 80 mg Tablet] 80 mg PO DAILY 08/07/20 Levothyroxine Sodium [Synthroid 0.15 mg Tablet] 0.15 mg PO DAILY 08/07/20 Lisinopril [Zestril] 40 mg PO QAM 08/07/20 Nitroglycerin [Nitrostat 0.4 mg (1/150 Gr) Tabs 25/Bottle] 1 tab SL Q5MP PRN 08/07/20 Omeprazole 20 mg PO DAILY 08/07/20 Ondansetron [Zofran Odt 4 mg Tablet] 4 mg PO TID 08/07/20 Torsemide [Demadex 20 mg Tablet] 40 mg PO QPM 08/07/20 Allergies/Adverse Reactions: quinine [Quinine] Allergy (Unknown, Verified 08/24/18 11:43) Sulfa (Sulfonamide Antibiotics) Allergy (Verified 08/24/18 11:43) oxycodone HCl [From Percocet] Adverse Reaction (Mild, Verified 08/24/18 11:43) Nausea Review of Systems ROS unobtainable: Due to endotracheal tube Review of Systems: Patient intubated and sedated. Physical Exam Vital Signs: Temp Pulse Resp BP Pulse Ox 98.6 F 64 23 H 120/37 L 100 08/28/20 13:10 08/28/20 13:42 08/28/20 13:42 08/28/20 13:10 08/28/20 13:42 Intake & Output 08/27/20 08/28/20 08/29/20 06:59 06:59 06:59 Intake Total 1049 533 0 Output Total 2170 1790 126 Balance -1121 -1257 -126 Weight 122.6 kg 124.1 kg Exam: Patient intubated and sedated. Eye exam: PRESENT: EOMI, PERRLA. ABSENT: scleral icterus Neck exam: ABSENT: meningismus, tenderness, thyromegaly, tracheal deviation Respiratory exam: PRESENT: clear to auscultation pinky. ABSENT: crackles Cardiovascular exam: PRESENT: +S1, +S2 GI/Abdominal exam: PRESENT: normal bowel sounds, soft. ABSENT: organomegaly Extremities exam: PRESENT: pedal edema Skin exam: ABSENT: erythema, mottled, rash Results Laboratory Results: 08/28/20 05:37 08/28/20 06:00 08/27/20 08/28/20 08/28/20 19:55 05:37 05:37 WBC 28.5 H RBC 2.44 L Hgb 7.1 L Hct 22.1 L MCV 90 MCH 29.1 MCHC 32.2 RDW 15.8 H Plt Count 413 Seg Neutrophils % Not Reportable Sodium 121.3 L Potassium 6.7 H* Chloride 93 L Carbon Dioxide 24 Anion Gap 4 L BUN 65 H Creatinine 1.30 H Est GFR ( Amer) 47 L Glucose 208 H Calcium 8.9 C-Reactive Protein 149.5 H Blood Type Antibody Screen 08/28/20 08/28/20 06:00 10:10 WBC RBC Hgb Hct MCV MCH MCHC RDW Plt Count Seg Neutrophils % Sodium 122.3 L Potassium 6.5 H* Chloride 92 L Carbon Dioxide 23 Anion Gap 7 BUN 75 H Creatinine 1.80 H Est GFR ( Amer) 32 L Glucose 267 H Calcium 8.6 C-Reactive Protein Blood Type O POSITIVE Antibody Screen NEGATIVE 08/22/20 11:46 Blood Blood Culture - Final NO GROWTH IN 5 DAYS 08/22/20 10:57 Blood Blood Culture - Final NO GROWTH IN 5 DAYS 08/07/20 08/07/20 08/07/20 00:34 00:35 06:31 Troponin I 0.390 NT-Pro-B Natriuret Pep 2780 H 3520 H 08/08/20 08/08/20 08/10/20 04:03 14:56 04:08 Troponin I 0.185 NT-Pro-B Natriuret Pep 3740 H 4510 H Impressions: KUB X-Ray 08/08/20 13:14 IMPRESSION: TIP OF THE NASOGASTRIC TUBE IS IN THE STOMACH. PICC Line Insertion 08/22/20 00:00 IMPRESSION: SUCCESSFUL PLACEMENT OF A 5 FR DUAL LUMEN 50 CM PICC IN THE LEFT BASILIC VEIN. Chest X-Ray 08/27/20 00:00 IMPRESSION: ET tube remains in the right mainstem bronchus. Retract 4 cm. Abdomen/Pelvis CT 08/27/20 13:45 IMPRESSION: 1. Large left rectus sheath hematoma. Hyperdense ascites in the pelvis may represent mix of fluid and hematoma. 2. Bibasilar multifocal pneumonia. Finding is consistent with history of coated pneumonia. Small left effusion. Assessment & Plan - Diagnosis (1) Pneumonia due to COVID-19 virus Plan: Interstitial pneumonia from Covid. Poor prognosis. (2) BRODIE (acute kidney injury) Plan: Currently nonoliguric. Likely secondary to multiple factors including her recent noncontrasted CT scan showed mild left hydronephrosis/hydroureter with a transition point at the mid ureter/Covid/Vanc toxicity. Recheck vancomycin trough tomorrow prior to her next dose. Please dose medications for GFR of less than 25 cc/min. No acute indications for initiation of renal replacement for today. She will need evaluation for the mild left hydronephrosis/hydroureter - midpoint with urology post discharge. Monitor closely. (3) Acute respiratory failure due to COVID-19 Is this a current diagnosis for this admission?: Yes Plan: Secondary to interstitial pneumonia from Covid. Currently intubated and sedated. (4) Hyperkalemia Is this a current diagnosis for this admission?: Yes Plan: Treat with Kayexalate for now. Monitor closely. (5) Hyponatremia Is this a current diagnosis for this admission?: Yes Plan: Get appropriate labs. Use isotonic solutions only if possible. (6) Rectus sheath hematoma Qualifiers: Encounter type: initial encounter Qualified Code(s): S30.1XXA - Contusion of abdominal wall, initial encounter Is this a current diagnosis for this admission?: Yes Plan: CT scan shows right rectus sheath hematoma with dense ascites suggestive of mixed blood with fluid in the abdomen.One would want to use caution with anticoagulants in this otherwise thrombogenic patient with Covid.She is anemic but hemodynamically stable. Monitor closely for decompensation in case the hematoma expands. (7) CKD stage 3 due to type 2 diabetes mellitus Plan: Her baseline creatinine is 1.1 which correlates to CKD stage III in this elderly patient.
[2020-08-28] MEDS: HEPARIN SODIUM,PORCINE/D5W 25,000 UNIT/250 ML RTUINJ IV PRN (16:30)
[2020-08-28 16:56] LABS: ANION GAP 5 (5-19); BLOOD UREA NITROGEN 78 mg/dL (7-20); CALCIUM 8.3 mg/dL (8.4-10.2); CARBON DIOXIDE 23 mmol/L (22-30); CHLORIDE 96 mmol/L (98-107); GLUCOSE 216 mg/dL (75-110)
[2020-08-28 17:04] LABS: POTASSIUM 5.5 mmol/L (3.6-5.0)
[2020-08-28 17:17] LABS: OSMOLALITY,URINE 409 mOsm/kg (300-900)
[2020-08-28 17:20] LABS: URINE SODIUM 28 mmol/L (30-90)
[2020-08-28] MEDS ORDERED: INSULIN GLARGINE,HUM.REC.ANLOG 1,000 UNIT/10 ML VIAL (PYX) SUBCUT ONE (21:53)
[2020-08-28 22:43] LABS: HEMATOCRIT 23.7 % (36.0-47.0); HEMOGLOBIN 8.1 g/dL (12.0-15.5); MEAN CORPUSCULAR HEMOGLOBIN 29.5 pg (27.0-33.4); MEAN CORPUSCULAR VOLUME 87 fl (80-97); RED BLOOD COUNT 2.73 10^6/uL (3.72-5.28); RED CELL DISTRIBUTION WIDTH 15.1 % (11.5-14.0); WHITE BLOOD COUNT 21.9 10^3/uL (4.0-10.5)
[2020-08-28 22:59] LABS: ABSOLUTE LYMPHOCYTES# (MANUAL) 0.2 10^3/uL (0.5-4.7); ABSOLUTE MONOCYTES # (MANUAL) 0.9 10^3/uL (0.1-1.4); BASOPHILS % (MANUAL) 0 % (0-2); EOSINOPHILS % (MANUAL) 0 % (0-6); LYMPHOCYTES % (MANUAL) 1 % (13-45); MONOCYTES % (MANUAL) 4 % (3-13); NUCLEATED RED BLOOD CELLS 1 /100 WBC (0); SEGMENTED NEUTROPHILS % (MAN) 95 % (42-78); TOTAL CELLS COUNTED 100
[2020-08-28 23:01] LABS: ANISOCYTOSIS SLIGHT; PLATELET CLUMPS PRESENT; PLATELET COMMENT ADEQUATE; PLATELET COUNT 269 10^3/uL (150-450); SCHISTOCYTES SLIGHT; SPHEROCYTES SLIGHT
[2020-08-28 23:07] LABS: ANION GAP 6 (5-19); BLOOD UREA NITROGEN 69 mg/dL (7-20); CALCIUM 7.5 mg/dL (8.4-10.2); CARBON DIOXIDE 21 mmol/L (22-30); CHLORIDE 100 mmol/L (98-107); GLUCOSE 163 mg/dL (75-110)
[2020-08-28 23:13] LABS: VANCOMYCIN,TROUGH 24.7 ug/mL (5.0-20.0)
[2020-08-28 23:19] LABS: POTASSIUM 4.3 mmol/L (3.6-5.0)
[2020-08-29] MEDS: HEPARIN SODIUM,PORCINE/D5W 25,000 UNIT/250 ML RTUINJ IV PRN (00:30)
[2020-08-29] MEDS: NORMAL SALINE 1000 ML 1,000 ML IV PRN ×3 (01:09→21:30)
[2020-08-29] MEDS: ALBUTEROL SULFATE 0.083% NEB 2.5 MG/3 ML AMPUL NEB SCH ×4 (02:27→20:40)
[2020-08-29] MEDS: INSULIN REG, HUMAN 100 UNIT/ML 3 ML VIAL (PYX) SUBCUT SCH ×4 (05:52→17:32)
[2020-08-29] MEDS: ASCORBIC ACID 500 MG TABLET NG SCH ×3 (05:53→21:57)
[2020-08-29] MEDS: LEVOTHYROXINE SODIUM 0.15 MG TABLET PO SCH (05:53)
[2020-08-29 06:28] LABS: ALBUMIN 2.2 g/dL (3.5-5.0); ALKALINE PHOSPHATASE 107 U/L (38-126); ANION GAP 6 (5-19); ASPARTATE AMINO TRANSFERASE 24 U/L (14-36); BILIRUBIN,DIRECT 0.2 mg/dL (0.0-0.4); BILIRUBIN,TOTAL 0.7 mg/dL (0.2-1.3); BLOOD UREA NITROGEN 76 mg/dL (7-20); CALCIUM 8.2 mg/dL (8.4-10.2); CARBON DIOXIDE 23 mmol/L (22-30); CHLORIDE 99 mmol/L (98-107); CREATINE KINASE 74 U/L (30-135); GLUCOSE 76 mg/dL (75-110); PHOSPHORUS 5.8 mg/dL (2.5-4.5); POTASSIUM 4.6 mmol/L (3.6-5.0); TOTAL PROTEIN 4.5 g/dL (6.3-8.2)
[2020-08-29 06:36] LABS: ARTERIAL BLOOD BASE EXCESS -7.8 mmol/L; ARTERIAL BLOOD H2CO3 0.67 mmol/L (1.05-1.35); ARTERIAL BLOOD O2 SATURATION 97.8 % (94-98); ARTERIAL BLOOD PCO2 22.1 mmHg (35-45); ARTERIAL BLOOD PH 7.45 (7.35-7.45); ARTERIAL BLOOD PO2 96.7 mmHg (80-100); ARTERIAL BLOOD TOTAL CO2 15.7 mmol/L (21-25)
[2020-08-29 06:38] LABS: ARTERIAL BLOOD FIO2 40%
[2020-08-29 07:23] LABS: HEMATOCRIT 22.4 % (36.0-47.0); MEAN CORPUSCULAR HEMOGLOBIN 28.9 pg (27.0-33.4); MEAN CORPUSCULAR HGB CONC 33.3 g/dL (32.0-36.0); MEAN CORPUSCULAR VOLUME 87 fl (80-97); PLATELET COUNT 248 10^3/uL (150-450); RED BLOOD COUNT 2.58 10^6/uL (3.72-5.28); RED CELL DISTRIBUTION WIDTH 15.4 % (11.5-14.0); WHITE BLOOD COUNT 18.4 10^3/uL (4.0-10.5)
[2020-08-29 07:29] LABS: INTERNATIONAL RATION (INR) 1.01; PROTHROMBIN TIME 13.5 SEC (11.4-15.4)
[2020-08-29] MEDS ORDERED: DEXTROSE 50%-WATER 25 GM/50 ML DISP.SYRIN IV PRN ×2 (08:31)
[2020-08-29] MEDS ORDERED: DEXTROSE 40% GEL 15 GM TUBE PO PRN ×2 (08:31)
[2020-08-29] MEDS ORDERED: GLUCAGON,HUMAN RECOMB 1 MG INJ SUBCUT PRN (08:31)
--- NOTE | 2020-08-29 08:38 | PDOC PROGRESS REPORT ---
Subjective Date:: 08/29/20 Subjective:: Patient intubated, sedated Reason For Visit: RESPIRATORY FAILURE Physical Exam Vital Signs: Temp Pulse Resp BP Pulse Ox 98.1 F 63 19 146/47 H 99 08/29/20 04:00 08/29/20 02:27 08/29/20 06:00 08/29/20 05:57 08/29/20 06:00 Intake & Output 08/28/20 08/29/20 08/30/20 06:59 06:59 06:59 Intake Total 533 2887 Output Total 1790 706 Balance -1257 2181 Weight 124.1 kg 127.5 kg Neck exam: PRESENT: other - [id number], no scars noted Results Laboratory Results: 08/29/20 05:38 08/28/20 08/28/20 08/28/20 05:37 10:10 16:00 WBC RBC Hgb 7.1 L Hct MCV MCH MCHC RDW Plt Count Seg Neutrophils % Carbonic Acid HCO3/H2CO3 Ratio ABG pH ABG pCO2 ABG pO2 ABG HCO3 ABG O2 Saturation ABG Base Excess FiO2 Sodium 124.1 L Potassium 5.5 H D Chloride 96 L Carbon Dioxide 23 Anion Gap 5 BUN 78 H Creatinine 1.84 H Est GFR ( Amer) 31 L Glucose 216 H Serum Osmolality Calcium 8.3 L Phosphorus Magnesium Total Bilirubin AST Alkaline Phosphatase Total Protein Albumin Urine Osmolality Blood Type O POSITIVE Antibody Screen NEGATIVE 08/28/20 08/28/20 08/28/20 16:27 22:30 22:30 WBC 21.9 H RBC 2.73 L Hgb 8.1 L Hct 23.7 L MCV 87 MCH 29.5 MCHC 34.0 RDW 15.1 H Plt Count 269 Seg Neutrophils % Not Reportable Carbonic Acid HCO3/H2CO3 Ratio ABG pH ABG pCO2 ABG pO2 ABG HCO3 ABG O2 Saturation ABG Base Excess FiO2 Sodium Potassium Chloride Carbon Dioxide Anion Gap BUN Creatinine Est GFR ( Amer) Glucose Serum Osmolality 297 Calcium Phosphorus Magnesium Total Bilirubin AST Alkaline Phosphatase Total Protein Albumin Urine Osmolality 409 Blood Type Antibody Screen 08/28/20 08/29/20 08/29/20 22:30 05:38 06:23 WBC RBC Hgb Hct MCV MCH MCHC RDW Plt Count Seg Neutrophils % Carbonic Acid 0.67 L HCO3/H2CO3 Ratio 22:1 ABG pH 7.45 ABG pCO2 22.1 L ABG pO2 96.7 ABG HCO3 15.0 L ABG O2 Saturation 97.8 ABG Base Excess -7.8 FiO2 40% Sodium 126.9 L 127.8 L Potassium 4.3 D 4.6 Chloride 100 99 Carbon Dioxide 21 L 23 Anion Gap 6 6 BUN 69 H 76 H Creatinine 1.69 H 1.83 H Est GFR ( Amer) 35 L 32 L Glucose 163 H 76 Serum Osmolality Calcium 7.5 L 8.2 L Phosphorus 5.8 H Magnesium 2.2 Total Bilirubin 0.7 AST 24 Alkaline Phosphatase 107 Total Protein 4.5 L Albumin 2.2 L Urine Osmolality Blood Type Antibody Screen 08/07/20 08/07/20 08/07/20 00:34 00:35 06:31 Creatine Kinase Troponin I 0.390 NT-Pro-B Natriuret Pep 2780 H 3520 H 08/08/20 08/08/20 08/10/20 04:03 14:56 04:08 Creatine Kinase Troponin I 0.185 NT-Pro-B Natriuret Pep 3740 H 4510 H 08/29/20 05:38 Creatine Kinase 74 Troponin I NT-Pro-B Natriuret Pep Impressions: KUB X-Ray 08/08/20 13:14 IMPRESSION: TIP OF THE NASOGASTRIC TUBE IS IN THE STOMACH. PICC Line Insertion 08/22/20 00:00 IMPRESSION: SUCCESSFUL PLACEMENT OF A 5 FR DUAL LUMEN 50 CM PICC IN THE LEFT BASILIC VEIN. Chest X-Ray 08/27/20 00:00 IMPRESSION: ET tube remains in the right mainstem bronchus. Retract 4 cm. Abdomen/Pelvis CT 08/27/20 13:45 IMPRESSION: 1. Large left rectus sheath hematoma. Hyperdense ascites in the pelvis may represent mix of fluid and hematoma. 2. Bibasilar multifocal pneumonia. Finding is consistent with history of coated pneumonia. Small left effusion. Assessment & Plan - Diagnosis (1) Acute hypoxemic respiratory failure Is this a current diagnosis for this admission?: Yes (2) Rectus sheath hematoma Qualifiers: Encounter type: initial encounter Qualified Code(s): S30.1XXA - Contusion of abdominal wall, initial encounter Is this a current diagnosis for this admission?: Yes - Time Anticipated Discharge Disposition: [facility] Facility Anticipated Discharge Timeframe: When ready - Plan Summary Plan Summary: Assessment: Need of tracheostomy Currently patient on IV infusion of heparin Plan: Tracheostomy tomorrow N.p.o. after midnight Hold heparin at 4 AM
[2020-08-29] MEDS: BUDESONIDE NEB 0.25 MG/2 ML AMPUL NEB SCH ×2 (08:53→20:40)
[2020-08-29] MEDS: FAMOTIDINE INJ/PF 20 MG/2 ML SDV IV SCH (09:22)
[2020-08-29] MEDS: ZINC SULFATE 220 MG CAPSULE PO SCH (09:22)
[2020-08-29] MEDS: CHOLECALCIFEROL (D3) 1,000 UNIT (25 MCG) TABLET PO SCH (09:22)
[2020-08-29 09:23] LABS: ABSOLUTE LYMPHOCYTES# (MANUAL) 0.2 10^3/uL (0.5-4.7); ABSOLUTE MONOCYTES # (MANUAL) 0.7 10^3/uL (0.1-1.4); BAND NEUTROPHILS % (MANUAL) 1 % (3-5); BASOPHILS % (MANUAL) 0 % (0-2); EOSINOPHILS % (MANUAL) 0 % (0-6); LYMPHOCYTES % (MANUAL) 1 % (13-45); METAMYELOCYTES % (MANUAL) 1 % (0-1); MONOCYTES % (MANUAL) 4 % (3-13); SEGMENTED NEUTROPHILS % (MAN) 92 % (42-78); TOTAL CELLS COUNTED 100
[2020-08-29] MEDS: NYSTATIN TOPICAL POWDER 15 GM TP SCH ×2 (09:23→18:43)
[2020-08-29 09:24] LABS: ANISOCYTOSIS SLIGHT; PLATELET COMMENT ADEQUATE; POIKILOCYTOSIS 1+; POLYCHROMASIA 1+
[2020-08-29] MEDS: METOPROLOL TARTRATE 50 MG TABLET PO SCH ×2 (09:24→21:57)
[2020-08-29 09:25] LABS: BURR CELLS 1+
[2020-08-29] MEDS: DEXAMETHASONE SOD PHOSPHATE INJ 4 MG/1 ML VIAL IV SCH (09:25)
[2020-08-29] MEDS: INSULIN GLARGINE,HUM.REC.ANLOG 1,000 UNIT/10 ML VIAL SUBCUT SCH ×2 (09:25→21:15)
[2020-08-29 09:26] LABS: OVALOCYTES 1+; PROMYELOCYTES % (MANUAL) 1 % (0)
[2020-08-29 09:29] LABS: HEMOGLOBIN 7.5 g/dL (12.0-15.5)
[2020-08-29] MEDS: NORMAL SALINE 10 ML SDV (SCHEDULED) IV SCH ×2 (10:25→21:16)
--- NOTE | 2020-08-29 11:06 | PDOC CRITICAL CARE PROG REPORT ---
General Date:: 08/29/20 ICU Day:: 22 Ventilator Day:: Hospital Day:: Resuscitation Status: Full Code Events in the past 12 to 24 Hours:: Not able to make meaningful changes to vent. Awake. 08/15: Not quite ready to extubate. 08/16: Pt extubated this AM. 08/18: Not able to wean much today. 08/19: Lowering sedation and changing to precedex. Hgb 6.8 no sign of bleeding needs blood. 08/20: Transfusions given. Hgb 10. Too sleepy to extubate. 08/21: apparently failed SBT yesterday. Overnight, switched from PSV to PRVC, unclear why. Off sedation. Awake, follows commands, but sluggishly. On PRVC 15/450/35/5, RR 24. 08/22: remains on PSV 14/5. awake but still slow to follow commands. off sedation x 2 days. developed fever yesterday (T-max 100.6 F). finished course of Zyvox yesterday. WBC 24.1> 27. Platelets 465. On heparin gtt. on TF and water flushes. 08/23: on PSV 12/5. Temp 101.5 F. Trach aspirate isolating Gram positive cocci in clusters. Winces to pain. slow to follow commands. off sedation x 2 days. ABG this am: 7.45/32/66. WBC 27-->29.1. On heparin. 08/24: On PSV 10/5, FIO2 35%. SPO2 97-99%. RR 18/24. Lethargic. Arousable to noxious stimuli. Moves all 4 extremities but not to command. Currently afebrile. T-max (24) 101.5 F. Started on vancomycin for trach aspirate isolat ing gram-positive cocci in clusters. WBC 29.1>28. 08/25: Mental status the same. Arouses to voice but does not fully commands. 08/26:Arousable. Not following commands. 08/27: Less responsive, higher WBC. New firmness in LUQ of abd. CT pending. 08/28: Has rectus sheath hematoma with no evidence of further bleeding. Less responsive, in ARF may be uremic. Dr. Haro consulted. 08/29: No need for FREIGHT CONDUCTOR at this time. Vanco stopped. Trach Wed. Review of systems relevant to events:: Neurological, pulmonary, renal. Reason for ICU Addmission:: Respiratory failure secondary to COVID-19 pneumonia, reintubated. - Medications: Medications reviewed and adjusted accordingly: Yes Vasopressors:: None Sedation:: None Physical Exam Vital Signs: Temp Pulse Resp BP Pulse Ox 97.3 F 70 20 123/45 L 93 08/29/20 10:00 08/29/20 10:00 08/29/20 10:00 08/29/20 10:00 08/29/20 10:00 Intake & Output 08/28/20 08/29/20 08/30/20 06:59 06:59 06:59 Intake Total 533 2887 Output Total 1790 706 250 Balance -1257 2181 -250 Weight 124.1 kg 127.5 kg Weight/Height Weight 127.5 kg Height 5 ft 7 in General appearance: PRESENT: no acute distress Head exam: PRESENT: atraumatic, normocephalic Eye exam: PRESENT: PERRLA Ear exam: PRESENT: normal external ear exam Mouth exam: PRESENT: moist, tongue midline Respiratory exam: PRESENT: clear to auscultation pinky. ABSENT: rales, rhonchi, wheezes Cardiovascular exam: PRESENT: RRR. ABSENT: diastolic murmur, rubs, systolic murmur GI/Abdominal exam: PRESENT: normal bowel sounds, soft. ABSENT: distended, guarding, mass, organolmegaly, rebound, tenderness Rectal exam: PRESENT: deferred Gentrourinary exam: PRESENT: indwelling catheter Extremities exam: PRESENT: +1 edema Musculoskeletal exam: PRESENT: normal inspection Neurological exam: PRESENT: other - Flickers eyes to touch. Not purposeful. Skin exam: PRESENT: dry, intact, warm. ABSENT: cyanosis, rash Tubes/Lines: PRESENT: Endotracheal Tube, Nasogastic Tube Laboratory/Radiographs Laboratory Results: 08/29/20 06:43 08/29/20 05:38 08/28/20 08/28/20 08/28/20 10:10 16:00 16:27 WBC RBC Hgb Hct MCV MCH MCHC RDW Plt Count Seg Neutrophils % Carbonic Acid HCO3/H2CO3 Ratio ABG pH ABG pCO2 ABG pO2 ABG HCO3 ABG O2 Saturation ABG Base Excess FiO2 Sodium 124.1 L Potassium 5.5 H D Chloride 96 L Carbon Dioxide 23 Anion Gap 5 BUN 78 H Creatinine 1.84 H Est GFR ( Amer) 31 L Glucose 216 H Serum Osmolality Calcium 8.3 L Phosphorus Magnesium Total Bilirubin AST Alkaline Phosphatase Total Protein Albumin Urine Osmolality 409 Blood Type O POSITIVE Antibody Screen NEGATIVE 08/28/20 08/28/20 08/28/20 22:30 22:30 22:30 WBC 21.9 H RBC 2.73 L Hgb 8.1 L Hct 23.7 L MCV 87 MCH 29.5 MCHC 34.0 RDW 15.1 H Plt Count 269 Seg Neutrophils % Not Reportable Carbonic Acid HCO3/H2CO3 Ratio ABG pH ABG pCO2 ABG pO2 ABG HCO3 ABG O2 Saturation ABG Base Excess FiO2 Sodium 126.9 L Potassium 4.3 D Chloride 100 Carbon Dioxide 21 L Anion Gap 6 BUN 69 H Creatinine 1.69 H Est GFR ( Amer) 35 L Glucose 163 H Serum Osmolality 297 Calcium 7.5 L Phosphorus Magnesium Total Bilirubin AST Alkaline Phosphatase Total Protein Albumin Urine Osmolality Blood Type Antibody Screen 08/29/20 08/29/20 08/29/20 05:38 06:23 06:43 WBC 18.4 H RBC 2.58 L Hgb 7.5 L Hct 22.4 L MCV 87 MCH 28.9 MCHC 33.3 RDW 15.4 H Plt Count 248 Seg Neutrophils % Not Reportable Carbonic Acid 0.67 L HCO3/H2CO3 Ratio 22:1 ABG pH 7.45 ABG pCO2 22.1 L ABG pO2 96.7 ABG HCO3 15.0 L ABG O2 Saturation 97.8 ABG Base Excess -7.8 FiO2 40% Sodium 127.8 L Potassium 4.6 Chloride 99 Carbon Dioxide 23 Anion Gap 6 BUN 76 H Creatinine 1.83 H Est GFR ( Amer) 32 L Glucose 76 Serum Osmolality Calcium 8.2 L Phosphorus 5.8 H Magnesium 2.2 Total Bilirubin 0.7 AST 24 Alkaline Phosphatase 107 Total Protein 4.5 L Albumin 2.2 L Urine Osmolality Blood Type Antibody Screen 08/07/20 08/07/20 08/07/20 00:34 00:35 06:31 Creatine Kinase Troponin I 0.390 NT-Pro-B Natriuret Pep 2780 H 3520 H 08/08/20 08/08/20 08/10/20 04:03 14:56 04:08 Creatine Kinase Troponin I 0.185 NT-Pro-B Natriuret Pep 3740 H 4510 H 08/29/20 05:38 Creatine Kinase 74 Troponin I NT-Pro-B Natriuret Pep Impressions: KUB X-Ray 08/08/20 13:14 IMPRESSION: TIP OF THE NASOGASTRIC TUBE IS IN THE STOMACH. PICC Line Insertion 08/22/20 00:00 IMPRESSION: SUCCESSFUL PLACEMENT OF A 5 FR DUAL LUMEN 50 CM PICC IN THE LEFT BASILIC VEIN. Abdomen/Pelvis CT 08/27/20 13:45 IMPRESSION: 1. Large left rectus sheath hematoma. Hyperdense ascites in the pelvis may represent mix of fluid and hematoma. 2. Bibasilar multifocal pneumonia. Finding is consistent with history of coated pneumonia. Small left effusion. All labs, radiographs, diagnostic studies and EKGs were personally reviewed: Yes In addition, reports of radiographic and diagnostic studies were read: Yes Assessment and Plan - Diagnosis (1) COVID-19 virus detected Is this a current diagnosis for this admission?: Yes Plan: Still having respiratory issues. Trach for tomorrow. (2) Diabetes Qualifiers: Diabetes mellitus type: type 2 Diabetes mellitus skilled nursing insulin use: unspecified long winder tender insulin use status Diabetes mellitus complication status: with kidney complications Is this a current diagnosis for this admission?: Yes Plan: Controlled (3) Leukocytosis Is this a current diagnosis for this admission?: Yes Plan: Down to 18K. (4) Hyponatremia Is this a current diagnosis for this admission?: Yes Plan: 128. Only slightly improved. (5) MRSA pneumonia Qualifiers: Laterality: bilateral Lung location: unspecified part of lung Qualified Code(s): J15.212 - Pneumonia due to Methicillin resistant Staphylococcus aureus Is this a current diagnosis for this admission?: Yes Plan: On linezolid. Vancomycin stopped. (6) Hyperkalemia Is this a current diagnosis for this admission?: Yes Plan: Resolved for now. (7) Rectus sheath hematoma Qualifiers: Encounter type: initial encounter Qualified Code(s): S30.1XXA - Contusion of abdominal wall, initial encounter Is this a current diagnosis for this admission?: Yes Plan: H/H stable thus far. Plan Summary: Plan for trach in AM holding TF and heparin off at 4AM Wed. Critical Time Critical Time (minutes): 35 Level of Care: ICU Anticipated discharge: SNF Anticipated DC Timeframe: Other -: 1. The care of a critical patient is a dynamic process. This note is a sales representative womens health synopsis but static in nature. The timeframe for treatments given in order is not necessarily the actual time these treatments may have been done. 2. This patient requires critical care secondary to ongoing requirements for therapy not offered or safe outside the critical care environment. Transfer to a lower level of care will result in altered life or limb morbidity and mortality. 3. Multidisciplinary rounds completed. 4. ABCDE bundle addressed.
[2020-08-29] MEDS: LINEZOLID 600 MG/300 ML RTUPB IV SCH ×2 (11:23→21:56)
--- NOTE | 2020-08-29 11:32 | RADIOLOGY REPORT (SQ) ---
EXAM DESCRIPTION: CHEST SINGLE VIEW IMAGES COMPLETED DATE/TIME: 08/29/2020 10:57 am REASON FOR STUDY: NG tube placement COMPARISON: 08/27/2020 EXAM PARAMETERS: NUMBER OF VIEWS: One view. TECHNIQUE: Single frontal radiographic view of the chest acquired. RADIATION DOSE: NA LIMITATIONS: Field of view limited to the thoraco abdominal junction. FINDINGS: LUNGS AND PLEURA: Limited field of view. Left lower lobe airspace opacities. No pleural effusion. MEDIASTINUM AND HILAR STRUCTURES: No masses. Contour normal. HEART AND VASCULAR STRUCTURES: Heart normal in size. Normal vasculature. BONES: No acute findings. HARDWARE: An apparent enteric tube is demonstrated with the tip and proximal port projecting subdiaph ragmatically within the left upper quadrant. OTHER: No other significant finding. IMPRESSION: Limited examination. Enteric tube tip and proximal port project subdiaphragmatically wi thin the left upper quadrant. TECHNICAL DOCUMENTATION: JOB ID: [id number] 2010 [employer]- All Rights Reserved Reading location - IP/workstation name: [email or web address]
[2020-08-29 12:48] LABS: ARTERIAL BLOOD BASE EXCESS -6.1 mmol/L; ARTERIAL BLOOD H2CO3 0.84 mmol/L (1.05-1.35); ARTERIAL BLOOD HCO3 17.5 mmol/L (20-24); ARTERIAL BLOOD O2 SATURATION 97.7 % (94-98); ARTERIAL BLOOD PCO2 27.8 mmHg (35-45); ARTERIAL BLOOD PH 7.42 (7.35-7.45); ARTERIAL BLOOD PO2 98.6 mmHg (80-100); ARTERIAL BLOOD TOTAL CO2 18.4 mmol/L (21-25)
[2020-08-29 12:49] LABS: ARTERIAL BLOOD FIO2 40%
[2020-08-29 13:18] LABS: PATH REVIEW PATHOLOGIST REVIEWED
--- NOTE | 2020-08-29 20:26 | PDOC PROGRESS REPORT ---
Subjective Date:: 08/29/20 Reason For Visit: Patient remains in the ICU intubated and sedated. Discussions were done with the treating nurse and the power plant manager. She continues to make decent amounts of urine. Renal numbers are however not looking good. Her Vanco levels came back yesterday at 24 suggestive of Vanc toxicity. Physical Exam Vital Signs: Temp Pulse Resp BP Pulse Ox 98.1 F 71 22 H 139/48 H 97 08/29/20 20:00 08/29/20 20:00 08/29/20 20:00 08/29/20 20:00 08/29/20 20:00 Intake & Output 08/28/20 08/29/20 08/30/20 06:59 06:59 06:59 Intake Total 533 2887 1247 Output Total 1790 706 780 Balance -1257 2181 467 Weight 124.1 kg 127.5 kg 127.8 kg Exam: Remains intubated and sedated. Respiratory exam: PRESENT: clear to auscultation pinky. ABSENT: crackles Cardiovascular exam: PRESENT: +S1, +S2 GI/Abdominal exam: PRESENT: normal bowel sounds, soft. ABSENT: organomegaly Extremities exam: PRESENT: pedal edema Results Laboratory Results: 08/29/20 06:43 08/29/20 05:38 08/28/20 08/28/20 08/28/20 22:30 22:30 22:30 WBC 21.9 H RBC 2.73 L Hgb 8.1 L Hct 23.7 L MCV 87 MCH 29.5 MCHC 34.0 RDW 15.1 H Plt Count 269 Seg Neutrophils % Not Reportable Carbonic Acid HCO3/H2CO3 Ratio ABG pH ABG pCO2 ABG pO2 ABG HCO3 ABG O2 Saturation ABG Base Excess FiO2 Sodium 126.9 L Potassium 4.3 D Chloride 100 Carbon Dioxide 21 L Anion Gap 6 BUN 69 H Creatinine 1.69 H Est GFR ( Amer) 35 L Glucose 163 H Serum Osmolality 297 Calcium 7.5 L Phosphorus Magnesium Total Bilirubin AST Alkaline Phosphatase Total Protein Albumin 08/29/20 08/29/20 08/29/20 05:38 06:23 06:43 WBC 18.4 H RBC 2.58 L Hgb 7.5 L Hct 22.4 L MCV 87 MCH 28.9 MCHC 33.3 RDW 15.4 H Plt Count 248 Seg Neutrophils % Not Reportable Carbonic Acid 0.67 L HCO3/H2CO3 Ratio 22:1 ABG pH 7.45 ABG pCO2 22.1 L ABG pO2 96.7 ABG HCO3 15.0 L ABG O2 Saturation 97.8 ABG Base Excess -7.8 FiO2 40% Sodium 127.8 L Potassium 4.6 Chloride 99 Carbon Dioxide 23 Anion Gap 6 BUN 76 H Creatinine 1.83 H Est GFR ( Amer) 32 L Glucose 76 Serum Osmolality Calcium 8.2 L Phosphorus 5.8 H Magnesium 2.2 Total Bilirubin 0.7 AST 24 Alkaline Phosphatase 107 Total Protein 4.5 L Albumin 2.2 L 08/29/20 12:30 WBC RBC Hgb Hct MCV MCH MCHC RDW Plt Count Seg Neutrophils % Carbonic Acid 0.84 L HCO3/H2CO3 Ratio 20:1 ABG pH 7.42 ABG pCO2 27.8 L ABG pO2 98.6 ABG HCO3 17.5 L ABG O2 Saturation 97.7 ABG Base Excess -6.1 FiO2 40% Sodium Potassium Chloride Carbon Dioxide Anion Gap BUN Creatinine Est GFR ( Amer) Glucose Serum Osmolality Calcium Phosphorus Magnesium Total Bilirubin AST Alkaline Phosphatase Total Protein Albumin 08/07/20 08/07/20 08/07/20 00:34 00:35 06:31 Creatine Kinase Troponin I 0.390 NT-Pro-B Natriuret Pep 2780 H 3520 H 08/08/20 08/08/20 08/10/20 04:03 14:56 04:08 Creatine Kinase Troponin I 0.185 NT-Pro-B Natriuret Pep 3740 H 4510 H 08/29/20 05:38 Creatine Kinase 74 Troponin I NT-Pro-B Natriuret Pep Impressions: KUB X-Ray 08/08/20 13:14 IMPRESSION: TIP OF THE NASOGASTRIC TUBE IS IN THE STOMACH. PICC Line Insertion 08/22/20 00:00 IMPRESSION: SUCCESSFUL PLACEMENT OF A 5 FR DUAL LUMEN 50 CM PICC IN THE LEFT BASILIC VEIN. Abdomen/Pelvis CT 08/27/20 13:45 IMPRESSION: 1. Large left rectus sheath hematoma. Hyperdense ascites in the pelvis may represent mix of fluid and hematoma. 2. Bibasilar multifocal pneumonia. Finding is consistent with history of coated pneumonia. Small left effusion. Chest X-Ray 08/29/20 00:00 IMPRESSION: Limited examination. Enteric tube tip and proximal port project subdiaphragmatically within the left upper quadrant. Assessment & Plan - Diagnosis (1) Pneumonia due to COVID-19 virus Plan: Interstitial pneumonia from Covid. Poor prognosis. (2) BRODIE (acute kidney injury) Plan: Currently nonoliguric. Likely secondary to multiple factors including her recent noncontrasted CT scan showed mild left hydronephrosis/hydroureter with a transition point at the mid ureter/Covid/Vanc toxicity. Vancomycin levels from yesterday came back at 24 indicative of vancomycin toxicity. Recommend stopping vancomycin.Today's creatinine is 1.8/1.6. Please dose medications for GFR of less than 25 cc/min. No acute indications for initiation of renal replacement for today. Suggest gentle hydration with normal saline at 50 cc an hour at least.She will need evaluation for the mild left hydronephrosis/hydroureter -mid point with urology post discharge. Monitor closely. (3) Acute respiratory failure due to COVID-19 Is this a current diagnosis for this admission?: Yes Plan: Secondary to interstitial pneumonia from Covid. Currently intubated and s edated. (4) Hyperkalemia Is this a current diagnosis for this admission?: Yes Plan: Treated with Kayexalate and down to 4.6. Monitor closely. (5) Hyponatremia Is this a current diagnosis for this admission?: Yes Plan: Indicated of SIADH. Limit hypotonic solutions as much as possible. (6) Rectus sheath hematoma Qualifiers: Encounter type: initial encounter Qualified Code(s): S30.1XXA - Contusion of abdominal wall, initial encounter Is this a current diagnosis for this admission?: Yes Plan: CT scan shows right rectus sheath hematoma with dense ascites suggestive of mixed blood with fluid in the abdomen.One would want to use caution with anticoagulants in this otherwise thrombogenic patient with Covid.She is anemic but hemodynamically stable. Today's hemoglobin is 7.5/8.1 yesterday. Monitor closely for decompensation in case the hematoma expands. (7) CKD stage 3 due to type 2 diabetes mellitus Plan: Her baseline creatinine is 1.1 which correlates to CKD stage III in this elderly patient.
[2020-08-29] MEDS ORDERED: DEXTROSE 5%-NORMAL SALINE 1,000 ML IV PRN (20:55)
[2020-08-30] MEDS: INSULIN REG, HUMAN 100 UNIT/ML 3 ML VIAL (PYX) SUBCUT SCH ×4 (00:28→19:16)
[2020-08-30] MEDS: ALBUTEROL SULFATE 0.083% NEB 2.5 MG/3 ML AMPUL NEB SCH ×4 (02:09→20:44)
[2020-08-30] MEDS: HEPARIN SODIUM,PORCINE/D5W 25,000 UNIT/250 ML RTUINJ IV PRN (02:40)
[2020-08-30 04:42] LABS: HEMATOCRIT 25.7 % (36.0-47.0); HEMOGLOBIN 8.5 g/dL (12.0-15.5); MEAN CORPUSCULAR HEMOGLOBIN 29.1 pg (27.0-33.4); MEAN CORPUSCULAR VOLUME 88 fl (80-97); PLATELET COUNT 303 10^3/uL (150-450); RED BLOOD COUNT 2.92 10^6/uL (3.72-5.28); RED CELL DISTRIBUTION WIDTH 15.7 % (11.5-14.0); WHITE BLOOD COUNT 16.2 10^3/uL (4.0-10.5)
[2020-08-30 05:02] LABS: ANION GAP 5 (5-19); BLOOD UREA NITROGEN 72 mg/dL (7-20); CALCIUM 8.2 mg/dL (8.4-10.2); CARBON DIOXIDE 23 mmol/L (22-30); CHLORIDE 100 mmol/L (98-107); GLUCOSE 173 mg/dL (75-110); POTASSIUM 4.4 mmol/L (3.6-5.0)
[2020-08-30 05:10] LABS: ABSOLUTE LYMPHOCYTES# (MANUAL) 0.2 10^3/uL (0.5-4.7); ABSOLUTE MONOCYTES # (MANUAL) 1.1 10^3/uL (0.1-1.4); BASOPHILS % (MANUAL) 0 % (0-2); EOSINOPHILS % (MANUAL) 0 % (0-6); LYMPHOCYTES % (MANUAL) 1 % (13-45); MONOCYTES % (MANUAL) 7 % (3-13); SEGMENTED NEUTROPHILS % (MAN) 92 % (42-78); TOTAL CELLS COUNTED 100
[2020-08-30 05:11] LABS: ANISOCYTOSIS 1+; PLATELET COMMENT ADEQUATE
[2020-08-30] MEDS: LEVOTHYROXINE SODIUM 0.15 MG TABLET PO SCH (06:11)
[2020-08-30] MEDS: ASCORBIC ACID 500 MG TABLET NG SCH ×3 (06:11→21:34)
[2020-08-30] MEDS: NORMAL SALINE 1000 ML 1,000 ML IV PRN ×2 (06:13→16:35)
[2020-08-30 06:51] LABS: D-DIMER 2.43 ug/mL (0.00-0.50)
[2020-08-30] MEDS: BUDESONIDE NEB 0.25 MG/2 ML AMPUL NEB SCH ×2 (08:07→20:45)
[2020-08-30] MEDS: NORMAL SALINE 10 ML SDV (SCHEDULED) IV SCH ×2 (09:35→21:33)
[2020-08-30] MEDS: METOPROLOL TARTRATE 50 MG TABLET PO SCH ×2 (09:35→21:34)
[2020-08-30] MEDS: FAMOTIDINE INJ/PF 20 MG/2 ML SDV IV SCH (09:36)
[2020-08-30] MEDS: CHOLECALCIFEROL (D3) 1,000 UNIT (25 MCG) TABLET PO SCH (09:36)
[2020-08-30] MEDS: ZINC SULFATE 220 MG CAPSULE PO SCH (09:36)
[2020-08-30] MEDS: LINEZOLID 600 MG/300 ML RTUPB IV SCH ×2 (10:15→21:33)
[2020-08-30] MEDS: DEXAMETHASONE SOD PHOSPHATE INJ 4 MG/1 ML VIAL IV SCH (10:16)
[2020-08-30] MEDS: NYSTATIN TOPICAL POWDER 15 GM TP SCH ×2 (10:16→19:15)
[2020-08-30] MEDS: INSULIN GLARGINE,HUM.REC.ANLOG 1,000 UNIT/10 ML VIAL SUBCUT SCH ×2 (10:21→21:33)
[2020-08-30] MEDS ORDERED: FENTANYL CITRATE INJ/PF 100 MCG/2 ML AMPUL ONE (13:14)
[2020-08-30] MEDS ORDERED: MIDAZOLAM 2 MG/2 ML INJ ONE (13:14)
[2020-08-30] MEDS ORDERED: PROPOFOL INJ 200 MG/20 ML VIAL IV ONE (13:15)
--- NOTE | 2020-08-30 14:39 | Operative Report ---
Nonrecallable Operative Report DATE OF SURGERY: 08/30/20 PREOPERATIVE DIAGNOSIS: ventilator depndence, pneumonia POSTOPERATIVE DIAGNOSIS: same OPERATION: tracheostomy SURGEON: ALICE AVELAR ANESTHESIA: GA TISSUE REMOVED OR ALTERED: none COMPLICATIONS: none ESTIMATED BLOOD LOSS: 25 INTRAOPERATIVE FINDINGS: see note PROCEDURE: Procedure was done in the intensive care unit patient was Covid positive done in a negative pressure intensive care unit room. Patient was given general anesthesia appropriate timeout was obtained. The neck was prepped and draped in usual sterile fashion. Using the Bovie cautery on cut a transverse incision was made just above the sternal notch dissection was carried out through subcutaneous tissue with Bovie cautery the midline raphae strap muscles were divided with Bovie cautery in the midline and retracted laterally. The thyroid came into view and that was divided with Bovie cautery. We then identified the second tracheal ring. Trach hook was used to elevate the trachea into the wound. 2 stay sutures were placed on each side of the second tracheal ring laterally of 0 Prolene suture. Then using the Bovie cautery the tracheal ring was divided midline and spread with a tracheal mobile application tester. An 8 Shiley tracheostomy tube was then placed into the trachea as the structural iron worker pulled back to the endotracheal tube. Slipped easily into the trachea and the balloon was inflated. There was no leak. Was attached to the ventilator with good flow. The tracheostomy tube was then attached to the skin with 4 sutures of 2-0 nylon suture. Also the tracheal collar was utilized to hold the trachea tracheostomy in place. The 2 stay sutures of 0 Prolene were tied down and looped upon themselves then used and will be left in place until full maturation. Sterile dressing was applied which completed the procedure. Estimated blood loss was less than 20 cc sponge and needle counts were correct x2 this completes the procedure. There were no complications
[2020-08-30] MEDS ORDERED: NORMAL SALINE 250 ML IV PRN ×2 (17:57)
--- NOTE | 2020-08-30 18:04 | PDOC CRITICAL CARE PROG REPORT ---
General Date:: 08/30/20 Resuscitation Status: Full Code Events in the past 12 to 24 Hours:: Not able to make meaningful changes to vent. Awake. 08/15: Not quite ready to extubate. 08/16: Pt extubated this AM. 08/18: Not able to wean much today. 08/19: Lowering sedation and changing to precedex. Hgb 6.8 no sign of bleeding needs blood. 08/20: Transfusions given. Hgb 10. Too sleepy to extubate. 08/21: apparently failed SBT yesterday. Overnight, switched from PSV to PRVC, unclear why. Off sedation. Awake, follows commands, but sluggishly. On PRVC 15/450/35/5, RR 24. 08/22: remains on PSV 14/5. awake but still slow to follow commands. off sedation x 2 days. developed fever yesterday (T-max 100.6 F). finished course of Zyvox yesterday. WBC 24.1> 27. Platelets 465. On heparin gtt. on TF and water flushes. 08/23: on PSV 12/5. Temp 101.5 F. Trach aspirate isolating Gram positive cocci in clusters. Winces to pain. slow to follow commands. off sedation x 2 days. ABG this am: 7.45/32/66. WBC 27-->29.1. On heparin. 08/24: On PSV 10/5, FIO2 35%. SPO2 97-99%. RR 18/24. Lethargic. Arousable to noxious stimuli. Moves all 4 extremities but not to command. Currently afebri le. T-max (24) 101.5 F. Started on vancomycin for trach aspirate isolating gram-positive cocci in clusters. WBC 29.1>28. 08/25: Mental status the same. Arouses to voice but does not fully commands. 08/26:Arousable. Not following commands. 08/27: Less responsive, higher WBC. New firmness in LUQ of abd. CT pending. 08/28: Has rectus sheath hematoma with no evidence of further bleeding. Less resp onsive, in ARF may be uremic. Dr. Haro consulted. 08/29: No need for WORKCELL OPERATOR at this time. Vanco stopped. Trach Fri. 08/30: Trach today Review of systems relevant to events:: Pulmonary Reason for ICU Addmission:: Respiratory failure secondary to COVID-19 pneumonia, reintubated. - Medications: Medications reviewed and adjusted accordingly: Yes Vasopressors:: None Sedation:: Precedex Physical Exam Vital Signs: Temp Pulse Resp BP Pulse Ox 96.3 F L 67 19 143/54 H 99 08/30/20 16:00 08/30/20 16:00 08/30/20 16:00 08/30/20 16:00 08/30/20 16:00 Intake & Output 08/29/20 08/30/20 08/31/20 06:59 06:59 06:59 Intake Total 2887 3899 300 Output Total 706 1450 680 Balance 2181 2449 -380 Weight 127.5 kg 126.8 kg Weight/Height Weight 126.8 kg Height 5 ft 7 in General appearance: PRESENT: no acute distress, obese Head exam: PRESENT: atraumatic, normocephalic Eye exam: PRESENT: conjunctiva pink, EOMI, PERRLA. ABSENT: scleral icterus Ear exam: PRESENT: normal external ear exam Mouth exam: PRESENT: moist, tongue midline Neck exam: PRESENT: tracheostomy Respiratory exam: PRESENT: clear to auscultation pinky. ABSENT: rales, rhonchi, wheezes Cardiovascular exam: PRESENT: RRR. ABSENT: diastolic murmur, rubs, systolic murmur GI/Abdominal exam: PRESENT: normal bowel sounds, soft. ABSENT: distended, guarding, mass, organolmegaly, rebound, tenderness Rectal exam: PRESENT: deferred Gentrourinary exam: PRESENT: indwelling catheter Extremities exam: PRESENT: +1 edema Musculoskeletal exam: PRESENT: normal inspection Neurological exam: PRESENT: other - Arousing some. More awake before trach Skin exam: PRESENT: dry, intact, warm. ABSENT: cyanosis, rash Tubes/Lines: PRESENT: Endotracheal Tube, Nasogastic Tube Laboratory/Radiographs Laboratory Results: 08/30/20 03:50 08/30/20 03:50 08/30/20 08/30/20 08/30/20 03:50 03:50 03:50 WBC 16.2 H RBC 2.92 L Hgb 8.5 L Hct 25.7 L MCV 88 MCH 29.1 MCHC 33.0 RDW 15.7 H Plt Count 303 Seg Neutrophils % Not Reportable Sodium 128.0 L Potassium 4.4 Chloride 100 Carbon Dioxide 23 Anion Gap 5 BUN 72 H Creatinine 1.49 H Est GFR ( Amer) 40 L Glucose 173 H Calcium 8.2 L C-Reactive Protein 56.3 H 08/07/20 08/07/20 08/07/20 00:34 00:35 06:31 Creatine Kinase Troponin I 0.390 NT-Pro-B Natriuret Pep 2780 H 3520 H 08/08/20 08/08/20 08/10/20 04:03 14:56 04:08 Creatine Kinase Troponin I 0.185 NT-Pro-B Natriuret Pep 3740 H 4510 H 08/29/20 05:38 Creatine Kinase 74 Troponin I NT-Pro-B Natriuret Pep Impressions: KUB X-Ray 08/08/20 13:14 IMPRESSION: TIP OF THE NASOGASTRIC TUBE IS IN THE STOMACH. PICC Line Insertion 08/22/20 00:00 IMPRESSION: SUCCESSFUL PLACEMENT OF A 5 FR DUAL LUMEN 50 CM PICC IN THE LEFT BASILIC VEIN. Abdomen/Pelvis CT 08/27/20 13:45 IMPRESSION: 1. Large left rectus sheath hematoma. Hyperdense ascites in the pelvis may represent mix of fluid and hematoma. 2. Bibasilar multifocal pneumonia. Finding is consistent with history of coated pneumonia. Small left effusion. Chest X-Ray 08/29/20 00:00 IMPRESSION: Limited examination. Enteric tube tip and proximal port project subdiaphragmatically within the left upper quadrant. All labs, radiographs, diagnostic studies and EKGs were personally reviewed: Yes In addition, reports of radiographic and diagnostic studies were read: Yes Assessment and Plan - Diagnosis (1) COVID-19 virus detected Is this a current diagnosis for this admission?: Yes Plan: She received a trach today. Hope to get off vent soon (2) Diabetes Qualifiers: Diabetes mellitus type: type 2 Diabetes mellitus fpc insulin use: unspecified fpc insulin use status Diabetes mellitus complication status: with kidney complications Is this a current diagnosis for this admission?: Yes Plan: Controlled (3) Leukocytosis Is this a current diagnosis for this admission?: Yes Plan: Down to WBC 16K. (4) Hyponatremia Is this a current diagnosis for this admission?: Yes Plan: Stable at 128. (5) MRSA pneumonia Qualifiers: Laterality: bilateral Lung location: unspecified part of lung Qualified Code(s): J15.212 - Pneumonia due to Methicillin resistant Staphylococcus aureus Is this a current diagnosis for this admission?: Yes Plan: On linezolid for 10 days (6) Hyperkalemia Is this a current diagnosis for this admission?: Yes Plan: Resolved (7) Rectus sheath hematoma Qualifiers: Encounter type: initial encounter Qualified Code(s): S30.1XXA - Contusion of abdominal wall, initial encounter Is this a current diagnosis for this admission?: Yes Plan: H/H stable. Plan Summary: Try to get to trach collar tomorrow if possible. Critical Time Critical Time (minutes): 35 Level of Care: ICU Anticipated discharge: SNF Anticipated DC Timeframe: Other -: 1. The care of a critical patient is a dynamic process. This note is a tour sales representative synopsis but static in nature. The timeframe for treatments given in order is not necessarily the actual time these treatments may have been done. 2. This patient requires critical care secondary to ongoing requirements for therapy not offered or safe outside the critical care environment. Transfer to a lower level of care will result in altered life or limb morbidity and mortality. 3. Multidisciplinary rounds completed. 4. ABCDE bundle addressed.
[2020-08-30] MEDS ORDERED: SUCCINYLCHOLINE CHLORIDE INJ 200 MG/10 ML VIAL ONE (20:08)
[2020-08-31] MEDS: INSULIN REG, HUMAN 100 UNIT/ML 3 ML VIAL (PYX) SUBCUT SCH ×4 (00:30→17:58)
[2020-08-31] MEDS: ALBUTEROL SULFATE 0.083% NEB 2.5 MG/3 ML AMPUL NEB SCH ×4 (01:38→20:57)
[2020-08-31 03:49] LABS: HEMATOCRIT 26.1 % (36.0-47.0); HEMOGLOBIN 8.9 g/dL (12.0-15.5); MEAN CORPUSCULAR HEMOGLOBIN 30.2 pg (27.0-33.4); MEAN CORPUSCULAR HGB CONC 34.1 g/dL (32.0-36.0); MEAN CORPUSCULAR VOLUME 88 fl (80-97); RED BLOOD COUNT 2.95 10^6/uL (3.72-5.28); RED CELL DISTRIBUTION WIDTH 15.5 % (11.5-14.0); WHITE BLOOD COUNT 13.5 10^3/uL (4.0-10.5)
[2020-08-31 03:57] LABS: ANION GAP 6 (5-19); BLOOD UREA NITROGEN 59 mg/dL (7-20); CALCIUM 8.6 mg/dL (8.4-10.2); CARBON DIOXIDE 21 mmol/L (22-30); CHLORIDE 103 mmol/L (98-107); GLUCOSE 124 mg/dL (75-110); POTASSIUM 4.4 mmol/L (3.6-5.0)
[2020-08-31 04:08] LABS: ABSOLUTE LYMPHOCYTES# (MANUAL) 0.5 10^3/uL (0.5-4.7); ABSOLUTE MONOCYTES # (MANUAL) 0.9 10^3/uL (0.1-1.4); BASOPHILS % (MANUAL) 0 % (0-2); EOSINOPHILS % (MANUAL) 0 % (0-6); LYMPHOCYTES % (MANUAL) 4 % (13-45); MONOCYTES % (MANUAL) 7 % (3-13); SEGMENTED NEUTROPHILS % (MAN) 89 % (42-78); TOTAL CELLS COUNTED 100
[2020-08-31 04:09] LABS: POLYCHROMASIA SLIGHT
[2020-08-31 04:10] LABS: ANISOCYTOSIS SLIGHT; PLATELET CLUMPS PRESENT; PLATELET COMMENT ADEQUATE
[2020-08-31 04:11] LABS: PLATELET COUNT 309 10^3/uL (150-450)
[2020-08-31 05:07] LABS: ARTERIAL BLOOD BASE EXCESS -3.8 mmol/L; ARTERIAL BLOOD H2CO3 0.96 mmol/L (1.05-1.35); ARTERIAL BLOOD O2 SATURATION 97.7 % (94-98); ARTERIAL BLOOD PCO2 31.8 mmHg (35-45); ARTERIAL BLOOD PH 7.42 (7.35-7.45); ARTERIAL BLOOD PO2 100.4 mmHg (80-100)
[2020-08-31 05:08] LABS: ARTERIAL BLOOD FIO2 40%
[2020-08-31] MEDS: NORMAL SALINE 1000 ML 1,000 ML IV PRN (06:04)
[2020-08-31] MEDS: LEVOTHYROXINE SODIUM 0.15 MG TABLET PO SCH (06:08)
[2020-08-31] MEDS: ASCORBIC ACID 500 MG TABLET NG SCH ×3 (06:08→21:50)
--- NOTE | 2020-08-31 08:10 | PDOC CRITICAL CARE PROG REPORT ---
General Date:: 08/31/20 ICU Day:: 24 Ventilator Day:: 24 Hospital Day:: 24 Resuscitation Status: Full Code Events in the past 12 to 24 Hours:: Not able to make meaningful changes to vent. Awake. 08/15: Not quite ready to extubate. 08/16: Pt extubated this AM. 08/18: Not able to wean much today. 08/19: Lowering sedation and changing to precedex. Hgb 6.8 no sign of bleeding needs blood. 08/20: Transfusions given. Hgb 10. Too sleepy to extubate. 08/21: apparently failed SBT yesterday. Overnight, switched from PSV to PRVC, unclear why. Off sedation. Awake, follows commands, but sluggishly. On PRVC 15/450/35/5, RR 24. 08/22: remains on PSV 14/5. awake but still slow to follow commands. off sedation x 2 days. developed fever yesterday (T-max 100.6 F). finished course of Zyvox yesterday. WBC 24.1> 27. Platelets 465. On heparin gtt. on TF and water flushes. 08/23: on PSV 12/5. Temp 101.5 F. Trach aspirate isolating Gram positive cocci in clusters. Winces to pain. slow to follow commands. off sedation x 2 days. ABG this am: 7.45/32/66. WBC 27-->29.1. On heparin. 08/24: On PSV 10/5, FIO2 35%. SPO2 97-99%. RR 18/24. Lethargic. Arousable to noxious stimuli. Moves all 4 extremities but not to command. Currently afebrile. T-max (24) 101.5 F. Started on vancomycin for trach aspirate isolat ing gram-positive cocci in clusters. WBC 29.1>28. 08/25: Mental status the same. Arouses to voice but does not fully commands. 08/26:Arousable. Not following commands. 08/27: Less responsive, higher WBC. New firmness in LUQ of abd. CT pending. 08/28: Has rectus sheath hematoma with no evidence of further bleeding. Less responsive, in ARF may be uremic. Dr. Haro consulted. 08/29: No need for SENIOR CHEMICAL PROCESS ENGINEER at this time. Vanco stopped. Trach Wed. 08/30: Trach today 08/31: Trach looks good: Restart TF. Review of systems relevant to events:: Pulmonary, renal. Reason for ICU Addmission:: Respiratory failure secondary to COVID-19 pneumonia, reintubated. - Medications: Medications reviewed and adjusted accordingly: Yes Vasopressors:: None Sedation:: None Physical Exam Vital Signs: Temp Pulse Resp BP Pulse Ox 96.4 F L 63 17 144/57 H 100 08/31/20 03:50 08/31/20 01:38 08/31/20 06:00 08/31/20 05:47 08/31/20 06:00 Intake & Output 08/30/20 08/31/20 09/01/20 06:59 06:59 06:59 Intake Total 3899 2600 Output Total 1450 1580 Balance 2449 1020 Weight 126.8 kg 132.6 kg Weight/Height Weight 132.6 kg Height 5 ft 7 in General appearance: PRESENT: no acute distress, obese Head exam: PRESENT: atraumatic, normocephalic Eye exam: PRESENT: conjunctiva pink, EOMI, PERRLA. ABSENT: scleral icterus Ear exam: PRESENT: normal external ear exam Mouth exam: PRESENT: moist, tongue midline Neck exam: PRESENT: tracheostomy Respiratory exam: PRESENT: clear to auscultation pinky. ABSENT: rales, rhonchi, wheezes Cardiovascular exam: PRESENT: RRR. ABSENT: diastolic murmur, rubs, systolic murmur GI/Abdominal exam: PRESENT: normal bowel sounds, soft. ABSENT: distended, guarding, mass, organolmegaly, rebound, tenderness Rectal exam: PRESENT: deferred Gentrourinary exam: PRESENT: indwelling catheter Extremities exam: PRESENT: full ROM, +1 edema. ABSENT: calf tenderness, clubbing, pedal edema Musculoskeletal exam: PRESENT: normal inspection Neurological exam: PRESENT: other - Arousable. Not following commands. Skin exam: PRESENT: dry, intact, warm. ABSENT: cyanosis, rash Tubes/Lines: PRESENT: Nasogastic Tube, Other - Trach Laboratory/Radiographs Laboratory Results: 08/31/20 03:10 08/31/20 03:10 08/28/20 08/31/20 08/31/20 10:10 03:10 03:10 WBC 13.5 H RBC 2.95 L Hgb 8.9 L Hct 26.1 L MCV 88 MCH 30.2 MCHC 34.1 RDW 15.5 H Plt Count 309 Seg Neutrophils % Not Reportable Carbonic Acid HCO3/H2CO3 Ratio ABG pH ABG pCO2 ABG pO2 ABG HCO3 ABG O2 Saturation ABG Base Excess FiO2 Sodium 130.4 L Potassium 4.4 Chloride 103 Carbon Dioxide 21 L Anion Gap 6 BUN 59 H Creatinine 1.27 H Est GFR ( Amer) 48 L Glucose 124 H Calcium 8.6 Magnesium 2.2 Blood Type O POSITIVE Antibody Screen NEGATIVE 08/31/20 04:20 WBC RBC Hgb Hct MCV MCH MCHC RDW Plt Count Seg Neutrophils % Carbonic Acid 0.96 L HCO3/H2CO3 Ratio 20:1 ABG pH 7.42 ABG pCO2 31.8 L ABG pO2 100.4 H ABG HCO3 20.0 ABG O2 Saturation 97.7 ABG Base Excess -3.8 FiO2 40% Sodium Potassium Chloride Carbon Dioxide Anion Gap BUN Creatinine Est GFR ( Amer) Glucose Calcium Magnesium Blood Type Antibody Screen 08/07/20 08/07/20 08/07/20 00:34 00:35 06:31 Creatine Kinase Troponin I 0.390 NT-Pro-B Natriuret Pep 2780 H 3520 H 08/08/20 08/08/20 08/10/20 04:03 14:56 04:08 Creatine Kinase Troponin I 0.185 NT-Pro-B Natriuret Pep 3740 H 4510 H 08/29/20 05:38 Creatine Kinase 74 Troponin I NT-Pro-B Natriuret Pep Impressions: KUB X-Ray 08/08/20 13:14 IMPRESSION: TIP OF THE NASOGASTRIC TUBE IS IN THE STOMACH. PICC Line Insertion 08/22/20 00:00 IMPRESSION: SUCCESSFUL PLACEMENT OF A 5 FR DUAL LUMEN 50 CM PICC IN THE LEFT BASILIC VEIN. Abdomen/Pelvis CT 08/27/20 13:45 IMPRESSION: 1. Large left rectus sheath hematoma. Hyperdense ascites in the pelvis may represent mix of fluid and hematoma. 2. Bibasilar multifocal pneumonia. Finding is consistent with history of coated pneumonia. Small left effusion. Chest X-Ray 08/29/20 00:00 IMPRESSION: Limited examination. Enteric tube tip and proximal port project subdiaphragmatically within the left upper quadrant. All labs, radiographs, diagnostic studies and EKGs were personally reviewed: Yes In addition, reports of radiographic and diagnostic studies were read: Yes Assessment and Plan - Diagnosis (1) COVID-19 virus detected Is this a current diagnosis for this admission?: Yes Plan: Still positive on the 8th. Try to wean to trach collar today. (2) Diabetes Qualifiers: Diabetes mellitus type: type 2 Diabetes mellitus intermodal dispatcher insulin use: unspecified intermodal dispatcher insulin use status Diabetes mellitus complication status: with kidney complications Is this a current diagnosis for this admission?: Yes Plan: Controlled (3) Leukocytosis Is this a current diagnosis for this admission?: Yes Plan: Improved with WBC down to 13K. (4) Hyponatremia Is this a current diagnosis for this admission?: Yes Plan: Improved with sodium at 130. (5) MRSA pneumonia Qualifiers: Laterality: bilateral Lung location: unspecified part of lung Qualified Code(s): J15.212 - Pneumonia due to Methicillin resistant Staphylococcus aureus Is this a current diagnosis for this admission?: Yes (6) Rectus sheath hematoma Qualifiers: Encounter type: initial encounter Qualified Code(s): S30.1XXA - Contusion of abdominal wall, initial encounter Is this a current diagnosis for this admission?: Yes Plan: The reason we have held off on PEG due to risk of bleeding and infection. Plan Summary: Wean to trach collar if possible. Critical Time Critical Time (minutes): 35 Level of Care: ICU Anticipated discharge: SNF Anticipated DC Timeframe: Other -: 1. The care of a critical patient is a dynamic process. This note is a open claims representative synopsis but static in nature. The timeframe for treatments given in order is not necessarily the actual time these treatments may have been done. 2. This patient requires critical care secondary to ongoing requirements for therapy not offered or safe outside the critical care environment. Transfer to a lower level of care will result in altered life or limb morbidity and mortality. 3. Multidisciplinary rounds completed. 4. ABCDE bundle addressed.
--- NOTE | 2020-08-31 08:14 | PDOC PROGRESS REPORT ---
Subjective Date:: 08/31/20 Reason For Visit: RESPIRATORY FAILURE Patient remains in the unit, on ventilator through the recently placed tracheostomy tube. Physical Exam Vital Signs: Temp Pulse Resp BP Pulse Ox 96.4 F L 63 17 144/57 H 100 08/31/20 03:50 08/31/20 01:38 08/31/20 06:00 08/31/20 05:47 08/31/20 06:00 Intake & Output 08/30/20 08/31/20 09/01/20 06:59 06:59 06:59 Intake Total 3899 2600 Output Total 1450 1580 Balance 2449 1020 Weight 126.8 kg 132.6 kg General appearance: PRESENT: no acute distress, other - Patient on ventilator, sedated Neck exam: PRESENT: tracheostomy - Trach site expected, no bleeding, securing devices in position Results Laboratory Results: 08/31/20 03:10 08/31/20 03:10 08/28/20 08/31/20 08/31/20 10:10 03:10 03:10 WBC 13.5 H RBC 2.95 L Hgb 8.9 L Hct 26.1 L MCV 88 MCH 30.2 MCHC 34.1 RDW 15.5 H Plt Count 309 Seg Neutrophils % Not Reportable Carbonic Acid HCO3/H2CO3 Ratio ABG pH ABG pCO2 ABG pO2 ABG HCO3 ABG O2 Saturation ABG Base Excess FiO2 Sodium 130.4 L Potassium 4.4 Chloride 103 Carbon Dioxide 21 L Anion Gap 6 BUN 59 H Creatinine 1.27 H Est GFR ( Amer) 48 L Glucose 124 H Calcium 8.6 Magnesium 2.2 Blood Type O POSITIVE Antibody Screen NEGATIVE 08/31/20 04:20 WBC RBC Hgb Hct MCV MCH MCHC RDW Plt Count Seg Neutrophils % Carbonic Acid 0.96 L HCO3/H2CO3 Ratio 20:1 ABG pH 7.42 ABG pCO2 31.8 L ABG pO2 100.4 H ABG HCO3 20.0 ABG O2 Saturation 97.7 ABG Base Excess -3.8 FiO2 40% Sodium Potassium Chloride Carbon Dioxide Anion Gap BUN Creatinine Est GFR ( Amer) Glucose Calcium Magnesium Blood Type Antibody Screen 08/07/20 08/07/20 08/07/20 00:34 00:35 06:31 Creatine Kinase Troponin I 0.390 NT-Pro-B Natriuret Pep 2780 H 3520 H 08/08/20 08/08/20 08/10/20 04:03 14:56 04:08 Creatine Kinase Troponin I 0.185 NT-Pro-B Natriuret Pep 3740 H 4510 H 08/29/20 05:38 Creatine Kinase 74 Troponin I NT-Pro-B Natriuret Pep Impressions: KUB X-Ray 08/08/20 13:14 IMPRESSION: TIP OF THE NASOGASTRIC TUBE IS IN THE STOMACH. PICC Line Insertion 08/22/20 00:00 IMPRESSION: SUCCESSFUL PLACEMENT OF A 5 FR DUAL LUMEN 50 CM PICC IN THE LEFT BASILIC VEIN. Abdomen/Pelvis CT 08/27/20 13:45 IMPRESSION: 1. Large left rectus sheath hematoma. Hyperdense ascites in the pelvis may represent mix of fluid and hematoma. 2. Bibasilar multifocal pneumonia. Finding is consistent with history of coated pneumonia. Small left effusion. Chest X-Ray 08/29/20 00:00 IMPRESSION: Limited examination. Enteric tube tip and proximal port project subdiaphragmatically within the left upper quadrant. Assessment & Plan - Diagnosis (1) Status post trachelectomy Is this a current diagnosis for this admission?: Yes Plan: Impression: Patient stable 1 day post bedside tracheostomy Plan: 1. Supportive therapy per instructional assistant staff 2. Routine post trach care 3. Surgery will sign off; please reconsult if clinically indicated. (2) Acute hypoxemic respiratory failure Is this a current diagnosis for this admission?: Yes (3) CKD stage 3 due to type 2 diabetes mellitus Is this a current diagnosis for this admission?: Yes (4) COVID-19 virus detected Is this a current diagnosis for this admission?: Yes - Time Anticipated Discharge Disposition: Home with Hospice Anticipated Discharge Timeframe: TBD
[2020-08-31] MEDS: BUDESONIDE NEB 0.25 MG/2 ML AMPUL NEB SCH ×2 (08:33→20:57)
[2020-08-31] MEDS: LINEZOLID 600 MG/300 ML RTUPB IV SCH ×2 (09:39→22:28)
[2020-08-31] MEDS: CHOLECALCIFEROL (D3) 1,000 UNIT (25 MCG) TABLET PO SCH (09:40)
[2020-08-31] MEDS: FAMOTIDINE INJ/PF 20 MG/2 ML SDV IV SCH (09:41)
[2020-08-31] MEDS: DEXAMETHASONE SOD PHOSPHATE INJ 4 MG/1 ML VIAL IV SCH (09:42)
[2020-08-31] MEDS: NORMAL SALINE 10 ML SDV (SCHEDULED) IV SCH (09:42)
[2020-08-31] MEDS: INSULIN GLARGINE,HUM.REC.ANLOG 1,000 UNIT/10 ML VIAL SUBCUT SCH ×2 (09:43→21:50)
[2020-08-31] MEDS: ZINC SULFATE 220 MG CAPSULE PO SCH (09:50)
[2020-08-31] MEDS: METOPROLOL TARTRATE 50 MG TABLET PO SCH ×2 (09:58→21:50)
[2020-08-31] MEDS: HEPARIN SODIUM,PORCINE/D5W 25,000 UNIT/250 ML RTUINJ IV PRN (12:12)
[2020-08-31] MEDS: NYSTATIN TOPICAL POWDER 15 GM TP SCH ×2 (13:57→17:52)
[2020-09-01] MEDS: NORMAL SALINE 10 ML SDV (SCHEDULED) IV SCH ×3 (00:57→21:38)
[2020-09-01] MEDS: INSULIN REG, HUMAN 100 UNIT/ML 3 ML VIAL (PYX) SUBCUT SCH ×4 (00:57→18:48)
[2020-09-01] MEDS: HEPARIN SODIUM,PORCINE/D5W 25,000 UNIT/250 ML RTUINJ IV PRN ×2 (00:57→21:30)
[2020-09-01] MEDS: NORMAL SALINE 1000 ML 1,000 ML IV PRN ×2 (00:58→13:15)
[2020-09-01] MEDS: METOPROLOL TARTRATE PF/INJ 5 MG/5 ML SDV IV PRN (01:03)
[2020-09-01] MEDS: ALBUTEROL SULFATE 0.083% NEB 2.5 MG/3 ML AMPUL NEB SCH ×4 (01:10→20:45)
[2020-09-01 03:26] LABS: ARTERIAL BLOOD BASE EXCESS -3.7 mmol/L; ARTERIAL BLOOD H2CO3 0.94 mmol/L (1.05-1.35); ARTERIAL BLOOD O2 SATURATION 98.2 % (94-98); ARTERIAL BLOOD PCO2 31.3 mmHg (35-45); ARTERIAL BLOOD PH 7.42 (7.35-7.45); ARTERIAL BLOOD PO2 111.6 mmHg (80-100); ARTERIAL BLOOD TOTAL CO2 20.9 mmol/L (21-25)
[2020-09-01] MEDS ORDERED: HYDRALAZINE HCL 25 MG TABLET PO ONE (03:30)
[2020-09-01 03:31] LABS: ARTERIAL BLOOD FIO2 40%
[2020-09-01 03:47] LABS: ALBUMIN 2.3 g/dL (3.5-5.0); ALKALINE PHOSPHATASE 132 U/L (38-126); ANION GAP 5 (5-19); ASPARTATE AMINO TRANSFERASE 25 U/L (14-36); BILIRUBIN,DIRECT 0.3 mg/dL (0.0-0.4); BILIRUBIN,TOTAL 0.7 mg/dL (0.2-1.3); BLOOD UREA NITROGEN 52 mg/dL (7-20); CALCIUM 8.5 mg/dL (8.4-10.2); CARBON DIOXIDE 21 mmol/L (22-30); CHLORIDE 106 mmol/L (98-107); GLUCOSE 138 mg/dL (75-110); PHOSPHORUS 3.9 mg/dL (2.5-4.5); POTASSIUM 4.8 mmol/L (3.6-5.0); TOTAL PROTEIN 4.9 g/dL (6.3-8.2)
[2020-09-01 04:14] LABS: HEMATOCRIT 28.6 % (36.0-47.0); HEMOGLOBIN 9.4 g/dL (12.0-15.5); MEAN CORPUSCULAR HEMOGLOBIN 29.3 pg (27.0-33.4); MEAN CORPUSCULAR HGB CONC 32.7 g/dL (32.0-36.0); MEAN CORPUSCULAR VOLUME 90 fl (80-97); PLATELET COUNT 324 10^3/uL (150-450); RED CELL DISTRIBUTION WIDTH 15.6 % (11.5-14.0); WHITE BLOOD COUNT 17.7 10^3/uL (4.0-10.5)
[2020-09-01 04:27] LABS: ABSOLUTE LYMPHOCYTES# (MANUAL) 0.4 10^3/uL (0.5-4.7); ABSOLUTE MONOCYTES # (MANUAL) 0.4 10^3/uL (0.1-1.4); BASOPHILS % (MANUAL) 0 % (0-2); EOSINOPHILS % (MANUAL) 0 % (0-6); LYMPHOCYTES % (MANUAL) 2 % (13-45); MONOCYTES % (MANUAL) 2 % (3-13); SEGMENTED NEUTROPHILS % (MAN) 96 % (42-78); TOTAL CELLS COUNTED 100
[2020-09-01 04:29] LABS: ANISOCYTOSIS SLIGHT; BURR CELLS SLIGHT; OVALOCYTES SLIGHT; PLATELET COMMENT ADEQUATE; POIKILOCYTOSIS SLIGHT; POLYCHROMASIA SLIGHT; TOXIC GRANULATION SLIGHT; TOXIC VACUOLATION PRESENT
[2020-09-01] MEDS: LEVOTHYROXINE SODIUM 0.15 MG TABLET PO SCH (06:21)
[2020-09-01] MEDS: ASCORBIC ACID 500 MG TABLET NG SCH ×3 (06:21→21:31)
[2020-09-01] MEDS: BUDESONIDE NEB 0.25 MG/2 ML AMPUL NEB SCH ×2 (08:11→20:45)
--- NOTE | 2020-09-01 08:20 | RADIOLOGY REPORT (SQ) ---
EXAM DESCRIPTION: CHEST SINGLE VIEW IMAGES COMPLETED DATE/TIME: 09/01/2020 6:25 am REASON FOR STUDY: vent COMPARISON: 08/29/2020 EXAM PARAMETERS: NUMBER OF VIEWS: One view. TECHNIQUE: Single frontal radiographic view of the chest acquired. RADIATION DOSE: NA LIMITATIONS: None. FINDINGS: LUNGS AND PLEURA: Patchy bilateral airspace disease, left greater than right, grossly stab le. Likely small bilateral effusions. No pneumothorax. MEDIASTINUM AND HILAR STRUCTURES: Stable. HEART AND VASCULAR STRUCTURES: Enlarged cardiac silhouette, stable. BONES: No acute findings. HARDWARE: Enteric tube tip overlies gastric fundus. Tracheostomy tube tip overlies midline at midtho racic trachea. Left approach PICC tip overlies SVC. Right axillary surgical clips. OTHER: No other significant finding. IMPRESSION: Stable large cardiac silhouette with patchy bilateral airspace disease, left greater rig ht. Stable support lines and tubes as above. TECHNICAL DOCUMENTATION: JOB ID: [id number] 2010 [employer]- All Rights Reserved Reading location - IP/workstation name: [email or web address]
[2020-09-01] MEDS ORDERED: MORPHINE SULFATE 10 MG/ML INJ IV ONE (09:30)
[2020-09-01] MEDS: METOPROLOL TARTRATE 50 MG TABLET PO SCH ×2 (09:54→21:31)
[2020-09-01] MEDS: NYSTATIN TOPICAL POWDER 15 GM TP SCH (09:55)
[2020-09-01] MEDS: FAMOTIDINE INJ/PF 20 MG/2 ML SDV IV SCH (09:55)
[2020-09-01] MEDS: DEXAMETHASONE SOD PHOSPHATE INJ 4 MG/1 ML VIAL IV SCH (09:55)
[2020-09-01] MEDS: ZINC SULFATE 220 MG CAPSULE PO SCH (09:55)
[2020-09-01] MEDS: CHOLECALCIFEROL (D3) 1,000 UNIT (25 MCG) TABLET PO SCH (09:55)
[2020-09-01] MEDS: LINEZOLID 600 MG/300 ML RTUPB IV SCH ×2 (09:56→21:31)
[2020-09-01] MEDS: INSULIN GLARGINE,HUM.REC.ANLOG 1,000 UNIT/10 ML VIAL SUBCUT SCH ×2 (09:57→21:38)
[2020-09-01] MEDS: HYDRALAZINE HCL 25 MG TABLET PO SCH ×2 (09:57→18:47)
[2020-09-01] MEDS ORDERED: LORAZEPAM INJ 2 MG/1 ML VIAL ONE (14:37)
[2020-09-01] MEDS ORDERED: LORAZEPAM INJ 2 MG/1 ML VIAL IV ONE (17:00)
--- NOTE | 2020-09-01 18:45 | NEURO WORKBENCH EEG REPORT ---
EEG Report Patient: Chloe Squires ID: [id number] Referring Doctor: Iwona Shea MD DOS: 09/01/2020 Medications: albuterol, vitamin C/D, budesonide, famotidine, porcine, apresoline, insulin glargine, pyxis, synthroid, linezolid, lopressor, nystatin, zinc History This is a 85 year old woman with a history of thyroid disease, angina, CHF, atrial fibrillation, hypercholesterolemia, hypertension, COPD, GERD, breast cancer, type 2 diabetes, cellulitis, MSK trauma who is on life support. Nurse noted patient had a seizure at 14:34h until 14:37h, given Ativan at 14:38h. EEG started at 16:54h. Temperature 37.1. This EEG was requested for seizure. EEG Interpretation This EEG was recorded in unknown state with the patient intubated. The EEG is characterized by an attenuated and disorganized background without a posterior dominant rhythm noted to passive eye opening/closing. There was prominent EKG artifact as well as some delta and theta with intermittent low amplitude activity in the alpha and beta ranges most noted in the central regions, slightly more prominent on the right. There were occasional, low amplitude sharply contoured waveforms in the left temporal/temporal-central region but no definitive epileptiform abnormalities. Photic stimulation resulted in no significant changes. There were no seizures noted. The EKG showed an irregular rhythm. EEG Classification * Suppressed * Disorganized * Generalized background slowing * EKG irregular rhythm EEG Impression This EEG is abnormal. It is consistent with severe, diffuse cerebral dysfunction. The EKG showed an irregular rhythm as noted in the patient history. There were occasional sharply contoured waveforms but no definitive epileptiform discharges. There were no seizures. INTERPRETING NEUROLOGIST: Jocy Shields MD, FRCPC Board Certified in Neurology, with special qualification in Child Neurology, and in Clinical Neurophysiology [facility]
--- NOTE | 2020-09-01 20:18 | PDOC CRITICAL CARE PROG REPORT ---
General Date:: 09/01/20 Resuscitation Status: Full Code Events in the past 12 to 24 Hours:: Not able to make meaningful changes to vent. Awake. 08/15: Not quite ready to extubate. 08/16: Pt extubated this AM. 08/18: Not able to wean much today. 08/19: Lowering sedation and changing to precedex. Hgb 6.8 no sign of bleeding needs blood. 08/20: Transfusions given. Hgb 10. Too sleepy to extubate. 08/21: apparently failed SBT yesterday. Overnight, switched from PSV to PRVC, unclear why. Off sedation. Awake, follows commands, but sluggishly. On PRVC 15/450/35/5, RR 24. 08/22: remains on PSV 14/5. awake but still slow to follow commands. off sedation x 2 days. developed fever yesterday (T-max 100.6 F). finished course of Zyvox yesterday. WBC 24.1> 27. Platelets 465. On heparin gtt. on TF and water flushes. 08/23: on PSV 12/5. Temp 101.5 F. Trach aspirate isolating Gram positive cocci in clusters. Winces to pain. slow to follow commands. off sedation x 2 days. ABG this am: 7.45/32/66. WBC 27-->29.1. On heparin. 08/24: On PSV 10/5, FIO2 35%. SPO2 97-99%. RR 18/24. Lethargic. Arousable to noxious stimuli. Moves all 4 extremities but not to command. Currently afebri le. T-max (24) 101.5 F. Started on vancomycin for trach aspirate isolating gram-positive cocci in clusters. WBC 29.1>28. 08/25: Mental status the same. Arouses to voice but does not fully commands. 08/26:Arousable. Not following commands. 08/27: Less responsive, higher WBC. New firmness in LUQ of abd. CT pending. 08/28: Has rectus sheath hematoma with no evidence of further bleeding. Less resp onsive, in ARF may be uremic. Dr. Haro consulted. 08/29: No need for LOAD MIXER at this time. Vanco stopped. Trach Wed. 08/30: Trach today 08/31: Trach looks good: Restart TF. 09/01: On trach collar, FiO2 40%. RR 30. Arousable to voice. Does not clearly follow commands. Mouths out "ow!" to pain. Flicker strength in hands and feet. On TF. Review of systems relevant to events:: Pulmonary, renal. Reason for ICU Addmission:: Respiratory failure secondary to COVID-19 pneumonia, reintubated. - Medications: Medications reviewed and adjusted accordingly: Yes Vasopressors:: None Physical Exam Vital Signs: Temp Pulse Resp BP Pulse Ox 98.4 F 71 24 H 151/62 H 99 09/01/20 10:00 09/01/20 08:10 09/01/20 10:48 09/01/20 10:48 09/01/20 10:48 Intake & Output 08/31/20 09/01/20 09/02/20 06:59 06:59 06:59 Intake Total 2600 2371 30 Output Total 1580 1533 410 Balance 1020 838 -380 Weight 132.6 kg 130.8 kg Weight/Height Weight 130.8 kg Height 1.7 m General appearance: PRESENT: no acute distress, morbidly obese, well-developed, well-nourished Head exam: PRESENT: atraumatic, normocephalic Eye exam: PRESENT: conjunctiva pink, EOMI, PERRLA. ABSENT: scleral icterus Mouth exam: PRESENT: moist, tongue midline Neck exam: PRESENT: tracheostomy. ABSENT: carotid bruit, JVD, lymphadenopathy, thyromegaly Respiratory exam: PRESENT: clear to auscultation pinky, symmetrical, tachypnea. ABSENT: rales, rhonchi, wheezes Cardiovascular exam: PRESENT: RRR. ABSENT: diastolic murmur, rubs, systolic mu rmur Pulses: PRESENT: normal dorsalis pedis pul GI/Abdominal exam: PRESENT: normal bowel sounds, soft. ABSENT: distended, guarding, mass, organolmegaly, rebound, tenderness Extremities exam: PRESENT: full ROM, pedal edema, +2 edema. ABSENT: calf tenderness, clubbing Musculoskeletal exam: PRESENT: normal inspection. ABSENT: deformity Neurological exam: PRESENT: awake, CN II-XII grossly intact, motor sensory deficit - Motor strength 1+ x 4 extremities. ABSENT: reflexes normal - DTRs 1+ x 4 extremities Psychiatric exam: ABSENT: agitated, anxious Skin exam: PRESENT: dry, intact, warm. ABSENT: cyanosis, rash Tubes/Lines: PRESENT: Central Line - L PICC, Nasogastic Tube Laboratory/Radiographs Laboratory Results: 09/01/20 03:10 09/01/20 03:10 09/01/20 09/01/20 09/01/20 03:10 03:10 03:10 WBC 17.7 H RBC 3.20 L Hgb 9.4 L Hct 28.6 L MCV 90 MCH 29.3 MCHC 32.7 RDW 15.6 H Plt Count 324 Seg Neutrophils % Not Reportable Carbonic Acid HCO3/H2CO3 Ratio ABG pH ABG pCO2 ABG pO2 ABG HCO3 ABG O2 Saturation ABG Base Excess FiO2 Sodium 132.0 L Potassium 4.8 Chloride 106 Carbon Dioxide 21 L Anion Gap 5 BUN 52 H Creatinine 1.11 Est GFR ( Amer) 56 L Glucose 138 H Calcium 8.5 Phosphorus 3.9 Magnesium 2.2 Total Bilirubin 0.7 AST 25 Alkaline Phosphatase 132 H C-Reactive Protein 29.8 H Total Protein 4.9 L Albumin 2.3 L 09/01/20 03:10 WBC RBC Hgb Hct MCV MCH MCHC RDW Plt Count Seg Neutrophils % Carbonic Acid 0.94 L HCO3/H2CO3 Ratio 21:1 ABG pH 7.42 ABG pCO2 31.3 L ABG pO2 111.6 H ABG HCO3 20.0 ABG O2 Saturation 98.2 H ABG Base Excess -3.7 FiO2 40% Sodium Potassium Chloride Carbon Dioxide Anion Gap BUN Creatinine Est GFR ( Amer) Glucose Calcium Phosphorus Magnesium Total Bilirubin AST Alkaline Phosphatase C-Reactive Protein Total Protein Albumin 08/07/20 08/07/20 08/07/20 00:34 00:35 06:31 Creatine Kinase Troponin I 0.390 NT-Pro-B Natriuret Pep 2780 H 3520 H 08/08/20 08/08/20 08/10/20 04:03 14:56 04:08 Creatine Kinase Troponin I 0.185 NT-Pro-B Natriuret Pep 3740 H 4510 H 08/29/20 05:38 Creatine Kinase 74 Troponin I NT-Pro-B Natriuret Pep Impressions: KUB X-Ray 08/08/20 13:14 IMPRESSION: TIP OF THE NASOGASTRIC TUBE IS IN THE STOMACH. PICC Line Insertion 08/22/20 00:00 IMPRESSION: SUCCESSFUL PLACEMENT OF A 5 FR DUAL LUMEN 50 CM PICC IN THE LEFT BASILIC VEIN. Abdomen/Pelvis CT 08/27/20 13:45 IMPRESSION: 1. Large left rectus sheath hematoma. Hyperdense ascites in the pelvis may represent mix of fluid and hematoma. 2. Bibasilar multifocal pneumonia. Finding is consistent with history of coated pneumonia. Small left effusion. Chest X-Ray 09/01/20 04:00 IMPRESSION: Stable large cardiac silhouette with patchy bilateral airspace disease, left greater right. Stable support lines and tubes as above. All labs, radiographs, diagnostic studies and EKGs were personally reviewed: Yes In addition, reports of radiographic and diagnostic studies were read: Yes Assessment and Plan - Diagnosis (1) Acute hypoxemic respiratory failure Is this a current diagnosis for this admission?: Yes Plan: * Continue trach collar trials. (2) Acute respiratory failure due to COVID-19 Is this a current diagnosis for this admission?: Yes Plan: * Continue vitamin C, vitamin D3 and zinc sulfate. * Continue Decadron. (3) Anoxic encephalopathy Is this a current diagnosis for this admission?: Yes (4) MRSA pneumonia Qualifiers: Laterality: bilateral Lung location: unspecified part of lung Qualified Code(s): J15.212 - Pneumonia due to Methicillin resistant Staphylococcus aureus Is this a current diagnosis for this admission?: Yes Plan: * On linezolid. (5) Normocytic anemia Is this a current diagnosis for this admission?: Yes (6) History of breast cancer Is this a current diagnosis for this admission?: Yes (7) IDDM (insulin dependent diabetes mellitus) Is this a current diagnosis for this admission?: Yes (8) Morbid obesity Is this a current diagnosis for this admission?: Yes (9) Hyponatremia Is this a current diagnosis for this admission?: Yes (10) Seizure Is this a current diagnosis for this admission?: Yes Plan: * At approximately 1500 today, the patient had a witnessed generalized tonic- clonic seizure episode, which reportedly lasted approximately 2 minutes and was followed by stereotypical lipsmacking and leftward eye deviation. This was controlled with Ativan 4 mg IV single dose. * Will obtain EEG. * Critical Time Critical Time (minutes): 45 Level of Care: ICU -: 1. The care of a critical patient is a dynamic process. This note is a motor vehicle representative synopsis but static in nature. The timeframe for treatments given in order is not necessarily the actual time these treatments may have been done. 2. This patient requires critical care secondary to ongoing requirements for therapy not offered or safe outside the critical care environment. Transfer to a lower level of care will result in altered life or limb morbidity and mortality. 3. Multidisciplinary rounds completed. 4. ABCDE bundle addressed.
[2020-09-02] MEDS: INSULIN REG, HUMAN 100 UNIT/ML 3 ML VIAL (PYX) SUBCUT SCH ×5 (00:49→23:19)
[2020-09-02] MEDS: NORMAL SALINE 1000 ML 1,000 ML IV PRN (00:51)
[2020-09-02] MEDS: ALBUTEROL SULFATE 0.083% NEB 2.5 MG/3 ML AMPUL NEB SCH ×4 (01:20→20:49)
[2020-09-02] MEDS ORDERED: LORAZEPAM INJ 2 MG/1 ML VIAL ONE (02:19)
[2020-09-02] MEDS ORDERED: LORAZEPAM INJ 2 MG/1 ML VIAL IV ONE (02:20)
[2020-09-02] MEDS: HYDRALAZINE HCL 25 MG TABLET PO SCH ×3 (02:24→17:54)
[2020-09-02] MEDS ORDERED: LEVETIRACETAM 1000 MG/NACL-ISO 1,000 MG/100 ML RTUPB IV ONE (02:30)
[2020-09-02 04:50] LABS: ARTERIAL BLOOD BASE EXCESS -3.9 mmol/L; ARTERIAL BLOOD H2CO3 0.85 mmol/L (1.05-1.35); ARTERIAL BLOOD HCO3 19.1 mmol/L (20-24); ARTERIAL BLOOD O2 SATURATION 95.6 % (94-98); ARTERIAL BLOOD PCO2 28.4 mmHg (35-45); ARTERIAL BLOOD PH 7.45 (7.35-7.45); ARTERIAL BLOOD PO2 73.5 mmHg (80-100)
[2020-09-02 04:52] LABS: HEMATOCRIT 27.2 % (36.0-47.0); HEMOGLOBIN 9.1 g/dL (12.0-15.5); MEAN CORPUSCULAR HEMOGLOBIN 29.7 pg (27.0-33.4); MEAN CORPUSCULAR HGB CONC 33.4 g/dL (32.0-36.0); MEAN CORPUSCULAR VOLUME 89 fl (80-97); PLATELET COUNT 294 10^3/uL (150-450); RED BLOOD COUNT 3.05 10^6/uL (3.72-5.28); RED CELL DISTRIBUTION WIDTH 15.5 % (11.5-14.0); WHITE BLOOD COUNT 17.7 10^3/uL (4.0-10.5)
[2020-09-02 04:58] LABS: ARTERIAL BLOOD FIO2 35%
[2020-09-02 05:12] LABS: ALBUMIN 2.2 g/dL (3.5-5.0); ALKALINE PHOSPHATASE 133 U/L (38-126); ANION GAP 5 (5-19); ASPARTATE AMINO TRANSFERASE 24 U/L (14-36); BILIRUBIN,DIRECT 0.3 mg/dL (0.0-0.4); BILIRUBIN,TOTAL 0.6 mg/dL (0.2-1.3); BLOOD UREA NITROGEN 47 mg/dL (7-20); CALCIUM 8.3 mg/dL (8.4-10.2); CARBON DIOXIDE 20 mmol/L (22-30); CHLORIDE 105 mmol/L (98-107); GLUCOSE 158 mg/dL (75-110); PHOSPHORUS 3.2 mg/dL (2.5-4.5); TOTAL PROTEIN 4.7 g/dL (6.3-8.2)
[2020-09-02 05:21] LABS: ABSOLUTE LYMPHOCYTES# (MANUAL) 0.2 10^3/uL (0.5-4.7); BASOPHILS % (MANUAL) 0 % (0-2); EOSINOPHILS % (MANUAL) 0 % (0-6); LYMPHOCYTES % (MANUAL) 1 % (13-45); MONOCYTES % (MANUAL) 0 % (3-13); SEGMENTED NEUTROPHILS % (MAN) 99 % (42-78); TOTAL CELLS COUNTED 100
[2020-09-02 05:22] LABS: ANISOCYTOSIS SLIGHT; OVALOCYTES SLIGHT; PLATELET COMMENT ADEQUATE; POIKILOCYTOSIS SLIGHT; SCHISTOCYTES SLIGHT; TOXIC GRANULATION SLIGHT; TOXIC VACUOLATION PRESENT
[2020-09-02] MEDS: ASCORBIC ACID 500 MG TABLET NG SCH ×3 (06:16→21:40)
[2020-09-02] MEDS: LEVOTHYROXINE SODIUM 0.15 MG TABLET PO SCH (06:16)
[2020-09-02] MEDS: BUDESONIDE NEB 0.25 MG/2 ML AMPUL NEB SCH ×2 (08:06→20:49)
[2020-09-02] MEDS ORDERED: FUROSEMIDE INJ/PF 40 MG/4 ML SDV ONE (08:47)
[2020-09-02] MEDS ORDERED: FUROSEMIDE INJ/PF 40 MG/4 ML SDV IV ONE (10:00)
--- NOTE | 2020-09-02 10:44 | RADIOLOGY REPORT (SQ) ---
EXAM DESCRIPTION: CHEST SINGLE VIEW IMAGES COMPLETED DATE/TIME: 09/02/2020 5:27 am REASON FOR STUDY: vent COMPARISON: Chest films 08/27/2020, 08/29/2020, 09/01/2020 EXAM PARAMETERS: NUMBER OF VIEWS: One view. TECHNIQUE: Single frontal radiographic view of the chest acquired. RADIATION DOSE: NA LIMITATIONS: None. FINDINGS: LUNGS AND PLEURA: No change in diffuse alveolar and interstitial infiltrates. No gross pleural effusion or pneumothorax. MEDIASTINUM AND HILAR STRUCTURES: No masses. Contour normal. HEART AND VASCULAR STRUCTURES: No cardiomegaly BONES: No acute findings. HARDWARE: Tracheostomy tube tip upper trachea. Nasogastric tube tip and side port in the stomach. L eft PICC line tip superior vena cava. Surgical clips post right mastectomy/axillary dissection OTHER: No other significant finding. IMPRESSION: No change from yesterday TECHNICAL DOCUMENTATION: JOB ID: [id number] 2010 [employer]- All Rights Reserved Reading location - IP/workstation name: [email or web address]
[2020-09-02] MEDS: LINEZOLID 600 MG/300 ML RTUPB IV SCH ×2 (11:05→21:39)
[2020-09-02] MEDS: LEVETIRACETAM 1000 MG/NACL-ISO 1,000 MG/100 ML RTUPB IV SCH ×2 (11:06→21:39)
[2020-09-02] MEDS: ZINC SULFATE 220 MG CAPSULE PO SCH (11:07)
[2020-09-02] MEDS: FAMOTIDINE INJ/PF 20 MG/2 ML SDV IV SCH (11:07)
[2020-09-02] MEDS: DEXAMETHASONE SOD PHOSPHATE INJ 4 MG/1 ML VIAL IV SCH (11:07)
[2020-09-02] MEDS: METOPROLOL TARTRATE 50 MG TABLET PO SCH ×2 (11:08→21:40)
[2020-09-02] MEDS: CHOLECALCIFEROL (D3) 1,000 UNIT (25 MCG) TABLET PO SCH (11:09)
[2020-09-02] MEDS: NORMAL SALINE 10 ML SDV (SCHEDULED) IV SCH ×2 (11:11→21:26)
[2020-09-02] MEDS: INSULIN GLARGINE,HUM.REC.ANLOG 1,000 UNIT/10 ML VIAL SUBCUT SCH ×2 (12:13→21:49)
[2020-09-02 16:52] LABS: BLOOD UREA NITROGEN 46 mg/dL (7-20); CALCIUM 8.4 mg/dL (8.4-10.2); CARBON DIOXIDE 23 mmol/L (22-30); CHLORIDE 102 mmol/L (98-107); GLUCOSE 115 mg/dL (75-110)
[2020-09-02 16:56] LABS: ANION GAP 4 (5-19)
--- NOTE | 2020-09-02 17:37 | PDOC CRITICAL CARE PROG REPORT ---
General Date:: 09/02/20 ICU Day:: Ventilator Day:: Hospital Day:: Resuscitation Status: Full Code Events in the past 12 to 24 Hours:: Not able to make meaningful changes to vent. Awake. 08/15: Not quite ready to extubate. 08/16: Pt extubated this AM. 08/18: Not able to wean much today. 08/19: Lowering sedation and changing to precedex. Hgb 6.8 no sign of bleeding needs blood. 08/20: Transfusions given. Hgb 10. Too sleepy to extubate. 08/21: apparently failed SBT yesterday. Overnight, switched from PSV to PRVC, unclear why. Off sedation. Awake, follows commands, but sluggishly. On PRVC 15/450/35/5, RR 24. 08/22: remains on PSV 14/5. awake but still slow to follow commands. off sedation x 2 days. developed fever yesterday (T-max 100.6 F). finished course of Zyvox yesterday. WBC 24.1> 27. Platelets 465. On heparin gtt. on TF and water flushes. 08/23: on PSV 12/5. Temp 101.5 F. Trach aspirate isolating Gram positive cocci in clusters. Winces to pain. slow to follow commands. off sedation x 2 days. ABG this am: 7.45/32/66. WBC 27-->29.1. On heparin. 08/24: On PSV 10/5, FIO2 35%. SPO2 97-99%. RR 18/24. Lethargic. Arousable to noxious stimuli. Moves all 4 extremities but not to command. Currently afebrile. T-max (24) 101.5 F. Started on vancomycin for trach aspirate isolat ing gram-positive cocci in clusters. WBC 29.1>28. 08/25: Mental status the same. Arouses to voice but does not fully commands. 08/26:Arousable. Not following commands. 08/27: Less responsive, higher WBC. New firmness in LUQ of abd. CT pending. 08/28: Has rectus sheath hematoma with no evidence of further bleeding. Less responsive, in ARF may be uremic. Dr. Haro consulted. 08/29: No need for REFRIGERATION TECHNICIAN at this time. Vanco stopped. Trach Wed. 08/30: Trach today 08/31: Trach looks good: Restart TF. 09/01: On trach collar, FiO2 40%. RR 30. Arousable to voice. Does not clearly follow commands. Mouths out "ow!" to pain. Flicker strength in hands and feet. On TF. 09/02: On trach collar, FiO2 40%. RR 30. Not on sedation, but did get a dose of Ativan 2 mg IV overnight for witnessed seizure activity. She also had a seizure episode yesterday, prompting administration of Ativan 4 mg IV single dose. EEG was obtained, which did not show overt seizure activity (after administration of Ativan for first seizure). She has been started on Keppra in the interim. On TF. Review of systems relevant to events:: Pulmonary, renal. Reason for ICU Addmission:: Respiratory failure secondary to COVID-19 pneumonia, reintubated. - Medications: Medications reviewed and adjusted accordingly: Yes Vasopressors:: None Physical Exam Vital Signs: Temp Pulse Resp BP Pulse Ox 99.7 F 78 22 H 149/70 H 97 09/02/20 08:00 09/02/20 08:06 09/02/20 08:06 09/02/20 05:18 09/02/20 08:06 Intake & Output 09/01/20 09/02/20 09/03/20 06:59 06:59 06:59 Intake Total 2371 3153 Output Total 1533 2170 175 Balance 838 983 -175 Weight 130.8 kg 129 kg Weight/Height Weight 129 kg Height 1.7 m General appearance: PRESENT: no acute distress, morbidly obese, well-developed, well-nourished Head exam: PRESENT: atraumatic, normocephalic Eye exam: PRESENT: conjunctiva pink, EOMI, PERRLA, other - scleral edema. ABSENT: scleral icterus Mouth exam: PRESENT: moist, tongue midline Neck exam: PRESENT: tracheostomy Respiratory exam: PRESENT: rales - scattered inspiratory squeaks, symmetrical, tachypnea. ABSENT: rhonchi, wheezes Cardiovascular exam: PRESENT: RRR. ABSENT: diastolic murmur, rubs, systolic murmur Pulses: PRESENT: normal dorsalis pedis pul GI/Abdominal exam: PRESENT: normal bowel sounds, soft. ABSENT: distended, guarding, mass, organolmegaly, rebound, tenderness Gentrourinary exam: PRESENT: indwelling catheter Extremities exam: PRESENT: full ROM, pedal edema, +2 edema. ABSENT: calf tenderness, clubbing Musculoskeletal exam: PRESENT: normal inspection. ABSENT: deformity Neurological exam: PRESENT: altered, CN II-XII grossly intact. ABSENT: reflexes normal - DTRs 1+ x 4 extremities Psychiatric exam: ABSENT: agitated, anxious Skin exam: PRESENT: dry, intact, warm. ABSENT: cyanosis, rash Tubes/Lines: PRESENT: Central Line - L PICC, Nasogastic Tube Laboratory/Radiographs Laboratory Results: 09/02/20 04:30 09/02/20 04:30 09/02/20 09/02/20 09/02/20 04:30 04:30 04:30 WBC 17.7 H RBC 3.05 L Hgb 9.1 L Hct 27.2 L MCV 89 MCH 29.7 MCHC 33.4 RDW 15.5 H Plt Count 294 Seg Neutrophils % Not Reportable Carbonic Acid 0.85 L HCO3/H2CO3 Ratio 22:1 ABG pH 7.45 ABG pCO2 28.4 L ABG pO2 73.5 L ABG HCO3 19.1 L ABG O2 Saturation 95.6 ABG Base Excess -3.9 FiO2 35% Sodium 129.9 L Potassium 5.0 Chloride 105 Carbon Dioxide 20 L Anion Gap 5 BUN 47 H Creatinine 0.91 Est GFR ( Amer) > 60 Glucose 158 H Calcium 8.3 L Phosphorus 3.2 Magnesium 1.9 Total Bilirubin 0.6 AST 24 Alkaline Phosphatase 133 H Total Protein 4.7 L Albumin 2.2 L 08/07/20 08/07/20 08/07/20 00:34 00:35 06:31 Creatine Kinase Troponin I 0.390 NT-Pro-B Natriuret Pep 2780 H 3520 H 08/08/20 08/08/20 08/10/20 04:03 14:56 04:08 Creatine Kinase Troponin I 0.185 NT-Pro-B Natriuret Pep 3740 H 4510 H 08/29/20 05:38 Creatine Kinase 74 Troponin I NT-Pro-B Natriuret Pep Impressions: KUB X-Ray 08/08/20 13:14 IMPRESSION: TIP OF THE NASOGASTRIC TUBE IS IN THE STOMACH. PICC Line Insertion 08/22/20 00:00 IMPRESSION: SUCCESSFUL PLACEMENT OF A 5 FR DUAL LUMEN 50 CM PICC IN THE LEFT BASILIC VEIN. Abdomen/Pelvis CT 08/27/20 13:45 IMPRESSION: 1. Large left rectus sheath hematoma. Hyperdense ascites in the pelvis may represent mix of fluid and hematoma. 2. Bibasilar multifocal pneumonia. Finding is consistent with history of coated pneumonia. Small left effusion. All labs, radiographs, diagnostic studies and EKGs were personally reviewed: Yes In addition, reports of radiographic and diagnostic studies were read: Yes Assessment and Plan - Diagnosis (1) Acute hypoxemic respiratory failure Is this a current diagnosis for this admission?: Yes Plan: * Continue trach collar trials. * Ultimately, this patient's short-term goal should be to tolerate trach collar during the day and use vent support at night. In light of her morbid obesity, it is unclear at this time whether the patient's tracheostomy itself will be sufficiently therapeutic to avoid vent support at night/during sleep. (2) Postictal state Is this a current diagnosis for this admission?: Yes Plan: * I suspect her acute alteration in mental status reflects a combination of a postictal state and sedative effects of Ativan. * Will try to avoid need for further benzodiazepine administration. (3) Seizure Is this a current diagnosis for this admission?: Yes Plan: * Continue Keppra. (4) Acute respiratory failure due to COVID-19 Is this a current diagnosis for this admission?: Yes (5) Anoxic encephalopathy Is this a current diagnosis for this admission?: Yes (6) MRSA pneumonia Qualifiers: Laterality: bilateral Lung location: unspecified part of lung Qualified Code(s): J15.212 - Pneumonia due to Methicillin resistant Staphylococcus aureus Is this a current diagnosis for this admission?: Yes (7) Normocytic anemia Is this a current diagnosis for this admission?: Yes (8) History of breast cancer Is this a current diagnosis for this admission?: Yes (9) IDDM (insulin dependent diabetes mellitus) Is this a current diagnosis for this admission?: Yes (10) Morbid obesity Is this a current diagnosis for this admission?: Yes (11) Hyponatremia Is this a current diagnosis for this admission?: Yes Critical Time Critical Time (minutes): 45 Level of Care: ICU -: 1. The care of a critical patient is a dynamic process. This note is a hobbies and crafts sales representative synopsis but static in nature. The timeframe for treatments given in order is not necessarily the actual time these treatments may have been done. 2. This patient requires critical care secondary to ongoing requirements for therapy not offered or safe outside the critical care environment. Transfer to a lower level of care will result in altered life or limb morbidity and mortality. 3. Multidisciplinary rounds completed. 4. ABCDE bundle addressed.
[2020-09-02] MEDS ORDERED: NORMAL SALINE 1000 ML 1,000 ML IV PRN (20:32)
[2020-09-02] MEDS: HEPARIN SODIUM,PORCINE/D5W 25,000 UNIT/250 ML RTUINJ IV PRN (21:39)
[2020-09-02] MEDS: METOPROLOL TARTRATE PF/INJ 5 MG/5 ML SDV IV PRN (22:48)
[2020-09-03] MEDS ORDERED: HYDRALAZINE HCL 25 MG TABLET PO ONE (00:15)
[2020-09-03] MEDS: ALBUTEROL SULFATE 0.083% NEB 2.5 MG/3 ML AMPUL NEB SCH ×4 (02:49→20:45)
[2020-09-03 04:54] LABS: ARTERIAL BLOOD BASE EXCESS -3.8 mmol/L; ARTERIAL BLOOD H2CO3 0.85 mmol/L (1.05-1.35); ARTERIAL BLOOD HCO3 19.4 mmol/L (20-24); ARTERIAL BLOOD PCO2 28.4 mmHg (35-45); ARTERIAL BLOOD PH 7.45 (7.35-7.45); ARTERIAL BLOOD PO2 85.3 mmHg (80-100); ARTERIAL BLOOD TOTAL CO2 20.3 mmol/L (21-25)
[2020-09-03 04:55] LABS: HEMATOCRIT 25.7 % (36.0-47.0); HEMOGLOBIN 8.6 g/dL (12.0-15.5); MEAN CORPUSCULAR HEMOGLOBIN 29.7 pg (27.0-33.4); MEAN CORPUSCULAR HGB CONC 33.4 g/dL (32.0-36.0); MEAN CORPUSCULAR VOLUME 89 fl (80-97); PLATELET COUNT 268 10^3/uL (150-450); RED BLOOD COUNT 2.89 10^6/uL (3.72-5.28); RED CELL DISTRIBUTION WIDTH 15.9 % (11.5-14.0); WHITE BLOOD COUNT 18.1 10^3/uL (4.0-10.5)
[2020-09-03 04:56] LABS: ARTERIAL BLOOD FIO2 35%
[2020-09-03 05:20] LABS: ABSOLUTE MONOCYTES # (MANUAL) 0.4 10^3/uL (0.1-1.4); BAND NEUTROPHILS % (MANUAL) 1 % (3-5); BASOPHILS % (MANUAL) 0 % (0-2); EOSINOPHILS % (MANUAL) 0 % (0-6); LYMPHOCYTES % (MANUAL) 0 % (13-45); MONOCYTES % (MANUAL) 2 % (3-13); SEGMENTED NEUTROPHILS % (MAN) 97 % (42-78); TOTAL CELLS COUNTED 100
[2020-09-03 05:21] LABS: ANISOCYTOSIS SLIGHT; BURR CELLS SLIGHT; PLATELET COMMENT ADEQUATE; POIKILOCYTOSIS SLIGHT; TOXIC GRANULATION SLIGHT
[2020-09-03 05:26] LABS: ALBUMIN 2.1 g/dL (3.5-5.0); ALKALINE PHOSPHATASE 127 U/L (38-126); ASPARTATE AMINO TRANSFERASE 28 U/L (14-36); BILIRUBIN,DIRECT 0.3 mg/dL (0.0-0.4); BILIRUBIN,TOTAL 0.7 mg/dL (0.2-1.3); BLOOD UREA NITROGEN 44 mg/dL (7-20); CALCIUM 8.2 mg/dL (8.4-10.2); CARBON DIOXIDE 22 mmol/L (22-30); CHLORIDE 103 mmol/L (98-107); GLUCOSE 102 mg/dL (75-110); PHOSPHORUS 3.7 mg/dL (2.5-4.5); TOTAL PROTEIN 4.5 g/dL (6.3-8.2)
[2020-09-03] MEDS: INSULIN REG, HUMAN 100 UNIT/ML 3 ML VIAL (PYX) SUBCUT SCH ×4 (06:07→23:44)
[2020-09-03] MEDS: LEVOTHYROXINE SODIUM 0.15 MG TABLET PO SCH (06:08)
[2020-09-03] MEDS: ASCORBIC ACID 500 MG TABLET NG SCH ×3 (06:08→21:28)
[2020-09-03 06:30] LABS: ANION GAP 3 (5-19); C-REACTIVE PROTEIN 187.6 mg/L (<10.0)
[2020-09-03] MEDS: METOPROLOL TARTRATE PF/INJ 5 MG/5 ML SDV IV PRN ×2 (06:31→12:23)
[2020-09-03] MEDS: BUDESONIDE NEB 0.25 MG/2 ML AMPUL NEB SCH ×2 (08:34→20:45)
[2020-09-03] MEDS ORDERED: FUROSEMIDE INJ/PF 20 MG/2 ML SDV ONE (10:08)
[2020-09-03] MEDS: LEVETIRACETAM 1000 MG/NACL-ISO 1,000 MG/100 ML RTUPB IV SCH ×2 (10:10→21:31)
[2020-09-03] MEDS: TORSEMIDE 20 MG TABLET PO SCH (10:21)
[2020-09-03] MEDS: CHOLECALCIFEROL (D3) 1,000 UNIT (25 MCG) TABLET PO SCH (10:27)
[2020-09-03] MEDS: HYDRALAZINE HCL 25 MG TABLET PO SCH ×2 (10:28→18:43)
[2020-09-03] MEDS: METOPROLOL TARTRATE 50 MG TABLET PO SCH ×2 (10:28→21:28)
[2020-09-03] MEDS: ZINC SULFATE 220 MG CAPSULE PO SCH (10:28)
[2020-09-03] MEDS: DEXAMETHASONE SOD PHOSPHATE INJ 4 MG/1 ML VIAL IV SCH (10:28)
[2020-09-03] MEDS: NORMAL SALINE 10 ML SDV (SCHEDULED) IV SCH ×2 (10:29→23:48)
[2020-09-03] MEDS: FAMOTIDINE INJ/PF 20 MG/2 ML SDV IV SCH (10:29)
[2020-09-03] MEDS: LINEZOLID 600 MG/300 ML RTUPB IV SCH ×2 (10:29→21:32)
[2020-09-03] MEDS ORDERED: FUROSEMIDE INJ/PF 40 MG/4 ML SDV IV ONE ×2 (10:30→19:02)
[2020-09-03] MEDS ORDERED: INSULIN GLARGINE,HUM.REC.ANLOG 1,000 UNIT/10 ML VIAL (PYX) SUBCUT ONE (11:00)
[2020-09-03] MEDS: ALBUMIN HUMAN 12.5 GM/50 ML RTUINJ IV SCH ×4 (11:13→15:59)
[2020-09-03] MEDS ORDERED: LISINOPRIL 10 MG TABLET NG SCH (12:00)
[2020-09-03] MEDS ORDERED: AMLODIPINE BESYLATE 5 MG TABLET NG SCH (12:00)
[2020-09-03] MEDS ORDERED: ENALAPRILAT DIHYDRATE INJ/PF 2.5 MG/2 ML SDV IV ONE (12:32)
[2020-09-03] MEDS ORDERED: ENALAPRILAT DIHYDRATE INJ/PF 1.25 MG/1 ML SDV IV ONE (13:00)
[2020-09-03] MEDS: NICARDIPINE HCL RTU, ISO-OS 20 MG/200 ML RTUINJ IV PRN ×6 (15:02→23:44)
[2020-09-03] MEDS ORDERED: ALBUMIN HUMAN 12.5 GM/50 ML RTUINJ IV SCH (17:00)
[2020-09-03] MEDS: HEPARIN SODIUM,PORCINE/D5W 25,000 UNIT/250 ML RTUINJ IV PRN (18:42)
[2020-09-03] MEDS ORDERED: AMLODIPINE BESYLATE 5 MG TABLET PO ONE (19:23)
[2020-09-03] MEDS: INSULIN GLARGINE,HUM.REC.ANLOG 1,000 UNIT/10 ML VIAL SUBCUT SCH (21:29)
[2020-09-03] MEDS ORDERED: FUROSEMIDE INJ/PF 40 MG/4 ML SDV ONE (23:34)
[2020-09-04] MEDS ORDERED: MORPHINE SULFATE 10 MG/ML INJ ONE (01:53)
[2020-09-04] MEDS ORDERED: MORPHINE SULFATE 10 MG/ML INJ IV ONE (02:00)
[2020-09-04] MEDS: NICARDIPINE HCL RTU, ISO-OS 20 MG/200 ML RTUINJ IV PRN ×3 (02:01→10:05)
[2020-09-04] MEDS: HYDRALAZINE HCL 25 MG TABLET PO SCH ×3 (02:02→17:21)
[2020-09-04] MEDS: ALBUTEROL SULFATE 0.083% NEB 2.5 MG/3 ML AMPUL NEB SCH ×4 (02:18→20:26)
[2020-09-04 05:25] LABS: HEMATOCRIT 26.3 % (36.0-47.0); HEMOGLOBIN 8.6 g/dL (12.0-15.5); MEAN CORPUSCULAR HEMOGLOBIN 28.8 pg (27.0-33.4); MEAN CORPUSCULAR HGB CONC 32.8 g/dL (32.0-36.0); MEAN CORPUSCULAR VOLUME 88 fl (80-97); PLATELET COUNT 276 10^3/uL (150-450); RED CELL DISTRIBUTION WIDTH 16.1 % (11.5-14.0); WHITE BLOOD COUNT 20.2 10^3/uL (4.0-10.5)
[2020-09-04 05:30] LABS: ARTERIAL BLOOD H2CO3 0.91 mmol/L (1.05-1.35); ARTERIAL BLOOD HCO3 20.3 mmol/L (20-24); ARTERIAL BLOOD O2 SATURATION 96.8 % (94-98); ARTERIAL BLOOD PCO2 30.1 mmHg (35-45); ARTERIAL BLOOD PH 7.45 (7.35-7.45); ARTERIAL BLOOD PO2 83.3 mmHg (80-100); ARTERIAL BLOOD TOTAL CO2 21.2 mmol/L (21-25)
[2020-09-04 05:32] LABS: ARTERIAL BLOOD FIO2 40%
[2020-09-04 05:51] LABS: ALBUMIN 2.6 g/dL (3.5-5.0); ALKALINE PHOSPHATASE 176 U/L (38-126); ANION GAP 6 (5-19); ASPARTATE AMINO TRANSFERASE 32 U/L (14-36); BILIRUBIN,DIRECT 0.5 mg/dL (0.0-0.4); BILIRUBIN,TOTAL 0.8 mg/dL (0.2-1.3); BLOOD UREA NITROGEN 50 mg/dL (7-20); CALCIUM 8.7 mg/dL (8.4-10.2); CARBON DIOXIDE 22 mmol/L (22-30); CHLORIDE 100 mmol/L (98-107); GLUCOSE 147 mg/dL (75-110); PHOSPHORUS 4.2 mg/dL (2.5-4.5); POTASSIUM 5.7 mmol/L (3.6-5.0); TOTAL PROTEIN 5.1 g/dL (6.3-8.2)
[2020-09-04 05:58] LABS: PREALBUMIN 10.8 mg/dL (17.6-36.0)
[2020-09-04] MEDS: ASCORBIC ACID 500 MG TABLET NG SCH ×3 (06:09→22:35)
[2020-09-04] MEDS: LEVOTHYROXINE SODIUM 0.15 MG TABLET PO SCH (06:09)
[2020-09-04] MEDS: ALBUMIN HUMAN 12.5 GM/50 ML RTUINJ IV SCH ×3 (06:11→17:35)
[2020-09-04] MEDS: INSULIN REG, HUMAN 100 UNIT/ML 3 ML VIAL (PYX) SUBCUT SCH ×3 (06:15→17:33)
[2020-09-04] MEDS ORDERED: NORMAL SALINE 500 ML IV ONE (06:15)
[2020-09-04 06:34] LABS: ANISOCYTOSIS 1+; BASOPHILS % (MANUAL) 0 % (0-2); EOSINOPHILS % (MANUAL) 0 % (0-6); LYMPHOCYTES % (MANUAL) 5 % (13-45); MONOCYTES % (MANUAL) 0 % (3-13); SEGMENTED NEUTROPHILS % (MAN) 95 % (42-78); TOTAL CELLS COUNTED 100; TOXIC GRANULATION SLIGHT; TOXIC VACUOLATION PRESENT
[2020-09-04 06:35] LABS: PLATELET CLUMPS PRESENT; PLATELET COMMENT ADEQUATE
[2020-09-04] MEDS ORDERED: LORAZEPAM INJ 2 MG/1 ML VIAL ONE (08:06)
[2020-09-04] MEDS: BUDESONIDE NEB 0.25 MG/2 ML AMPUL NEB SCH ×2 (08:08→20:27)
--- NOTE | 2020-09-04 08:16 | RADIOLOGY REPORT (SQ) ---
EXAM DESCRIPTION: CHEST SINGLE VIEW IMAGES COMPLETED DATE/TIME: 09/04/2020 5:46 am REASON FOR STUDY: ETT tube COMPARISON: 09/02/2020 01/01/2013 NUMBER OF VIEWS: One view. TECHNIQUE: Single frontal radiographic image of the chest acquired. LIMITATIONS: None. FINDINGS: LUNGS AND PLEURA: Slight increase in bibasilar airspace disease left greater than right. Probable small effusion. MEDIASTINUM AND HILAR STRUCTURES: Stable heart size and mediastinal structures. HEART AND VASCULAR STRUCTURES: Stable appearance. SUPPORT DEVICES: Appropriate location without change. BONES: No acute findings. OTHER: No other significant finding. IMPRESSION: Slight increase in bibasilar airspace disease. Small left effusion. TECHNICAL DOCUMENTATION: JOB ID: [id number] [employer]- All Rights Reserved Reading location - IP/workstation name: [email or web address]
[2020-09-04] MEDS ORDERED: LORAZEPAM INJ 2 MG/1 ML VIAL IV ONE ×2 (08:30→11:00)
--- NOTE | 2020-09-04 08:53 | PDOC CRITICAL CARE PROG REPORT ---
General Date:: 09/03/20 ICU Day:: Ventilator Day:: Hospital Day:: Resuscitation Status: Full Code Events in the past 12 to 24 Hours:: Not able to make meaningful changes to vent. Awake. 08/15: Not quite ready to extubate. 08/16: Pt extubated this AM. 08/18: Not able to wean much today. 08/19: Lowering sedation and changing to precedex. Hgb 6.8 no sign of bleeding needs blood. 08/20: Transfusions given. Hgb 10. Too sleepy to extubate. 08/21: apparently failed SBT yesterday. Overnight, switched from PSV to PRVC, unclear why. Off sedation. Awake, follows commands, but sluggishly. On PRVC 15/450/35/5, RR 24. 08/22: remains on PSV 14/5. awake but still slow to follow commands. off sedation x 2 days. developed fever yesterday (T-max 100.6 F). finished course of Zyvox yesterday. WBC 24.1> 27. Platelets 465. On heparin gtt. on TF and water flushes. 08/23: on PSV 12/5. Temp 101.5 F. Trach aspirate isolating Gram positive cocci in clusters. Winces to pain. slow to follow commands. off sedation x 2 days. ABG this am: 7.45/32/66. WBC 27-->29.1. On heparin. 08/24: On PSV 10/5, FIO2 35%. SPO2 97-99%. RR 18/24. Lethargic. Arousable to noxious stimuli. Moves all 4 extremities but not to command. Currently afebrile. T-max (24) 101.5 F. Started on vancomycin for trach aspirate isolat ing gram-positive cocci in clusters. WBC 29.1>28. 08/25: Mental status the same. Arouses to voice but does not fully commands. 08/26:Arousable. Not following commands. 08/27: Less responsive, higher WBC. New firmness in LUQ of abd. CT pending. 08/28: Has rectus sheath hematoma with no evidence of further bleeding. Less responsive, in ARF may be uremic. Dr. Haro consulted. 08/29: No need for VIDEOTAPE OPERATOR at this time. Vanco stopped. Trach Wed. 08/30: Trach today 08/31: Trach looks good: Restart TF. 09/01: On trach collar, FiO2 40%. RR 30. Arousable to voice. Does not clearly follow commands. Mouths out "ow!" to pain. Flicker strength in hands and feet. On TF. 09/02: On trach collar, FiO2 40%. RR 30. Not on sedation, but did get a dose of Ativan 2 mg IV overnight for witnessed seizure activity. She also had a seizure episode yesterday, prompting administration of Ativan 4 mg IV single dose. EEG was obtained, which did not show overt seizure activity (after administration of Ativan for first seizure). She has been started on Keppra in the interim. On TF. 09/03: On trach collar, FiO2 40%. RR 33. SpO2 97%. Hypertensive. Awake this a.m. Eyes open. Does appear to visually track intermittently. Mniimal response to noxious stimuli but severely edematous. Spontaneously moves toes and on command. Appears to squeeze hands on command. WBC 18.1. Sodium 128. Potassium 5.0. BG this a.m.: 7.45/28/85. Review of systems relevant to events:: Pulmonary, renal. Reason for ICU Addmission:: Respiratory failure secondary to COVID-19 pneumonia, reintubated. - Medications: Medications reviewed and adjusted accordingly: Yes Vasopressors:: None Physical Exam Vital Signs: Temp Pulse Resp BP Pulse Ox 98.2 F 73 24 H 165/61 H 97 09/03/20 06:00 09/03/20 07:00 09/03/20 06:00 09/03/20 05:19 09/03/20 06:00 Intake & Output 09/02/20 09/03/20 09/04/20 06:59 06:59 06:59 Intake Total 3453 2325 Output Total 2170 2900 Balance 1283 -575 Weight 129 kg 131.4 kg Weight/Height Weight 131.4 kg Height 1.7 m General appearance: PRESENT: no acute distress, morbidly obese, well-developed, well-nourished Head exam: PRESENT: atraumatic, normocephalic Eye exam: PRESENT: conjunctiva pink, EOMI, PERRLA. ABSENT: scleral icterus Mouth exam: PRESENT: moist, tongue midline Neck exam: PRESENT: tracheostomy. ABSENT: carotid bruit, JVD, lymphadenopathy, thyromegaly Respiratory exam: PRESENT: crackles, rales, symmetrical, tachypnea. ABSENT: rhonchi, wheezes Cardiovascular exam: PRESENT: RRR. ABSENT: diastolic murmur, rubs, systolic murmur Pulses: PRESENT: normal dorsalis pedis pul GI/Abdominal exam: PRESENT: normal bowel sounds, soft. ABSENT: distended, guarding, mass, organolmegaly, rebound, tenderness Extremities exam: PRESENT: full ROM, pedal edema, +2 edema. ABSENT: calf tenderness, clubbing Musculoskeletal exam: PRESENT: normal inspection. ABSENT: deformity Neurological exam: PRESENT: awake, reflexes normal, CN II-XII grossly intact Psychiatric exam: ABSENT: agitated, anxious Skin exam: PRESENT: intact, skin tears - R hand, warm, other - weeping edema. ABSENT: cyanosis, rash Tubes/Lines: PRESENT: Central Line - L PICC, Nasogastic Tube Laboratory/Radiographs Laboratory Results: 09/03/20 04:30 09/03/20 04:30 09/02/20 09/03/20 09/03/20 16:15 04:30 04:30 WBC 18.1 H RBC 2.89 L Hgb 8.6 L Hct 25.7 L MCV 89 MCH 29.7 MCHC 33.4 RDW 15.9 H Plt Count 268 Seg Neutrophils % Not Reportable Carbonic Acid HCO3/H2CO3 Ratio ABG pH ABG pCO2 ABG pO2 ABG HCO3 ABG O2 Saturation ABG Base Excess FiO2 Sodium 129.3 L 128.1 L Potassium 5.0 5.0 Chloride 102 103 Carbon Dioxide 23 22 Anion Gap 4 L 3 L BUN 46 H 44 H Creatinine 1.00 0.90 Est GFR ( Amer) > 60 > 60 Glucose 115 H 102 Calcium 8.4 8.2 L Phosphorus 3.7 Magnesium 1.9 Total Bilirubin 0.7 AST 28 Alkaline Phosphatase 127 H C-Reactive Protein 187.6 H Total Protein 4.5 L Albumin 2.1 L 09/03/20 04:30 WBC RBC Hgb Hct MCV MCH MCHC RDW Plt Count Seg Neutrophils % Carbonic Acid 0.85 L HCO3/H2CO3 Ratio 22:1 ABG pH 7.45 ABG pCO2 28.4 L ABG pO2 85.3 ABG HCO3 19.4 L ABG O2 Saturation 97.0 ABG Base Excess -3.8 FiO2 35% Sodium Potassium Chloride Carbon Dioxide Anion Gap BUN Creatinine Est GFR ( Amer) Glucose Calcium Phosphorus Magnesium Total Bilirubin AST Alkaline Phosphatase C-Reactive Protein Total Protein Albumin 08/07/20 08/07/20 08/07/20 00:34 00:35 06:31 Creatine Kinase Troponin I 0.390 NT-Pro-B Natriuret Pep 2780 H 3520 H 08/08/20 08/08/20 08/10/20 04:03 14:56 04:08 Creatine Kinase Troponin I 0.185 NT-Pro-B Natriuret Pep 3740 H 4510 H 08/29/20 05:38 Creatine Kinase 74 Troponin I NT-Pro-B Natriuret Pep Impressions: KUB X-Ray 08/08/20 13:14 IMPRESSION: TIP OF THE NASOGASTRIC TUBE IS IN THE STOMACH. PICC Line Insertion 08/22/20 00:00 IMPRESSION: SUCCESSFUL PLACEMENT OF A 5 FR DUAL LUMEN 50 CM PICC IN THE LEFT BASILIC VEIN. Abdomen/Pelvis CT 08/27/20 13:45 IMPRESSION: 1. Large left rectus sheath hematoma. Hyperdense ascites in the pelvis may represent mix of fluid and hematoma. 2. Bibasilar multifocal pneumonia. Finding is consistent with history of coated pneumonia. Small left effusion. Chest X-Ray 09/02/20 04:00 IMPRESSION: No change from yesterday All labs, radiographs, diagnostic studies and EKGs were personally reviewed: Yes In addition, reports of radiographic and diagnostic studies were read: Yes Assessment and Plan - Diagnosis (1) Acute hypoxemic respiratory failure Is this a current diagnosis for this admission?: Yes Plan: * Continue trach collar trials. * Ultimately, this patient's short-term goal should be to tolerate trach collar during the day and use vent support at night. In light of her morbid obesity, it is unclear at this time whether the patient's tracheostomy itself will be sufficiently therapeutic to avoid vent support at night/during sleep. * Albumin/Lasix today. (2) Hypertension Is this a current diagnosis for this admission?: Yes Plan: * Continue Lopressor. * Add amlodipine, lisinopril. As her systolic blood pressure is pushing 200, may need to start Cardene infusion. * On Demadex 40 mg PO daily at home. Will use furosemide 40 mg IV daily for no w. (3) Seizure Is this a current diagnosis for this admission?: Yes Plan: * Continue Keppra. (4) Acute respiratory failure due to COVID-19 Is this a current diagnosis for this admission?: Yes Plan: * Continue vitamin C, vitamin D3 and zinc sulfate. * Decrease Decadron to 4 mg IV daily. (5) Anoxic encephalopathy Is this a current diagnosis for this admission?: Yes (6) MRSA pneumonia Qualifiers: Laterality: bilateral Lung location: unspecified part of lung Qualified Code(s): J15.212 - Pneumonia due to Methicillin resistant Staphylococcus aureus Is this a current diagnosis for this admission?: Yes Plan: * On linezolid. (7) Hyponatremia Is this a current diagnosis for this admission?: Yes Plan: * Given her severe third spacing, she may be in a volume overloaded state. 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 * Check proBNP. (8) IDDM (insulin dependent diabetes mellitus) Is this a current diagnosis for this admission?: Yes (9) Normocytic anemia Is this a current diagnosis for this admission?: Yes (10) History of breast cancer Is this a current diagnosis for this admission?: Yes (11) Morbid obesity Is this a current diagnosis for this admission?: Yes (12) Postictal state Is this a current diagnosis for this admission?: Yes Critical Time Critical Time (minutes): 90 Level of Care: ICU -: 1. The care of a critical patient is a dynamic process. This note is a inside technical sales representative synopsis but static in nature. The timeframe for treatments given in order is not necessarily the actual time these treatments may have been done. 2. This patient requires critical care secondary to ongoing requirements for therapy not offered or safe outside the critical care environment. Transfer to a lower level of care will result in altered life or limb morbidity and mortality. 3. Multidisciplinary rounds completed. 4. ABCDE bundle addressed.
[2020-09-04] MEDS: INSULIN GLARGINE,HUM.REC.ANLOG 1,000 UNIT/10 ML VIAL SUBCUT SCH ×2 (09:32→22:35)
[2020-09-04] MEDS: CHOLECALCIFEROL (D3) 1,000 UNIT (25 MCG) TABLET PO SCH (09:33)
[2020-09-04] MEDS: LEVETIRACETAM 1000 MG/NACL-ISO 1,000 MG/100 ML RTUPB IV SCH ×2 (09:34→22:35)
[2020-09-04] MEDS: METOPROLOL TARTRATE 50 MG TABLET PO SCH ×2 (09:35→22:35)
[2020-09-04] MEDS: LINEZOLID 600 MG/300 ML RTUPB IV SCH ×2 (09:35→22:36)
[2020-09-04] MEDS: FAMOTIDINE INJ/PF 20 MG/2 ML SDV IV SCH (09:36)
[2020-09-04] MEDS: DEXAMETHASONE SOD PHOSPHATE INJ 4 MG/1 ML VIAL IV SCH (09:36)
[2020-09-04] MEDS: ZINC SULFATE 220 MG CAPSULE PO SCH (09:37)
[2020-09-04] MEDS: NORMAL SALINE 10 ML SDV (SCHEDULED) IV SCH ×2 (09:42→22:25)
[2020-09-04] MEDS: AMLODIPINE BESYLATE 10 MG TABLET PO SCH (09:44)
[2020-09-04] MEDS: LISINOPRIL 10 MG TABLET NG SCH ×2 (09:51→17:21)
[2020-09-04] MEDS ORDERED: FUROSEMIDE INJ/PF 40 MG/4 ML SDV IV SCH (10:00)
[2020-09-04 12:34] LABS: ANION GAP 6 (5-19); BLOOD UREA NITROGEN 53 mg/dL (7-20); CALCIUM 8.4 mg/dL (8.4-10.2); CARBON DIOXIDE 21 mmol/L (22-30); CHLORIDE 100 mmol/L (98-107); GLUCOSE 167 mg/dL (75-110); POTASSIUM 5.6 mmol/L (3.6-5.0)
[2020-09-04] MEDS ORDERED: FUROSEMIDE INJ/PF 40 MG/4 ML SDV IV ONE (15:15)
--- NOTE | 2020-09-04 18:45 | PDOC CRITICAL CARE PROG REPORT ---
General Date:: 09/04/20 ICU Day:: 28 Ventilator Day:: Hospital Day:: 28 Resuscitation Status: Full Code Events in the past 12 to 24 Hours:: Not able to make meaningful changes to vent. Awake. 08/15: Not quite ready to extubate. 08/16: Pt extubated this AM. 08/18: Not able to wean much today. 08/19: Lowering sedation and changing to precedex. Hgb 6.8 no sign of bleeding needs blood. 08/20: Transfusions given. Hgb 10. Too sleepy to extubate. 08/21: apparently failed SBT yesterday. Overnight, switched from PSV to PRVC, unclear why. Off sedation. Awake, follows commands, but sluggishly. On PRVC 15/450/35/5, RR 24. 08/22: remains on PSV 14/5. awake but still slow to follow commands. off sedation x 2 days. developed fever yesterday (T-max 100.6 F). finished course of Zyvox yesterday. WBC 24.1> 27. Platelets 465. On heparin gtt. on TF and water flushes. 08/23: on PSV 12/5. Temp 101.5 F. Trach aspirate isolating Gram positive cocci in clusters. Winces to pain. slow to follow commands. off sedation x 2 days. ABG this am: 7.45/32/66. WBC 27-->29.1. On heparin. 08/24: On PSV 10/5, FIO2 35%. SPO2 97-99%. RR 18/24. Lethargic. Arousable to noxious stimuli. Moves all 4 extremities but not to command. Currently afebrile. T-max (24) 101.5 F. Started on vancomycin for trach aspirate isolat ing gram-positive cocci in clusters. WBC 29.1>28. 08/25: Mental status the same. Arouses to voice but does not fully commands. 08/26:Arousable. Not following commands. 08/27: Less responsive, higher WBC. New firmness in LUQ of abd. CT pending. 08/28: Has rectus sheath hematoma with no evidence of further bleeding. Less responsive, in ARF may be uremic. Dr. Haro consulted. 08/29: No need for QUALITY ASSURANCE/R&D LAB TECHNICIAN at this time. Vanco stopped. Trach Wed. 08/30: Trach today 08/31: Trach looks good: Restart TF. 09/01: On trach collar, FiO2 40%. RR 30. Arousable to voice. Does not clearly follow commands. Mouths out "ow!" to pain. Flicker strength in hands and feet. On TF. 09/02: On trach collar, FiO2 40%. RR 30. Not on sedation, but did get a dose of Ativan 2 mg IV overnight for witnessed seizure activity. She also had a seizure episode yesterday, prompting administration of Ativan 4 mg IV single dose. EEG was obtained, which did not show overt seizure activity (after administration of Ativan for first seizure). She has been started on Keppra in the interim. On TF. 09/03: On trach collar, FiO2 40%. RR 33. SpO2 97%. Hypertensive. Awake this a.m. Eyes open. Does appear to visually track intermittently. Mniimal response to noxious stimuli but severely edematous. Spontaneously moves toes and on command. Appears to squeeze hands on command. WBC 18.1. Sodium 128. Potassium 5.0. BG this a.m.: 7.45/28/85. 09/04: On trach collar, FiO2 50%. RR 28. SPO2 96%. ABG this a.m.: 7.45/30/83. Hypertensive. Started on amlodipine and lisinopril yesterday and eventually needed Cardene infusion. Opens eyes to voice and tactile stimuli. Night team reported concern for possible recurrent seizure activity. She has been demonstrating intermittent rhythmic lower extremity twitching. Initially reported as bilateral but currently involving left lower extremity only. WBC 20.2. Sodium 128. Potassium 5.7. proBNP 22,300. Review of systems relevant to events:: Pulmonary, renal. Reason for ICU Addmission:: Respiratory failure secondary to COVID-19 pneumonia, reintubated. - Medications: Medications reviewed and adjusted accordingly: Yes Vasopressors:: None Physical Exam Vital Signs: Temp Pulse Resp BP Pulse Ox 97.7 F 74 30 H 150/73 H 96 09/04/20 08:37 09/04/20 08:00 09/04/20 08:00 09/04/20 08:00 09/04/20 08:00 Intake & Output 09/03/20 09/04/2009/05/21 06:59 06:59 06:59 Intake Total 2325 3073 100 Output Total 2900 6940 40 Balance -575 -627 60 Weight 131.4 kg 133.9 kg Weight/Height Weight 133.9 kg Height 1.7 m General appearance: PRESENT: no acute distress, morbidly obese, well-developed, well-nourished Head exam: PRESENT: atraumatic, normocephalic Eye exam: PRESENT: conjunctiva pink, EOMI, PERRLA. ABSENT: scleral icterus Mouth exam: PRESENT: moist, tongue midline Neck exam: PRESENT: tracheostomy. ABSENT: carotid bruit, JVD, lymphadenopathy, thyromegaly Respiratory exam: PRESENT: rales, symmetrical. ABSENT: rhonchi, wheezes Cardiovascular exam: PRESENT: RRR. ABSENT: diastolic murmur, rubs, systolic murmur Pulses: PRESENT: normal dorsalis pedis pul GI/Abdominal exam: PRESENT: normal bowel sounds, soft. ABSENT: distended, guarding, mass, organolmegaly, rebound, tenderness Gentrourinary exam: PRESENT: indwelling catheter Extremities exam: PRESENT: full ROM, pedal edema, +2 edema. ABSENT: calf tenderness, clubbing Musculoskeletal exam: PRESENT: normal inspection. ABSENT: deformity Neurological exam: PRESENT: altered, CN II-XII grossly intact, motor sensory deficit. ABSENT: reflexes normal Psychiatric exam: ABSENT: agitated, anxious Skin exam: PRESENT: dry, intact, warm. ABSENT: cyanosis, rash Tubes/Lines: PRESENT: Central Line - L PICC, Nasogastic Tube Laboratory/Radiographs Laboratory Results: 09/04/20 04:25 09/04/20 04:25 09/04/20 09/04/20 09/04/20 04:25 04:25 04:25 WBC 20.2 H RBC 3.00 L Hgb 8.6 L Hct 26.3 L MCV 88 MCH 28.8 MCHC 32.8 RDW 16.1 H Plt Count 276 Seg Neutrophils % Not Reportable Carbonic Acid 0.91 L HCO3/H2CO3 Ratio 22:1 ABG pH 7.45 ABG pCO2 30.1 L ABG pO2 83.3 ABG HCO3 20.3 ABG O2 Saturation 96.8 ABG Base Excess -3.0 FiO2 40% Sodium 128.1 L Potassium 5.7 H Chloride 100 Carbon Dioxide 22 Anion Gap 6 BUN 50 H Creatinine 1.14 Est GFR ( Amer) 55 L Glucose 147 H Calcium 8.7 Phosphorus 4.2 Magnesium 1.9 Total Bilirubin 0.8 AST 32 Alkaline Phosphatase 176 H Total Protein 5.1 L Albumin 2.6 L Prealbumin 10.8 L 08/07/20 08/07/20 08/07/20 00:34 00:35 06:31 Creatine Kinase Troponin I 0.390 NT-Pro-B Natriuret Pep 2780 H 3520 H 08/08/20 08/08/20 08/10/20 04:03 14:56 04:08 Creatine Kinase Troponin I 0.185 NT-Pro-B Natriuret Pep 3740 H 4510 H 08/29/20 09/04/20 05:38 04:25 Creatine Kinase 74 Troponin I NT-Pro-B Natriuret Pep 82032 H Impressions: KUB X-Ray 08/08/20 13:14 IMPRESSION: TIP OF THE NASOGASTRIC TUBE IS IN THE STOMACH. PICC Line Insertion 08/22/20 00:00 IMPRESSION: SUCCESSFUL PLACEMENT OF A 5 FR DUAL LUMEN 50 CM PICC IN THE LEFT BASILIC VEIN. Abdomen/Pelvis CT 08/27/20 13:45 IMPRESSION: 1. Large left rectus sheath hematoma. Hyperdense ascites in the pelvis may represent mix of fluid and hematoma. 2. Bibasilar multifocal pneumonia. Finding is consistent with history of coated pneumonia. Small left effusion. Chest X-Ray 09/04/20 05:00 IMPRESSION: Slight increase in bibasilar airspace disease. Small left eff usion. All labs, radiographs, diagnostic studies and EKGs were personally reviewed: Yes In addition, reports of radiographic and diagnostic studies were read: Yes Assessment and Plan - Diagnosis (1) Acute hypoxemic respiratory failure Is this a current diagnosis for this admission?: Yes Plan: * Continue trach collar trials. * Ultimately, this patient's short-term goal should be to tolerate trach collar during the day and use vent support at night. In light of her morbid obesity, it is unclear at this time whether the patient's tracheostomy itself will be sufficiently therapeutic to avoid vent support at night/during sleep. * Lasix 40 mg IV daily. May need 1 additional dose today. (2) Hypertension Is this a current diagnosis for this admission?: Yes Plan: * Continue Lopressor, amlodipine, lisinopril. * Wean off Cardene. * Rocephin 40 mg IV daily. (On Demadex 40 mg p.o. daily at home). (3) Seizure Is this a current diagnosis for this admission?: Yes Plan: * Continue Keppra. * EEG. * Ativan 4 mg IV as needed for seizure activity. (4) Hyponatremia Is this a current diagnosis for this admission?: Yes Plan: * Given her severe third spacing, she may be in a volume overloaded state. 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 * Check proBN proBNP 22,300. Continue diuretics. * Monitor serum sodium. (5) Acute respiratory failure due to COVID-19 Is this a current diagnosis for this admission?: Yes Plan: * Continue vitamin C, vitamin D3 and zinc sulfate. * Continue Decadron 4 mg IV daily. (6) Anoxic encephalopathy Is this a current diagnosis for this admission?: Yes (7) MRSA pneumonia Qualifiers: Laterality: bilateral Lung location: unspecified part of lung Qualified Code(s): J15.212 - Pneumonia due to Methicillin resistant Staphylococcus aureus Is this a current diagnosis for this admission?: Yes (8) IDDM (insulin dependent diabetes mellitus) Is this a current diagnosis for this admission?: Yes (9) Normocytic anemia Is this a current diagnosis for this admission?: Yes (10) History of breast cancer Is this a current diagnosis for this admission?: Yes (11) Morbid obesity Is this a current diagnosis for this admission?: Yes (12) Postictal state Is this a current diagnosis for this admission?: Yes Critical Time Critical Time (minutes): 60 Level of Care: ICU -: 1. The care of a critical patient is a dynamic process. This note is a repres entative synopsis but static in nature. The timeframe for treatments given in order is not necessarily the actual time these treatments may have been done. 2. This patient requires critical care secondary to ongoing requirements for therapy not offered or safe outside the critical care environment. Transfer to a lower level of care will result in altered life or limb morbidity and mortality. 3. Multidisciplinary rounds completed. 4. ABCDE bundle addressed.
[2020-09-04] MEDS ORDERED: BUMETANIDE INJ/PF 1 MG/4 ML SDV IV ONE (19:00)
[2020-09-04] MEDS: HEPARIN SODIUM,PORCINE/D5W 25,000 UNIT/250 ML RTUINJ IV PRN (20:10)
[2020-09-05] MEDS: ALBUMIN HUMAN 12.5 GM/50 ML RTUINJ IV SCH ×4 (00:52→17:41)
[2020-09-05] MEDS: INSULIN REG, HUMAN 100 UNIT/ML 3 ML VIAL (PYX) SUBCUT SCH ×4 (00:52→17:41)
[2020-09-05] MEDS: ALBUTEROL SULFATE 0.083% NEB 2.5 MG/3 ML AMPUL NEB SCH ×4 (02:12→20:49)
[2020-09-05] MEDS: HYDRALAZINE HCL 25 MG TABLET PO SCH (02:40)
[2020-09-05] MEDS: LEVOTHYROXINE SODIUM 0.15 MG TABLET PO SCH (05:15)
[2020-09-05] MEDS: METOPROLOL TARTRATE PF/INJ 5 MG/5 ML SDV IV PRN (05:15)
[2020-09-05] MEDS: ASCORBIC ACID 500 MG TABLET NG SCH ×3 (05:15→21:19)
[2020-09-05 05:46] LABS: HEMATOCRIT 23.8 % (36.0-47.0); MEAN CORPUSCULAR HEMOGLOBIN 29.8 pg (27.0-33.4); MEAN CORPUSCULAR HGB CONC 33.8 g/dL (32.0-36.0); MEAN CORPUSCULAR VOLUME 88 fl (80-97); PLATELET COUNT 278 10^3/uL (150-450); RED CELL DISTRIBUTION WIDTH 15.8 % (11.5-14.0)
[2020-09-05] MEDS ORDERED: HYDRALAZINE HCL INJ/PF 20 MG/1 ML SDV IV PRN (05:49)
[2020-09-05 05:56] LABS: PARTIAL THROMBOPLASTIN TIME 56.1 SEC (23.5-35.8)
[2020-09-05 05:58] LABS: D-DIMER 2.72 ug/mL (0.00-0.50)
[2020-09-05] MEDS ORDERED: METOPROLOL TARTRATE 50 MG TABLET PO SCH (06:00)
[2020-09-05 06:10] LABS: ARTERIAL BLOOD BASE EXCESS -3.7 mmol/L; ARTERIAL BLOOD H2CO3 0.79 mmol/L (1.05-1.35); ARTERIAL BLOOD O2 SATURATION 97.4 % (94-98); ARTERIAL BLOOD PCO2 26.2 mmHg (35-45); ARTERIAL BLOOD PH 7.48 (7.35-7.45); ARTERIAL BLOOD PO2 88.4 mmHg (80-100); ARTERIAL BLOOD TOTAL CO2 19.8 mmol/L (21-25)
[2020-09-05] MEDS: MORPHINE SULFATE 10 MG/ML INJ IV PRN (06:10)
[2020-09-05] MEDS ORDERED: ENALAPRILAT DIHYDRATE INJ/PF 2.5 MG/2 ML SDV IV ONE ×2 (06:15→06:19)
[2020-09-05 06:19] LABS: ALBUMIN 2.9 g/dL (3.5-5.0); ALKALINE PHOSPHATASE 153 U/L (38-126); ANION GAP 9 (5-19); ASPARTATE AMINO TRANSFERASE 26 U/L (14-36); BILIRUBIN,DIRECT 0.4 mg/dL (0.0-0.4); BILIRUBIN,TOTAL 0.8 mg/dL (0.2-1.3); BLOOD UREA NITROGEN 63 mg/dL (7-20); CALCIUM 8.8 mg/dL (8.4-10.2); CARBON DIOXIDE 21 mmol/L (22-30); CHLORIDE 98 mmol/L (98-107); GLUCOSE 172 mg/dL (75-110); POTASSIUM 5.9 mmol/L (3.6-5.0); TOTAL PROTEIN 5.3 g/dL (6.3-8.2)
[2020-09-05] MEDS: NICARDIPINE HCL RTU, ISO-OS 20 MG/200 ML RTUINJ IV PRN ×4 (06:20→23:55)
[2020-09-05 06:21] LABS: ARTERIAL BLOOD FIO2 40%
[2020-09-05 07:07] LABS: ABSOLUTE LYMPHOCYTES# (MANUAL) 0.4 10^3/uL (0.5-4.7); ABSOLUTE MONOCYTES # (MANUAL) 0.4 10^3/uL (0.1-1.4); BAND NEUTROPHILS % (MANUAL) 2 % (3-5); BASOPHILS % (MANUAL) 0 % (0-2); EOSINOPHILS % (MANUAL) 0 % (0-6); LYMPHOCYTES % (MANUAL) 2 % (13-45); MONOCYTES % (MANUAL) 2 % (3-13); SEGMENTED NEUTROPHILS % (MAN) 94 % (42-78); TOTAL CELLS COUNTED 100
[2020-09-05 07:08] LABS: POLYCHROMASIA SLIGHT
[2020-09-05 07:09] LABS: ANISOCYTOSIS SLIGHT; OVALOCYTES SLIGHT; PLATELET COMMENT ADEQUATE; POIKILOCYTOSIS SLIGHT; SCHISTOCYTES SLIGHT; TEAR DROP CELLS SLIGHT
[2020-09-05] MEDS ORDERED: SODIUM POLYSTYRENE SULFONATE 15 GM/60 ML PO ONE (08:00)
[2020-09-05] MEDS: BUDESONIDE NEB 0.25 MG/2 ML AMPUL NEB SCH ×2 (08:05→20:49)
[2020-09-05] MEDS: CHOLECALCIFEROL (D3) 1,000 UNIT (25 MCG) TABLET PO SCH (09:24)
[2020-09-05] MEDS: CARVEDILOL 12.5 MG TABLET PO SCH ×2 (09:25→21:19)
[2020-09-05] MEDS: ZINC SULFATE 220 MG CAPSULE PO SCH (09:25)
[2020-09-05] MEDS: LISINOPRIL 10 MG TABLET NG SCH ×2 (09:25→17:40)
[2020-09-05] MEDS: DEXAMETHASONE SOD PHOSPHATE INJ 4 MG/1 ML VIAL IV SCH (09:25)
[2020-09-05] MEDS: FAMOTIDINE INJ/PF 20 MG/2 ML SDV IV SCH (09:25)
[2020-09-05] MEDS: INSULIN GLARGINE,HUM.REC.ANLOG 1,000 UNIT/10 ML VIAL SUBCUT SCH ×2 (09:26→21:19)
[2020-09-05] MEDS: NORMAL SALINE 10 ML SDV (SCHEDULED) IV SCH ×2 (09:27→21:48)
[2020-09-05] MEDS: LEVETIRACETAM 1000 MG/NACL-ISO 1,000 MG/100 ML RTUPB IV SCH ×2 (09:27→21:18)
[2020-09-05] MEDS: AMLODIPINE BESYLATE 10 MG TABLET PO SCH (09:27)
[2020-09-05] MEDS: LINEZOLID 600 MG/300 ML RTUPB IV SCH (09:28)
[2020-09-05] MEDS ORDERED: BUMETANIDE INJ/PF 1 MG/4 ML SDV IV SCH (10:00)
--- NOTE | 2020-09-05 16:22 | PDOC CRITICAL CARE PROG REPORT ---
General Date:: 09/05/20 ICU Day:: Ventilator Day:: 29 - Tracheostomy 08/30/2020 Hospital Day:: Resuscitation Status: Full Code Events in the past 12 to 24 Hours:: Not able to make meaningful changes to vent. Awake. 08/15: Not quite ready to extubate. 08/16: Pt extubated this AM. 08/18: Not able to wean much today. 08/19: Lowering sedation and changing to precedex. Hgb 6.8 no sign of bleeding needs blood. 08/20: Transfusions given. Hgb 10. Too sleepy to extubate. 08/21: apparently failed SBT yesterday. Overnight, switched from PSV to PRVC, unclear why. Off sedation. Awake, follows commands, but sluggishly. On PRVC 15/450/35/5, RR 24. 08/22: remains on PSV 14/5. awake but still slow to follow commands. off sedation x 2 days. developed fever yesterday (T-max 100.6 F). finished course of Zyvox yesterday. WBC 24.1> 27. Platelets 465. On heparin gtt. on TF and water flushes. 08/23: on PSV 12/5. Temp 101.5 F. Trach aspirate isolating Gram positive cocci in clusters. Winces to pain. slow to follow commands. off sedation x 2 days. ABG this am: 7.45/32/66. WBC 27-->29.1. On heparin. 08/24: On PSV 10/5, FIO2 35%. SPO2 97-99%. RR 18/24. Lethargic. Arousable to noxious stimuli. Moves all 4 extremities but not to command. Currently afebrile. T-max (24) 101.5 F. Started on vancomycin for trach aspirate isolating gram-positive cocci in clusters. WBC 29.1>28. 08/25: Mental status the same. Arouses to voice but does not fully commands. 08/26:Arousable. Not following commands. 08/27: Less responsive, higher WBC. New firmness in LUQ of abd. CT pending. 08/28: Has rectus sheath hematoma with no evidence of further bleeding. Less responsive, in ARF may be uremic. Dr. Haro consulted. 08/29: No need for PRE SALES TECHNICAL CONSULTANT at this time. Vanco stopped. Trach Wed. 08/30: Trach today 08/31: Trach looks good: Restart TF. 09/01: On trach collar, FiO2 40%. RR 30. Arousable to voice. Does not clearly follow commands. Mouths out "ow!" to pain. Flicker strength in hands and feet. On TF. 09/02: On trach collar, FiO2 40%. RR 30. Not on sedation, but did get a dose of Ativan 2 mg IV overnight for witnessed seizure activity. She also had a seizure episode yesterday, prompting administration of Ativan 4 mg IV single dose. EEG was obtained, which did not show overt seizure activity (after administration of Ativan for first seizure). She has been started on Keppra in the interim. On TF. 09/03: On trach collar, FiO2 40%. RR 33. SpO2 97%. Hypertensive. Awake this a.m. Eyes open. Does appear to visually track intermittently. Mniimal response to noxious stimuli but severely edematous. Spontaneously moves toes and on command. Appears to squeeze hands on command. WBC 18.1. Sodium 128. Potassium 5.0. BG this a.m.: 7.45/28/85. 09/04: On trach collar, FiO2 50%. RR 28. SPO2 96%. ABG this a.m.: 7.45/30/83. Hypertensive. Started on amlodipine and lisinopril yesterday and eventually needed Cardene infusion. Opens eyes to voice and tactile stimuli. Night team reported concern for possible recurrent seizure activity. She has been demonstrating intermittent rhythmic lower extremity twitching. Initially reported as bilateral but currently involving left lower extremity only. WBC 20.2. Sodium 128. Potassium 5.7. proBNP 22,300. 09/05: Got Bumex 2 mg IV single dose yesterday afternoon. Cardene infusion had been weaned off yesterday; however, she was restarted on Cardene overnight for SBP 200+. On amlodipine 10 mg p.o. daily, lisinopril 20 mg NG twice daily, m etoprolol 50 mg NG every 8 hours, hydralazine 75 mg p.o. every 8 hours. However, the hospital staff reports hydralazine has not been administered due to depletion of hospital supply. WBC 20.2>18. Hemoglobin 8.6>8. ABG this a.m.: 7.48/. Sodium 128, potassium 5.9. BUN 63, creatinine 1.3. Of note, the patient's creatinine has been rising since starting lisinopril. Prealbumin 10.8. Getting EEG today. Review of systems relevant to events:: Pulmonary, renal. Reason for ICU Addmission:: Respiratory failure secondary to COVID-19 pneumonia, reintubated. - Medications: Medications reviewed and adjusted accordingly: Yes Vasopressors:: None Physical Exam Vital Signs: Temp Pulse Resp BP Pulse Ox 98.8 F 76 11 L 159/54 H 98 09/05/20 05:32 09/05/20 02:12 09/05/20 06:47 09/05/20 06:47 09/05/20 06:47 Intake & Output 09/04/20 09/05/20 09/06/20 06:59 06:59 06:59 Intake Total 3073 2704 124 Output Total 3700 1521 Balance -627 1183 124 Weight 133.9 kg 135.3 kg Weight/Height Weight 135.3 kg Height 1.7 m General appearance: PRESENT: no acute distress, morbidly obese, well-developed, well-nourished Head exam: PRESENT: atraumatic, normocephalic Eye exam: PRESENT: conjunctiva pink, EOMI, PERRLA. ABSENT: scleral icterus Mouth exam: PRESENT: moist, tongue midline Neck exam: PRESENT: tracheostomy. ABSENT: carotid bruit, JVD, lymphadenopathy, thyromegaly Respiratory exam: PRESENT: crackles, symmetrical, tachypnea. ABSENT: rales, rhonchi, wheezes Cardiovascular exam: PRESENT: RRR. ABSENT: diastolic murmur, rubs, systolic murmur Pulses: PRESENT: normal dorsalis pedis pul GI/Abdominal exam: PRESENT: normal bowel sounds, soft. ABSENT: distended, guarding, mass, organolmegaly, rebound, tenderness Gentrourinary exam: PRESENT: indwelling catheter Extremities exam: PRESENT: full ROM, pedal edema, +2 edema. ABSENT: calf tenderness, clubbing Musculoskeletal exam: PRESENT: normal inspection. ABSENT: deformity Neurological exam: PRESENT: altered, motor sensory deficit - no visible response to painful stimuli. ABSENT: reflexes normal - delayed DTR x 4 extremities. No Babinski., CN II-XII grossly intact - eyes open. does intermittently shift gaze. Leftward tongue deviation Psychiatric exam: ABSENT: agitated, anxious Skin exam: PRESENT: other - weeping edema Tubes/Lines: PRESENT: Central Line - L PICC, Nasogastic Tube Laboratory/Radiographs Laboratory Results: 09/05/20 05:23 09/05/20 05:23 09/04/20 09/05/20 09/05/20 11:55 05:23 05:23 WBC 18.0 H RBC 2.70 L Hgb 8.0 L Hct 23.8 L MCV 88 MCH 29.8 MCHC 33.8 RDW 15.8 H Plt Count 278 Seg Neutrophils % Not Reportable Carbonic Acid HCO3/H2CO3 Ratio ABG pH ABG pCO2 ABG pO2 ABG HCO3 ABG O2 Saturation ABG Base Excess FiO2 Sodium 126.5 L Potassium 5.6 H Chloride 100 Carbon Dioxide 21 L Anion Gap 6 BUN 53 H Creatinine 1.18 Est GFR ( Amer) 53 L Glucose 167 H Calcium 8.4 Magnesium Total Bilirubin AST Alkaline Phosphatase C-Reactive Protein 75.1 H Total Protein Albumin 09/05/20 09/05/20 05:23 05:23 WBC RBC Hgb Hct MCV MCH MCHC RDW Plt Count Seg Neutrophils % Carbonic Acid 0.79 L HCO3/H2CO3 Ratio 24:1 ABG pH 7.48 H ABG pCO2 26.2 L ABG pO2 88.4 ABG HCO3 19.0 L ABG O2 Saturation 97.4 ABG Base Excess -3.7 FiO2 40% Sodium 127.5 L Potassium 5.9 H Chloride 98 Carbon Dioxide 21 L Anion Gap 9 BUN 63 H Creatinine 1.32 H Est GFR ( Amer) 46 L Glucose 172 H Calcium 8.8 Magnesium 1.9 Total Bilirubin 0.8 AST 26 Alkaline Phosphatase 153 H C-Reactive Protein Total Protein 5.3 L Albumin 2.9 L 08/07/20 08/07/20 08/07/20 00:34 00:35 06:31 Creatine Kinase Troponin I 0.390 NT-Pro-B Natriuret Pep 2780 H 3520 H 08/08/20 08/08/20 08/10/20 04:03 14:56 04:08 Creatine Kinase Troponin I 0.185 NT-Pro-B Natriuret Pep 3740 H 4510 H 08/29/20 09/04/20 05:38 04:25 Creatine Kinase 74 Troponin I NT-Pro-B Natriuret Pep 41009 H Impressions: KUB X-Ray 08/08/20 13:14 IMPRESSION: TIP OF THE NASOGASTRIC TUBE IS IN THE STOMACH. PICC Line Insertion 08/22/20 00:00 IMPRESSION: SUCCESSFUL PLACEMENT OF A 5 FR DUAL LUMEN 50 CM PICC IN THE LEFT BASILIC VEIN. Abdomen/Pelvis CT 08/27/20 13:45 IMPRESSION: 1. Large left rectus sheath hematoma. Hyperdense ascites in the pelvis may represent mix of fluid and hematoma. 2. Bibasilar multifocal pneumonia. Finding is consistent with history of coated pneumonia. Small left effusion. Chest X-Ray 09/04/20 05:00 IMPRESSION: Slight increase in bibasilar airspace disease. Small left effusion. All labs, radiographs, diagnostic studies and EKGs were personally reviewed: Yes In addition, reports of radiographic and diagnostic studies were read: Yes Assessment and Plan - Diagnosis (1) Acute hypoxemic respiratory failure Is this a current diagnosis for this admission?: Yes (2) Hypertension Is this a current diagnosis for this admission?: Yes Plan: * Titrate Cardene for effect. * Change Lopressor to carvedilol 12.5 mg G-tube twice daily. * Continue amlodipine, lisinopril. * As the hospital pharmacy reports depletion of hydralazine, will remove hydra lazine from patient's orders. * Furosemide (previously incorrectly transcribed as Rocephin) 40 mg IV daily. (On Demadex 40 mg p.o. daily at home). (3) Seizure Is this a current diagnosis for this admission?: Yes Plan: * Continue Keppra. * EEG done today. * Ativan 4 mg IV as needed for seizure activity. (4) Hyponatremia Is this a current diagnosis for this admission?: Yes Plan: * Given her severe third spacing, she may be in a volume overloaded state. 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 * Check proBN proBNP 22,300. Continue diuretics. * Monitor serum sodium and urine output.. (5) Acute respiratory failure due to COVID-19 Is this a current diagnosis for this admission?: Yes Plan: * Continue vitamin C, vitamin D3 and zinc sulfate. * Continue Decadron 4 mg IV daily. * Repeat COVID testing. If COVID testing returns a negative result, stop Decadron. (6) Anoxic encephalopathy Is this a current diagnosis for this admission?: Yes (7) MRSA pneumonia Qualifiers: Laterality: bilateral Lung location: unspecified part of lung Qualified Code(s): J15.212 - Pneumonia due to Methicillin resistant Staphylococcus aureus Is this a current diagnosis for this admission?: Yes Plan: * Completed treatment with linezolid. (8) IDDM (insulin dependent diabetes mellitus) Is this a current diagnosis for this admission?: Yes Plan: * Continue Glucerna. (9) Normocytic anemia Is this a current diagnosis for this admission?: Yes (10) History of breast cancer Is this a current diagnosis for this admission?: Yes (11) Morbid obesity Is this a current diagnosis for this admission?: Yes (12) Postictal state Is this a current diagnosis for this admission?: Yes (13) Severe protein-calorie malnutrition Is this a current diagnosis for this admission?: Yes Plan: * Clinical nutrition consult. * Add protein supplements. Critical Time Critical Time (minutes): 60 Level of Care: ICU -: 1. The care of a critical patient is a dynamic process. This note is a leather goods sales representative synopsis but static in nature. The timeframe for treatments given in order is not necessarily the actual time these treatments may have been done. 2. This patient requires critical care secondary to ongoing requirements for therapy not offered or safe outside the critical care environment. Transfer to a lower level of care will result in altered life or limb morbidity and mortality. 3. Multidisciplinary rounds completed. 4. ABCDE bundle addressed.
[2020-09-05] MEDS ORDERED: BUMETANIDE INJ/PF 1 MG/4 ML SDV IV ONE ×2 (17:00→17:32)
--- NOTE | 2020-09-05 18:26 | NEURO WORKBENCH EEG REPORT ---
EEG Report Patient: Chloe Squires ID: [id number] Referring Doctor: Shabbir Bustillo DOS: 09/05/2020 Medications: albuminar, ventolin, norvasc, vitamin C/D, budesonide, decdron, famotidine, porcine, apresoline, lantus, insulin, pyxis, keppra, synthroid, linezolid, lisinopril, lopressor History This is a 85 year old woman with a history of thyroid disease, angina, CHF, atrial fibrillation, hypercholesterolemia, hypertension, COPD, GERD, breast cancer, type 2 diabetes, cellulitis, MSK trauma who was admitted with respiratory failure, on life support with tracheotomy. This EEG was requested for seizure-like activity. Prior EEG done 08/31/2020 showed suppression, disorganization, GBS, irregular rhythm on EKG. EEG Interpretation This EEG was recorded in unknown state but with the patients eyes open and passively closed. The EEG is characterized by a disorganized background with a noted posterior dominant rhythm. There was prominent delta activity in the central regions that could be consistent with vertex waves but without any alterations into other states like wakefulness or stage 2 sleep. Photic stimulation resulted in no significant changes. There were rare sharply contoured waveforms but no definitive epileptiform abnormalities. There was muscle artifact that impaired interpretation. The EKG showed periods of an irregular rhythm. EEG Classification * Disorganized * Generalized background slowing * EKG irregular rhythm EEG Impression This EEG is abnormal. It is consistent with a severe, diffuse cerebral dysfunction. Compared to the prior EEG dated 09/01/2020, it continues to show disorganization and slowing but has changed somewhat with less suppression. There continues to be no seizures. INTERPRETING NEUROLOGIST: Jocy Shields MD, FRCPC Board Certified in Neurology, with special qualification in Child Neurology, and in Clinical Neurophysiology [facility]
[2020-09-06] MEDS: ALBUMIN HUMAN 12.5 GM/50 ML RTUINJ IV SCH ×4 (00:52→17:22)
[2020-09-06] MEDS: INSULIN REG, HUMAN 100 UNIT/ML 3 ML VIAL (PYX) SUBCUT SCH ×5 (00:53→23:38)
[2020-09-06] MEDS: ALBUTEROL SULFATE 0.083% NEB 2.5 MG/3 ML AMPUL NEB SCH ×4 (02:25→20:42)
[2020-09-06 04:44] LABS: ARTERIAL BLOOD BASE EXCESS -3.6 mmol/L; ARTERIAL BLOOD H2CO3 0.78 mmol/L (1.05-1.35); ARTERIAL BLOOD HCO3 19.2 mmol/L (20-24); ARTERIAL BLOOD O2 SATURATION 93.9 % (94-98); ARTERIAL BLOOD PCO2 25.9 mmHg (35-45); ARTERIAL BLOOD PH 7.49 (7.35-7.45); ARTERIAL BLOOD PO2 62.1 mmHg (80-100)
[2020-09-06 04:45] LABS: ARTERIAL BLOOD FIO2 40%
[2020-09-06 05:03] LABS: HEMATOCRIT 22.3 % (36.0-47.0); MEAN CORPUSCULAR HEMOGLOBIN 29.6 pg (27.0-33.4); MEAN CORPUSCULAR HGB CONC 33.3 g/dL (32.0-36.0); MEAN CORPUSCULAR VOLUME 89 fl (80-97); PLATELET COUNT 240 10^3/uL (150-450); RED BLOOD COUNT 2.51 10^6/uL (3.72-5.28); RED CELL DISTRIBUTION WIDTH 16.3 % (11.5-14.0); WHITE BLOOD COUNT 19.4 10^3/uL (4.0-10.5)
[2020-09-06 05:17] LABS: ABSOLUTE MONOCYTES # (MANUAL) 0.8 10^3/uL (0.1-1.4); ANISOCYTOSIS 2+; BAND NEUTROPHILS % (MANUAL) 1 % (3-5); BASOPHILS % (MANUAL) 0 % (0-2); EOSINOPHILS % (MANUAL) 0 % (0-6); LYMPHOCYTES % (MANUAL) 0 % (13-45); MONOCYTES % (MANUAL) 4 % (3-13); PLATELET COMMENT ADEQUATE; SEGMENTED NEUTROPHILS % (MAN) 95 % (42-78); TOTAL CELLS COUNTED 100; TOXIC GRANULATION 1+; TOXIC VACUOLATION PRESENT
[2020-09-06 05:19] LABS: HEMOGLOBIN 7.4 g/dL (12.0-15.5)
[2020-09-06] MEDS: LEVOTHYROXINE SODIUM 0.15 MG TABLET PO SCH (06:07)
[2020-09-06] MEDS: ASCORBIC ACID 500 MG TABLET NG SCH ×3 (06:07→22:57)
[2020-09-06 07:52] LABS: ALBUMIN 3.7 g/dL (3.5-5.0); ALKALINE PHOSPHATASE 137 U/L (38-126); ANION GAP 14 (5-19); ASPARTATE AMINO TRANSFERASE 27 U/L (14-36); BILIRUBIN,DIRECT 0.3 mg/dL (0.0-0.4); BILIRUBIN,TOTAL 0.6 mg/dL (0.2-1.3); BLOOD UREA NITROGEN 71 mg/dL (7-20); CALCIUM 7.9 mg/dL (8.4-10.2); CARBON DIOXIDE 20 mmol/L (22-30); CHLORIDE 98 mmol/L (98-107); GLUCOSE 103 mg/dL (75-110); POTASSIUM 4.9 mmol/L (3.6-5.0)
--- NOTE | 2020-09-06 08:26 | PDOC CRITICAL CARE PROG REPORT ---
General Date:: 09/06/20 ICU Day:: 30 Hospital Day:: 30 Resuscitation Status: Full Code Events in the past 12 to 24 Hours:: Not able to make meaningful changes to vent. Awake. 08/15: Not quite ready to extubate. 08/16: Pt extubated this AM. 08/18: Not able to wean much today. 08/19: Lowering sedation and changing to precedex. Hgb 6.8 no sign of bleeding needs blood. 08/20: Transfusions given. Hgb 10. Too sleepy to extubate. 08/21: apparently failed SBT yesterday. Overnight, switched from PSV to PRVC, unclear why. Off sedation. Awake, follows commands, but sluggishly. On PRVC 15/450/35/5, RR 24. 08/22: remains on PSV 14/5. awake but still slow to follow commands. off sedation x 2 days. developed fever yesterday (T-max 100.6 F). finished course of Zyvox yesterday. WBC 24.1> 27. Platelets 465. On heparin gtt. on TF and water flushes. 08/23: on PSV 12/5. Temp 101.5 F. Trach aspirate isolating Gram positive cocci in clusters. Winces to pain. slow to follow commands. off sedation x 2 days. ABG this am: 7.45/32/66. WBC 27-->29.1. On heparin. 08/24: On PSV 10/5, FIO2 35%. SPO2 97-99%. RR 18/24. Lethargic. Arousable to noxious stimuli. Moves all 4 extremities but not to command. Currently afebrile. T-max (24) 101.5 F. Started on vancomycin for trach aspirate isolating gram-positive cocci in clusters. WBC 29.1>28. 08/25: Mental status the same. Arouses to voice but does not fully commands. 08/26:Arousable. Not following commands. 08/27: Less responsive, higher WBC. New firmness in LUQ of abd. CT pending. 08/28: Has rectus sheath hematoma with no evidence of further bleeding. Less responsive, in ARF may be uremic. Dr. Haro consulted. 08/29: No need for SCIENTIFIC SYSTEMS ANALYST at this time. Vanco stopped. Trach Wed. 08/30: Trach today 08/31: Trach looks good: Restart TF. 09/01: On trach collar, FiO2 40%. RR 30. Arousable to voice. Does not clearly follow commands. Mouths out "ow!" to pain. Flicker strength in hands and feet. On TF. 09/02: On trach collar, FiO2 40%. RR 30. Not on sedation, but did get a dose of Ativan 2 mg IV overnight for witnessed seizure activity. She also had a seizure episode yesterday, prompting administration of Ativan 4 mg IV single dose. EEG was obtained, which did not show overt seizure activity (after administration of Ativan for first seizure). She has been started on Keppra in the interim. On TF. 09/03: On trach collar, FiO2 40%. RR 33. SpO2 97%. Hypertensive. Awake this a.m. Eyes open. Does appear to visually track intermittently. Mniimal response to noxious stimuli but severely edematous. Spontaneously moves toes and on command. Appears to squeeze hands on command. WBC 18.1. Sodium 128. Potassium 5.0. BG this a.m.: 7.45/28/85. 09/04: On trach collar, FiO2 50%. RR 28. SPO2 96%. ABG this a.m.: 7.45/30/83. Hypertensive. Started on amlodipine and lisinopril yesterday and eventually needed Cardene infusion. Opens eyes to voice and tactile stimuli. Night team reported concern for possible recurrent seizure activity. She has been demonstrating intermittent rhythmic lower extremity twitching. Initially reported as bilateral but currently involving left lower extremity only. WBC 20.2. Sodium 128. Potassium 5.7. proBNP 22,300. 09/05: Got Bumex 2 mg IV single dose yesterday afternoon. Cardene infusion had been weaned off yesterday; however, she was restarted on Cardene overnight for SBP 200+. On amlodipine 10 mg p.o. daily, lisinopril 20 mg NG twice daily, metoprolol 50 mg NG every 8 hours, hydralazine 75 mg p.o. every 8 hours. However, the hospital staff reports hydralazine has not been administered due to depletion of hospital supply. WBC 20.2>18. Hemoglobin 8.6>8. ABG this a.m.: 7.48/. Sodium 128, potassium 5.9. BUN 63, creatinine 1.3. Of note, the patient's creatinine has been rising since starting lisinopril. Prealbumin 10.8. Getting EEG today. 09/06: Not waking up. Seizures several days ago. On Cardene for BP. Could there be covid structural brain lesions? Head CT today. Review of systems relevant to events:: Neurological, pulmonary, CV. Reason for ICU Addmission:: Respiratory failure secondary to COVID-19 pneumonia, reintubated. - Medications: Vasopressors:: None Sedation:: None Physical Exam Vital Signs: Temp Pulse Resp BP Pulse Ox 98.6 F 73 32 H 135/59 H 89 L 09/06/20 05:51 09/06/20 07:00 09/06/20 06:00 09/06/20 05:58 09/06/20 06:00 Intake & Output 09/05/20 09/06/20 09/07/20 06:59 06:59 06:59 Intake Total 2704 1523 50 Output Total 1521 1560 Balance 1183 -37 50 Weight 135.3 kg 134 kg Weight/Height Weight 134 kg Height 5 ft 7 in General appearance: PRESENT: no acute distress, morbidly obese Head exam: PRESENT: atraumatic, normocephalic Eye exam: PRESENT: conjunctiva pink, PERRLA Ear exam: PRESENT: normal external ear exam Mouth exam: PRESENT: moist, tongue midline Respiratory exam: PRESENT: clear to auscultation pinky, wheezes - Mild. ABSENT: rales, rhonchi Cardiovascular exam: PRESENT: RRR. ABSENT: diastolic murmur, rubs, systolic murmur GI/Abdominal exam: PRESENT: normal bowel sounds, soft. ABSENT: distended, guarding, mass, organolmegaly, rebound, tenderness Rectal exam: PRESENT: deferred Gentrourinary exam: PRESENT: indwelling catheter Extremities exam: PRESENT: +2 edema Neurological exam: PRESENT: other - Non-responsive. Tubes/Lines: PRESENT: Central Line, Nasogastic Tube, Other - Trach Laboratory/Radiographs Laboratory Results: 09/06/20 04:00 09/06/20 06:30 09/06/20 09/06/20 09/06/20 04:00 04:00 04:00 WBC 19.4 H RBC 2.51 L Hgb 7.4 L Hct 22.3 L MCV 89 MCH 29.6 MCHC 33.3 RDW 16.3 H Plt Count 240 Seg Neutrophils % Not Reportable Carbonic Acid 0.78 L HCO3/H2CO3 Ratio 24:1 ABG pH 7.49 H ABG pCO2 25.9 L ABG pO2 62.1 L ABG HCO3 19.2 L ABG O2 Saturation 93.9 L ABG Base Excess -3.6 FiO2 40% Sodium Cancelled Potassium Cancelled Chloride Cancelled Carbon Dioxide Cancelled Anion Gap Cancelled BUN Cancelled Creatinine Cancelled Est GFR ( Amer) Cancelled Est GFR (Non-Af Amer) Cancelled Glucose Cancelled Calcium Cancelled Magnesium Cancelled Total Bilirubin Cancelled AST Cancelled Alkaline Phosphatase Cancelled Total Protein Cancelled Albumin Cancelled 09/06/20 06:30 WBC RBC Hgb Hct MCV MCH MCHC RDW Plt Count Seg Neutrophils % Carbonic Acid HCO3/H2CO3 Ratio ABG pH ABG pCO2 ABG pO2 ABG HCO3 ABG O2 Saturation ABG Base Excess FiO2 Sodium 131.8 L Potassium 4.9 Chloride 98 Carbon Dioxide 20 L Anion Gap 14 BUN 71 H Creatinine 1.16 Est GFR ( Amer) 54 L Est GFR (Non-Af Amer) Glucose 103 Calcium 7.9 L Magnesium 1.7 Total Bilirubin 0.6 AST 27 Alkaline Phosphatase 137 H Total Protein 6.0 L Albumin 3.7 08/07/20 08/07/20 08/07/20 00:34 00:35 06:31 Creatine Kinase Troponin I 0.390 NT-Pro-B Natriuret Pep 2780 H 3520 H 08/08/20 08/08/20 08/10/20 04:03 14:56 04:08 Creatine Kinase Troponin I 0.185 NT-Pro-B Natriuret Pep 3740 H 4510 H 08/29/20 09/04/20 05:38 04:25 Creatine Kinase 74 Troponin I NT-Pro-B Natriuret Pep 28117 H Impressions: KUB X-Ray 08/08/20 13:14 IMPRESSION: TIP OF THE NASOGASTRIC TUBE IS IN THE STOMACH. PICC Line Insertion 08/22/20 00:00 IMPRESSION: SUCCESSFUL PLACEMENT OF A 5 FR DUAL LUMEN 50 CM PICC IN THE LEFT BASILIC VEIN. Abdomen/Pelvis CT 08/27/20 13:45 IMPRESSION: 1. Large left rectus sheath hematoma. Hyperdense ascites in the pelvis may represent mix of fluid and hematoma. 2. Bibasilar multifocal pneumonia. Finding is consistent with history of coated pneumonia. Small left effusion. Chest X-Ray 09/04/20 05:00 IMPRESSION: Slight increase in bibasilar airspace disease. Small left effusion. All labs, radiographs, diagnostic studies and EKGs were personally reviewed: Yes In addition, reports of radiographic and diagnostic studies were read: Yes Assessment and Plan - Diagnosis (1) COVID-19 virus detected Is this a current diagnosis for this admission?: Yes Plan: The cause of most of her illness. (2) Diabetes Qualifiers: Diabetes mellitus type: type 2 Diabetes mellitus extermination supervisor insulin use: unspecified correction insulin use status Diabetes mellitus complication status: with kidney complications Is this a current diagnosis for this admission?: Yes Plan: Controlled. (3) Leukocytosis Is this a current diagnosis for this admission?: Yes Plan: Stable with a level 18K for WBC. (4) Hyponatremia Is this a current diagnosis for this admission?: Yes Plan: Mildly low at 131. (5) MRSA pneumonia Qualifiers: Laterality: bilateral Lung location: unspecified part of lung Qualified Code(s): J15.212 - Pneumonia due to Methicillin resistant Staphylococcus aureus Is this a current diagnosis for this admission?: Yes Plan: Off antibiotics. Afebrile and WBC stable. (6) Seizure Is this a current diagnosis for this admission?: Yes Plan: Changed IV keppra to NG. Ct head. Try to keep off cardene. Plan Summary: Check CT of head to rule out structural brain lesions. Try trach collar. Critical Time Critical Time (minutes): 35 Level of Care: ICU Anticipated discharge: SNF Anticipated DC Timeframe: Other -: 1. The care of a critical patient is a dynamic process. This note is a business services sales representative synopsis but static in nature. The timeframe for treatments given in order is not necessarily the actual time these treatments may have been done. 2. This patient requires critical care secondary to ongoing requirements for therapy not offered or safe outside the critical care environment. Transfer to a lower level of care will result in altered life or limb morbidity and mortality. 3. Multidisciplinary rounds completed. 4. ABCDE bundle addressed.
[2020-09-06] MEDS: BUDESONIDE NEB 0.25 MG/2 ML AMPUL NEB SCH ×2 (08:45→20:42)
[2020-09-06] MEDS: ZINC SULFATE 220 MG CAPSULE PO SCH (09:36)
[2020-09-06] MEDS: CHOLECALCIFEROL (D3) 1,000 UNIT (25 MCG) TABLET PO SCH (09:36)
[2020-09-06] MEDS: LEVETIRACETAM 500 MG TABLET PO SCH ×2 (09:36→22:58)
[2020-09-06] MEDS: LISINOPRIL 10 MG TABLET NG SCH ×2 (09:37→17:24)
[2020-09-06] MEDS: AMLODIPINE BESYLATE 10 MG TABLET PO SCH (09:37)
[2020-09-06] MEDS: CARVEDILOL 12.5 MG TABLET PO SCH ×2 (09:37→22:57)
[2020-09-06] MEDS: FAMOTIDINE INJ/PF 20 MG/2 ML SDV IV SCH (09:38)
[2020-09-06] MEDS: DEXAMETHASONE SOD PHOSPHATE INJ 4 MG/1 ML VIAL IV SCH (09:38)
[2020-09-06] MEDS: NORMAL SALINE 10 ML SDV (SCHEDULED) IV SCH ×2 (09:38→22:58)
[2020-09-06] MEDS: INSULIN GLARGINE,HUM.REC.ANLOG 1,000 UNIT/10 ML VIAL SUBCUT SCH ×2 (09:39→22:58)
--- NOTE | 2020-09-06 14:51 | RADIOLOGY REPORT (SQ) ---
EXAM DESCRIPTION: CT HEAD WITHOUT IMAGES COMPLETED DATE/TIME: 09/06/2020 12:57 pm REASON FOR STUDY: Seizures, no EEG abnprmality. Obtunded on no sedat COMPARISON: None. TECHNIQUE: Axial images acquired through the brain without intravenous contrast. Images reviewed wi th bone, brain and subdural windows. Additional sagittal and coronal reconstructions were generated. Images stored on PACS. All CT scanners at this facility use dose modulation, iterative reconstruction, and/or weight based d osing when appropriate to reduce radiation dose to as low as reasonably achievable (ALARA). [facility]: Dose Right [facility]: CareDose [facility]: Dose Right [facility]: Teradose 4D [facility]: Smart BoxTone RADIATION DOSE: CT Rad equipment meets quality standard of care and radiation dose reduction techniq ues were employed. CTDIvol: 44.2 - 50.1 mGy. DLP: 2840 mGy-cm. mGy. LIMITATIONS: Motion obscures some detail. FINDINGS: VENTRICLES: Normal size and contour. CEREBRUM: No masses. No hemorrhage. No midline shift. No evidence for acute infarction. Normal gra y-white matter differentiation. Moderate patchy periventricular and deep white matter hypodense atte nuation consistent with chronic small vessel ischemic change. There is intracranial atherosclerosis. CEREBELLUM: No masses. No hemorrhage. No alteration of density. No evidence for acute infarction. EXTRAAXIAL SPACES: No fluid collections. No masses. ORBITS AND GLOBE: No intra- or extraconal masses. Normal contour of globe without masses. CALVARIUM: No fracture. PARANASAL SINUSES: Small amount of layering fluid in the left maxillary sinus. Remaining paranasal s inuses are clear. SOFT TISSUES: No mass or hematoma. OTHER: No other significant finding. IMPRESSION: 1. No acute intracranial hemorrhage, mass, or evidence of acute territorial infarct. 2. Moderate chronic small vessel ischemic change. 3. Intracranial atherosclerosis. EVIDENCE OF ACUTE STROKE: NO. COMMENT: Quality ID # [id number]: Final reports with documentation of one or more dose reduction techniques (e.g., Automated exposure control, adjustment of the mA and/or kV according to patient size, use of iterative reconstruction technique) TECHNICAL DOCUMENTATION: JOB ID: [id number] 2010 [employer]- All Rights Reserved Reading location - IP/workstation name: [email or web address]
[2020-09-06] MEDS: HEPARIN SODIUM,PORCINE/D5W 25,000 UNIT/250 ML RTUINJ IV PRN (17:22)
[2020-09-07] MEDS: ALBUTEROL SULFATE 0.083% NEB 2.5 MG/3 ML AMPUL NEB SCH ×4 (02:01→21:10)
[2020-09-07] MEDS: ASCORBIC ACID 500 MG TABLET NG SCH ×3 (06:17→21:52)
[2020-09-07] MEDS: INSULIN REG, HUMAN 100 UNIT/ML 3 ML VIAL (PYX) SUBCUT SCH ×3 (06:18→17:08)
[2020-09-07 06:23] LABS: HEMATOCRIT 22.2 % (36.0-47.0); MEAN CORPUSCULAR HEMOGLOBIN 28.9 pg (27.0-33.4); MEAN CORPUSCULAR HGB CONC 32.9 g/dL (32.0-36.0); MEAN CORPUSCULAR VOLUME 88 fl (80-97); PLATELET COUNT 267 10^3/uL (150-450); RED BLOOD COUNT 2.53 10^6/uL (3.72-5.28); RED CELL DISTRIBUTION WIDTH 15.8 % (11.5-14.0); WHITE BLOOD COUNT 22.2 10^3/uL (4.0-10.5)
[2020-09-07 06:26] LABS: ARTERIAL BLOOD BASE EXCESS -5.2 mmol/L; ARTERIAL BLOOD H2CO3 0.67 mmol/L (1.05-1.35); ARTERIAL BLOOD HCO3 16.9 mmol/L (20-24); ARTERIAL BLOOD O2 SATURATION 92.6 % (94-98); ARTERIAL BLOOD PCO2 22.2 mmHg (35-45); ARTERIAL BLOOD PO2 56.7 mmHg (80-100); ARTERIAL BLOOD TOTAL CO2 17.6 mmol/L (21-25)
[2020-09-07 06:27] LABS: ARTERIAL BLOOD FIO2 35%
[2020-09-07 06:51] LABS: ALBUMIN 2.8 g/dL (3.5-5.0); ALKALINE PHOSPHATASE 152 U/L (38-126); ANION GAP 11 (5-19); ASPARTATE AMINO TRANSFERASE 32 U/L (14-36); BILIRUBIN,DIRECT 0.4 mg/dL (0.0-0.4); BILIRUBIN,TOTAL 0.7 mg/dL (0.2-1.3); BLOOD UREA NITROGEN 85 mg/dL (7-20); CALCIUM 8.5 mg/dL (8.4-10.2); CARBON DIOXIDE 19 mmol/L (22-30); CHLORIDE 101 mmol/L (98-107); GLUCOSE 160 mg/dL (75-110); POTASSIUM 4.8 mmol/L (3.6-5.0); TOTAL PROTEIN 5.2 g/dL (6.3-8.2)
[2020-09-07 06:57] LABS: HEMOGLOBIN 7.3 g/dL (12.0-15.5)
[2020-09-07 06:58] LABS: ABSOLUTE LYMPHOCYTES# (MANUAL) 0.9 10^3/uL (0.5-4.7); ABSOLUTE MONOCYTES # (MANUAL) 0.9 10^3/uL (0.1-1.4); BAND NEUTROPHILS % (MANUAL) 3 % (3-5); BASOPHILS % (MANUAL) 0 % (0-2); EOSINOPHILS % (MANUAL) 0 % (0-6); LYMPHOCYTES % (MANUAL) 4 % (13-45); MONOCYTES % (MANUAL) 4 % (3-13); SEGMENTED NEUTROPHILS % (MAN) 89 % (42-78); TOTAL CELLS COUNTED 100
[2020-09-07 07:00] LABS: ANISOCYTOSIS SLIGHT; BURR CELLS SLIGHT; PLATELET COMMENT ADEQUATE; SCHISTOCYTES SLIGHT; TEAR DROP CELLS SLIGHT; TOXIC GRANULATION 1+
[2020-09-07 07:07] LABS: APPEARANCE,URINE CLOUDY; BILIRUBIN,URINE NEGATIVE (NEGATIVE); COLOR,URINE YELLOW; GLUCOSE, URINE NEGATIVE (NEGATIVE); KETONES,URINE NEGATIVE (NEGATIVE); PROTEIN,URINE 30 mg/dL (NEGATIVE); URINE SPECIFIC GRAVITY 1.015; UROBILINOGEN,URINE NEGATIVE mg/dL (<2.0)
--- NOTE | 2020-09-07 08:12 | PDOC CRITICAL CARE PROG REPORT ---
General Date:: 09/07/20 ICU Day:: 32 Hospital Day:: 32 Resuscitation Status: Full Code Events in the past 12 to 24 Hours:: Not able to make meaningful changes to vent. Awake. 08/15: Not quite ready to extubate. 08/16: Pt extubated this AM. 08/18: Not able to wean much today. 08/19: Lowering sedation and changing to precedex. Hgb 6.8 no sign of bleeding needs blood. 08/20: Transfusions given. Hgb 10. Too sleepy to extubate. 08/21: apparently failed SBT yesterday. Overnight, switched from PSV to PRVC, unclear why. Off sedation. Awake, follows commands, but sluggishly. On PRVC 15/450/35/5, RR 24. 08/22: remains on PSV 14/5. awake but still slow to follow commands. off sedation x 2 days. developed fever yesterday (T-max 100.6 F). finished course of Zyvox yesterday. WBC 24.1> 27. Platelets 465. On heparin gtt. on TF and water flushes. 08/23: on PSV 12/5. Temp 101.5 F. Trach aspirate isolating Gram positive cocci in clusters. Winces to pain. slow to follow commands. off sedation x 2 days. ABG this am: 7.45/32/66. WBC 27-->29.1. On heparin. 08/24: On PSV 10/5, FIO2 35%. SPO2 97-99%. RR 18/24. Lethargic. Arousable to noxious stimuli. Moves all 4 extremities but not to command. Currently afebrile. T-max (24) 101.5 F. Started on vancomycin for trach aspirate isolating gram-positive cocci in clusters. WBC 29.1>28. 08/25: Mental status the same. Arouses to voice but does not fully commands. 08/26:Arousable. Not following commands. 08/27: Less responsive, higher WBC. New firmness in LUQ of abd. CT pending. 08/28: Has rectus sheath hematoma with no evidence of further bleeding. Less responsive, in ARF may be uremic. Dr. Haro consulted. 08/29: No need for ORDER SELECTOR at this time. Vanco stopped. Trach Wed. 08/30: Trach today 08/31: Trach looks good: Restart TF. 09/01: On trach collar, FiO2 40%. RR 30. Arousable to voice. Does not clearly follow commands. Mouths out "ow!" to pain. Flicker strength in hands and feet. On TF. 09/02: On trach collar, FiO2 40%. RR 30. Not on sedation, but did get a dose of Ativan 2 mg IV overnight for witnessed seizure activity. She also had a seizure episode yesterday, prompting administration of Ativan 4 mg IV single dose. EEG was obtained, which did not show overt seizure activity (after administration of Ativan for first seizure). She has been started on Keppra in the interim. On TF. 09/03: On trach collar, FiO2 40%. RR 33. SpO2 97%. Hypertensive. Awake this a.m. Eyes open. Does appear to visually track intermittently. Mniimal response to noxious stimuli but severely edematous. Spontaneously moves toes and on command. Appears to squeeze hands on command. WBC 18.1. Sodium 128. Potassium 5.0. BG this a.m.: 7.45/28/85. 09/04: On trach collar, FiO2 50%. RR 28. SPO2 96%. ABG this a.m.: 7.45/30/83. Hypertensive. Started on amlodipine and lisinopril yesterday and eventually needed Cardene infusion. Opens eyes to voice and tactile stimuli. Night team reported concern for possible recurrent seizure activity. She has been demonstrating intermittent rhythmic lower extremity twitching. Initially reported as bilateral but currently involving left lower extremity only. WBC 20.2. Sodium 128. Potassium 5.7. proBNP 22,300. 09/05: Got Bumex 2 mg IV single dose yesterday afternoon. Cardene infusion had been weaned off yesterday; however, she was restarted on Cardene overnight for SBP 200+. On amlodipine 10 mg p.o. daily, lisinopril 20 mg NG twice daily, metoprolol 50 mg NG every 8 hours, hydralazine 75 mg p.o. every 8 hours. However, the hospital staff reports hydralazine has not been administered due to depletion of hospital supply. WBC 20.2>18. Hemoglobin 8.6>8. ABG this a.m.: 7.48/. Sodium 128, potassium 5.9. BUN 63, creatinine 1.3. Of note, the patient's creatinine has been rising since starting lisinopril. Prealbumin 10.8. Getting EEG today. 09/06: Not waking up. Seizures several days ago. On Cardene for BP. Could there be covid structural brain lesions? Head CT today. 09/07: Unremarkable CT of head. Nicardipine stopped. Try trach collar today. Review of systems relevant to events:: Pulmonary, neurological. Reason for ICU Addmission:: Respiratory failure secondary to COVID-19 pneumonia, reintubated. - Medications: Medications reviewed and adjusted accordingly: Yes Vasopressors:: None Sedation:: None Physical Exam Vital Signs: Temp Pulse Resp BP Pulse Ox 99.1 F 64 27 H 123/61 94 09/07/20 06:00 09/07/20 02:01 09/07/20 06:02 09/07/20 06:02 09/07/20 06:02 Intake & Output 09/06/20 09/07/20 09/08/20 06:59 06:59 06:59 Intake Total 1534 1753 Output Total 1560 1500 Balance -26 253 Weight 134 kg 133.4 kg Weight/Height Weight 133.4 kg Height 5 ft 7 in General appearance: PRESENT: no acute distress, morbidly obese Head exam: PRESENT: atraumatic, normocephalic Eye exam: PRESENT: conjunctiva pink, EOMI, PERRLA. ABSENT: scleral icterus Ear exam: PRESENT: normal external ear exam Mouth exam: PRESENT: moist, tongue midline Respiratory exam: PRESENT: clear to auscultation pinky, rhonchi - [place] at end expiration.. ABSENT: rales, wheezes Cardiovascular exam: PRESENT: RRR. ABSENT: diastolic murmur, rubs, systolic murmur GI/Abdominal exam: PRESENT: normal bowel sounds, soft. ABSENT: distended, guarding, mass, organolmegaly, rebound, tenderness Rectal exam: PRESENT: deferred Gentrourinary exam: PRESENT: indwelling catheter Extremities exam: PRESENT: +2 edema Musculoskeletal exam: PRESENT: normal inspection Neurological exam: PRESENT: other - She opened eyes to touch one time. Otherwise no response. Does not move extremities. Tubes/Lines: PRESENT: Nasogastic Tube, Other - Trach Laboratory/Radiographs Laboratory Results: 09/07/20 05:00 09/07/20 05:00 09/07/20 09/07/20 09/07/20 05:00 05:00 05:00 WBC 22.2 H RBC 2.53 L Hgb 7.3 L Hct 22.2 L MCV 88 MCH 28.9 MCHC 32.9 RDW 15.8 H Plt Count 267 Seg Neutrophils % Not Reportable Carbonic Acid HCO3/H2CO3 Ratio ABG pH ABG pCO2 ABG pO2 ABG HCO3 ABG O2 Saturation ABG Base Excess FiO2 Sodium 131.4 L Potassium 4.8 Chloride 101 Carbon Dioxide 19 L Anion Gap 11 BUN 85 H Creatinine 1.36 H Est GFR ( Amer) 45 L Glucose 160 H Calcium 8.5 Magnesium 2.0 Total Bilirubin 0.7 AST 32 Alkaline Phosphatase 152 H C-Reactive Protein 185.8 H Total Protein 5.2 L Albumin 2.8 L Urine Color Urine Appearance Urine pH Ur Specific [place] Urine Protein Urine Glucose (UA) Urine Ketones Urine Blood Urine RBC (Auto) 09/07/20 09/07/20 05:00 05:00 WBC RBC Hgb Hct MCV MCH MCHC RDW Plt Count Seg Neutrophils % Carbonic Acid 0.67 L HCO3/H2CO3 Ratio 25:1 ABG pH 7.50 H ABG pCO2 22.2 L ABG pO2 56.7 L ABG HCO3 16.9 L ABG O2 Saturation 92.6 L ABG Base Excess -5.2 FiO2 35% Sodium Potassium Chloride Carbon Dioxide Anion Gap BUN Creatinine Est GFR ( Amer) Glucose Calcium Magnesium Total Bilirubin AST Alkaline Phosphatase C-Reactive Protein Total Protein Albumin Urine Color YELLOW Urine Appearance CLOUDY Urine pH 5.0 Ur Specific [place] 1.015 Urine Protein 30 H Urine Glucose (UA) NEGATIVE Urine Ketones NEGATIVE Urine Blood MODERATE H Urine RBC (Auto) 40 08/07/20 08/07/20 08/07/20 00:34 00:35 06:31 Creatine Kinase Troponin I 0.390 NT-Pro-B Natriuret Pep 2780 H 3520 H 08/08/20 08/08/20 08/10/20 04:03 14:56 04:08 Creatine Kinase Troponin I 0.185 NT-Pro-B Natriuret Pep 3740 H 4510 H 08/29/20 09/04/20 05:38 04:25 Creatine Kinase 74 Troponin I NT-Pro-B Natriuret Pep 47817 H Impressions: KUB X-Ray 08/08/20 13:14 IMPRESSION: TIP OF THE NASOGASTRIC TUBE IS IN THE STOMACH. PICC Line Insertion 08/22/20 00:00 IMPRESSION: SUCCESSFUL PLACEMENT OF A 5 FR DUAL LUMEN 50 CM PICC IN THE LEFT BASILIC VEIN. Abdomen/Pelvis CT 08/27/20 13:45 IMPRESSION: 1. Large left rectus sheath hematoma. Hyperdense ascites in the pelvis may represent mix of fluid and hematoma. 2. Bibasilar multifocal pneumonia. Finding is consistent with history of coated pneumonia. Small left effusion. Chest X-Ray 09/04/20 05:00 IMPRESSION: Slight increase in bibasilar airspace disease. Small left effusion. Head CT 09/06/20 00:00 IMPRESSION: 1. No acute intracranial hemorrhage, mass, or evidence of acute territorial infarct. 2. Moderate chronic small vessel ischemic change. 3. Intracranial atherosclerosis. EVIDENCE OF ACUTE STROKE: NO. All labs, radiographs, diagnostic studies and EKGs were personally reviewed: Yes In addition, reports of radiographic and diagnostic studies were read: Yes Assessment and Plan - Diagnosis (1) COVID-19 virus detected Is this a current diagnosis for this admission?: Yes Plan: Repeat Covid test is pending. (2) Diabetes Qualifiers: Diabetes mellitus type: type 2 Diabetes mellitus senior care insulin use: unspecified senior care insulin use status Diabetes mellitus complication status: with kidney complications Is this a current diagnosis for this admission?: Yes Plan: Controlled. (3) Leukocytosis Is this a current diagnosis for this admission?: Yes Plan: WBC at 22K. (4) Hyponatremia Is this a current diagnosis for this admission?: Yes Plan: Improved at 131. (5) MRSA pneumonia Qualifiers: Laterality: bilateral Lung location: unspecified part of lung Qualified Code(s): J15.212 - Pneumonia due to Methicillin resistant Staphylococcus aureus Is this a current diagnosis for this admission?: Yes Plan: Off all antibiotics. Cultures pending. (6) Seizure Is this a current diagnosis for this admission?: Yes Plan: On PO keppra, no recurrence. Neuro status may be postictal. Doubt sub-clinical seizures. Plan Summary: Keep off cardene, try trach collar. Await word of transfer to LTAC. Critical Time Critical Time (minutes): 35 Level of Care: ICU Anticipated discharge: Other Anticipated DC Timeframe: Other -: 1. The care of a critical patient is a dynamic process. This note is a sales support representative synopsis but static in nature. The timeframe for treatments given in order is not necessarily the actual time these treatments may have been done. 2. This patient requires critical care secondary to ongoing requirements for therapy not offered or safe outside the critical care environment. Transfer to a lower level of care will result in altered life or limb morbidity and mortality. 3. Multidisciplinary rounds completed. 4. ABCDE bundle addressed.
[2020-09-07] MEDS: BUDESONIDE NEB 0.25 MG/2 ML AMPUL NEB SCH ×2 (08:42→21:10)
[2020-09-07] MEDS: INSULIN GLARGINE,HUM.REC.ANLOG 1,000 UNIT/10 ML VIAL SUBCUT SCH (09:58)
[2020-09-07] MEDS: AMLODIPINE BESYLATE 10 MG TABLET PO SCH (09:59)
[2020-09-07] MEDS: CARVEDILOL 12.5 MG TABLET PO SCH ×2 (09:59→21:52)
[2020-09-07] MEDS: CHOLECALCIFEROL (D3) 1,000 UNIT (25 MCG) TABLET PO SCH (10:00)
[2020-09-07] MEDS: DEXAMETHASONE SOD PHOSPHATE INJ 4 MG/1 ML VIAL IV SCH (10:00)
[2020-09-07] MEDS: FAMOTIDINE INJ/PF 20 MG/2 ML SDV IV SCH (10:01)
[2020-09-07] MEDS: LEVETIRACETAM 500 MG TABLET PO SCH ×2 (10:01→21:53)
[2020-09-07] MEDS: ZINC SULFATE 220 MG CAPSULE PO SCH (10:02)
[2020-09-07] MEDS: LISINOPRIL 10 MG TABLET NG SCH ×2 (10:02→17:26)
[2020-09-07] MEDS: NORMAL SALINE 10 ML SDV (SCHEDULED) IV SCH ×2 (10:02→21:53)
[2020-09-07] MEDS ORDERED: OXYCODONE HCL IR 5 MG TABLET NG PRN (10:44)
[2020-09-07] MEDS: ALBUMIN HUMAN 12.5 GM/50 ML RTUINJ IV SCH ×3 (12:29→17:26)
[2020-09-07] MEDS: APIXABAN 2.5 MG TABLET PO SCH (12:29)
[2020-09-08] MEDS: INSULIN GLARGINE,HUM.REC.ANLOG 1,000 UNIT/10 ML VIAL SUBCUT SCH ×3 (00:33→21:27)
[2020-09-08] MEDS: ALBUMIN HUMAN 12.5 GM/50 ML RTUINJ IV SCH ×4 (00:34→18:25)
[2020-09-08] MEDS: INSULIN REG, HUMAN 100 UNIT/ML 3 ML VIAL (PYX) SUBCUT SCH ×4 (00:34→18:25)
[2020-09-08] MEDS: ALBUTEROL SULFATE 0.083% NEB 2.5 MG/3 ML AMPUL NEB SCH ×4 (01:42→19:40)
--- NOTE | 2020-09-08 01:58 | RADIOLOGY REPORT (SQ) ---
EXAM DESCRIPTION: XR ABDOMEN 1 VIEW (KUB) COMPLETED DATE/TME: 09/08/2020 01:35 CLINICAL HISTORY: 85 years, Female, NG tube placement COMPARISON: 08/08/2020 abdomen NUMBER OF VIEWS: 1 TECHNIQUE: AP abdomen LIMITATIONS: None. FINDINGS: Enteric tube with the tip in the right upper quadrant, likely in the distal stomach or proximal small bowel. Bowel gas pattern is nonspecific. No free air. Osteopenia IMPRESSION: The enteric tube is in the distal stomach or proximal small bowel copyright 2011 [employer]- All Rights Reserved
[2020-09-08] MEDS: ASCORBIC ACID 500 MG TABLET NG SCH ×3 (05:52→21:27)
[2020-09-08] MEDS: LEVOTHYROXINE SODIUM 0.15 MG TABLET PO SCH (05:52)
[2020-09-08 06:25] LABS: HEMATOCRIT 19.9 % (36.0-47.0); MEAN CORPUSCULAR HEMOGLOBIN 28.9 pg (27.0-33.4); MEAN CORPUSCULAR VOLUME 88 fl (80-97); PLATELET COUNT 236 10^3/uL (150-450); RED BLOOD COUNT 2.27 10^6/uL (3.72-5.28); RED CELL DISTRIBUTION WIDTH 15.7 % (11.5-14.0); WHITE BLOOD COUNT 20.3 10^3/uL (4.0-10.5)
[2020-09-08 06:46] LABS: HEMOGLOBIN 6.6 g/dL (12.0-15.5)
[2020-09-08 06:48] LABS: ABSOLUTE LYMPHOCYTES# (MANUAL) 0.2 10^3/uL (0.5-4.7); BASOPHILS % (MANUAL) 0 % (0-2); EOSINOPHILS % (MANUAL) 0 % (0-6); LYMPHOCYTES % (MANUAL) 1 % (13-45); MONOCYTES % (MANUAL) 0 % (3-13); SEGMENTED NEUTROPHILS % (MAN) 99 % (42-78); TOTAL CELLS COUNTED 100
[2020-09-08 06:49] LABS: ANISOCYTOSIS 1+; PLATELET COMMENT ADEQUATE; POLYCHROMASIA SLIGHT
[2020-09-08 06:55] LABS: ANION GAP 9 (5-19); BLOOD UREA NITROGEN 96 mg/dL (7-20); CALCIUM 8.2 mg/dL (8.4-10.2); CARBON DIOXIDE 22 mmol/L (22-30); CHLORIDE 99 mmol/L (98-107); GLUCOSE 90 mg/dL (75-110); POTASSIUM 4.8 mmol/L (3.6-5.0)
[2020-09-08] MEDS ORDERED: NORMAL SALINE 250 ML IV PRN ×4 (06:55→09:18)
[2020-09-08] MEDS: BUDESONIDE NEB 0.25 MG/2 ML AMPUL NEB SCH ×2 (08:31→19:40)
[2020-09-08] MEDS: CHOLECALCIFEROL (D3) 1,000 UNIT (25 MCG) TABLET PO SCH (11:08)
[2020-09-08] MEDS: CARVEDILOL 12.5 MG TABLET PO SCH ×2 (11:08→21:26)
[2020-09-08] MEDS: APIXABAN 2.5 MG TABLET PO SCH (11:08)
[2020-09-08] MEDS: ZINC SULFATE 220 MG CAPSULE PO SCH (11:08)
[2020-09-08] MEDS: DEXAMETHASONE SOD PHOSPHATE INJ 4 MG/1 ML VIAL IV SCH (11:08)
[2020-09-08] MEDS: LISINOPRIL 10 MG TABLET NG SCH ×2 (11:08→18:25)
[2020-09-08] MEDS: FAMOTIDINE INJ/PF 20 MG/2 ML SDV IV SCH (11:08)
[2020-09-08] MEDS: AMLODIPINE BESYLATE 10 MG TABLET PO SCH (11:08)
[2020-09-08] MEDS: LEVETIRACETAM 500 MG TABLET PO SCH ×2 (11:09→21:26)
[2020-09-08] MEDS: NORMAL SALINE 10 ML SDV (SCHEDULED) IV SCH ×2 (11:11→21:28)
--- NOTE | 2020-09-08 12:39 | PDOC CRITICAL CARE PROG REPORT ---
General Date:: 09/08/20 ICU Day:: 32 Ventilator Day:: 32 Hospital Day:: 32 Resuscitation Status: Full Code Events in the past 12 to 24 Hours:: Not able to make meaningful changes to vent. Awake. 08/15: Not quite ready to extubate. 08/16: Pt extubated this AM. 08/18: Not able to wean much today. 08/19: Lowering sedation and changing to precedex. Hgb 6.8 no sign of bleeding needs blood. 08/20: Transfusions given. Hgb 10. Too sleepy to extubate. 08/21: apparently failed SBT yesterday. Overnight, switched from PSV to PRVC, unclear why. Off sedation. Awake, follows commands, but sluggishly. On PRVC 15/450/35/5, RR 24. 08/22: remains on PSV 14/5. awake but still slow to follow commands. off sedation x 2 days. developed fever yesterday (T-max 100.6 F). finished course of Zyvox yesterday. WBC 24.1> 27. Platelets 465. On heparin gtt. on TF and water flushes. 08/23: on PSV 12/5. Temp 101.5 F. Trach aspirate isolating Gram positive cocci in clusters. Winces to pain. slow to follow commands. off sedation x 2 days. ABG this am: 7.45/32/66. WBC 27-->29.1. On heparin. 08/24: On PSV 10/5, FIO2 35%. SPO2 97-99%. RR 18/24. Lethargic. Arousable to noxious stimuli. Moves all 4 extremities but not to command. Currently afebrile. T-max (24) 101.5 F. Started on vancomycin for trach aspirate isolat ing gram-positive cocci in clusters. WBC 29.1>28. 08/25: Mental status the same. Arouses to voice but does not fully commands. 08/26:Arousable. Not following commands. 08/27: Less responsive, higher WBC. New firmness in LUQ of abd. CT pending. 08/28: Has rectus sheath hematoma with no evidence of further bleeding. Less responsive, in ARF may be uremic. Dr. Haro consulted. 08/29: No need for IN[employer] OPAQUER at this time. Vanco stopped. Trach Wed. 08/30: Trach today 08/31: Trach looks good: Restart TF. 09/01: On trach collar, FiO2 40%. RR 30. Arousable to voice. Does not clearly follow commands. Mouths out "ow!" to pain. Flicker strength in hands and feet. On TF. 09/02: On trach collar, FiO2 40%. RR 30. Not on sedation, but did get a dose of Ativan 2 mg IV overnight for witnessed seizure activity. She also had a seizure episode yesterday, prompting administration of Ativan 4 mg IV single dose. EEG was obtained, which did not show overt seizure activity (after administration of Ativan for first seizure). She has been started on Keppra in the interim. On TF. 09/03: On trach collar, FiO2 40%. RR 33. SpO2 97%. Hypertensive. Awake this a.m. Eyes open. Does appear to visually track intermittently. Mniimal response to noxious stimuli but severely edematous. Spontaneously moves toes and on command. Appears to squeeze hands on command. WBC 18.1. Sodium 128. Potassium 5.0. BG this a.m.: 7.45/28/85. 09/04: On trach collar, FiO2 50%. RR 28. SPO2 96%. ABG this a.m.: 7.45/30/83. Hypertensive. Started on amlodipine and lisinopril yesterday and eventually needed Cardene infusion. Opens eyes to voice and tactile stimuli. Night team reported concern for possible recurrent seizure activity. She has been demonstrating intermittent rhythmic lower extremity twitching. Initially reported as bilateral but currently involving left lower extremity only. WBC 20.2. Sodium 128. Potassium 5.7. proBNP 22,300. 09/05: Got Bumex 2 mg IV single dose yesterday afternoon. Cardene infusion had been weaned off yesterday; however, she was restarted on Cardene overnight for SBP 200+. On amlodipine 10 mg p.o. daily, lisinopril 20 mg NG twice daily, metoprolol 50 mg NG every 8 hours, hydralazine 75 mg p.o. every 8 hours. However, the hospital staff reports hydralazine has not been administered due to depletion of hospital supply. WBC 20.2>18. Hemoglobin 8.6>8. ABG this a.m.: 7.48//. Sodium 128, potassium 5.9. BUN 63, creatinine 1.3. Of note, the patient's creatinine has been rising since starting lisinopril. Prealbumin 10.8. Getting EEG today. 09/06: Not waking up. Seizures several days ago. On Cardene for BP. Could there be covid structural brain lesions? Head CT today. 09/07: Unremarkable CT of head. Nicardipine stopped. Try trach collar today. 09/08: Tolerated trach collar all day. Most meds PO now. Await LTAC bed. Review of systems relevant to events:: Pulmonary, neurological. Reason for ICU Addmission:: Respiratory failure secondary to COVID-19 pneumonia, reintubated. - Medications: Medications reviewed and adjusted accordingly: Yes Vasopressors:: None Sedation:: None Physical Exam Vital Signs: Temp Pulse Resp BP Pulse Ox 95.5 F L 80 28 H 123/63 94 09/08/20 09:32 09/08/20 11:31 09/08/20 11:31 09/08/20 11:30 09/08/20 11:31 Intake & Output 09/07/20 09/08/20 09/09/20 06:59 06:59 06:59 Intake Total 1753 300 50 Output Total 1500 701 300 Balance 253 -401 -250 Weight 133.4 kg 132 kg Weight/Height Weight 132 kg Height 5 ft 7 in General appearance: PRESENT: no acute distress, morbidly obese Head exam: PRESENT: atraumatic, normocephalic Eye exam: PRESENT: conjunctiva pink, EOMI, PERRLA. ABSENT: scleral icterus Ear exam: PRESENT: normal external ear exam Mouth exam: PRESENT: moist, tongue midline Respiratory exam: PRESENT: clear to auscultation pinky. ABSENT: rales, rhonchi, wheezes Cardiovascular exam: PRESENT: RRR. ABSENT: diastolic murmur, rubs, systolic murmur GI/Abdominal exam: PRESENT: normal bowel sounds, soft. ABSENT: distended, guarding, mass, organolmegaly, rebound, tenderness Rectal exam: PRESENT: deferred Gentrourinary exam: PRESENT: indwelling catheter Extremities exam: PRESENT: +1 edema Musculoskeletal exam: PRESENT: normal inspection Neurological exam: PRESENT: other - Grimaces to pain. Opens eyes to touch. Skin exam: PRESENT: dry, intact, warm. ABSENT: cyanosis, rash Tubes/Lines: PRESENT: Nasogastic Tube, Other - Trach Laboratory/Radiographs Laboratory Results: 09/08/20 06:10 09/08/20 06:10 09/08/20 09/08/20 09/08/20 06:10 06:10 07:20 WBC 20.3 H RBC 2.27 L Hgb 6.6 L Hct 19.9 L MCV 88 MCH 28.9 MCHC 33.0 RDW 15.7 H Plt Count 236 Seg Neutrophils % Not Reportable Sodium 129.6 L Potassium 4.8 Chloride 99 Carbon Dioxide 22 Anion Gap 9 BUN 96 H Creatinine 1.47 H Est GFR ( Amer) 41 L Glucose 90 Calcium 8.2 L Blood Type O POSITIVE Antibody Screen NEGATIVE 09/07/20 08:45 Tracheal Aspirate Gram Stain - Final 08/07/20 08/07/20 08/07/20 00:34 00:35 06:31 Creatine Kinase Troponin I 0.390 NT-Pro-B Natriuret Pep 2780 H 3520 H 08/08/20 08/08/20 08/10/20 04:03 14:56 04:08 Creatine Kinase Troponin I 0.185 NT-Pro-B Natriuret Pep 3740 H 4510 H 08/29/20 09/04/20 05:38 04:25 Creatine Kinase 74 Troponin I NT-Pro-B Natriuret Pep 01357 H Impressions: PICC Line Insertion 08/22/20 00:00 IMPRESSION: SUCCESSFUL PLACEMENT OF A 5 FR DUAL LUMEN 50 CM PICC IN THE LEFT BASILIC VEIN. Abdomen/Pelvis CT 08/27/20 13:45 IMPRESSION: 1. Large left rectus sheath hematoma. Hyperdense ascites in the pelvis may represent mix of fluid and hematoma. 2. Bibasilar multifocal pneumonia. Finding is consistent with history of coated pneumonia. Small left effusion. Chest X-Ray 09/04/20 05:00 IMPRESSION: Slight increase in bibasilar airspace disease. Small left effusion. Head CT 09/06/20 00:00 IMPRESSION: 1. No acute intracranial hemorrhage, mass, or evidence of acute territorial infarct. 2. Moderate chronic small vessel ischemic change. 3. Intracranial atherosclerosis. EVIDENCE OF ACUTE STROKE: NO. KUB X-Ray 09/08/20 00:00 IMPRESSION: The enteric tube is in the distal stomach or proximal small bowel copyright 2011 [employer]- All Rights Reserved All labs, radiographs, diagnostic studies and EKGs were personally reviewed: Yes In addition, reports of radiographic and diagnostic studies were read: Yes Assessment and Plan - Diagnosis (1) COVID-19 virus detected Is this a current diagnosis for this admission?: Yes Plan: Still positive. (2) Diabetes Qualifiers: Diabetes mellitus type: type 2 Diabetes mellitus retirement insulin use: unspecified retirement insulin use status Diabetes mellitus complication status: with kidney complications Is this a current diagnosis for this admission?: Yes Plan: Controlled (3) Leukocytosis Is this a current diagnosis for this admission?: Yes Plan: Somewhat lower. (4) Hyponatremia Is this a current diagnosis for this admission?: Yes Plan: About the same at 130. (5) MRSA pneumonia Qualifiers: Laterality: bilateral Lung location: unspecified part of lung Qualified Code(s): J15.212 - Pneumonia due to Methicillin resistant Staphylococcus aureus Is this a current diagnosis for this admission?: Yes Plan: Seems to be cleared. Now growing GNR await final results. Start meropenem empi rically. (6) Seizure Is this a current diagnosis for this admission?: Yes Plan: No recurrence. Plan Summary: Await final cultures. Needs LTAC bed. Critical Time Critical Time (minutes): 35 Level of Care: ICU Anticipated discharge: Other Anticipated DC Timeframe: Other -: 1. The care of a critical patient is a dynamic process. This note is a customer contact representative synopsis but static in nature. The timeframe for treatments given in order is not necessarily the actual time these treatments may have been done. 2. This patient requires critical care secondary to ongoing requirements for therapy not offered or safe outside the critical care environment. Transfer to a lower level of care will result in altered life or limb morbidity and mortality. 3. Multidisciplinary rounds completed. 4. ABCDE bundle addressed.
[2020-09-08 22:00] LABS: HEMATOCRIT 24.3 % (36.0-47.0); HEMOGLOBIN 8.4 g/dL (12.0-15.5); MEAN CORPUSCULAR HEMOGLOBIN 29.6 pg (27.0-33.4); MEAN CORPUSCULAR HGB CONC 34.6 g/dL (32.0-36.0); MEAN CORPUSCULAR VOLUME 86 fl (80-97); PLATELET COUNT 260 10^3/uL (150-450); RED BLOOD COUNT 2.83 10^6/uL (3.72-5.28); RED CELL DISTRIBUTION WIDTH 16.4 % (11.5-14.0)
[2020-09-08 22:11] LABS: ANION GAP 13 (5-19); BLOOD UREA NITROGEN 104 mg/dL (7-20); CALCIUM 8.3 mg/dL (8.4-10.2); CARBON DIOXIDE 18 mmol/L (22-30); CHLORIDE 98 mmol/L (98-107); GLUCOSE 160 mg/dL (75-110); POTASSIUM 4.9 mmol/L (3.6-5.0)
[2020-09-08 22:25] LABS: WHITE BLOOD COUNT 36.9 10^3/uL (4.0-10.5)
[2020-09-09] MEDS ORDERED: PIPERACILLIN/TAZOBACTAM 3.375 GM VIAL IV PRN (00:20)
[2020-09-09] MEDS: ALBUMIN HUMAN 12.5 GM/50 ML RTUINJ IV SCH ×4 (00:23→23:35)
[2020-09-09] MEDS ORDERED: PIPERACILLIN/TAZOBACTAM 3.375 GM VIAL IV ONE ×2 (00:30→05:48)
[2020-09-09] MEDS ORDERED: RINGERS SOLUTION,LACTATED 1,000 ML IV ONE ×2 (00:30→05:57)
[2020-09-09] MEDS: INSULIN REG, HUMAN 100 UNIT/ML 3 ML VIAL (PYX) SUBCUT SCH ×5 (00:59→23:35)
[2020-09-09] MEDS: ALBUTEROL SULFATE 0.083% NEB 2.5 MG/3 ML AMPUL NEB SCH ×4 (02:20→20:15)
[2020-09-09 05:19] LABS: HEMATOCRIT 23.1 % (36.0-47.0); MEAN CORPUSCULAR HEMOGLOBIN 29.2 pg (27.0-33.4); MEAN CORPUSCULAR HGB CONC 33.6 g/dL (32.0-36.0); MEAN CORPUSCULAR VOLUME 87 fl (80-97); PLATELET COUNT 224 10^3/uL (150-450); RED BLOOD COUNT 2.66 10^6/uL (3.72-5.28); RED CELL DISTRIBUTION WIDTH 16.3 % (11.5-14.0)
[2020-09-09 05:37] LABS: ANION GAP 11 (5-19); BLOOD UREA NITROGEN 106 mg/dL (7-20); CALCIUM 8.2 mg/dL (8.4-10.2); CARBON DIOXIDE 21 mmol/L (22-30); CHLORIDE 100 mmol/L (98-107); GLUCOSE 98 mg/dL (75-110)
[2020-09-09] MEDS: ASCORBIC ACID 500 MG TABLET NG SCH ×3 (05:46→21:10)
[2020-09-09] MEDS: LEVOTHYROXINE SODIUM 0.15 MG TABLET PO SCH (05:46)
[2020-09-09 05:49] LABS: C-REACTIVE PROTEIN 257.1 mg/L (<10.0)
[2020-09-09] MEDS: PIPERACILLIN/TAZOBACTAM 3.375 GM VIAL IV SCH ×3 (06:09→21:09)
[2020-09-09 06:12] LABS: HEMOGLOBIN 7.8 g/dL (12.0-15.5)
[2020-09-09 06:14] LABS: WHITE BLOOD COUNT 33.2 10^3/uL (4.0-10.5)
[2020-09-09 06:16] LABS: ABSOLUTE LYMPHOCYTES# (MANUAL) 0.3 10^3/uL (0.5-4.7); ABSOLUTE MONOCYTES # (MANUAL) 0.3 10^3/uL (0.1-1.4); BASOPHILS % (MANUAL) 0 % (0-2); EOSINOPHILS % (MANUAL) 0 % (0-6); LYMPHOCYTES % (MANUAL) 1 % (13-45); MONOCYTES % (MANUAL) 1 % (3-13); SEGMENTED NEUTROPHILS % (MAN) 98 % (42-78); TOTAL CELLS COUNTED 100
[2020-09-09 06:17] LABS: ANISOCYTOSIS 1+; OVALOCYTES 1+; PLATELET COMMENT ADEQUATE; POIKILOCYTOSIS 1+; TOXIC GRANULATION 1+
[2020-09-09] MEDS: BUDESONIDE NEB 0.25 MG/2 ML AMPUL NEB SCH ×2 (08:02→20:15)
--- NOTE | 2020-09-09 08:10 | PDOC CRITICAL CARE PROG REPORT ---
General Date:: 09/09/20 ICU Day:: 33 Hospital Day:: 33 Resuscitation Status: Full Code Events in the past 12 to 24 Hours:: Not able to make meaningful changes to vent. Awake. 08/15: Not quite ready to extubate. 08/16: Pt extubated this AM. 08/18: Not able to wean much today. 08/19: Lowering sedation and changing to precedex. Hgb 6.8 no sign of bleeding needs blood. 08/20: Transfusions given. Hgb 10. Too sleepy to extubate. 08/21: apparently failed SBT yesterday. Overnight, switched from PSV to PRVC, unclear why. Off sedation. Awake, follows commands, but sluggishly. On PRVC 15/450/35/5, RR 24. 08/22: remains on PSV 14/5. awake but still slow to follow commands. off sedation x 2 days. developed fever yesterday (T-max 100.6 F). finished course of Zyvox yesterday. WBC 24.1> 27. Platelets 465. On heparin gtt. on TF and water flushes. 08/23: on PSV 12/5. Temp 101.5 F. Trach aspirate isolating Gram positive cocci in clusters. Winces to pain. slow to follow commands. off sedation x 2 days. ABG this am: 7.45/32/66. WBC 27-->29.1. On heparin. 08/24: On PSV 10/5, FIO2 35%. SPO2 97-99%. RR 18/24. Lethargic. Arousable to noxious stimuli. Moves all 4 extremities but not to command. Currently afebrile. T-max (24) 101.5 F. Started on vancomycin for trach aspirate isolating gram-positive cocci in clusters. WBC 29.1>28. 08/25: Mental status the same. Arouses to voice but does not fully commands. 08/26:Arousable. Not following commands. 08/27: Less responsive, higher WBC. New firmness in LUQ of abd. CT pending. 08/28: Has rectus sheath hematoma with no evidence of further bleeding. Less responsive, in ARF may be uremic. Dr. Haro consulted. 08/29: No need for GYMNASIUM TEACHER at this time. Vanco stopped. Trach Wed. 08/30: Trach today 08/31: Trach looks good: Restart TF. 09/01: On trach collar, FiO2 40%. RR 30. Arousable to voice. Does not clearly follow commands. Mouths out "ow!" to pain. Flicker strength in hands and feet. On TF. 09/02: On trach collar, FiO2 40%. RR 30. Not on sedation, but did get a dose of Ativan 2 mg IV overnight for witnessed seizure activity. She also had a seizure episode yesterday, prompting administration of Ativan 4 mg IV single dose. EEG was obtained, which did not show overt seizure activity (after administration of Ativan for first seizure). She has been started on Keppra in the interim. On TF. 09/03: On trach collar, FiO2 40%. RR 33. SpO2 97%. Hypertensive. Awake this a.m. Eyes open. Does appear to visually track intermittently. Mniimal response to noxious stimuli but severely edematous. Spontaneously moves toes and on command. Appears to squeeze hands on command. WBC 18.1. Sodium 128. Potassium 5.0. BG this a.m.: 7.45/28/85. 09/04: On trach collar, FiO2 50%. RR 28. SPO2 96%. ABG this a.m.: 7.45/30/83. Hypertensive. Started on amlodipine and lisinopril yesterday and eventually needed Cardene infusion. Opens eyes to voice and tactile stimuli. Night team reported concern for possible recurrent seizure activity. She has been demonstrating intermittent rhythmic lower extremity twitching. Initially reported as bilateral but currently involving left lower extremity only. WBC 20.2. Sodium 128. Potassium 5.7. proBNP 22,300. 09/05: Got Bumex 2 mg IV single dose yesterday afternoon. Cardene infusion had been weaned off yesterday; however, she was restarted on Cardene overnight for SBP 200+. On amlodipine 10 mg p.o. daily, lisinopril 20 mg NG twice daily, metoprolol 50 mg NG every 8 hours, hydralazine 75 mg p.o. every 8 hours. However, the hospital staff reports hydralazine has not been administered due to depletion of hospital supply. WBC 20.2>18. Hemoglobin 8.6>8. ABG this a.m.: 7.48/. Sodium 128, potassium 5.9. BUN 63, creatinine 1.3. Of note, the patient's creatinine has been rising since starting lisinopril. Prealbumin 10.8. Getting EEG today. 09/06: Not waking up. Seizures several days ago. On Cardene for BP. Could there be covid structural brain lesions? Head CT today. 09/07: Unremarkable CT of head. Nicardipine stopped. Try trach collar today. 09/08: Tolerated trach collar all day. Most meds PO now. Await LTAC bed. 09/09: Showing signs of SIRS, WBC elevated, GNR in sputum. Review of systems relevant to events:: Pulmonary, neurological, renal. Reason for ICU Addmission:: Respiratory failure secondary to COVID-19 pneumonia, reintubated. - Medications: Medications reviewed and adjusted accordingly: Yes Vasopressors:: None Sedation:: None Physical Exam Vital Signs: Temp Pulse Resp BP Pulse Ox 96.8 F L 59 L 27 H 111/51 L 95 09/09/20 04:00 09/09/20 02:20 09/09/20 06:00 09/09/20 05:52 09/09/20 06:00 Intake & Output 09/08/20 09/09/20 09/10/20 06:59 06:59 06:59 Intake Total 300 1950 1050 Output Total 701 795 Balance -401 1155 1050 Weight 132 kg 137.7 kg Weight/Height Weight 137.7 kg Height 5 ft 7 in General appearance: PRESENT: no acute distress, morbidly obese Head exam: PRESENT: atraumatic, normocephalic Eye exam: PRESENT: conjunctiva pink, EOMI, PERRLA. ABSENT: scleral icterus Ear exam: PRESENT: normal external ear exam Mouth exam: PRESENT: moist, tongue midline Neck exam: PRESENT: tracheostomy Respiratory exam: PRESENT: clear to auscultation pinky, symmetrical. ABSENT: rales, rhonchi, wheezes Cardiovascular exam: PRESENT: bradycardia, RRR. ABSENT: diastolic murmur, rubs, systolic murmur GI/Abdominal exam: PRESENT: normal bowel sounds, soft. ABSENT: distended, guarding, mass, organolmegaly, rebound, tenderness Rectal exam: PRESENT: deferred Gentrourinary exam: PRESENT: indwelling catheter Extremities exam: PRESENT: +1 edema Neurological exam: PRESENT: other - Less responsive today. Nothing purposeful. Skin exam: PRESENT: dry, intact, warm. ABSENT: cyanosis, rash Tubes/Lines: PRESENT: Nasogastic Tube, Other - Trach. Laboratory/Radiographs Laboratory Results: 09/09/20 04:12 09/09/20 04:12 09/08/20 09/08/20 09/08/20 07:20 21:50 21:50 WBC 36.9 H* RBC 2.83 L Hgb 8.4 L Hct 24.3 L MCV 86 MCH 29.6 MCHC 34.6 RDW 16.4 H Plt Count 260 Seg Neutrophils % Sodium 129.0 L Potassium 4.9 Chloride 98 Carbon Dioxide 18 L Anion Gap 13 BUN 104 H Creatinine 1.49 H Est GFR ( Amer) 40 L Glucose 160 H Calcium 8.3 L C-Reactive Protein Blood Type O POSITIVE Antibody Screen NEGATIVE 09/09/20 09/09/20 04:12 04:12 WBC 33.2 H* RBC 2.66 L Hgb 7.8 L Hct 23.1 L MCV 87 MCH 29.2 MCHC 33.6 RDW 16.3 H Plt Count 224 Seg Neutrophils % Not Reportable Sodium 132.4 L Potassium 5.0 Chloride 100 Carbon Dioxide 21 L Anion Gap 11 BUN 106 H Creatinine 1.59 H Est GFR ( Amer) 37 L Glucose 98 Calcium 8.2 L C-Reactive Protein 257.1 H Blood Type Antibody Screen 09/07/20 08:45 Tracheal Aspirate Gram Stain - Final 08/07/20 08/07/20 08/07/20 00:34 00:35 06:31 Creatine Kinase Troponin I 0.390 NT-Pro-B Natriuret Pep 2780 H 3520 H 08/08/20 08/08/20 08/10/20 04:03 14:56 04:08 Creatine Kinase Troponin I 0.185 NT-Pro-B Natriuret Pep 3740 H 4510 H 08/29/20 09/04/20 05:38 04:25 Creatine Kinase 74 Troponin I NT-Pro-B Natriuret Pep 24810 H Impressions: PICC Line Insertion 08/22/20 00:00 IMPRESSION: SUCCESSFUL PLACEMENT OF A 5 FR DUAL LUMEN 50 CM PICC IN THE LEFT BASILIC VEIN. Abdomen/Pelvis CT 08/27/20 13:45 IMPRESSION: 1. Large left rectus sheath hematoma. Hyperdense ascites in the pelvis may represent mix of fluid and hematoma. 2. Bibasilar multifocal pneumonia. Finding is consistent with history of coated pneumonia. Small left effusion. Chest X-Ray 09/04/20 05:00 IMPRESSION: Slight increase in bibasilar airspace disease. Small left effusion. Head CT 09/06/20 00:00 IMPRESSION: 1. No acute intracranial hemorrhage, mass, or evidence of acute territorial infarct. 2. Moderate chronic small vessel ischemic change. 3. Intracranial atherosclerosis. EVIDENCE OF ACUTE STROKE: NO. KUB X-Ray 09/08/20 00:00 IMPRESSION: The enteric tube is in the distal stomach or proximal small bowel copyright 2011 [employer]- All Rights Reserved All labs, radiographs, diagnostic studies and EKGs were personally reviewed: Yes In addition, reports of radiographic and diagnostic studies were read: Yes Assessment and Plan - Diagnosis (1) COVID-19 virus detected Is this a current diagnosis for this admission?: Yes Plan: Still positive. The presence of GNR in sputum argues for superinfection or an aspiration. (2) Diabetes Qualifiers: Diabetes mellitus type: type 2 Diabetes mellitus alf insulin use: unspecified alf insulin use status Diabetes mellitus complication status: with kidney complications Is this a current diagnosis for this admission?: Yes Plan: Not elevated, controlled. (3) Leukocytosis Is this a current diagnosis for this admission?: Yes Plan: Peak of 34K, down slightly today. (4) Hyponatremia Is this a current diagnosis for this admission?: Yes Plan: Better at 132 (5) Seizure Is this a current diagnosis for this admission?: Yes Plan: No recurrance. Plan Summary: Await final sputum cultures for GNR. Continue Zosyn for GNR. May need meropenem. Keep on trach collar. ABG today. Critical Time Critical Time (minutes): 35 Level of Care: ICU Anticipated discharge: Other Anticipated DC Timeframe: Other -: 1. The care of a critical patient is a dynamic process. This note is a r epresentative synopsis but static in nature. The timeframe for treatments given in order is not necessarily the actual time these treatments may have been done. 2. This patient requires critical care secondary to ongoing requirements for therapy not offered or safe outside the critical care environment. Transfer to a lower level of care will result in altered life or limb morbidity and mortali ty. 3. Multidisciplinary rounds completed. 4. ABCDE bundle addressed.
[2020-09-09 09:53] LABS: ARTERIAL BLOOD BASE EXCESS -3.7 mmol/L; ARTERIAL BLOOD H2CO3 0.98 mmol/L (1.05-1.35); ARTERIAL BLOOD HCO3 20.4 mmol/L (20-24); ARTERIAL BLOOD O2 SATURATION 96.7 % (94-98); ARTERIAL BLOOD PCO2 32.5 mmHg (35-45); ARTERIAL BLOOD PH 7.42 (7.35-7.45); ARTERIAL BLOOD TOTAL CO2 21.4 mmol/L (21-25)
[2020-09-09 09:54] LABS: ARTERIAL BLOOD FIO2 10L
[2020-09-09] MEDS: ZINC SULFATE 220 MG CAPSULE PO SCH (12:01)
[2020-09-09] MEDS: LEVETIRACETAM 500 MG TABLET PO SCH ×2 (12:02→21:10)
[2020-09-09] MEDS: APIXABAN 2.5 MG TABLET PO SCH (12:02)
[2020-09-09] MEDS: CHOLECALCIFEROL (D3) 1,000 UNIT (25 MCG) TABLET PO SCH (12:02)
[2020-09-09] MEDS: LISINOPRIL 10 MG TABLET NG SCH ×2 (12:02→19:13)
[2020-09-09] MEDS: CARVEDILOL 12.5 MG TABLET PO SCH ×2 (12:03→21:10)
[2020-09-09] MEDS: DEXAMETHASONE SOD PHOSPHATE INJ 4 MG/1 ML VIAL IV SCH (12:03)
[2020-09-09] MEDS: AMLODIPINE BESYLATE 10 MG TABLET PO SCH (12:03)
[2020-09-09] MEDS: FAMOTIDINE INJ/PF 20 MG/2 ML SDV IV SCH (12:04)
[2020-09-09] MEDS: NORMAL SALINE 10 ML SDV (SCHEDULED) IV SCH ×2 (12:04→21:10)
[2020-09-09] MEDS: INSULIN GLARGINE,HUM.REC.ANLOG 1,000 UNIT/10 ML VIAL SUBCUT SCH ×2 (12:09→21:34)
[2020-09-09] MEDS ORDERED: INSULIN GLARGINE,HUM.REC.ANLOG 1,000 UNIT/10 ML VIAL (PYX) SUBCUT ONE (12:09)
[2020-09-09] MEDS ORDERED: ACETAMINOPHEN SOLN 325 MG/10.15 ML UDCUP NG PRN (18:32)
[2020-09-10] MEDS: ALBUTEROL SULFATE 0.083% NEB 2.5 MG/3 ML AMPUL NEB SCH ×4 (02:11→19:43)
[2020-09-10 04:19] LABS: HEMATOCRIT 24.2 % (36.0-47.0); HEMOGLOBIN 8.2 g/dL (12.0-15.5); MEAN CORPUSCULAR HEMOGLOBIN 29.3 pg (27.0-33.4); MEAN CORPUSCULAR VOLUME 86 fl (80-97); PLATELET COUNT 257 10^3/uL (150-450); RED BLOOD COUNT 2.81 10^6/uL (3.72-5.28); RED CELL DISTRIBUTION WIDTH 16.5 % (11.5-14.0)
[2020-09-10 04:28] LABS: ANION GAP 9 (5-19); BLOOD UREA NITROGEN 118 mg/dL (7-20); CALCIUM 8.4 mg/dL (8.4-10.2); CARBON DIOXIDE 19 mmol/L (22-30); CHLORIDE 101 mmol/L (98-107); GLUCOSE 110 mg/dL (75-110); POTASSIUM 5.6 mmol/L (3.6-5.0)
[2020-09-10 05:00] LABS: WHITE BLOOD COUNT 30.7 10^3/uL (4.0-10.5)
[2020-09-10 05:03] LABS: ABSOLUTE LYMPHOCYTES# (MANUAL) 0.6 10^3/uL (0.5-4.7); ABSOLUTE MONOCYTES # (MANUAL) 0.3 10^3/uL (0.1-1.4); BAND NEUTROPHILS % (MANUAL) 4 % (3-5); BASOPHILS % (MANUAL) 0 % (0-2); EOSINOPHILS % (MANUAL) 0 % (0-6); LYMPHOCYTES % (MANUAL) 2 % (13-45); MONOCYTES % (MANUAL) 1 % (3-13); SEGMENTED NEUTROPHILS % (MAN) 93 % (42-78); TOTAL CELLS COUNTED 100
[2020-09-10 05:05] LABS: ANISOCYTOSIS 1+; BURR CELLS SLIGHT; OVALOCYTES 1+; PLATELET COMMENT ADEQUATE; POIKILOCYTOSIS 1+; SCHISTOCYTES SLIGHT; TEAR DROP CELLS 1+; TOXIC GRANULATION 1+; TOXIC VACUOLATION PRESENT
[2020-09-10] MEDS: ALBUMIN HUMAN 12.5 GM/50 ML RTUINJ IV SCH ×3 (05:29→19:00)
[2020-09-10] MEDS: LEVOTHYROXINE SODIUM 0.15 MG TABLET PO SCH (05:29)
[2020-09-10] MEDS: ASCORBIC ACID 500 MG TABLET NG SCH ×3 (05:29→22:13)
[2020-09-10] MEDS: PIPERACILLIN/TAZOBACTAM 3.375 GM VIAL IV SCH (05:29)
[2020-09-10] MEDS: INSULIN REG, HUMAN 100 UNIT/ML 3 ML VIAL (PYX) SUBCUT SCH ×3 (05:30→19:00)
[2020-09-10] MEDS: BUDESONIDE NEB 0.25 MG/2 ML AMPUL NEB SCH ×2 (08:02→19:43)
--- NOTE | 2020-09-10 09:04 | PDOC CRITICAL CARE PROG REPORT ---
General Date:: 09/10/20 ICU Day:: 34 Hospital Day:: 34 Resuscitation Status: Full Code Events in the past 12 to 24 Hours:: Not able to make meaningful changes to vent. Awake. 08/15: Not quite ready to extubate. 08/16: Pt extubated this AM. 08/18: Not able to wean much today. 08/19: Lowering sedation and changing to precedex. Hgb 6.8 no sign of bleeding needs blood. 08/20: Transfusions given. Hgb 10. Too sleepy to extubate. 08/21: apparently failed SBT yesterday. Overnight, switched from PSV to PRVC, unclear why. Off sedation. Awake, follows commands, but sluggishly. On PRVC 15/450/35/5, RR 24. 08/22: remains on PSV 14/5. awake but still slow to follow commands. off sedation x 2 days. developed fever yesterday (T-max 100.6 F). finished course of Zyvox yesterday. WBC 24.1> 27. Platelets 465. On heparin gtt. on TF and water flushes. 08/23: on PSV 12/5. Temp 101.5 F. Trach aspirate isolating Gram positive cocci in clusters. Winces to pain. slow to follow commands. off sedation x 2 days. ABG this am: 7.45/32/66. WBC 27-->29.1. On heparin. 08/24: On PSV 10/5, FIO2 35%. SPO2 97-99%. RR 18/24. Lethargic. Arousable to noxious stimuli. Moves all 4 extremities but not to command. Currently afebrile. T-max (24) 101.5 F. Started on vancomycin for trach aspirate isolating gram-positive cocci in clusters. WBC 29.1>28. 08/25: Mental status the same. Arouses to voice but does not fully commands. 08/26:Arousable. Not following commands. 08/27: Less responsive, higher WBC. New firmness in LUQ of abd. CT pending. 08/28: Has rectus sheath hematoma with no evidence of further bleeding. Less responsive, in ARF may be uremic. Dr. Haro consulted. 08/29: No need for EMOTIONAL DISABILITIES TEACHER at this time. Vanco stopped. Trach Wed. 08/30: Trach today 08/31: Trach looks good: Restart TF. 09/01: On trach collar, FiO2 40%. RR 30. Arousable to voice. Does not clearly follow commands. Mouths out "ow!" to pain. Flicker strength in hands and feet. On TF. 09/02: On trach collar, FiO2 40%. RR 30. Not on sedation, but did get a dose of Ativan 2 mg IV overnight for witnessed seizure activity. She also had a seizure episode yesterday, prompting administration of Ativan 4 mg IV single dose. EEG was obtained, which did not show overt seizure activity (after administration of Ativan for first seizure). She has been started on Keppra in the interim. On TF. 09/03: On trach collar, FiO2 40%. RR 33. SpO2 97%. Hypertensive. Awake this a.m. Eyes open. Does appear to visually track intermittently. Mniimal response to noxious stimuli but severely edematous. Spontaneously moves toes and on command. Appears to squeeze hands on command. WBC 18.1. Sodium 128. Potassium 5.0. BG this a.m.: 7.45/28/85. 09/04: On trach collar, FiO2 50%. RR 28. SPO2 96%. ABG this a.m.: 7.45/30/83. Hypertensive. Started on amlodipine and lisinopril yesterday and eventually needed Cardene infusion. Opens eyes to voice and tactile stimuli. Night team reported concern for possible recurrent seizure activity. She has been demonstrating intermittent rhythmic lower extremity twitching. Initially reported as bilateral but currently involving left lower extremity only. WBC 20.2. Sodium 128. Potassium 5.7. proBNP 22,300. 09/05: Got Bumex 2 mg IV single dose yesterday afternoon. Cardene infusion had been weaned off yesterday; however, she was restarted on Cardene overnight for SBP 200+. On amlodipine 10 mg p.o. daily, lisinopril 20 mg NG twice daily, metoprolol 50 mg NG every 8 hours, hydralazine 75 mg p.o. every 8 hours. However, the hospital staff reports hydralazine has not been administered due to depletion of hospital supply. WBC 20.2>18. Hemoglobin 8.6>8. ABG this a.m.: 7.48/. Sodium 128, potassium 5.9. BUN 63, creatinine 1.3. Of note, the patient's creatinine has been rising since starting lisinopril. Prealbumin 10.8. Getting EEG today. 09/06: Not waking up. Seizures several days ago. On Cardene for BP. Could there be covid structural brain lesions? Head CT today. 09/07: Unremarkable CT of head. Nicardipine stopped. Try trach collar today. 09/08: Tolerated trach collar all day. Most meds PO now. Await LTAC bed. 09/09: Showing signs of SIRS, WBC elevated, GNR in sputum. 09/10: WBC down somewhat. Acinetobacter and klebsiella in sputum. Review of systems relevant to events:: Pulmonary, neurological. Reason for ICU Addmission:: Respiratory failure secondary to COVID-19 pneumonia, reintubated. - Medications: Medications reviewed and adjusted accordingly: Yes Vasopressors:: None Sedation:: None Physical Exam Vital Signs: Temp Pulse Resp BP Pulse Ox 97.9 F 65 37 H 132/54 H 96 09/10/20 08:00 09/10/20 08:00 09/10/20 08:00 09/10/20 08:00 09/10/20 08:00 Intake & Output 09/09/20 09/10/20 09/11/20 06:59 06:59 06:59 Intake Total 1950 1200 Output Total 795 535 10 Balance 1155 665 -10 Weight 137.7 kg 134.2 kg Weight/Height Weight 134.2 kg Height 5 ft 7 in General appearance: PRESENT: no acute distress, morbidly obese Head exam: PRESENT: atraumatic, normocephalic Eye exam: PRESENT: conjunctiva pink, EOMI, PERRLA. ABSENT: scleral icterus Ear exam: PRESENT: normal external ear exam Mouth exam: PRESENT: moist, tongue midline Neck exam: PRESENT: tracheostomy Respiratory exam: PRESENT: clear to auscultation pinky, tachypnea. ABSENT: rales, rhonchi, wheezes Cardiovascular exam: PRESENT: RRR. ABSENT: diastolic murmur, rubs, systolic murmur GI/Abdominal exam: PRESENT: normal bowel sounds, soft. ABSENT: distended, guarding, mass, organolmegaly, rebound, tenderness Rectal exam: PRESENT: deferred Gentrourinary exam: PRESENT: indwelling catheter Extremities exam: PRESENT: +1 edema Musculoskeletal exam: PRESENT: normal inspection Neurological exam: PRESENT: altered, CN II-XII grossly intact, other - Frowns to touch. Nothing purposeful. Skin exam: PRESENT: dry, intact, warm. ABSENT: cyanosis, rash Tubes/Lines: PRESENT: Dialysis catheter, Nasogastic Tube, Other - Trach Laboratory/Radiographs Laboratory Results: 09/10/20 04:03 09/10/20 04:03 09/09/20 09/10/20 09/10/20 09:25 04:03 04:03 WBC 30.7 H* RBC 2.81 L Hgb 8.2 L Hct 24.2 L MCV 86 MCH 29.3 MCHC 34.0 RDW 16.5 H Plt Count 257 Seg Neutrophils % Not Reportable Carbonic Acid 0.98 L HCO3/H2CO3 Ratio 20:1 ABG pH 7.42 ABG pCO2 32.5 L ABG pO2 85.0 ABG HCO3 20.4 ABG O2 Saturation 96.7 ABG Base Excess -3.7 FiO2 10L Sodium 129.4 L Potassium 5.6 H Chloride 101 Carbon Dioxide 19 L Anion Gap 9 BUN 118 H Creatinine 1.74 H Est GFR ( Amer) 34 L Glucose 110 Calcium 8.4 C-Reactive Protein 09/10/20 04:03 WBC RBC Hgb Hct MCV MCH MCHC RDW Plt Count Seg Neutrophils % Carbonic Acid HCO3/H2CO3 Ratio ABG pH ABG pCO2 ABG pO2 ABG HCO3 ABG O2 Saturation ABG Base Excess FiO2 Sodium Potassium Chloride Carbon Dioxide Anion Gap BUN Creatinine Est GFR ( Amer) Glucose Calcium C-Reactive Protein 239.9 H 09/07/20 08:45 Tracheal Aspirate Gram Stain - Final 09/07/20 08:45 Tracheal Aspirate Sputum Culture - Final Acinetobacter Baumannii/Haem Klebsiella Pneumoniae Normal Mei Absent 08/07/20 08/07/20 08/07/20 00:34 00:35 06:31 Creatine Kinase Troponin I 0.390 NT-Pro-B Natriuret Pep 2780 H 3520 H 08/08/20 08/08/20 08/10/20 04:03 14:56 04:08 Creatine Kinase Troponin I 0.185 NT-Pro-B Natriuret Pep 3740 H 4510 H 08/29/20 09/04/20 05:38 04:25 Creatine Kinase 74 Troponin I NT-Pro-B Natriuret Pep 90408 H Impressions: PICC Line Insertion 08/22/20 00:00 IMPRESSION: SUCCESSFUL PLACEMENT OF A 5 FR DUAL LUMEN 50 CM PICC IN THE LEFT BASILIC VEIN. Abdomen/Pelvis CT 08/27/20 13:45 IMPRESSION: 1. Large left rectus sheath hematoma. Hyperdense ascites in the pelvis may represent mix of fluid and hematoma. 2. Bibasilar multifocal pneumonia. Finding is consistent with history of coated pneumonia. Small left effusion. Chest X-Ray 09/04/20 05:00 IMPRESSION: Slight increase in bibasilar airspace disease. Small left effusion. Head CT 09/06/20 00:00 IMPRESSION: 1. No acute intracranial hemorrhage, mass, or evidence of acute territorial infarct. 2. Moderate chronic small vessel ischemic change. 3. Intracranial atherosclerosis. EVIDENCE OF ACUTE STROKE: NO. KUB X-Ray 09/08/20 00:00 IMPRESSION: The enteric tube is in the distal stomach or proximal small bowel copyright 2011 [employer]- All Rights Reserved All labs, radiographs, diagnostic studies and EKGs were personally reviewed: Yes In addition, reports of radiographic and diagnostic studies were read: Yes Assessment and Plan - Diagnosis (1) COVID-19 virus detected Is this a current diagnosis for this admission?: Yes Plan: Still testing positive. Now with superinfection. Check CXR. (2) Diabetes Qualifiers: Diabetes mellitus type: type 2 Diabetes mellitus intermediate insulin use: unspecified intermediate insulin use status Diabetes mellitus complication status: with kidney complications Is this a current diagnosis for this admission?: Yes Plan: Controlled (3) Leukocytosis Is this a current diagnosis for this admission?: Yes Plan: Improved but WBC still 30K. (4) Hyponatremia Is this a current diagnosis for this admission?: Yes Plan: Level 129.4 (5) Seizure Is this a current diagnosis for this admission?: Yes Plan: No recurrence, keppra stopped. Plan Summary: Place back on trach collar today. Critical Time Critical Time (minutes): 35 Level of Care: ICU Anticipated discharge: Other Anticipated DC Timeframe: Other -: 1. The care of a critical patient is a dynamic process. This note is a claims service representative synopsis but static in nature. The timeframe for treatments given in order is not necessarily the actual time these treatments may have been done. 2. This patient requires critical care secondary to ongoing requirements for therapy not offered or safe outside the critical care environment. Transfer to a lower level of care will result in altered life or limb morbidity and mortality. 3. Multidisciplinary rounds completed. 4. ABCDE bundle addressed.
[2020-09-10] MEDS: CARVEDILOL 12.5 MG TABLET PO SCH ×2 (11:25→22:13)
[2020-09-10] MEDS: ZINC SULFATE 220 MG CAPSULE PO SCH (11:25)
[2020-09-10] MEDS: CHOLECALCIFEROL (D3) 1,000 UNIT (25 MCG) TABLET PO SCH (11:25)
[2020-09-10] MEDS: APIXABAN 2.5 MG TABLET PO SCH (11:25)
[2020-09-10] MEDS: LISINOPRIL 10 MG TABLET NG SCH ×2 (11:25→19:00)
[2020-09-10] MEDS: NORMAL SALINE 10 ML SDV (SCHEDULED) IV SCH ×2 (11:26→21:14)
[2020-09-10] MEDS: DEXAMETHASONE SOD PHOSPHATE INJ 4 MG/1 ML VIAL IV SCH (11:26)
[2020-09-10] MEDS: FAMOTIDINE INJ/PF 20 MG/2 ML SDV IV SCH (11:26)
[2020-09-10] MEDS: AMLODIPINE BESYLATE 10 MG TABLET PO SCH (11:26)
[2020-09-10] MEDS: INSULIN GLARGINE,HUM.REC.ANLOG 1,000 UNIT/10 ML VIAL SUBCUT SCH ×2 (11:43→22:29)
[2020-09-10] MEDS: MEROPENEM 1 GM in NORMAL SALINE 50 ML IV SCH (19:01)
[2020-09-10] MEDS: MORPHINE SULFATE 10 MG/ML INJ IV PRN (20:04)
[2020-09-10] MEDS ORDERED: MIDAZOLAM 2 MG/2 ML INJ IV ONE (22:30)
[2020-09-11] MEDS: INSULIN REG, HUMAN 100 UNIT/ML 3 ML VIAL (PYX) SUBCUT SCH ×3 (00:24→18:00)
[2020-09-11] MEDS: ALBUMIN HUMAN 12.5 GM/50 ML RTUINJ IV SCH ×3 (00:24→20:11)
[2020-09-11] MEDS: ALBUTEROL SULFATE 0.083% NEB 2.5 MG/3 ML AMPUL NEB SCH ×4 (02:35→20:18)
[2020-09-11] MEDS ORDERED: FLUMAZENIL INJ 0.5 MG/5 ML VIAL ONE (05:38)
[2020-09-11] MEDS ORDERED: ATROPINE SULFATE INJ 1 MG/10 ML DISP.SYRIN IV ONE (05:42)
[2020-09-11] MEDS: MEROPENEM 1 GM in NORMAL SALINE 50 ML IV SCH (06:05)
[2020-09-11] MEDS: ASCORBIC ACID 500 MG TABLET NG SCH ×3 (06:08→22:03)
[2020-09-11] MEDS: LEVOTHYROXINE SODIUM 0.15 MG TABLET PO SCH (06:09)
[2020-09-11 07:47] LABS: HEMATOCRIT 19.6 % (36.0-47.0); MEAN CORPUSCULAR HEMOGLOBIN 29.1 pg (27.0-33.4); MEAN CORPUSCULAR HGB CONC 32.7 g/dL (32.0-36.0); MEAN CORPUSCULAR VOLUME 89 fl (80-97); PLATELET COUNT 179 10^3/uL (150-450); RED BLOOD COUNT 2.21 10^6/uL (3.72-5.28); RED CELL DISTRIBUTION WIDTH 16.9 % (11.5-14.0); WHITE BLOOD COUNT 17.7 10^3/uL (4.0-10.5)
[2020-09-11 08:04] LABS: ANION GAP 13 (5-19); BLOOD UREA NITROGEN 119 mg/dL (7-20); CALCIUM 7.5 mg/dL (8.4-10.2); CARBON DIOXIDE 16 mmol/L (22-30); CHLORIDE 105 mmol/L (98-107); GLUCOSE 94 mg/dL (75-110); POTASSIUM 5.6 mmol/L (3.6-5.0)
[2020-09-11] MEDS ORDERED: ATROPINE SULFATE INJ 1 MG/1 ML VIAL ONE ×2 (08:19→12:32)
[2020-09-11 08:25] LABS: HEMOGLOBIN 6.4 g/dL (12.0-15.5)
[2020-09-11 08:29] LABS: ABSOLUTE MONOCYTES # (MANUAL) 0.2 10^3/uL (0.1-1.4); ANISOCYTOSIS SLIGHT; BAND NEUTROPHILS % (MANUAL) 4 % (3-5); BASOPHILS % (MANUAL) 0 % (0-2); BURR CELLS 1+; EOSINOPHILS % (MANUAL) 0 % (0-6); HYPOCHROMASIA SLIGHT; LYMPHOCYTES % (MANUAL) 0 % (13-45); METAMYELOCYTES % (MANUAL) 1 % (0-1); MONOCYTES % (MANUAL) 1 % (3-13); OVALOCYTES SLIGHT; PLATELET COMMENT ADEQUATE; POIKILOCYTOSIS 1+; SEGMENTED NEUTROPHILS % (MAN) 94 % (42-78); TOTAL CELLS COUNTED 100
[2020-09-11] MEDS: BUDESONIDE NEB 0.25 MG/2 ML AMPUL NEB SCH ×2 (08:34→20:18)
[2020-09-11] MEDS ORDERED: EPINEPHRINE INJ/PF 1 MG/1 ML AMPULE ONE ×2 (08:42→11:39)
[2020-09-11] MEDS: DEXTROSE 5%-WATER 250 ML with EPINEPHRINE/PF 1 MG IV PRN ×10 (08:45→23:28)
[2020-09-11] MEDS ORDERED: NORMAL SALINE 250 ML IV PRN ×2 (09:12)
--- NOTE | 2020-09-11 09:57 | RADIOLOGY REPORT (SQ) ---
EXAM DESCRIPTION: CT HEAD WITHOUT IMAGES COMPLETED DATE/TIME: 09/11/2020 9:22 am REASON FOR STUDY: Bilateral blown pupils COMPARISON: CT of the head without contrast from 09/06/2020. TECHNIQUE: Axial images acquired through the brain without intravenous contrast. Images reviewed wi th bone, brain and subdural windows. Additional sagittal and coronal reconstructions were generated. Images stored on PACS. All CT scanners at this facility use dose modulation, iterative reconstruction, and/or weight based d osing when appropriate to reduce radiation dose to as low as reasonably achievable (ALARA). [facility]: Dose Right [facility]: CareDose [facility]: Dose Right [facility]: Teradose 4D [facility]: Smart Blazent RADIATION DOSE: CT Rad equipment meets quality standard of care and radiation dose reduction techniq ues were employed. CTDIvol: 48.9 mGy. DLP: 935 mGy-cm. LIMITATIONS: None. FINDINGS: There is effacement of the cerebral sulci and loss of the govea-white matter differentiatio n. The serpiginous intraparenchymal areas of high attenuation in the right upper lobe (image 23 of s eries 2) are concerning for subarachnoid hemorrhage. The areas of low-attenuation throughout the sup ratentorial periventricular and subcortical white matter are unchanged. There is no acute extra-axia l fluid collection, mass effect or midline shift. The basal subarachnoid cisterns are is effaced. T he caliber of the ventricles is unchanged compared to the CT from 09/06/2020. The globes are aphakic. The orbits are intact. There is a nasoenteric tube in place. The mucosal l ining of the maxillary sinuses is mildly thickened. There is no fracture of the calvarium. IMPRESSION: Loss of the govea-white matter differentiation and effacement of the cerebral sulci and b liliam subarachnoid cisterns concerning for diffuse cerebral edema. The serpiginous intraparenchymal areas of high attenuation in the right upper lobe (image 23 of serie s 2) could represent subarachnoid hemorrhage. EVIDENCE OF ACUTE STROKE: NO. COMMENT: This report was called to HARSHIL MAYA MD at09:49 on 09/11/2020. Quality ID # [id number]: Final reports with documentation of one or more dose reduction techniques (e.g., Au tomated exposure control, adjustment of the mA and/or kV according to patient size, use of iterative reconstruction technique) TECHNICAL DOCUMENTATION: JOB ID: [id number] 2010 [employer]- All Rights Reserved Reading location - IP/workstation name: [email or web address]
[2020-09-11] MEDS ORDERED: PANTOPRAZOLE SODIUM 40 MG VIAL IV SCH (10:00)
[2020-09-11] MEDS ORDERED: ATROPINE SULFATE INJ 1 MG/1 ML VIAL IV ONE (11:00)
--- NOTE | 2020-09-11 11:02 | PDOC CRITICAL CARE PROG REPORT ---
General Date:: 09/11/20 ICU Day:: 36 Ventilator Day:: 36 Hospital Day:: 36 Resuscitation Status: Full Code Events in the past 12 to 24 Hours:: Not able to make meaningful changes to vent. Awake. 08/15: Not quite ready to extubate. 08/16: Pt extubated this AM. 08/18: Not able to wean much today. 08/19: Lowering sedation and changing to precedex. Hgb 6.8 no sign of bleeding needs blood. 08/20: Transfusions given. Hgb 10. Too sleepy to extubate. 08/21: apparently failed SBT yesterday. Overnight, switched from PSV to PRVC, unclear why. Off sedation. Awake, follows commands, but sluggishly. On PRVC 15/450/35/5, RR 24. 08/22: remains on PSV 14/5. awake but still slow to follow commands. off sedation x 2 days. developed fever yesterday (T-max 100.6 F). finished course of Zyvox yesterday. WBC 24.1> 27. Platelets 465. On heparin gtt. on TF and water flushes. 08/23: on PSV 12/5. Temp 101.5 F. Trach aspirate isolating Gram positive cocci in clusters. Winces to pain. slow to follow commands. off sedation x 2 days. ABG this am: 7.45/32/66. WBC 27-->29.1. On heparin. 08/24: On PSV 10/5, FIO2 35%. SPO2 97-99%. RR 18/24. Lethargic. Arousable to noxious stimuli. Moves all 4 extremities but not to command. Currently afebrile. T-max (24) 101.5 F. Started on vancomycin for trach aspirate isolat ing gram-positive cocci in clusters. WBC 29.1>28. 08/25: Mental status the same. Arouses to voice but does not fully commands. 08/26:Arousable. Not following commands. 08/27: Less responsive, higher WBC. New firmness in LUQ of abd. CT pending. 08/28: Has rectus sheath hematoma with no evidence of further bleeding. Less responsive, in ARF may be uremic. Dr. Haro consulted. 08/29: No need for LONG TERM ACUTE CARE REGISTERED NURSE at this time. Vanco stopped. Trach Wed. 08/30: Trach today 08/31: Trach looks good: Restart TF. 09/01: On trach collar, FiO2 40%. RR 30. Arousable to voice. Does not clearly follow commands. Mouths out "ow!" to pain. Flicker strength in hands and feet. On TF. 09/02: On trach collar, FiO2 40%. RR 30. Not on sedation, but did get a dose of Ativan 2 mg IV overnight for witnessed seizure activity. She also had a seizure episode yesterday, prompting administration of Ativan 4 mg IV single dose. EEG was obtained, which did not show overt seizure activity (after administration of Ativan for first seizure). She has been started on Keppra in the interim. On TF. 09/03: On trach collar, FiO2 40%. RR 33. SpO2 97%. Hypertensive. Awake this a.m. Eyes open. Does appear to visually track intermittently. Mniimal response to noxious stimuli but severely edematous. Spontaneously moves toes and on command. Appears to squeeze hands on command. WBC 18.1. Sodium 128. Potassium 5.0. BG this a.m.: 7.45/28/85. 09/04: On trach collar, FiO2 50%. RR 28. SPO2 96%. ABG this a.m.: 7.45/30/83. Hypertensive. Started on amlodipine and lisinopril yesterday and eventually needed Cardene infusion. Opens eyes to voice and tactile stimuli. Night team reported concern for possible recurrent seizure activity. She has been demonstrating intermittent rhythmic lower extremity twitching. Initially reported as bilateral but currently involving left lower extremity only. WBC 20.2. Sodium 128. Potassium 5.7. proBNP 22,300. 09/05: Got Bumex 2 mg IV single dose yesterday afternoon. Cardene infusion had been weaned off yesterday; however, she was restarted on Cardene overnight for SBP 200+. On amlodipine 10 mg p.o. daily, lisinopril 20 mg NG twice daily, metoprolol 50 mg NG every 8 hours, hydralazine 75 mg p.o. every 8 hours. However, the hospital staff reports hydralazine has not been administered due to depletion of hospital supply. WBC 20.2>18. Hemoglobin 8.6>8. ABG this a.m.: 7.48/. Sodium 128, potassium 5.9. BUN 63, creatinine 1.3. Of note, the patient's creatinine has been rising since starting lisinopril. Prealbumin 10.8. Getting EEG today. 09/06: Not waking up. Seizures several days ago. On Cardene for BP. Could there be covid structural brain lesions? Head CT today. 09/07: Unremarkable CT of head. Nicardipine stopped. Try trach collar today. 09/08: Tolerated trach collar all day. Most meds PO now. Await LTAC bed. 09/09: Showing signs of SIRS, WBC elevated, GNR in sputum. 09/10: WBC down somewhat. Acinetobacter and klebsiella in sputum. 09/11: Bradycardic today. Now on epi drip. Pupils found to be large and dilated. Ct shows evidence of cerebral edema. Review of systems relevant to events:: Neurological, CV, Pulmonary. Reason for ICU Addmission:: Respiratory failure secondary to COVID-19 pneumonia, reintubated. - Medications: Medications reviewed and adjusted accordingly: Yes Vasopressors:: Epinephrine Sedation:: None Physical Exam Vital Signs: Temp Pulse Resp BP Pulse Ox 96.8 F L 51 L 14 99/44 L 100 09/11/20 08:00 09/11/20 08:35 09/11/20 08:35 09/11/20 08:00 09/11/20 08:35 Intake & Output 09/10/20 09/11/20 09/12/20 06:59 06:59 06:59 Intake Total 1200 1275 Output Total 535 200 0 Balance 665 1075 0 Weight 134.2 kg 140.6 kg Weight/Height Weight 140.6 kg Height 5 ft 7 in General appearance: PRESENT: no acute distress, morbidly obese Head exam: PRESENT: atraumatic, normocephalic Eye exam: PRESENT: conjunctiva pink, EOMI, PERRLA. ABSENT: scleral icterus Ear exam: PRESENT: normal external ear exam Mouth exam: PRESENT: moist, tongue midline Neck exam: ABSENT: carotid bruit, JVD, lymphadenopathy, thyromegaly Respiratory exam: PRESENT: clear to auscultation pinky. ABSENT: rales, rhonchi, wheezes Cardiovascular exam: PRESENT: bradycardia, RRR. ABSENT: diastolic murmur, rubs, systolic murmur GI/Abdominal exam: PRESENT: normal bowel sounds, soft. ABSENT: distended, guarding, mass, organolmegaly, rebound, tenderness Rectal exam: PRESENT: deferred Gentrourinary exam: PRESENT: indwelling catheter Extremities exam: PRESENT: +1 edema Musculoskeletal exam: PRESENT: normal inspection Neurological exam: PRESENT: other - Now is unresponsive. Skin exam: PRESENT: dry, intact, warm. ABSENT: cyanosis, rash Tubes/Lines: PRESENT: Nasogastic Tube, Other - Trach Laboratory/Radiographs Laboratory Results: 09/11/20 05:40 09/11/20 05:40 09/11/20 09/11/20 09/11/20 05:40 05:40 05:40 WBC 17.7 H RBC 2.21 L Hgb 6.4 L Hct 19.6 L MCV 89 MCH 29.1 MCHC 32.7 RDW 16.9 H Plt Count 179 Seg Neutrophils % Not Reportable Sodium 133.7 L Potassium 5.6 H Chloride 105 Carbon Dioxide 16 L Anion Gap 13 BUN 119 H Creatinine 1.97 H Est GFR ( Amer) 29 L Glucose 94 Calcium 7.5 L C-Reactive Protein 233.9 H 09/07/20 05:00 Catheterized Urine Urine Culture - Final Enterobacter Cloacae 08/07/20 08/07/20 08/07/20 00:34 00:35 06:31 Creatine Kinase Troponin I 0.390 NT-Pro-B Natriuret Pep 2780 H 3520 H 08/08/20 08/08/20 08/10/20 04:03 14:56 04:08 Creatine Kinase Troponin I 0.185 NT-Pro-B Natriuret Pep 3740 H 4510 H 08/29/20 09/04/20 05:38 04:25 Creatine Kinase 74 Troponin I NT-Pro-B Natriuret Pep 02827 H Impressions: PICC Line Insertion 08/22/20 00:00 IMPRESSION: SUCCESSFUL PLACEMENT OF A 5 FR DUAL LUMEN 50 CM PICC IN THE LEFT BASILIC VEIN. Abdomen/Pelvis CT 08/27/20 13:45 IMPRESSION: 1. Large left rectus sheath hematoma. Hyperdense ascites in the pelvis may represent mix of fluid and hematoma. 2. Bibasilar multifocal pneumonia. Finding is consistent with history of coated pneumonia. Small left effusion. Chest X-Ray 09/04/20 05:00 IMPRESSION: Slight increase in bibasilar airspace disease. Small left effusion. KUB X-Ray 09/08/20 00:00 IMPRESSION: The enteric tube is in the distal stomach or proximal small bowel copyright 2011 [employer]- All Rights Reserved Head CT 09/11/20 00:00 IMPRESSION: Loss of the govea-white matter differentiation and effacement of the cerebral sulci and basal subarachnoid cisterns concerning for diffuse cerebral edema. The serpiginous intraparenchymal areas of high attenuation in the right upper lobe (image 23 of series 2) could represent subarachnoid hemorrhage. EVIDENCE OF ACUTE STROKE: NO. All labs, radiographs, diagnostic studies and EKGs were personally reviewed: Yes In addition, reports of radiographic and diagnostic studies were read: Yes Assessment and Plan - Diagnosis (1) COVID-19 virus detected Is this a current diagnosis for this admission?: Yes Plan: This is the likely cause of her cerebral edema. No trauma, arrest, anoxia. This leaves viral edema. 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 (3) Leukocytosis Is this a current diagnosis for this admission?: Yes Plan: Improved. (4) Hyponatremia Is this a current diagnosis for this admission?: Yes Plan: Improved with a Na level of 134. (5) Seizure Is this a current diagnosis for this admission?: Yes Plan: No recurrence Plan Summary: With the new finding of cerebral edema her survivability is very low. Her son Prieto will be coming in to see her. Full code for now. Critical Time Critical Time (minutes): 35 Level of Care: ICU Anticipated discharge: Other Anticipated DC Timeframe: Other -: 1. The care of a critical patient is a dynamic process. This note is a senior patient account representative synopsis but static in nature. The timeframe for treatments given in order is not necessarily the actual time these treatments may have been done. 2. This patient requires critical care secondary to ongoing requirements for therapy not offered or safe outside the critical care environment. Transfer to a lower level of care will result in altered life or limb morbidity and mortality. 3. Multidisciplinary rounds completed. 4. ABCDE bundle addressed.
[2020-09-11] MEDS: CHOLECALCIFEROL (D3) 1,000 UNIT (25 MCG) TABLET PO SCH (13:00)
[2020-09-11] MEDS: DEXAMETHASONE SOD PHOSPHATE INJ 4 MG/1 ML VIAL IV SCH (13:00)
[2020-09-11] MEDS: ZINC SULFATE 220 MG CAPSULE PO SCH (13:00)
[2020-09-11] MEDS: SUCRALFATE 1 GM TABLET PO SCH ×3 (13:00→18:16)
[2020-09-11 13:14] LABS: PATH REVIEW PATHOLOGIST REVIEWED
[2020-09-11] MEDS: CARVEDILOL 12.5 MG TABLET PO SCH ×2 (16:46→21:12)
[2020-09-11] MEDS: NORMAL SALINE 10 ML SDV (SCHEDULED) IV SCH ×2 (16:47→21:15)
[2020-09-11] MEDS: LISINOPRIL 10 MG TABLET NG SCH (16:47)
[2020-09-11] MEDS: AMLODIPINE BESYLATE 10 MG TABLET PO SCH (16:47)
[2020-09-11] MEDS: INSULIN GLARGINE,HUM.REC.ANLOG 1,000 UNIT/10 ML VIAL SUBCUT SCH ×2 (19:58→22:05)
[2020-09-11] MEDS ORDERED: NOREPINEPHRINE BITARTRATE INJ/PF 4 MG/4 ML SDV IV ONE (23:31)
[2020-09-12] MEDS ORDERED: DEXTROSE 5%-WATER 250 ML with NOREPINEPHRINE BITARTRATE 4 MG IV PRN ×2 (00:30)
[2020-09-12 00:40] VITALS: BP 96/45
[2020-09-12] MEDS: SUCRALFATE 1 GM TABLET PO SCH (00:40)
--- NOTE | 2020-09-12 00:53 | PDOC CONSULTATION ---
Consultation-Blank Consultation: Chart Reviewed. Unfortunate 85 year old female covid + with mutisystem organ failure and currently reasonable to change her care to comfort care only. Son is aware and in agreement with this plan. This is reasonable given her downward course at this time.
--- NOTE | 2020-09-12 02:31 | Death Summary ---
Summary Date : 09/12/20 Time of :: 01:11 Autopsy: No Resuscitation Status: Comfort Measures Only - Final Diagnosis (1) Acute respiratory failure with hypoxia Is this a current diagnosis for this admission?: Yes (2) COVID-19 virus detected Is this a current diagnosis for this admission?: Yes (3) Diabetes Is this a current diagnosis for this admission?: Yes Hospital Course:: Mrs. Squires was a 85-year-old woman with a history of CHF, COPD, DM 2 and a remote history of breast cancer. She was admitted to [facility] due to shortness of breath. SPO2 at that time was 40% and she was intubated in the field by EMS. Rapid Covid test was found to be positive. I was initially called by the emergency department to evaluate her for admission to the intensive care unit on 08/07/2020. Hospital course was complicated by multiple infections including pneumonia as well as associated multisystem organ failure. Tracheostomy tube placed on 08/30/2020. She was able to be weaned to trach collar mask and was showing signs of improvement. Unfortunately by 09/09/2020 she began showing signs of SIRS. On 125 she became acutely bradycardic and was placed on epinephrine drip. Her pupils were found to be dilated and not reactive to light. CT scan showed evidence of severe cerebral edema. Throughout the course of the day, she was supported on multiple vasoactive medications including epinephrine and Levophed. Despite this she remained bradycardic. As per the patient's known wishes and with consent of the patient's next of kin including her son, the decision to remove her from ventilatory and vasoactive support was made. Patient was made comfortable and comfort measures only were in place. Patient minutes after removing ventilatory support. Patient's son was at bedside and is aware of her .
[2020-09-12] MEDS: ALBUTEROL SULFATE 0.083% NEB 2.5 MG/3 ML AMPUL NEB SCH (05:07)
== END 2020-09-12 01:14 | DRG 4 ==
LOC: ER 00:27 → EH 04:29 → ICU 05:20
PROVIDERS: ADMIT Anesthesiology; ATTEND Anesthesiology
PROC: 5A1955Z Respiratory Ventilation, Greater than 96 Consecutive Hours (ICD-10-PCS; 2020-08-07)
PROC: B24BZZZ Ultrasonography of Heart with Aorta (ICD-10-PCS; 2020-08-08)
PROC: 30233N1 Transfusion of Nonautologous Red Blood Cells into Peripheral Vein, Percutaneous Approach (ICD-10-PCS; 2020-08-19)
PROC: 02HV33Z Insertion of Infusion Device into Superior Vena Cava, Percutaneous Approach (ICD-10-PCS; 2020-08-22)
PROC: B548ZZA Ultrasonography of Superior Vena Cava, Guidance (ICD-10-PCS; 2020-08-22)
PROC: 0B110F4 Bypass Trachea to Cutaneous with Tracheostomy Device, Open Approach (ICD-10-PCS; principal; 2020-08-30)
DX: U07.1 COVID-19 (principal); J12.82 Pneumonia due to coronavirus disease 2019; J96.01 Acute respiratory failure with hypoxia; J15.212 Pneumonia due to Methicillin resistant Staphylococcus aureus; I21.4 Non-ST elevation (NSTEMI) myocardial infarction; E43 Unspecified severe protein-calorie malnutrition; E87.2 Acidosis; E87.1 Hypo-osmolality and hyponatremia; J44.0 Chronic obstructive pulmonary disease with (acute) lower respiratory infection; N17.9 Acute kidney failure, unspecified; G93.1 Anoxic brain damage, not elsewhere classified; I13.0 Hypertensive heart and chronic kidney disease with heart failure and stage 1 through stage 4 chronic kidney disease, or unspecified chronic kidney disease; Z51.5 Encounter for palliative care; I48.91 Unspecified atrial fibrillation; I25.10 Atherosclerotic heart disease of native coronary artery without angina pectoris; I50.9 Heart failure, unspecified; I12.9 Hypertensive chronic kidney disease with stage 1 through stage 4 chronic kidney disease, or unspecified chronic kidney disease; E11.22 Type 2 diabetes mellitus with diabetic chronic kidney disease; J44.9 Chronic obstructive pulmonary disease, unspecified; M79.81 Nontraumatic hematoma of soft tissue; E87.5 Hyperkalemia; I44.7 Left bundle-branch block, unspecified; R40.2432 Glasgow coma scale score 3-8, at arrival to emergency department; R56.9 Unspecified convulsions; E66.01 Morbid (severe) obesity due to excess calories; E78.5 Hyperlipidemia, unspecified; T36.8X5A Adverse effect of other systemic antibiotics, initial encounter; Y92.230 Patient room in hospital as the place of occurrence of the external cause; N18.30 Chronic kidney disease, stage 3 unspecified; E11.21 Type 2 diabetes mellitus with diabetic nephropathy; K21.9 Gastro-esophageal reflux disease without esophagitis; Z78.1 Physical restraint status; Z90.49 Acquired absence of other specified parts of digestive tract; Z85.3 Personal history of malignant neoplasm of breast; Z88.2 Allergy status to sulfonamides; Z88.6 Allergy status to analgesic agent; Z88.8 Allergy status to other drugs, medicaments and biological substances; Z90.11 Acquired absence of right breast and nipple
CPT/HCPCS: 320; 36415; 36430; 36573; 36600; 51702; 70450; 71045; 74018; 74176; 80048; 80053; 80177; 80202; 81001; 82533; 82550; 82565; 82803; 82962; 83605; 83615; 83735; 83880; 83930; 83935; 84100; 84134; 84300; 84478; 84484; 85025; 85027; 85379; 85610; 85730; 86140; 86850; 86900; 86901; 86920; 87040; 87070; 87077; 87086; 87088; 87186; 87205; 87635; 93005; 93010; 93306; 94002; 94003; 95819; 96365; 96375; 99291; 99292; C9113; C9803; J0171; J0330; J0461; J0696; J1100; J1642; J1644; J1815; J1940; J1953; J2020; J2060; J2185; J2250; J2270; J2543; J2704; J3010; J3370; J3480; J3490; J7030; J7040; J7042; J7060; J7120; J7613; P9016; P9047; S0028